=== PATIENT | female | born 1990 | race Caucasian/White ===

== ENCOUNTER 2020-12-24 20:49 | Emergency (ER) | payer MEDICAID, SELFPAY ==
[2020-12-24 20:49] VITALS: BP 133/76; PULSE 50; RESP 18; TEMP 36.2; O2SAT 98; BMI 24.2
--- NOTE | 2020-12-24 21:02 | CT_ITS ---
HISTORY: LEFT SIDED BACK PAIN WITH VOMITING X 1 DAY, HX KS IN PAST WITH ONE LITHOTRIPSY TECHNIQUE: Helically acquired images were obtained of the abdomen and pelvis without oral or IV contrast. A radiation dose optimization technique was used for this scan. COMPARISON: None FINDINGS: # of images incl. paperwork: 442 LUNG BASES: clear. CT abdomen: Bones are unremarkable. The gallbladder has been resected.. Liver, spleen, pancreas, and adrenal glands are normal. The kidneys are normal. The aorta is normal. There is no intra-or extrahepatic biliary ductal dilatation. CT pelvis: No ascites is noted. The ap pendix is normal. Series 2 Im 95 The uterus and ovaries are not pathologically enlarged . The bladder is decompressed Bowel gas pattern is normal. CT/Abdomen/Pelvis without Cont IMPRESSION: No acute intra-abdominal or pelvic disease. Individualized dose optimization techniques were used for this CT. at 2236 Reported and signed by: Tejas Archer MD Electronically Signed: Tejas Archer MD at 22:35 EST Tel , Service support ,
[2020-12-24] MEDS: Ketorolac 30 MG/ML Syringe IV (21:19)
[2020-12-24] MEDS: Ondansetron 4 MG/2 ML Vial IV (21:19)
[2020-12-24] MEDS: morphine 8 MG/ML Syringe IV (21:19)
[2020-12-24] MEDS: 0.9% Normal Saline 1,000 ML 250 ML IV (21:19)
[2020-12-24 21:22] LABS: Absolute Lymphocyte Count 1.25 X10^3/uL (0.83-4.51); Basophil# 0.03 X10^3/uL; Basophil% 0.4 % (0-1); Eosinophil# 0.01 X10^3/uL; Eosinophils% 0.1 % (0-5); Hematocrit 43.5 % (37-47); Hemoglobin 14.4 g/dL (12.0-15.0); Lymphocyte # 1.25 X10^3/ul (4.0); Lymphocyte % 14.8 % (19-41); Mean Corp Hgb Conc 33.1 g/dL (32-36); Mean Corpuscular Hgb 29.2 pg (27.0-32.0); Mean Corpuscular Volume 88.2 fL (81-99); Monocyte# 0.18 X10^3/uL; Monocyte% 2.1 % (0-10); NRBC Flagged by Analyzer 0 % (0-5); Neutrophil # 6.97 X10^3/uL (2.7-7.7); Neutrophil % 82.2 % (47-70); Platelet Count 340 K/mm3 (150-450); RBC Distribution Width CV 13.4 % (11.6-14.6); RBC Distribution Width SD 43.6 fl (35.1-43.9); Red Blood Count 4.93 M/mm3 (4.2-5.4); White Blood Count 8.5 K/mm3 (4.4-11.0)
[2020-12-24 21:26] VITALS: BP 124/82; PULSE 48; RESP 15; O2SAT 99
--- NOTE | 2020-12-24 21:32 | ED.VIS.GEN ---
History of Present Illness Chief Complaint: Nausea/Vomiting Informant: Patient Onset: Days Maximum Severity: Mild Narrative: Flank pain and nausea and vomiting for days, prior history of 5 years ago of a large kidney stone on the left nothing recent, no fever no cough normal bowel bladder habits, denies no dysuria coronavirus exposures Past Medical History - Allergies and Home Meds Allergies/Adverse Reactions: Allergies No Known Allergies Allergy (Verified 12/24/20 20:51) Primary Care Physician: NOT,DEFINED [NON-STAFF] - Past Medical History: - - Kidney stones Smoking Status: Current some day smoker Review of Systems General: Denies: Chills, Fever, Sweats Eyes: Denies: Visual changes - bilaterally, Diplopia ENT: Denies: Rhinorrhea, Sore throat Cardiovascular: Denies: Chest pain, Palpitations Respiratory: Denies: Dyspnea, Cough, Dyspnea on exertion Gastrointestinal: Reports: Vomiting. Denies: Abdominal pain, Nausea, Diarrhea, Melena, Hematochezia Genitourinary: Denies: Dysuria, Hematuria, Frequency Musculoskeletal: Reports: Back pain. Denies: Extremity Pain Skin: Denies: Rash, Wounds Neurological: Denies: Headache, Weakness, Numbness Physical Exam Vital Signs/Narrative: Vital Signs Temp Pulse Resp BP Pulse Ox 12/24/20 21:26 48 L 15 124/82 H 99 12/24/20 20:49 97.1 F L 50 L 18 133/76 H 98 General: Well nourished, Well developed, No Acute Distress Head: Normocephalic, Atraumatic Eyes: Perrl, EOMI ENT: Moist mucous membranes, No rhinorrhea Neck: Supple, Nontender Cardiovascular: Regular rate, Regular rhythm, No murmurs Respiratory: No distress, CTA bilaterally, Chest nontender Abdomen: Soft, Nontender, Nondistended, Normal bowel sounds Back: Normal Inspection, CVA tenderness Extremities: Nontender, No edema Skin: Normal color, No rash Neurological: Alert, Oriented x3, Cranial nerves II-XII grossly intact, Normal Strength, Normal Sensation Psychological: Normal affect, Normal Mood Diagnostic/Tx/Re-eval - Medical Decision Making Patient's vital signs are unremarkable she is a very mild pain to the left flank area, abdomen soft and nontender given all the above ED screening evaluation pain management CT ED screening evaluation labs are generally unremarkable see those reports her blood sugar is 132 she has no known history of diabetes prelim UA shows nothing acute if formal UA shows any signs of UTI she will be treated, she has no history of [place] no UTI symptoms, flank CT shows nothing acute appendix normal as are other intra-abdominal structures He received IV fluids I explained all the above to her she is comfortable with discharge home to follow with her outpatient providers she will be given Naprosyn and Zofran and will return for change in symptoms Home stable Final impression left flank pain with vomiting etiology unclear ED Disposition - Plan for ED Patient: Diagnosis: Flank pain Instructions: ED Flank Pain, Uncertain Cause Prescriptions: Naproxen [Naprosyn] 500 mg PO BID PRN #20 tab Prescription Printed Ondansetron [Zofran Odt] 4 mg PO Q8H PRN PRN #10 tab PRN Reason: Nausea Prescription Printed Referrals: NOT,DEFINED [NON-STAFF] -
[2020-12-24 21:36] LABS: Anion Gap 5 (5-15); BUN 18 mg/dL (7-18); BUN/Creat Ratio 21.4 RATIO (10-20); Calcium,Total 9.5 mg/dL (8.5-10.1); Chloride 104 mmol/L (98-107); Creatinine, Serum 0.84 mg/dL (0.55-1.02); EST Glomerular Filtration Rate 85 mL/min (>60); Est Glom Filt Rate - Afr Amer 103 mL/min (>60); Estimated Creatinine Clearance 92.51 ml/min; Glucose 132 mg/dL (74-106); Lipase 92 U/L (73-393); Potassium 3.6 mmol/L (3.5-5.1); Sodium Level 137 mmol/L (136-145)
[2020-12-24 21:50] LABS: AST(SGOT) 41 U/L (15-37); Alanine Aminotransfer ALT/SGPT 88 U/L (13-56); Albumin, Serum 4.2 g/dL (3.2-5.0); Alkaline Phosphatase 45 U/L (45-117); Bilirubin, Direct 0.12 mg/dL (0.00-0.30); Protein, Total 8.2 g/dL (6.4-8.2)
[2020-12-24 21:58] LABS: Internal QC Validated? YES +Cl - CLEAR BKGD; Pregnancy, Serum, hCG Quali. NEGATIVE Negative
[2020-12-24 22:43] LABS: Color, Urine Yellow (Yellow); Glucose, Dipstick Normal (Normal); Leukocyte Esterase-Dipstick 25 /ul (Negative); Nitrite-Dipstick Negative (Negative); Occult Blood-Urine Negative /ul (Negative); Protein-Dipstick 30 mg/dl (Negative); Urine Bilirubin Dipstick Negative (Negative); Urine Clarity Sl. Cloudy (Clear); Urine Urobilinogen Normal (Normal)
[2020-12-24 23:01] LABS: Ketone-Dipstick 150 mg/dl (Negative)
[2020-12-24 23:05] LABS: Bacteria RARE /hpf (None Seen); Mucous, Urine 2+ /hpf (<or=2+); Red Blood Cells-Urine 0-5 SEEN /hpf (0-5); Squamous Epithelial Cells - UA 5-10 SEEN /hpf (5-10); White Blood Cells 0-5 SEEN /hpf (0-5)
== END 2020-12-24 23:27 | disposition home or self-care (01) ==
LOC: ED 21:34
PROVIDERS: Emergency Provider Emergency Medicine
DX: R10.9 Unspecified abdominal pain (principal); R11.2 Nausea with vomiting, unspecified; Z87.442 Personal history of urinary calculi; F17.200 Nicotine dependence, unspecified, uncomplicated
CPT/HCPCS: 74176; 80048; 80076; 81001; 83690; 84703; 85025; 87086; 87088; 96361; 96374; 96375; 99282; J7030; A4216; J2405

== ENCOUNTER 2020-12-31 10:02 | Emergency (ER) | payer MEDICAID, SELFPAY ==
[2020-12-31 10:03] VITALS: BP 142/94; PULSE 64; RESP 20; TEMP 36.6; O2SAT 100; BMI 25.0
[2020-12-31 10:04] VITALS: BP 142/94; PULSE 64; RESP 20; TEMP 36.6; O2SAT 100
--- NOTE | 2020-12-31 10:14 | ED.DCSUM_ITS ---
History of Present Illness Chief Complaint: Flank Pain Informant: Patient - Abdominal Pain/Flank Pain Onset: Yesterday Context: Sudden Onset - while at rest Timing: Continuous, Waxes and wanes Quality: Aching Location: Left Flank Current Severity: Moderate Maximum Severity: Severe Worsened by: Nothing Relieved by: Nothing - Nausea/Vomiting/Emesis GI Symptom: Nausea, Vomiting Quality: Nonbilious. Negative for: Blood streaks Severity: Moderate - Diarrhea/Melena/Hematochezia GI Symptom: Negative for: Diarrhea, Melena, Hematochezia Associated Symptoms: Negative for: Dysuria, Frequency, Hematuria, Urgency Narrative: Patient with sudden onset severe left flank pain that started last night, no abdominal pain, although now she is having some soreness due to all of the vomiting, pain is mostly in her left low back. History of kidney stones including lithotripsy for a 10 mm stone remotely, she used to live in the [facility] area and does not remember the urologist that she had there but states she lives locally around here now does not yet have a local urologist. States that she was here for similar pain about a week ago and had a negative CT, the pain went away but now came back in a similar. She denies any urinary symptoms or other symptoms. Prior similar symptoms: Yes - With prior kidney stones - Past Medical History (1) Kidney stones Status: Chronic Past Medical History - Allergies and Home Meds Allergies/Adverse Reactions: Allergies No Known Allergies Allergy (Verified 12/31/20 10:04) Primary Care Physician: Care Physician,No Primary [Primary Care Provider] - Surgical History: cholecystectomy Smoking Status: Current some day smoker Review of Systems General: Denies: Chills, Fever, Sweats Eyes: Denies: Visual changes - bilaterally, Diplopia ENT: Denies: Rhinorrhea, Sore throat Cardiovascular: Denies: Chest pain, Palpitations Respiratory: Denies: Dyspnea, Cough, Dyspnea on exertion Gastrointestinal: Reports: Nausea, Vomiting. Denies: Abdominal pain, Diarrhea, Melena, Hematochezia Genitourinary: Denies: Dysuria, Hematuria, Frequency Musculoskeletal: Reports: Back pain. Denies: Swelling, Extremity Pain Skin: Denies: Rash, Wounds Neurological: Denies: Headache, Weakness, Numbness Physical Exam Vital Signs/Narrative: Vital Signs Temp Pulse Resp BP Pulse Ox 12/31/20 10:03 97.9 F 64 20 H 142/94 H 100 Inital Vital Signs reviewed: Yes General: Well nourished, Well developed, No Acute Distress Head: Normocephalic, Atraumatic Eyes: Perrl, EOMI ENT: Moist mucous membranes, No rhinorrhea Neck: Supple, Nontender Cardiovascular: Regular rate, Regular rhythm, No murmurs Respiratory: No distress, CTA bilaterally, Chest nontender Abdomen: Soft, Nondistended, Normal bowel sounds, Tender - Mild throughout left side. Negative for: Guarding, Rebound tenderness Back: Normal Inspection, CVA tenderness - Left only. No rash. Extremities: Nontender, No edema Skin: Normal color, No rash, No Trauma Neurological: Alert, Oriented x3, Cranial nerves II-XII grossly intact, Normal S trength, Normal Sensation, Normal Gait Psychological: Normal affect, Normal Mood Diagnostic/Tx/Re-eval Impressions Abdomen/Pelvis CT 12/31/20 10:18 IMPRESSION: 2.6 cm x 3.1 cm complex cyst in the right ovary. Status post cholecystectomy with mild intrahepatic biliary ductal dilatation. Electronically Signed: Blane Villanueva MD at 11:12 EST , Service support , 12/31/20 10:18 CT Abd [Abdomen/Pelvis W IV Cont ONLY] [CT] Stat Laboratory Results 12/31/20 12/31/20 12/31/20 10:20 10:20 12:10 WBC 8.9 RBC 4.74 Hgb 14.1 Hct 43.1 MCV 90.9 MCH 29.7 MCHC 32.7 RDW Std Deviation 45.3 H RDW Coeff of Gregoria 13.6 Plt Count 308 MPV 9.8 Immature Gran % (Auto) 0.500 Neut % (Auto) 80.0 H Lymph % (Auto) 14.9 L Schley % (Auto) 3.8 Eos % (Auto) 0.5 Baso % (Auto) 0.3 Absolute Neuts (auto) 7.1 Absolute Lymphs (auto) 1.32 Nucleated RBC % 0 Sodium 140 Potassium 3.7 Chloride 107 Carbon Dioxide 30.0 Anion Gap 3 L BUN 13 Creatinine 0.86 Estim Creat Clear Calc 86.85 Est GFR (MDRD) Af Amer 101 Est GFR (MDRD) Non-Af 83 BUN/Creatinine Ratio 15.2 Glucose 112 H Calcium 8.9 Urine Color Yellow Urine Clarity Sl. Cloudy Urine pH 8.0 Ur Specific Irving 1.010 Urine Protein 15 H Urine Glucose (UA) Normal Urine Ketones 15 H Urine Occult Blood Negative Urine Nitrite Negative Urine Bilirubin Negative Urine Urobilinogen Normal Ur Leukocyte Esterase Negative Urine RBC 0 SEEN Urine WBC 0 SEEN Ur Squamous Epith Cells 0-5 SEEN Urine Bacteria 0 SEEN Urine Mucus 0 SEEN - Medical Decision Making Patient recently had a negative noncontrasted CT for similar symptoms. I repeated her renal function which is normal, her blood counts are normal, and performed a repeat CT but with IV contrast to better evaluate for other pathology such as renal infarct, diverticulitis, etc. This also was negative for any acute pathology. Urine shows no infection. The CT did show a complex right ovarian cyst which I discussed with the patient but I do not think that is related to her pain and is an incidental finding. She is not really tender in her pelvis, and barely tender on the left side when she was in discomfort, so I do not think this is an ovarian process at all. As I discussed with her musculoskeletal and functional GI etiologies are in the differential even with normal CT and labs. She has not been constipated so it is not that. I advised close outpatient follow-up if she continues to have discomfort but I would recommend against narcotics at this time given the possibility of it constipating her and confusing the picture in this context. Patient has no PCP so she was referred to the next doctor on the unassigned list, Dr. Frias. Given prn prescriptions for dicyclomine and Zofran. ED Disposition - Plan for ED Patient: Disposition: Home or Assisted Living Diagnosis: Acute left flank pain Instructions: ED Flank Pain, Uncertain Cause Prescriptions: Dicyclomine HCl [Bentyl] 1 - 2 cap PO Q6H PRN #20 cap PRN Reason: pain Transmission Status: P[facility] to [id number] Ondansetron [Zofran Odt] 8 mg PO Q8H PRN PRN #20 tab PRN Reason: Nausea Transmission Status: [id number] Referrals: John Frias MD [NON-STAFF] - 3-5 Days if not improving
--- NOTE | 2020-12-31 10:18 | CT_ITS ---
STUDY: CT ABDOMEN AND PELVIS WITH CONTRAST REASON FOR EXAM: Female, 30 years old. LEFT FLANK/ PELVIS PAIN WITH HISTORY OF KS. RADIATION DOSAGE (If Supplied By Facility): CTDIvol = ( 14.16 ) mGy, DLP = ( 1334.69 ) mGycm TECHNIQUE: Transaxial images were obtained from the dome of the diaphragm to the symphysis pubis without oral contrast. IV 100mL [id number]-[id number] was administered. Sagittal and coronal images were reconstructed. Individualized dose optimization techniques were used for this CT. COMPARISON: Comparison is made with prior study dated 12/24/2020. FINDINGS: The visualized lung bases are unremarkable. The visualized portions of the heart are within normal limits. Minimal degree of the intrahepatic artery ductal dilatation. There are surgical clips in the gallbladder fossa consistent with a prior cholecystectomy. Normal spleen. Normal pancreas. Normal bilateral adrenal glands. Normal right kidney. Normal left kidney. Normal visualized stomach. Normal small intestine. Normal colon. The appendix is visualized and appears normal. Normal abdominal aorta. Normal inferior vena cava. Normal retroperitoneum. Normal urinary bladder. There now is evidence of a 2.6 cm x 3.1 cm complex cyst in the right ovary. Normal abdominal wall. Normal osseous structures. CT/Abdomen/Pelvis W IV Cont ONLY IMPRESSION: 2.6 cm x 3.1 cm complex cyst in the right ovary. Status post cholecystectomy with mild intrahepatic biliary ductal dilatation. Electronically Signed: Blane Villanueva MD at 11:12 EST , Service support ,
[2020-12-31] MEDS: Ondansetron 4 MG/2 ML Vial IV (10:26)
[2020-12-31] MEDS: Morphine 4 MG/ML Syringe IV (10:27)
[2020-12-31] MEDS: Ketorolac 30 MG/ML Syringe IV (10:28)
[2020-12-31] MEDS: 0.9% Normal Saline 1,000 ML 999 ML IV (10:28)
[2020-12-31 10:31] LABS: Absolute Lymphocyte Count 1.32 X10^3/uL (0.83-4.51); Absolute Neutrophil Count 7.1 X10^3/uL (2.0-7.7); Basophil# 0.03 X10^3/uL; Basophil% 0.3 % (0-1); Eosinophil# 0.04 X10^3/uL; Eosinophils% 0.5 % (0-5); Hematocrit 43.1 % (37-47); Hemoglobin 14.1 g/dL (12.0-15.0); Lymphocyte # 1.32 X10^3/ul (4.0); Lymphocyte % 14.9 % (19-41); Mean Corp Hgb Conc 32.7 g/dL (32-36); Mean Corpuscular Hgb 29.7 pg (27.0-32.0); Mean Corpuscular Volume 90.9 fL (81-99); Mean Platelet Vol. 9.8 fl (6.2-12.0); Monocyte# 0.34 X10^3/uL; Monocyte% 3.8 % (0-10); NRBC Flagged by Analyzer 0 % (0-5); Neutrophil # 7.09 X10^3/uL (2.7-7.7); Platelet Count 308 K/mm3 (150-450); RBC Distribution Width CV 13.6 % (11.6-14.6); RBC Distribution Width SD 45.3 fl (35.1-43.9); Red Blood Count 4.74 M/mm3 (4.2-5.4); White Blood Count 8.9 K/mm3 (4.4-11.0)
[2020-12-31 10:43] LABS: Anion Gap 3 (5-15); BUN 13 mg/dL (7-18); BUN/Creat Ratio 15.2 RATIO (10-20); Calcium,Total 8.9 mg/dL (8.5-10.1); Chloride 107 mmol/L (98-107); Creatinine, Serum 0.86 mg/dL (0.55-1.02); EST Glomerular Filtration Rate 83 mL/min (>60); Est Glom Filt Rate - Afr Amer 101 mL/min (>60); Estimated Creatinine Clearance 86.85 ml/min; Glucose 112 mg/dL (74-106); Potassium 3.7 mmol/L (3.5-5.1); Sodium Level 140 mmol/L (136-145)
[2020-12-31] MEDS: Metoclopramide 10 MG/2 ML Vial 5 MG IV (11:56)
[2020-12-31 12:22] LABS: Bacteria 0 SEEN /hpf (None Seen); Mucous, Urine 0 SEEN /hpf (<or=2+); Red Blood Cells-Urine 0 SEEN /hpf (0-5); White Blood Cells 0 SEEN /hpf (0-5)
[2020-12-31 12:29] LABS: Color, Urine Yellow (Yellow); Glucose, Dipstick Normal (Normal); Ketone-Dipstick 15 mg/dl (Negative); Leukocyte Esterase-Dipstick Negative /ul (Negative); Nitrite-Dipstick Negative (Negative); Occult Blood-Urine Negative /ul (Negative); Protein-Dipstick 15 mg/dl (Negative); Urine Bilirubin Dipstick Negative (Negative); Urine Clarity Sl. Cloudy (Clear); Urine Urobilinogen Normal (Normal)
[2020-12-31 12:40] LABS: Squamous Epithelial Cells - UA 0-5 SEEN /hpf (5-10)
[2020-12-31 12:54] VITALS: BP 130/84; PULSE 64; RESP 16; O2SAT 100
[2020-12-31 13:31] VITALS: BP 130/76; PULSE 65; RESP 16; O2SAT 99
== END 2020-12-31 13:40 | disposition home or self-care (01) ==
PROVIDERS: Emergency Provider Emergency Medicine
DX: R10.9 Unspecified abdominal pain (principal); R11.2 Nausea with vomiting, unspecified; N83.201 Unspecified ovarian cyst, right side; Z87.442 Personal history of urinary calculi; Z90.49 Acquired absence of other specified parts of digestive tract; F17.200 Nicotine dependence, unspecified, uncomplicated
CPT/HCPCS: 74177; 80048; 81001; 85025; 96361; 96374; 96375; 96376; 99283; Q9967; J2405

== ENCOUNTER 2022-12-21 12:54 | Emergency (ER) | payer MEDICAID, SELFPAY ==
[2022-12-21 12:55] VITALS: BP 123/93; PULSE 101; RESP 18; TEMP 35.8; O2SAT 99; BMI 27.3
== END 2022-12-21 13:09 | disposition home or self-care (01) ==
LOC: ED 13:08
DX: R10.9 Unspecified abdominal pain (principal)

== ENCOUNTER 2023-04-17 18:57 | Emergency (ER) | payer MEDICAID, SELFPAY ==
[2023-04-17 18:58] VITALS: BP 152/97; PULSE 57; RESP 18; TEMP 36.6; O2SAT 98; BMI 26.4
--- NOTE | 2023-04-17 19:11 | CT_ITS ---
STUDY: CT ABDOMEN AND PELVIS WITHOUT CONTRAST REASON FOR EXAM: Female, 32 years old. Nausea, vomiting, left flank pain RADIATION DOSAGE (If Supplied By Facility): CTDIvol = ( 7.39 ) mGy, DLP = ( 372.76 ) mGycm TECHNIQUE: Transaxial images were obtained from the dome of the diaphragm to the symphysis pubis without oral contrast, and without intravenous contrast. Sagittal and coronal images were reconstructed. Individualized dose optimization techniques were used for this CT. COMPARISON: None. FINDINGS: The visualized lung bases are unremarkable. The visualized portions of the heart are within normal limits. Normal liver. There are surgical clips in the gallbladder fossa consistent with a prior cholecystectomy. Normal spleen. Normal pancreas. Normal bilateral adrenal glands. No hydronephrosis. No ureter calculi. Normal visualized stomach. Normal small intestine. Normal colon. The appendix is visualized and appears normal. Normal abdominal aorta. 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 Normal retroperitoneum. Normal urinary bladder. Normal visualized uterus. Left ovarian follicle. Normal abdominal wall. Normal osseous structures. CT/Abdomen/Pelvis without Cont IMPRESSION: No hydronephrosis or urinary tract calcifications. Electronically Signed: Jero Henderson (Brooks), at 20:43 EDT Reading Location ID and State: [facility] / [place] , Service support ,
--- NOTE | 2023-04-17 19:13 | ED.VIS.GI ---
HPI HPI - GI History of Present Illness Chief Complaint: Nausea/Vomiting Detail of Chief Complaint: Left flank pain. Informant: patient Abdominal Pain/Flank Pain Onset: Today Context: Sudden Onset Timing: Intermittent Quality: Stabbing Location: Left Flank Current Severity: Mild Maximum Severity: Moderate Worsened by: Nothing Relieved by: Nothing Nausea/Vomiting/Emesis GI Symptom: Positive for Nausea and Vomiting Onset: Today Severity: Moderate Diarrhea/Melena/Hematochezia GI Symptom: Negative for Diarrhea, Melena or Hematochezia Associated Symptoms Associated Symptoms: Positive for Dysuria; Negative for Frequency, Hematuria or Urgency Narrative Narrative: 32-year-old female history of ovarian cyst prior kidney stones needed surgery for 10 mm kidney stone last year. Prior tubal ligation. Prior cholecystectomy. States she had left flank pain today thinking it may be a kidney stone or UTI and then start developing nausea and vomiting. No fever. Positive dysuria. No vaginal bleeding. Prior similar symptoms: Yes Recent Illness/Hospitalization: No PFSH PFSH Medical History no medical history Home Medications Medical Marijuana 12/24/20 [History Last Taken Unknown] naproxen 500 mg tablet 500 mg PO BID PRN #20 tabs 12/24/20 [Rx Last Taken Unknown] ondansetron 4 mg disintegrating tablet 4 mg PO Q8H PRN PRN Nausea #10 tabs 12/24/20 [Rx Last Taken Unknown] dicyclomine 10 mg capsule 1 - 2 cap PO Q6H PRN pain #20 caps 12/31/20 [Rx Last Taken Unknown] ondansetron 4 mg disintegrating tablet 8 mg PO Q8H PRN PRN Nausea #20 tabs 12/31/20 [Rx Last Taken Unknown] ondansetron 4 mg disintegrating tablet 4 mg PO Q6H PRN nausea and vomiting #10 tabs 04/17/23 [Rx Last Taken Unknown] Allergy/AdvReac Type Severity Reaction Status Date / Time No Known Allergies Allergy Verified 04/17/23 19:00 Social History Smoking Status: Never smoker ROS ROS ED ROS Narrative Left flank pain. Nausea vomiting. Review of Systems ROS Unobtainable: Denies due to encephalopathy Constitutional Constitutional ED: Denies chills or fever(s) ENT ENT ED: Denies ear pain Cardiovascular Cardiovascular: Denies chest pain Respiratory/Chest Respiratory/Chest: Denies cough or dyspnea Gastrointestinal Gastrointestinal: Reports abdominal pain, nausea and vomiting; Denies constipation, diarrhea or melena Genitourinary Genitourinary ED: Reports dysuria; Denies hematuria Musculoskeletal Musculoskeletal: Denies arthralgias or back pain Integumentary Denies abscess or Abrasions Neurologic Neurologic: Denies headache(s) Psychiatric Psychiatric: Denies anxiety Endocrine Endocrinology: Denies polydipsia Hematologic/Lymphatic Hematologic/Lymphatic: Denies easy bleeding Allergic/Immunologic Allergic/Immunologic ED: Denies mouth swelling or tongue swelling EXAM Physical Exam Narrative Exam Narrative: 32-year-old female on all fours on the bed vomiting into a bucket. No one else present in the room. H EENT exam unremarkable. Lungs clear. Heart regular rhythm rate about 60 no murmur. Abdomen soft, nondistended normal bowel sounds without peritoneal signs. Both right upper and lower quadrant unremarkable. No distention. Back nontender. Moving all 4 extremities. Nontender no edema. Neurologically she is awake and alert. Const Vital Signs: 04/17/23 18:58 Temperature 97.8 F Temperature Source Temporal Pulse Rate 57 L Respiratory Rate 18 Blood Pressure 152/97 H Blood Pressure Mean 115 Pulse Ox 98 Oxygen Delivery Method Room Air Positive well nourished and well developed; Negative for obese, cachectic, contractures or unkempt General Appearance ED: well developed and NAD; Negative for unkempt, cachectic, contractures or pallor Nutritional Appearance: Negative for cachectic or obese HEENT Reports moist mucous membranes; Denies dry mucous membranes normocephalic and atraumatic; Negative for trauma or tenderness Mouth ED: No dry mucous membranes Mouth: No dry mucous membranes Eyes PERRL and EOMs intact bilaterally General Eye ED: Negative for pale conjunctiva, scleral icterus or other Neck no lymphadenopathy, supple and no JVD General: Negative for tenderness Carotids: Negative for other Resp normal respiratory effort and clear to auscultation bilaterally Effort and Inspection: Negative for respiratory distress Auscultation: Negative for rales, rhonchi or wheezes Cardio regular rhythm, S1 normal heart sound, S2 normal heart sound and no murmurs Rate: Negative for bradycardia or tachycardic Rhythm: Negative for abnormal rhythm GI non-tender, non-distended and no masses Inspection: Negative for abdominal distention Auscultation: normoactive bowel sounds Palpation: soft; Negative for tender, guarding, rigid, hepatomegaly, splenomegaly, hernia, mass, pulsatile mass or rebound tenderness present Back/Spine no CVA tenderness Cervical Spine: Negative for cervical spine tenderness Thoracic Spine / Upper Back: Negative for thoracic spinal tenderness Lumbar Spine / Lower Back: Negative for lumbar spinal tenderness Coccyx: Negative for other Extremity full ROM General Extremety ED: Negative for edema or tenderness General Extremity: Negative for edema Neuro CN's II-XII intact bilaterally, moves all extremities and no sensory deficits noted Sensorium / Orientation: alert, oriented to person, oriented to place and oriented to time; Negative for orientation impaired, confused, lethargic or stuporous Motor Exam: strength 5/5 throughout Psych mental status grossly normal and thought process normal Appearance: Negative for unkempt Attitude: No agitated Mood & Affect: Negative for depressed, anxious or tearful Skin no wounds General Skin Exam: Negative for jaundice or pallor Lesions: no lesions Rashes: no rashes Trauma: Negative for abrasion Nails: Negative for discolored MDM MDM MDM Narrative Medical decision making narrative: 32-year-old with left flank pain nausea and vomiting. History of prior kidney stones. Differential would include kidney stone, musculoskeletal flank pain, UTI versus other etiologies. Her gallbladder has been removed. Unlikely she is with a prior tubal ligation. CAT scan labs are being obtained. She will be treated with IV fluids, Zofran for nausea morphine for pain. Repeat exam patient is doing well at 11:25 PM. Patient's IV blew. She had about 700 cc of the fluid. He is given a second dose of Zofran p.o. Repeat exam her abdomen is completely nontender. She is in no distress. Clinically looks better. We went over her test results. I do not have a specific cause of her flank pain. She will be discharged home with oral Zofran. Outpatient follow-up. Return if worse. History & Record Review Discussion w/independent historian: Patient Lab Data Attestation: I reviewed the patient's lab results. Lab results narrative: CBC shows a white count of 14.7. H&H 14.7 and 43. Electrolytes show a gap of 8 normal BUN and creatinine 11 and 0.8. Liver enzymes are unremarkable. Lipase is slightly elevated 94. Serum test negative. Urinalysis is negative. No white or red cells. No nitrates. No bacteria. CT flank study without contrast showed no acute abnormality. No reason for her pain. Labs: Laboratory Results - last 24 hr 04/17/23 04/17/23 04/17/23 19:30 19:30 19:30 WBC 14.7 H RBC 4.99 Hgb 14.7 Hct 43.6 MCV 87.4 MCH 29.5 MCHC 33.7 RDW Std Deviation 47.9 H RDW Coeff of Gregoria 14.8 H Plt Count 369 MPV 9.8 Immature Gran % (Auto) 0.300 Neut % (Auto) 76.2 H Lymph % (Auto) 17.0 L [place] % (Auto) 5.7 Eos % (Auto) 0.5 Baso % (Auto) 0.3 Absolute Neuts (auto) 11.2 H Absolute Lymphs (auto) 2.50 Nucleated RBC % 0 Sodium 140 Potassium 3.6 Chloride 106 Carbon Dioxide 26.0 Anion Gap 8 BUN 11 Creatinine 0.89 Estim Creat Clear Calc 85.74 Est GFR (MDRD) Af Amer 95 Est GFR (MDRD) Non-Af 79 BUN/Creatinine Ratio 12.4 Glucose 115 H Calcium 9.7 Total Bilirubin 0.50 AST 38 H ALT 54 Alkaline Phosphatase 43 L Total Protein 8.3 H Albumin 4.2 Globulin 4.1 Albumin/Globulin Ratio 1.0 Lipase 94 H Serum , Qual NEGATIVE Urine Color Urine Clarity Urine pH Ur Specific [place] Urine Protein Urine Glucose (UA) Urine Ketones Urine Occult Blood Urine Nitrite Urine Bilirubin Urine Urobilinogen Ur Leukocyte Esterase Urine RBC Urine WBC Ur Squamous Epith Cells Calcium Oxalate Crystal Urine Bacteria Urine Mucus 04/17/23 20:30 WBC RBC Hgb Hct MCV MCH MCHC RDW Std Deviation RDW Coeff of Gregoria Plt Count MPV Immature Gran % (Auto) Neut % (Auto) Lymph % (Auto) [place] % (Auto) Eos % (Auto) Baso % (Auto) Absolute Neuts (auto) Absolute Lymphs (auto) Nucleated RBC % Sodium Potassium Chloride Carbon Dioxide Anion Gap BUN Creatinine Estim Creat Clear Calc Est GFR (MDRD) Af Amer Est GFR (MDRD) Non-Af BUN/Creatinine Ratio Glucose Calcium Total Bilirubin AST ALT Alkaline Phosphatase Total Protein Albumin Globulin Albumin/Globulin Ratio Lipase Serum , Qual Urine Color Yellow Urine Clarity Clear Urine pH 6.0 Ur Specific [place] 1.030 Urine Protein 30 H Urine Glucose (UA) Normal Urine Ketones 150 A* Urine Occult Blood 25 H Urine Nitrite Negative Urine Bilirubin 1 H Urine Urobilinogen 1 H Ur Leukocyte Esterase 25 H Urine RBC 0 SEEN Urine WBC 0-5 SEEN Ur Squamous Epith Cells 0-5 SEEN Calcium Oxalate Crystal 1+ Urine Bacteria 0 SEEN Urine Mucus 1+ Radiography Diagnostic Testing: Clinical Impression(s) from Imaging Studies Abdomen/Pelvis CT 04/17/23 19:11 IMPRESSION: No hydronephrosis or urinary tract calcifications. Electronically Signed: Jero Henderson (Brooks), at 20:43 EDT Reading Location ID and State: [facility] / [place] , Service support , Discharge Plan Triage Chief Complaint: Nausea/Vomiting ED Provider: Tio Brock Dx/Rx/DC Orders Clinical Impression: Left flank pain, Vomiting, Hx of renal calculi Instructions: Abdominal Pain, ED Vomiting (Adult) Prescriptions: New ondansetron 4 mg tablet,disintegrating 4 mg PO Q6H PRN (Reason: nausea and vomiting) Qty: 10 0RF No Action Medical Marijuana naproxen 500 MG tablet 500 mg PO BID PRN Qty: 20 0RF ondansetron 4 MG tablet 4 mg PO Q8H PRN PRN (Reason: Nausea) Qty: 10 0RF dicyclomine 10 MG capsule 1 - 2 cap PO Q6H PRN (Reason: pain) Qty: 20 0RF ondansetron 4 MG tablet 8 mg PO Q8H PRN PRN (Reason: Nausea) Qty: 20 0RF Primary Care Provider: Care Physician,No Primary Referrals: Milton Hammond MD [Non-Staff] - 3-5 Days if not improving Care Physician,No Primary [Primary Care Provider] - Activity Restrictions/Additional Instructions: Plenty of fluids and rest. Slowly increase your diet as tolerated. Zofran as needed for nausea which you may swallow or let dissolve under your tongue. Follow-up with a local primary care physician if not improving or return if worse. Your labs and CAT scan tonight were basically unremarkable. Disposition Disposition: Home, Self Care
[2023-04-17] MEDS: 0.9% Normal Saline 1,000 ML 1000 ML IV (19:30)
[2023-04-17] MEDS: Ketorolac 30 MG/ML Syringe IV (19:31)
[2023-04-17] MEDS: Morphine 4 MG/ML Syringe IV (19:31)
[2023-04-17] MEDS: Ondansetron 4 MG/2 ML Vial IV ×2 (19:31→20:42)
[2023-04-17 19:50] LABS: Absolute Neutrophil Count 11.2 X10^3/uL (2.0-7.7); Basophil# 0.05 X10^3/uL; Basophil% 0.3 % (0-1); Eosinophil# 0.08 X10^3/uL; Eosinophils% 0.5 % (0-5); Hematocrit 43.6 % (37-47); Hemoglobin 14.7 g/dL (12.0-15.0); Mean Corp Hgb Conc 33.7 g/dL (32-36); Mean Corpuscular Hgb 29.5 pg (27.0-32.0); Mean Corpuscular Volume 87.4 fL (81-99); Mean Platelet Vol. 9.8 fl (6.2-12.0); Monocyte# 0.83 X10^3/uL; Monocyte% 5.7 % (0-10); NRBC Flagged by Analyzer 0 % (0-5); Neutrophil # 11.16 X10^3/uL (2.7-7.7); Neutrophil % 76.2 % (47-70); Platelet Count 369 K/mm3 (150-450); RBC Distribution Width CV 14.8 % (11.6-14.6); RBC Distribution Width SD 47.9 fl (35.1-43.9); Red Blood Count 4.99 M/mm3 (4.2-5.4); White Blood Count 14.7 K/mm3 (4.4-11.0)
[2023-04-17 20:03] LABS: Internal QC Validated? YES +Cl - CLEAR BKGD; Pregnancy, Serum, hCG Quali. NEGATIVE Negative
[2023-04-17 20:08] LABS: AST(SGOT) 38 U/L (15-37); Alanine Aminotransfer ALT/SGPT 54 U/L (13-56); Albumin, Serum 4.2 g/dL (3.2-5.0); Alkaline Phosphatase 43 U/L (45-117); Anion Gap 8 (5-15); BUN 11 mg/dL (7-18); BUN/Creat Ratio 12.4 RATIO (10-20); Calcium,Total 9.7 mg/dL (8.5-10.1); Chloride 106 mmol/L (98-107); Creatinine, Serum 0.89 mg/dL (0.55-1.02); EST Glomerular Filtration Rate 79 mL/min (>60); Est Glom Filt Rate - Afr Amer 95 mL/min (>60); Estimated Creatinine Clearance 85.74 ml/min; Globulin 4.1 g/dL (2.2-4.2); Glucose 115 mg/dL (74-106); Lipase 94 U/L (13-75); Potassium 3.6 mmol/L (3.5-5.1); Protein, Total 8.3 g/dL (6.4-8.2); Sodium Level 140 mmol/L (136-145)
[2023-04-17 20:44] LABS: Bacteria 0 SEEN /hpf (None Seen); Red Blood Cells-Urine 0 SEEN /hpf (0-5)
[2023-04-17 20:45] LABS: Color, Urine Yellow (Yellow); Glucose, Dipstick Normal (Normal); Leukocyte Esterase-Dipstick 25 /ul (Negative); Nitrite-Dipstick Negative (Negative); Occult Blood-Urine 25 /ul (Negative); Protein-Dipstick 30 mg/dl (Negative); Urine Clarity Clear (Clear); Urine Urobilinogen 1 mg/dl (Normal)
[2023-04-17 20:53] LABS: Urine Bilirubin Dipstick 1 mg/dL (Negative)
[2023-04-17 20:54] LABS: Ketone-Dipstick 150 mg/dl (Negative)
[2023-04-17 21:17] LABS: Squamous Epithelial Cells - UA 0-5 SEEN /hpf (5-10)
[2023-04-17 21:18] LABS: Calcium Oxalate Crystals Ur 1+ /hpf (<or=2+); Mucous, Urine 1+ /hpf (<or=2+); White Blood Cells 0-5 SEEN /hpf (0-5)
[2023-04-17 23:00] VITALS: BP 138/75; PULSE 80; RESP 18; O2SAT 98
[2023-04-17] MEDS: Ondansetron ODT 4 MG Tablet PO (23:35)
== END 2023-04-18 00:22 | disposition home or self-care (01) ==
PROVIDERS: Emergency Provider Emergency Medicine; Visit Provider Emergency Medicine
DX: R10.9 Unspecified abdominal pain (principal); R11.2 Nausea with vomiting, unspecified; Z87.442 Personal history of urinary calculi; Z90.49 Acquired absence of other specified parts of digestive tract
CPT/HCPCS: 74176; 80053; 81001; 83690; 84703; 85025; 96361; 96374; 96375; 99283; J7030; A4216; J2405

== ENCOUNTER 2023-04-19 12:44 | Emergency (ER) | payer MEDICAID, SELFPAY ==
[2023-04-19 12:45] VITALS: BP 124/86; PULSE 105; RESP 14; TEMP 36.6; O2SAT 99; BMI 25.9
--- NOTE | 2023-04-19 12:56 | EDS_ITS ---
HPI HPI - GI History of Present Illness Chief Complaint: Abd Pain Informant: patient Abdominal Pain/Flank Pain Onset: Days (3) Context: Sudden Onset Timing: Continuous Quality: Sharp Location: Diffuse Worsened by: Nothing Relieved by: Nothing Nausea/Vomiting/Emesis GI Symptom: Positive for Nausea and Vomiting Onset: Days (3) Quality: Positive for Coffee ground (Dark) Diarrhea/Melena/Hematochezia GI Symptom: Negative for Diarrhea, Melena or Hematochezia Associated Symptoms Associated Symptoms: Positive for Dysuria; Negative for Frequency or Hematuria LMP: Approximately 2 weeks ago Narrative Narrative: Patient presents with abdominal pain that has gotten worse over the last 3 days. Patient was seen here 2 days ago and had a CT scan done at that time which was negative. Patient had blood work done at that time which was unremarkable. Patient states her pain is gotten worse. Patient states it is constant and sharp. Patient states it is diffuse across her abdomen. Patient states nothing makes it better nothing makes it worse. Patient admits to some nausea and vomiting. Patient states she has had some dark emesis. Patient denies any diarrhea, melena, or hematochezia. Patient does admit to some dysuria but denies any frequency or hematuria. Patient states her last menstrual period was approximately 2 weeks ago. PFSH PFSH Medical History no medical history Home Medications Medical Marijuana 12/24/20 [History Last Taken Unknown] naproxen 500 mg tablet 500 mg PO BID PRN #20 tabs 12/24/20 [Rx Last Taken Unknown] ondansetron 4 mg disintegrating tablet 4 mg PO Q8H PRN PRN Nausea #10 tabs 12/24/20 [Rx Last Taken Unknown] dicyclomine 10 mg capsule 1 - 2 cap PO Q6H PRN pain #20 caps 12/31/20 [Rx Last Taken Unknown] ondansetron 4 mg disintegrating tablet 8 mg PO Q8H PRN PRN Nausea #20 tabs 12/31/20 [Rx Last Taken Unknown] ondansetron 4 mg disintegrating tablet 4 mg PO Q6H PRN nausea and vomiting #10 tabs 04/17/23 [Rx Last Taken Unknown] Allergy/AdvReac Type Severity Reaction Status Date / Time No Known Allergies Allergy Verified 04/19/23 12:45 Surgical History (Updated 04/19/23 @ 13:[address] Richard Palmer, DO) History of laparoscopic cholecystectomy History of ureter stent Hx of tubal ligation Surgical History no surgical history Social History Smoking Status: Never smoker ROS ROS ED Constitutional Constitutional ED: Reports chills and subjective; Denies fever(s) Eyes Eyes: Denies blurry vision or change in vision ENT ENT ED: Denies rhinorrhea or sore throat Cardiovascular Cardiovascular: Reports palpitations; Denies chest pain Respiratory/Chest Respiratory/Chest: Denies cough or dyspnea Gastrointestinal Gastrointestinal: Reports abdominal pain, nausea and vomiting Genitourinary Genitourinary ED: Reports dysuria; Denies hematuria Musculoskeletal Musculoskeletal: Reports back pain; Denies neck pain Integumentary Denies abscess or rash Neurologic Neurologic: Denies headache(s) or weakness Allergic/Immunologic Allergic/Immunologic ED: Denies mouth swelling or urticaria EXAM Physical Exam Const Vital Signs: 04/19/23 12:45 Temperature 97.9 F Temperature Source Temporal Pulse Rate 105 H Respiratory Rate 14 Blood Pressure 124/86 H Blood Pressure Mean 98 Pulse Ox 99 Oxygen Delivery Method Room Air Positive well nourished and well developed General Appearance ED: well developed and NAD HEENT Reports moist mucous membranes Neck supple and no JVD Resp normal respiratory effort and clear to auscultation bilaterally Cardio regular rate, regular rhythm and no murmurs GI normal to inspection, nondistended, normoactive bowel sounds Palpation: soft and tender epigastric, LLQ, RLQ, LUQ, RUQ, periumbilical and suprapubic; Negative for guarding or rebound tenderness present Extremity normal to inspection General Extremety ED: Negative for edema or tenderness General Extremity: Negative for edema Neuro oriented x3, CN's II-XII intact bilaterally and no sensory deficits noted Sensorium / Orientation: alert Motor Exam: strength 5/5 throughout Psych mental status grossly normal Skin no rashes or lesions noted MDM MDM MDM Narrative Medical decision making narrative: Differential diagnosis includes urinary tract infection, gastroenteritis, pyelonephritis, and pancreatitis. CBC will be obtained to assess for leukocytosis and anemia. Comprehensive metabolic profile will be obtained to assess for hepatic function, renal function, and electrolyte abnormality. Lipase will be obtained to assess for pancreatitis. Urinalysis will be obtained to assess for urinary tract infection and hematuria. Patient did have a CT scan 2 days ago which was negative. I do not think she needs a repeat CT scan today. Lab Data Attestation: I reviewed the patient's lab results. Lab results narrative: CBC was reviewed and was essentially within normal limits. Comprehensive metabolic profile was reviewed and was within normal limits. Lipase was reviewed and was normal at 28. Urinalysis was reviewed. There is no evidence of urinary tract infection or hematuria. Labs: Laboratory Results - last 24 hr 04/19/23 04/19/23 04/19/23 13:20 13:20 14:30 WBC 10.3 RBC 5.28 Hgb 15.3 H Hct 44.9 MCV 85.0 MCH 29.0 MCHC 34.1 RDW Std Deviation 44.3 H RDW Coeff of Gregoria 14.4 Plt Count 398 MPV 9.9 Immature Gran % (Auto) 0.200 Neut % (Auto) 61.7 Lymph % (Auto) 26.5 [place] % (Auto) 11.3 H Eos % (Auto) 0.1 Baso % (Auto) 0.2 Absolute Neuts (auto) 6.4 Absolute Lymphs (auto) 2.73 Nucleated RBC % 0 Sodium 134 L Potassium 3.3 L Chloride 95 L Carbon Dioxide 30.0 Anion Gap 9 BUN 21 H Creatinine 0.95 Estim Creat Clear Calc 80.32 Est GFR (MDRD) Af Amer 88 Est GFR (MDRD) Non-Af 73 BUN/Creatinine Ratio 22.1 H Glucose 97 Calcium 10.5 H Total Bilirubin 0.90 AST 34 ALT 50 Alkaline Phosphatase 42 L Total Protein 8.9 H Albumin 4.5 Globulin 4.4 H Albumin/Globulin Ratio 1.0 Lipase 28 Urine Color Yellow Urine Clarity Sl. Cloudy Urine pH 6.0 Ur Specific [place] 1.010 Urine Protein 15 H Urine Glucose (UA) Normal Urine Ketones 50 H Urine Occult Blood 10 H Urine Nitrite Negative Urine Bilirubin Negative Urine Urobilinogen Normal Ur Leukocyte Esterase Negative Urine RBC 0 SEEN Urine WBC 0-5 SEEN Ur Squamous Epith Cells 0-5 SEEN Urine Bacteria RARE Urine Mucus 0 SEEN Treatment and Re-Evaluation :: Patient was given IV fluids. Patient was given morphine and Zofran. Patient is feeling better on reevaluation. Patient was advised of her findings. Patient was instructed to start with small amounts of liquids more frequently. Patient was instructed to advance to a bland diet and then to a regular diet if she feels better. Patient was instructed to continue using the Zofran that was prescribed 2 days ago. Patient was instructed to follow-up with her primary care physician in 5 to 7 days. Patient was instructed return if worse in any way. Patient understood and was agreeable with the plan. All questions were answered. Discharge Plan Triage Chief Complaint: Abd Pain Other Complaint: Nausea/Vomiting ED Provider: Richard Palmer Dx/Rx/DC Orders Clinical Impression: Nausea and vomiting, Abdominal pain Instructions: ED Abdominal Pain Unkn Cause Fem, ED Vomiting (Adult) Prescriptions: No Action Medical Marijuana naproxen 500 MG tablet 500 mg PO BID PRN Qty: 20 0RF ondansetron 4 MG tablet 4 mg PO Q8H PRN PRN (Reason: Nausea) Qty: 10 0RF dicyclomine 10 MG capsule 1 - 2 cap PO Q6H PRN (Reason: pain) Qty: 20 0RF ondansetron 4 MG tablet 8 mg PO Q8H PRN PRN (Reason: Nausea) Qty: 20 0RF ondansetron 4 mg tablet,disintegrating 4 mg PO Q6H PRN (Reason: nausea and vomiting) Qty: 10 0RF Primary Care Provider: Care Physician,No Primary Referrals: Milton Hammond MD [Non-Staff] - 3-5 Days Care Physician,No Primary [Primary Care Provider] - Disposition Disposition: Home, Self Care
[2023-04-19] MEDS: Ondansetron 4 MG/2 ML Vial IV (13:26)
[2023-04-19] MEDS: 0.9% Normal Saline 1,000 ML 1000 ML IV ×2 (13:26→14:30)
[2023-04-19] MEDS: Morphine 4 MG/ML Syringe IV (13:26)
[2023-04-19 13:34] LABS: Absolute Lymphocyte Count 2.73 X10^3/uL (0.83-4.51); Absolute Neutrophil Count 6.4 X10^3/uL (2.0-7.7); Basophil# 0.02 X10^3/uL; Basophil% 0.2 % (0-1); Eosinophil# 0.01 X10^3/uL; Eosinophils% 0.1 % (0-5); Hematocrit 44.9 % (37-47); Hemoglobin 15.3 g/dL (12.0-15.0); Lymphocyte # 2.73 X10^3/ul (0.83-4.51); Lymphocyte % 26.5 % (19-41); Mean Corp Hgb Conc 34.1 g/dL (32-36); Mean Platelet Vol. 9.9 fl (6.2-12.0); Monocyte# 1.17 X10^3/uL; Monocyte% 11.3 % (0-10); NRBC Flagged by Analyzer 0 % (0-5); Neutrophil # 6.37 X10^3/uL (2.7-7.7); Neutrophil % 61.7 % (47-70); Platelet Count 398 K/mm3 (150-450); RBC Distribution Width CV 14.4 % (11.6-14.6); RBC Distribution Width SD 44.3 fl (35.1-43.9); Red Blood Count 5.28 M/mm3 (4.2-5.4); White Blood Count 10.3 K/mm3 (4.4-11.0)
[2023-04-19 13:51] LABS: AST(SGOT) 34 U/L (15-37); Alanine Aminotransfer ALT/SGPT 50 U/L (13-56); Albumin, Serum 4.5 g/dL (3.2-5.0); Alkaline Phosphatase 42 U/L (45-117); Anion Gap 9 (5-15); BUN 21 mg/dL (7-18); BUN/Creat Ratio 22.1 RATIO (10-20); Calcium,Total 10.5 mg/dL (8.5-10.1); Chloride 95 mmol/L (98-107); Creatinine, Serum 0.95 mg/dL (0.55-1.02); EST Glomerular Filtration Rate 73 mL/min (>60); Est Glom Filt Rate - Afr Amer 88 mL/min (>60); Estimated Creatinine Clearance 80.32 ml/min; Globulin 4.4 g/dL (2.2-4.2); Glucose 97 mg/dL (74-106); Lipase 28 U/L (13-75); Potassium 3.3 mmol/L (3.5-5.1); Protein, Total 8.9 g/dL (6.4-8.2); Sodium Level 134 mmol/L (136-145)
[2023-04-19 14:33] LABS: Mucous, Urine 0 SEEN /hpf (<or=2+); Red Blood Cells-Urine 0 SEEN /hpf (0-5)
[2023-04-19 14:35] LABS: Color, Urine Yellow (Yellow); Glucose, Dipstick Normal (Normal); Ketone-Dipstick 50 mg/dl (Negative); Leukocyte Esterase-Dipstick Negative /ul (Negative); Nitrite-Dipstick Negative (Negative); Occult Blood-Urine 10 /ul (Negative); Protein-Dipstick 15 mg/dl (Negative); Urine Bilirubin Dipstick Negative (Negative); Urine Clarity Sl. Cloudy (Clear); Urine Urobilinogen Normal (Normal)
[2023-04-19 14:46] LABS: Bacteria RARE /hpf (None Seen); Squamous Epithelial Cells - UA 0-5 SEEN /hpf (5-10); White Blood Cells 0-5 SEEN /hpf (0-5)
[2023-04-19 14:59] VITALS: BP 120/87; PULSE 74; RESP 16; O2SAT 99
== END 2023-04-19 15:04 | disposition home or self-care (01) ==
PROVIDERS: Emergency Provider Emergency Medicine; Visit Provider Emergency Medicine
DX: R10.9 Unspecified abdominal pain (principal); R11.2 Nausea with vomiting, unspecified
CPT/HCPCS: 80053; 81001; 83690; 85025; 96361; 96374; 96375; 99283; J7030; A4216; J2405

== ENCOUNTER 2023-07-07 07:54 | Emergency (ER) | payer MEDICAID, SELFPAY ==
[2023-07-07 07:55] VITALS: BP 135/104; PULSE 57; RESP 14; TEMP 36.1; O2SAT 100; BMI 24.2
--- NOTE | 2023-07-07 08:04 | EDS_ITS ---
HPI History of Present Illness Chief Complaint: Flank Pain Informant: patient Onset/Context/Timing Onset: Yesterday Context: Gradual Onset Timing: Continuous Quality: Sharp Location: Left flank and lower abdomen Worsened by: Nothing Relieved by: Nothing Narrative Narrative: Patient presents with left flank and back pain that began yesterday. Patient states that it came on gradually. Patient states it has been constant. Patient describes her pain as sharp. Patient states her pain is over the suprapubic area and radiates into her left flank. Patient states she has a history of kidney stones. Patient states nothing makes it worse and nothing makes it better. Patient admits to some subjective chills. Patient admits to some nausea and vomiting. Patient admits to some mild dysuria. PFSH PFS Medical History (Updated 07/07/23 @ 12:[address] Richard Palmer DO) Kidney stones Home Medications Medical Marijuana 12/24/20 [History Last Taken Unknown] naproxen 500 mg tablet 500 mg PO BID PRN #20 tabs 12/24/20 [Rx Last Taken Unknown] dicyclomine 10 mg capsule 1 - 2 cap PO Q6H PRN pain #20 caps 12/31/20 [Rx Last Taken Unknown] ondansetron 4 mg disintegrating tablet 8 mg (2 x 4 mg) PO Q8H PRN PRN Nausea #20 tabs 12/31/20 [Rx Last Taken Unknown] ondansetron 4 mg disintegrating tablet 4 mg PO Q6H PRN nausea and vomiting #10 tabs 04/17/23 [Rx Last Taken Unknown] hydrocodone-acetaminophen 5-325mg 5mg-325mg 1 tab PO Q6H PRN PRN Pain 3 days #10 TABLETS 07/07/23 [Rx Last Taken Unknown] ondansetron 4 mg disintegrating tablet 4 mg PO Q8H PRN PRN Nausea #10 tabs 07/07/23 [Rx Last Taken Unknown] Allergy/AdvReac Type Severity Reaction Status Date / Time No Known Allergies Allergy Verified 07/07/23 07:56 Surgical History (Updated 04/19/23 @ 13:[address] Richard Palmer DO) History of laparoscopic cholecystectomy History of ureter stent Hx of tubal ligation Social History Smoking Status: Never smoker ROS ROS ED Constitutional Constitutional ED: Reports chills and subjective; Denies fever(s) Eyes Eyes: Denies blurry vision or change in vision ENT ENT ED: Denies rhinorrhea or sore throat Cardiovascular Cardiovascular: Denies chest pain or palpitations Respiratory/Chest Respiratory/Chest: Denies cough or dyspnea Gastrointestinal Gastrointestinal: Reports nausea and vomiting Genitourinary Genitourinary ED: Reports dysuria; Denies hematuria Musculoskeletal Musculoskeletal: Reports back pain; Denies neck pain Integumentary Denies abscess or rash Neurologic Neurologic: Denies headache(s) or weakness Allergic/Immunologic Allergic/Immunologic ED: Denies mouth swelling or urticaria EXAM Physical Exam Const Vital Signs: 07/07/23 07:55 Temperature 97.0 F L Temperature Source Temporal Pulse Rate 57 L Respiratory Rate 14 Blood Pressure 135/104 H Blood Pressure Mean 114 Pulse Ox 100 Oxygen Delivery Method Room Air Positive well nourished and well developed General Appearance ED: well developed and NAD HEENT Reports moist mucous membranes Neck supple and no JVD Resp normal respiratory effort and clear to auscultation bilaterally Cardio regular rate, regular rhythm and no murmurs GI normal to inspection, nondistended, normoactive bowel sounds Palpation: soft and tender LLQ, RLQ and suprapubic Back/Spine General Back: CVA tenderness left Extremity normal to inspection General Extremety ED: Negative for edema or tenderness General Extremity: Negative for edema Neuro oriented x3, CN's II-XII intact bilaterally and no sensory deficits noted Sensorium / Orientation: alert Motor Exam: strength 5/5 throughout Psych mental status grossly normal Skin no rashes or lesions noted MDM MDM MDM Narrative Medical decision making narrative: Differential diagnosis includes ureteral calculus, pyelonephritis, gastroenteritis, and ectopic . CBC will be obtained to assess for leukocytosis and anemia. Basic metabolic profile will be obtained to assess for electrolyte abnormality and renal function. Urinalysis will be obtained to assess for urinary tract infection and hematuria. Serum hCG will be obtained to assess for . CT scan of the abdomen pelvis will be obtained to assess for ureteral calculus. Lab Data Attestation: I reviewed the patient's lab results. Lab results narrative: CBC was reviewed. There is a mild leukocytosis of 12.3. The remainder is within normal limits. Basic metabolic profile was reviewed. Glucose was slig htly elevated at 155. Anion gap was normal. Serum hCG was reviewed and was negative. Urinalysis was reviewed. Urine ketones were 150. There is no evidence of urinary tract infection or hematuria. Labs: Laboratory Results - last 24 hr 07/07/23 07/07/23 07/07/23 08:10 08:24 09:55 WBC 12.3 H RBC 4.86 Hgb 14.1 Hct 41.9 MCV 86.2 MCH 29.0 MCHC 33.7 RDW Std Deviation 44.6 H RDW Coeff of Gregoria 14.2 Plt Count 356 MPV 9.9 Immature Gran % (Auto) 0.300 Neut % (Auto) 85.8 H Lymph % (Auto) 10.6 L [place] % (Auto) 3.1 Eos % (Auto) 0.0 Baso % (Auto) 0.2 Absolute Neuts (auto) 10.6 H Absolute Lymphs (auto) 1.30 Nucleated RBC % 0 Sodium 133 L Potassium 3.9 Chloride 103 Carbon Dioxide 23.0 Anion Gap 7 BUN 20 H Creatinine 0.96 Estim Creat Clear Calc 79.49 Est GFR (MDRD) Af Amer 87 Est GFR (MDRD) Non-Af 72 BUN/Creatinine Ratio 20.9 H Glucose 155 H Calcium 9.5 Serum , Qual NEGATIVE Urine Color Yellow Urine Clarity Cloudy Urine pH 7.0 Ur Specific [place] 1.015 Urine Protein 30 H Urine Glucose (UA) Normal Urine Ketones 150 A* Urine Occult Blood 10 H Urine Nitrite Negative Urine Bilirubin Negative Urine Urobilinogen 1 H Ur Leukocyte Esterase 100 H Urine RBC 0 SEEN Urine WBC 0-5 SEEN Ur Squamous Epith Cells 10-25 SEEN Urine Bacteria 1+ Urine Mucus 2+ Radiography Diagnostic Testing: Clinical Impression(s) from Imaging Studies Abdomen/Pelvis CT 07/07/23 08:09 IMPRESSION: No acute intra-abdominal process. Electronically Signed: Shanika Patricia MD at 9:32 EDT , Transvaginal US 07/07/23 10:55 IMPRESSION: Within normal limits examination. Electronically Signed: Shanika Patricia MD at 12:13 EDT , CT scan of the abdomen pelvis was obtained. There is no acute process noted. There is no free air or free fluid. There is no evidence of bowel obstruction or perforation. There are no masses noted. This was interpreted by the radi ologist and was also independently reviewed by myself. Pelvic ultrasound was obtained. There there is no evidence of ovarian torsion. This was interpreted by the radiologist and was also independently reviewed by myself. Treatment and Re-Evaluation :: Patient was given morphine and Zofran initially. On reevaluation, patient still having pain. Because of this, pelvic ultrasound was ordered to rule out ovarian torsion. This was negative. Patient was given a repeat dose of morphine and Zofran. Patient is feeling better after this. Patient was advised of her findings. Patient was given prescriptions for short course of [place] and Zofran. Patient was instructed to follow-up with her primary care physician in 5 to 7 days. Patient is also given referral for gastroenterology. Patient was instructed return if worse in any way. Patient understood and was agreeable with the plan. All questions were answered. Discharge Plan Triage Chief Complaint: Flank Pain ED Provider: Richard Palmer Dx/Rx/DC Orders Clinical Impression: Nausea and vomiting, Abdominal pain Instructions: ED Abdominal Pain Unkn Cause Fem, ED Flank Pain, Uncertain Cause Prescriptions: New hydrocodone-acetaminophen [hydrocodone-acetaminophen] 5-325 mg tablet 1 tab PO Q6H PRN PRN (Reason: Pain) 3 Days Qty: 10 0RF Continued ondansetron 4 MG tablet 4 mg PO Q8H PRN PRN (Reason: Nausea) Qty: 10 0RF No Action Medical Marijuana naproxen 500 MG tablet 500 mg PO BID PRN Qty: 20 0RF dicyclomine 10 MG capsule 1 - 2 cap PO Q6H PRN (Reason: pain) Qty: 20 0RF ondansetron 4 MG tablet 8 mg PO Q8H PRN PRN (Reason: Nausea) Qty: 20 0RF ondansetron 4 mg tablet,disintegrating 4 mg PO Q6H PRN (Reason: nausea and vomiting) Qty: 10 0RF Primary Care Provider: Care Physician,No Primary Referrals: Rusty Guido MD [Med Staff - Active Staff] - 5-7 Days Gerry Ramos DO [Med Staff - Active Staff] - 5-7 Days Care Physician,No Primary [Primary Care Provider] - Disposition Disposition: Home, Self Care
--- NOTE | 2023-07-07 08:09 | CT_ITS ---
INDICATION: Flank pain EXAMINATION: CT ABDOMEN AND PELVIS WITHOUT CONTRAST - CT Abdomen And Pelvis W/O Contrast Injection TECHNIQUE: Helically acquired images were obtained of the abdomen and pelvis without oral or IV contrast. A radiation dose optimization technique was used for this scan. IV Contrast dosage and agent: None. Oral contrast: None. RADIATION DOSAGE (If Supplied By Facility): CTDIvol = ( 7.12 ) mGy, DLP = ( 353.80 ) mGycm COMPARISON: Prior studies dated: December 24 and exchange 2020 and April 17, 2023 FINDINGS: LOWER CHEST: Lung bases are clear. No cardiomegaly or pericardial effusion. 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 The lack of intravenous contrast limits evaluation of solid visceral organs. LIVER: Homogeneous. No focal mass. GALLBLADDER AND BILIARY TREE: There are surgical clips within the gallbladder fossa consistent with prior cholecystectomy. No intra- or extrahepatic biliary ductal dilation. PANCREAS: No focal cystic or solid mass. SPLEEN: Normal size without focal cystic or solid mass. ADRENAL GLANDS: No nodules. KIDNEYS AND URETERS: Normal renal size and position. No hydronephrosis. PERITONEUM: No ascites or free air. No other fluid collection. BOWEL: No evidence of acute appendicitis. No stomach or bowel distension. No focal inflammatory change. LYMPH NODES: No enlarged mesenteric or retroperitoneal lymph nodes. VESSELS: Aorta is non-dilated. URINARY BLADDER: Unremarkable. REPRODUCTIVE ORGANS: No pelvic masses. ABDOMINAL WALL: No discrete abdominal or pelvic wall hernia. BONES: No lytic or blastic abnormality. CT/Abdomen/Pelvis without Cont IMPRESSION: No acute intra-abdominal process. Electronically Signed: Shanika Patricia MD at 9:32 EDT ,
[2023-07-07 08:17] LABS: Absolute Neutrophil Count 10.6 X10^3/uL (2.0-7.7); Basophil# 0.02 X10^3/uL; Basophil% 0.2 % (0-1); Hematocrit 41.9 % (37-47); Hemoglobin 14.1 g/dL (12.0-15.0); Lymphocyte % 10.6 % (19-41); Mean Corp Hgb Conc 33.7 g/dL (32-36); Mean Corpuscular Volume 86.2 fL (81-99); Mean Platelet Vol. 9.9 fl (6.2-12.0); Monocyte# 0.38 X10^3/uL; Monocyte% 3.1 % (0-10); NRBC Flagged by Analyzer 0 % (0-5); Neutrophil # 10.56 X10^3/uL (2.7-7.7); Neutrophil % 85.8 % (47-70); Platelet Count 356 K/mm3 (150-450); RBC Distribution Width CV 14.2 % (11.6-14.6); RBC Distribution Width SD 44.6 fl (35.1-43.9); Red Blood Count 4.86 M/mm3 (4.2-5.4); White Blood Count 12.3 K/mm3 (4.4-11.0)
[2023-07-07] MEDS: 0.9% Normal Saline 1,000 ML 1000 ML IV (08:25)
[2023-07-07] MEDS: Ondansetron 4 MG/2 ML Vial IV ×2 (08:25→12:01)
[2023-07-07] MEDS: Morphine 4 MG/ML Syringe IV ×2 (08:26→11:55)
[2023-07-07 08:31] LABS: Anion Gap 7 (5-15); BUN 20 mg/dL (7-18); BUN/Creat Ratio 20.9 RATIO (10-20); Calcium,Total 9.5 mg/dL (8.5-10.1); Chloride 103 mmol/L (98-107); Creatinine, Serum 0.96 mg/dL (0.55-1.02); EST Glomerular Filtration Rate 72 mL/min (>60); Est Glom Filt Rate - Afr Amer 87 mL/min (>60); Estimated Creatinine Clearance 79.49 ml/min; Glucose 155 mg/dL (74-106); Potassium 3.9 mmol/L (3.5-5.1); Sodium Level 133 mmol/L (136-145)
[2023-07-07 08:42] LABS: Internal QC Validated? YES +Cl - CLEAR BKGD; Pregnancy, Serum, hCG Quali. NEGATIVE Negative
[2023-07-07 10:00] LABS: Red Blood Cells-Urine 0 SEEN /hpf (0-5)
[2023-07-07 10:30] LABS: Color, Urine Yellow (Yellow); Glucose, Dipstick Normal (Normal); Leukocyte Esterase-Dipstick 100 /ul (Negative); Nitrite-Dipstick Negative (Negative); Occult Blood-Urine 10 /ul (Negative); Protein-Dipstick 30 mg/dl (Negative); Specific Gravity, Urine 1.015 (1.002-1.030); Urine Bilirubin Dipstick Negative (Negative); Urine Clarity Cloudy (Clear); Urine Urobilinogen 1 mg/dl (Normal)
[2023-07-07 10:35] LABS: Ketone-Dipstick 150 mg/dl (Negative)
[2023-07-07 10:45] LABS: Bacteria 1+ /hpf (None Seen); Mucous, Urine 2+ /hpf (<or=2+); Squamous Epithelial Cells - UA 10-25 SEEN /hpf (5-10); White Blood Cells 0-5 SEEN /hpf (0-5)
--- NOTE | 2023-07-07 10:55 | US_ITS ---
INDICATION: Pelvic pain -- Possible ovarian torsion EXAMINATION: Ultrasound US Transvaginal Non-OB TECHNIQUE: Transvaginal (for optimal evaluation of the adnexa) pelvic ultrasound was performed. Grayscale, spectral waveform, and color flow Doppler evaluation of the adnexa. COMPARISON: Prior study dated: CT dated July 07, 2023 FINDINGS: UTERUS: The uterus measures 9.0 x 4.4 x 5.5 cm. There is no uterine mass. The endometrial stripe measures 7.7 mm in AP diameter which is within normal limits. RIGHT OVARY: 3.6 x 2.9 x 2.4 cm. Non-enlarged, normal echogenicity. There is normal arterial inflow and venous outflow present in the right ovary. LEFT OVARY: 2.8 x 1.9 x 2.0 cm. Non-enlarged, normal echogenicity. There is normal arterial inflow and venous outflow present in the left ovary. FREE FLUID: None. US/Transvaginal Non- IMPRESSION: Within normal limits examination. Electronically Signed: Shanika Patricia MD at 12:13 EDT ,
== END 2023-07-07 12:38 | disposition home or self-care (01) ==
PROVIDERS: Emergency Provider Emergency Medicine; Visit Provider Emergency Medicine
DX: R10.9 Unspecified abdominal pain (principal); R11.2 Nausea with vomiting, unspecified; Z90.49 Acquired absence of other specified parts of digestive tract
CPT/HCPCS: 74176; 76830; 80048; 81001; 84703; 85025; 93976; 96361; 96374; 96375; 96376; 99282; A4216; J2405

== ENCOUNTER 2024-02-08 10:02 | Emergency (ER) | payer MEDICAID, SELFPAY ==
[2024-02-08 10:03] VITALS: BP 163/107; PULSE 55; RESP 20; TEMP 35.5; O2SAT 100; BMI 26.9
--- NOTE | 2024-02-08 10:21 | EDS_ITS ---
HPI History of Present Illness Chief Complaint: Flank Pain Detail of Chief Complaint: Left flank pain Informant: patient Narrative Narrative: Patient presents with left flank pain that started yesterday around midnight. Complains of frequent vomiting. Rates her pain an 8 out of 10. She does have remote history of kidney stones. She does complain of some urinary frequency. Mild dysuria. Denies fevers. Denies hematuria. She does have history of ovarian cysts. Patient also has had a tubal. Patient has history of cholecystectomy. [facility] Medical History (Updated 02/08/24 @ 12:[address] Melvin Stinson, DO) Kidney stones Home Medications Medical Marijuana 12/24/20 [History Last Taken Unknown] naproxen 500 mg tablet 500 mg PO BID PRN #20 tabs 12/24/20 [Rx Last Taken Unknown] dicyclomine 10 mg capsule 1 - 2 cap PO Q6H PRN pain #20 caps 12/31/20 [Rx Last Taken Unknown] ondansetron 4 mg disintegrating tablet 8 mg (2 x 4 mg) PO Q8H PRN PRN Nausea #20 tabs 12/31/20 [Rx Last Taken Unknown] ondansetron 4 mg disintegrating tablet 4 mg PO Q6H PRN nausea and vomiting #10 tabs 04/17/23 [Rx Last Taken Unknown] hydrocodone-acetaminophen 5-325mg 5mg-325mg 1 tab PO Q6H PRN PRN Pain 3 days #10 TABLETS 07/07/23 [Rx Last Taken Unknown] ondansetron 4 mg disintegrating tablet 4 mg PO Q8H PRN PRN Nausea #10 tabs 07/07/23 [Rx Last Taken Unknown] ciprofloxacin HCl 500 mg tablet 500 mg PO BID #14 TABLETS 02/08/24 [Rx Last Taken Unknown] ondansetron 4 mg disintegrating tablet 4 mg PO Q8H PRN PRN Nausea #10 tabs 02/08/24 [Rx Last Taken Unknown] phenazopyridine 200 mg tablet (Pyridium) 200 mg PO BID PRN PRN Pain #10 tabs 02/08/24 [Rx Last Taken Unknown] Allergy/AdvReac Type Severity Reaction Status Date / Time No Known Allergies Allergy Verified 02/08/24 10:05 Surgical History History of laparoscopic cholecystectomy History of ureter stent Hx of tubal ligation Social History Smoking Status: Never smoker ROS ROS ED Review of Systems ROS Unobtainable: other Constitutional Constitutional ED: Reports lethargy; Denies chills, fever(s), sweats or weight loss Eyes Eyes: Denies blurry vision, change in vision or diplopia ENT ENT ED: Denies rhinorrhea or sore throat Cardiovascular Cardiovascular: Denies chest pain, orthopnea or racing heartbeat Respiratory/Chest Respiratory/Chest: Denies cough, dyspnea, dyspnea on exertion, orthopnea or sputum Gastrointestinal Gastrointestinal: Reports nausea and vomiting; Denies diarrhea Genitourinary Genitourinary ED: Denies dysuria, hematuria or urinary frequency Musculoskeletal Musculoskeletal: Reports back pain; Denies arthralgias, myalgias or neck pain Integumentary Denies abscess, Abrasions or rash Neurologic Neurologic: Denies headache(s) or weakness Psychiatric Psychiatric: Denies anxiety, depression or suicidal thoughts Endocrine Endocrinology: Denies polydipsia, polyphagia or polyuria Hematologic/Lymphatic Hematologic/Lymphatic: Denies easy bleeding, easy bruising or lymphadenopathy Allergic/Immunologic Allergic/Immunologic ED: Denies mouth swelling, tongue swelling or urticaria EXAM Physical Exam Const Vital Signs: 02/08/24 10:03 02/08/24 10:03 02/08/24 11:03 Temperature 95.9 F L 95.9 F L Temperature Source Temporal Temporal Pulse Rate 55 L 55 L 89 Respiratory Rate 20 H 20 H 14 Blood Pressure 163/107 H 163/107 H 124/76 H Blood Pressure Mean 125 125 92 Pulse Ox 100 100 99 Oxygen Delivery Method Room Air Room Air Room Air 02/08/24 12:00 Temperature Temperature Source Pulse Rate 64 Respiratory Rate 18 Blood Pressure 126/76 H Blood Pressure Mean 92 Pulse Ox 99 Oxygen Delivery Method Room Air Positive well nourished and well developed General Appearance ED: well developed and NAD HEENT Reports TM's clear and moist mucous membranes normocephalic and atraumatic; Negative for trauma or tenderness Tympanic Membrane ED: Yes TM's clear Eyes PERRL and EOMs intact bilaterally General Eye ED: Negative for pale conjunctiva or scleral icterus Neck no lymphadenopathy, supple and no JVD General: Negative for tenderness Chest Wall inspection of chest normal and palpation of chest normal Chest: Negative for tenderness Resp normal respiratory effort and clear to auscultation bilaterally Effort and Inspection: Negative for respiratory distress or pain with movement Auscultation: Negative for rhonchi, wheezes or diminished lung sounds Cardio regular rate, regular rhythm, S1 normal heart sound, S2 normal heart sound and no murmurs Peripheral Pulses: pulses 2+ throughout GI normal to inspection, nondistended, normoactive bowel sounds, soft to palpation, non-tender, non-distended and no masses Back/Spine no thoracic nor lumbar tenderness Back/Spine Narrative: CVA tenderness on the left Extremity normal to inspection General Extremety ED: Negative for edema General Extremity: Negative for edema Neuro oriented x3, CN's II-XII intact bilaterally, no sensory deficits noted and gait normal Sensorium / Orientation: awake, alert, oriented to person, oriented to place and oriented to time Motor Exam: strength 5/5 throughout and strength abnormal Psych mental status grossly normal Skin no rashes or lesions noted and no wounds MDM MDM MDM Narrative Medical decision making narrative: Patient presents with left flank pain and vomiting with history of kidney stones. IV line established. She was medicated with Dilaudid and Zofran and Toradol. She had good pain relief with that. She continued to complain of nausea and was given a second dose of Zofran 4 mg IV. CBC with differential obtained showed white count 7.2 with hemoglobin 14 and platelet count of 309. Chemistries unremarkable. Urinalysis positive for 500 excite esterase as well as 25-50 WBCs and +[address] flank obtained was negative for urolithiasis or any acute process. On repeat examination patient's had no further vomiting and she clinically looks well. I suspect symptoms related to UTI and possibly early pyelonephritis. She would like to try outpatient therapy. I think this is reasonable at this time. She is advised to return if persistent vomiting, dehydration or unable to tolerate her medications. Patient will be started on ciprofloxacin and Zofran. Patient will also be given Pyridium. Lab Data Attestation: I reviewed the patient's lab results. Labs: Laboratory Results - last 24 hr 02/08/24 02/08/24 10:30 11:10 WBC 7.2 RBC 4.99 Hgb 14.3 Hct 43.7 MCV 87.6 MCH 28.7 MCHC 32.7 RDW Std Deviation 46.2 H RDW Coeff of [place]oria 14.5 Plt Count 309 MPV 10.1 Immature Gran % (Auto) 0.300 Neut % (Auto) 59.4 Lymph % (Auto) 28.3 [place] % (Auto) 8.6 Eos % (Auto) 2.8 Baso % (Auto) 0.6 Absolute Neuts (auto) 4.3 Absolute Lymphs (auto) 2.04 Nucleated RBC % 0 Sodium 139 Potassium 4.0 Chloride 105 Carbon Dioxide 25.0 Anion Gap 9 BUN 19 H Creatinine 0.85 Estim Creat Clear Calc 98.87 Est GFR (MDRD) Af Amer 99 Est GFR (MDRD) Non-Af 82 BUN/Creatinine Ratio 22.2 H Glucose 108 H Calcium 9.3 Urine Color Yellow Urine Clarity Cloudy Urine pH 6.0 Ur Specific [place] 1.020 Urine Protein 30 H Urine Glucose (UA) Normal Urine Ketones 5 H Urine Occult Blood 10 H Urine Nitrite Negative Urine Bilirubin Negative Urine Urobilinogen 1 H Ur Leukocyte Esterase 500 H Urine RBC 0-5 SEEN Urine WBC 25-50 SEEN Ur Squamous Epith Cells 10-25 SEEN Urine Bacteria 2+ Urine Mucus 2+ Radiography Diagnostic Testing: Clinical Impression(s) from Imaging Studies Abdomen/Pelvis CT 02/08/24 10:21 IMPRESSION: Status post cholecystectomy. No obstructive uropathy is seen. Electronically Signed: Blane Villanueva MD at 12:05 EDT , Discharge Plan Triage Chief Complaint: Flank Pain ED Provider: Melvin Stinson Dx/Rx/DC Orders Clinical Impression: Pyelonephritis Instructions: ED Pyelonephritis, Female (Adult) Prescriptions: New phenazopyridine [Pyridium] 200 mg tablet 200 mg PO BID PRN PRN (Reason: Pain) Qty: 10 0RF ciprofloxacin HCl [ciprofloxacin HCl] 500 mg tablet 500 mg PO BID Qty: 14 0RF ondansetron [ondansetron] 4 mg tablet,disintegrating 4 mg PO Q8H PRN PRN (Reason: Nausea) Qty: 10 0RF No Action Medical Marijuana naproxen 500 MG tablet 500 mg PO BID PRN Qty: 20 0RF dicyclomine 10 MG capsule 1 - 2 cap PO Q6H PRN (Reason: pain) Qty: 20 0RF ondansetron 4 MG tablet 8 mg PO Q8H PRN PRN (Reason: Nausea) Qty: 20 0RF ondansetron 4 mg tablet,disintegrating 4 mg PO Q6H PRN (Reason: nausea and vomiting) Qty: 10 0RF hydrocodone-acetaminophen [hydrocodone-acetaminophen] 5-325 mg tablet 1 tab PO Q6H PRN PRN (Reason: Pain) 3 Days Qty: 10 0RF ondansetron 4 MG tablet 4 mg PO Q8H PRN PRN (Reason: Nausea) Qty: 10 0RF Primary Care Provider: [facility] Elin Nunn Referrals: [facility] Arline,Elin Hamilton [Primary Care Provider] - 3-5 Days Disposition Disposition: Home, Self Care
--- NOTE | 2024-02-08 10:21 | CT_ITS ---
STUDY: CT ABDOMEN AND PELVIS WITHOUT CONTRAST REASON FOR EXAM: Female, 33 years old. Left flank pain RADIATION DOSAGE (If Supplied By Facility): CTDIvol = ( 6.99 ) mGy, DLP = ( 359.82 ) mGycm TECHNIQUE: Transaxial images were obtained from the dome of the diaphragm to the symphysis pubis without oral contrast, and without intravenous contrast. Sagittal and coronal images were reconstructed. Individualized dose optimization techniques were used for this CT. COMPARISON: Comparison is made with prior study dated July 07, 2023. FINDINGS: The visualized lung bases are unremarkable. The visualized portions of the heart are within normal limits. Normal liver. There are surgical clips in the gallbladder fossa consistent with a prior cholecystectomy. Normal spleen. Normal pancreas. Normal bilateral adrenal glands. Normal right kidney. Normal left kidney. Normal visualized stomach. Normal small intestine. Normal colon. The appendix is visualized and appears normal. Normal abdominal aorta. 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 Normal retroperitoneum. Normal urinary bladder. Normal abdominal wall. Normal osseous structures. CT/Abdomen/Pelvis without Cont IMPRESSION: Status post cholecystectomy. No obstructive uropathy is seen. Electronically Signed: Blane Villanueva MD at 12:05 EDT ,
[2024-02-08] MEDS: 0.9% Normal Saline (1000mL) 1,000 ML 150 ML IV (10:34)
[2024-02-08] MEDS: Ondansetron 4 MG/2 ML Vial IV ×2 (10:34→11:10)
[2024-02-08] MEDS: Ketorolac 30 MG/ML Syringe IV (10:34)
[2024-02-08] MEDS: HYDROmorphone 1 MG/ML Syringe IV (10:34)
[2024-02-08 10:50] LABS: Anion Gap 9 (5-15); BUN 19 mg/dL (7-18); BUN/Creat Ratio 22.2 RATIO (10-20); Calcium,Total 9.3 mg/dL (8.5-10.1); Chloride 105 mmol/L (98-107); Creatinine, Serum 0.85 mg/dL (0.55-1.02); EST Glomerular Filtration Rate 82 mL/min (>60); Est Glom Filt Rate - Afr Amer 99 mL/min (>60); Estimated Creatinine Clearance 98.87 ml/min; Glucose 108 mg/dL (74-106); Sodium Level 139 mmol/L (136-145)
[2024-02-08 10:52] LABS: Absolute Lymphocyte Count 2.04 X10^3/uL (0.83-4.51); Absolute Neutrophil Count 4.3 X10^3/uL (2.0-7.7); Basophil# 0.04 X10^3/uL; Basophil% 0.6 % (0-1); Eosinophils% 2.8 % (0-5); Hematocrit 43.7 % (37-47); Hemoglobin 14.3 g/dL (12.0-15.0); Lymphocyte # 2.04 X10^3/ul (0.83-4.51); Lymphocyte % 28.3 % (19-41); Mean Corp Hgb Conc 32.7 g/dL (32-36); Mean Corpuscular Hgb 28.7 pg (27.0-32.0); Mean Corpuscular Volume 87.6 fL (81-99); Mean Platelet Vol. 10.1 fl (6.2-12.0); Monocyte# 0.62 X10^3/uL; Monocyte% 8.6 % (0-10); NRBC Flagged by Analyzer 0 % (0-5); Neutrophil # 4.28 X10^3/uL (2.7-7.7); Neutrophil % 59.4 % (47-70); Platelet Count 309 K/mm3 (150-450); RBC Distribution Width CV 14.5 % (11.6-14.6); RBC Distribution Width SD 46.2 fl (35.1-43.9); Red Blood Count 4.99 M/mm3 (4.2-5.4); White Blood Count 7.2 K/mm3 (4.4-11.0)
[2024-02-08 11:03] VITALS: BP 124/76; PULSE 89; RESP 14; O2SAT 99
[2024-02-08 11:22] LABS: Color, Urine Yellow (Yellow); Glucose, Dipstick Normal (Normal); Ketone-Dipstick 5 mg/dl (Negative); Leukocyte Esterase-Dipstick 500 /ul (Negative); Nitrite-Dipstick Negative (Negative); Occult Blood-Urine 10 /ul (Negative); Protein-Dipstick 30 mg/dl (Negative); Urine Bilirubin Dipstick Negative (Negative); Urine Clarity Cloudy (Clear); Urine Urobilinogen 1 mg/dl (Normal)
[2024-02-08 11:30] LABS: Mucous, Urine 2+ /hpf (<or=2+); Red Blood Cells-Urine 0-5 SEEN /hpf (0-5); Squamous Epithelial Cells - UA 10-25 SEEN /hpf (5-10); White Blood Cells 25-50 SEEN /hpf (0-5)
[2024-02-08 11:31] LABS: Bacteria 2+ /hpf (None Seen)
[2024-02-08] MEDS: Ceftriaxone 1 GM/50 ML BAG IV (11:47)
[2024-02-08 12:00] VITALS: BP 126/76; PULSE 64; RESP 18; O2SAT 99
[2024-02-08 12:41] VITALS: BP 126/78; PULSE 64; RESP 16; TEMP 36.4; O2SAT 99
== END 2024-02-08 12:45 | disposition home or self-care (01) ==
PROVIDERS: Emergency Provider Emergency Medicine; Visit Provider Emergency Medicine
DX: N12 Tubulo-interstitial nephritis, not specified as acute or chronic (principal); Z90.49 Acquired absence of other specified parts of digestive tract; Z98.51 Tubal ligation status
CPT/HCPCS: 74176; 80048; 81001; 85025; 87086; 96361; 96365; 96375; 96376; 99284; J7030; J2405

== ENCOUNTER 2024-02-16 16:20 | Emergency (ER) | payer MEDICAID, SELFPAY ==
[2024-02-16 16:22] VITALS: BP 153/86; PULSE 74; RESP 18; TEMP 35.6; O2SAT 98
--- NOTE | 2024-02-16 16:36 | ED.VIS.FEGU ---
HPI HPI - Female History of Present Illness Chief Complaint: Complaint Informant: patient Associated Symptoms Associated Symptoms: Positive for Dysuria and Urgency Narrative Narrative: 33-year-old female was seen on 326 diagnosed with a UTI and was started on Cipro. States has been taking the medication but now she is feeling worse. Has continued dysuria and frequency. Cloudy urine. Has had chills with nausea and vomiting the last 24 hours. No diarrhea. Lower back pain bilaterally. Prior similar symptoms: Yes Recent Illness/Hospitalization: No PFSH PFSH Medical History Kidney stones Home Medications Medical Marijuana 12/24/20 [History Last Taken Unknown] naproxen 500 mg tablet 500 mg PO BID PRN #20 tabs 12/24/20 [Rx Last Taken Unknown] dicyclomine 10 mg capsule 1 - 2 cap PO Q6H PRN pain #20 caps 12/31/20 [Rx Last Taken Unknown] ondansetron 4 mg disintegrating tablet 8 mg (2 x 4 mg) PO Q8H PRN PRN Nausea #20 tabs 12/31/20 [Rx Last Taken Unknown] ondansetron 4 mg disintegrating tablet 4 mg PO Q6H PRN nausea and vomiting #10 tabs 04/17/23 [Rx Last Taken Unknown] hydrocodone-acetaminophen 5-325mg 5mg-325mg 1 tab PO Q6H PRN PRN Pain 3 days #10 TABLETS 07/07/23 [Rx Last Taken Unknown] ondansetron 4 mg disintegrating tablet 4 mg PO Q8H PRN PRN Nausea #10 tabs 07/07/23 [Rx Last Taken Unknown] ciprofloxacin HCl 500 mg tablet 500 mg PO BID #14 TABLETS 02/08/24 [Rx Last Taken Unknown] ondansetron 4 mg disintegrating tablet 4 mg PO Q8H PRN PRN Nausea #10 tabs 02/08/24 [Rx Last Taken Unknown] phenazopyridine 200 mg tablet (Pyridium) 200 mg PO BID PRN PRN Pain #10 tabs 02/08/24 [Rx Last Taken Unknown] Allergy/AdvReac Type Severity Reaction Status Date / Time No Known Allergies Allergy Verified 02/16/24 16:21 Surgical History History of laparoscopic cholecystectomy History of ureter stent Hx of tubal ligation Social History Smoking Status: Never smoker ROS ROS ED ROS Narrative Low back pain. Nausea and vomiting. Chills. Dysuria. Review of Systems ROS Unobtainable: Denies due to encephalopathy Constitutional Constitutional ED: Reports chills; Denies fever(s) Eyes Eyes: Denies blurry vision ENT ENT ED: Denies ear pain Cardiovascular Cardiovascular: Denies chest pain Respiratory/Chest Respiratory/Chest: Denies cough or dyspnea Gastrointestinal Gastrointestinal: Reports nausea and vomiting; Denies diarrhea Genitourinary Genitourinary ED: Reports dysuria and urinary frequency; Denies hematuria Musculoskeletal Musculoskeletal: Denies arthralgias, myalgias or neck pain Integumentary Denies abscess Neurologic Neurologic: Denies headache(s) Psychiatric Psychiatric: Denies anxiety Endocrine Endocrinology: Denies heat intolerance Hematologic/Lymphatic Hematologic/Lymphatic: Denies easy bleeding, easy bruising or lymphadenopathy Allergic/Immunologic Allergic/Immunologic ED: Denies mouth swelling, tongue swelling or urticaria EXAM Physical Exam Narrative Exam Narrative: 33-year-old female vital signs stable afebrile. HEENT exam unremarkable. Mytrex membranes. Neck nontender no lymphadenopathy. Lungs clear to auscultation bilaterally. Heart regular rhythm rate about 75 no murmur. Chest wall and ribs nontender. Abdomen soft nontender. Normal bowel sounds no peritoneal signs. Moving all 4 extremities. Neurovascular intact. Nontender no edema. Back bilateral CVA tenderness. No ecchymosis or bruising. Neurologically she is awake alert with no focal motor deficits. Const Vital Signs: 02/16/24 16:22 Temperature 96.1 F L Temperature Source Temporal Pulse Rate 74 Respiratory Rate 18 Blood Pressure 153/86 H Blood Pressure Mean 108 Pulse Ox 98 Oxygen Delivery Method Room Air Positive well nourished and well developed; Negative for obese, cachectic, contractures or unkempt General Appearance ED: well developed and NAD; Negative for unkempt, cachectic, contractures or pallor Nutritional Appearance: Negative for cachectic or obese HEENT Reports moist mucous membranes; Denies dry mucous membranes Negative for trauma or tenderness Mouth ED: No dry mucous membranes Mouth: No dry mucous membranes Eyes EOMs intact bilaterally General Eye ED: Negative for pale conjunctiva or scleral icterus Neck no lymphadenopathy, supple and no JVD General: Negative for other Thyroid: Negative for tender Chest Wall inspection of chest normal and palpation of chest normal Chest: Negative for other Resp normal respiratory effort and clear to auscultation bilaterally Effort and Inspection: Negative for pain with movement Auscultation: Negative for rales, rhonchi, wheezes or diminished lung sounds Cardio regular rate, regular rhythm, S1 normal heart sound, no murmurs and no JVD Rate: Negative for bradycardia or tachycardic Rhythm: Negative for abnormal rhythm GI normal to inspection, nondistended, normoactive bowel sounds, soft to palpation, non-tender, non-distended and no masses Auscultation: normoactive bowel sounds Palpation: Negative for tender, guarding or mass Back/Spine Negative for no CVA tenderness General Back: CVA tenderness Cervical Spine: Negative for cervical spine tenderness Thoracic Spine / Upper Back: Negative for thoracic spinal tenderness Lumbar Spine / Lower Back: Negative for lumbar spinal tenderness Sacrum: Negative for other Extremity normal to inspection and full ROM General Extremety ED: Negative for edema or tenderness General Extremity: Negative for edema Neuro oriented x3, CN's II-XII intact bilaterally and no sensory deficits noted Sensorium / Orientation: alert, oriented to person, oriented to place and oriented to time; Negative for confused, lethargic, stuporous or other Motor Exam: strength 5/5 throughout Psych mental status grossly normal Appearance: Negative for unkempt Attitude: No agitated Speech: No other Mood & Affect: Negative for depressed, anxious or tearful Skin no rashes or lesions noted and no wounds General Skin Exam: Negative for jaundice or pallor Rashes: No rashes noted Trauma: Negative for other MDM MDM MDM Narrative Medical decision making narrative: 33-year-old diagnosed UTI on 02/07. Has been on Cipro since that time states she is getting worse. Now is having bilateral lower back pain with nausea and vomiting and chills. I reviewed her labs her urine definitely looked infected but her urine culture was negative. She will be started on IV fluids, Zofran for nausea morphine for pain. Labs are being obtained. She had a CAT scan on the last visit which showed no signs of stone or obstruction. Repeat exam patient is doing well at 5:50 PM. We went over her test results. Her labs actually look good white count is only 12. She has a very mild hypokalemia at 3.3. Urine is currently negative. The initial 1 may have been contaminated with epithelial cells and white cells. The culture was negative. I explained all that to the patient. She has Zofran at home. She will finish her current antibiotic and [facility] who she is seeing is her primary care provider. History & Record Review Discussion w/independent historian: Patient Additional record(s) reviewed:: Prior inpatient record, Prior outpatient record, Prior ED visit, Prior labs and No prior records Lab Data Attestation: I reviewed the patient's lab results. Lab results narrative: CBC shows white count 12. H&H 14.7 and 44. Platelets 344. Electrolytes show potassium 3.3. Gap 6. Normal BUN of 12 creatinine 0.9. Glucose 100. Urinalysis shows 0 red cells. 0-5 white cells. 10-25 epithelial cells. Rare bacteria. No nitrates. Much improved from the prior. Labs: Laboratory Results - last 24 hr 02/16/24 02/16/24 13:41 17:06 WBC 12.0 H RBC 5.21 Hgb 14.7 Hct 44.4 MCV 85.2 MCH 28.2 MCHC 33.1 RDW Std Deviation 43.2 RDW Coeff of Gregoria 14.0 Plt Count 344 MPV 9.7 Immature Gran % (Auto) 0.500 Neut % (Auto) 68.4 Lymph % (Auto) 23.7 [place] % (Auto) 6.0 Eos % (Auto) 0.7 Baso % (Auto) 0.7 Absolute Neuts (auto) 8.2 H Absolute Lymphs (auto) 2.83 Nucleated RBC % 0 Sodium 137 Potassium 3.3 L Chloride 103 Carbon Dioxide 28.0 Anion Gap 6 BUN 12 Creatinine 0.92 Est GFR (MDRD) Af Amer 91 Est GFR (MDRD) Non-Af 75 BUN/Creatinine Ratio 13.1 Glucose 100 Calcium 9.5 Urine Color Yellow Urine Clarity Cloudy Urine pH 7.0 Ur Specific [place] 1.010 Urine Protein 15 H Urine Glucose (UA) Normal Urine Ketones Negative Urine Occult Blood 10 H Urine Nitrite Negative Urine Bilirubin Negative Urine Urobilinogen Normal Ur Leukocyte Esterase Negative Urine RBC 0 SEEN Urine WBC 0-5 SEEN Ur Squamous Epith Cells 10-25 SEEN Urine Bacteria RARE Urine Mucus RARE Discharge Plan Triage Chief Complaint: Complaint ED Provider: i[facility] Dx/Rx/DC Orders Clinical Impression: History of UTI, Nausea & vomiting Instructions: ED Vomiting (Adult) Prescriptions: No Action Medical Marijuana naproxen 500 MG tablet 500 mg PO BID PRN Qty: 20 0RF dicyclomine 10 MG capsule 1 - 2 cap PO Q6H PRN (Reason: pain) Qty: 20 0RF ondansetron 4 MG tablet 8 mg PO Q8H PRN PRN (Reason: Nausea) Qty: 20 0RF ondansetron 4 mg tablet,disintegrating 4 mg PO Q6H PRN (Reason: nausea and vomiting) Qty: 10 0RF hydrocodone-acetaminophen [hydrocodone-acetaminophen] 5-325 mg tablet 1 tab PO Q6H PRN PRN (Reason: Pain) 3 Days Qty: 10 0RF ondansetron 4 MG tablet 4 mg PO Q8H PRN PRN (Reason: Nausea) Qty: 10 0RF phenazopyridine [Pyridium] 200 mg tablet 200 mg PO BID PRN PRN (Reason: Pain) Qty: 10 0RF ciprofloxacin HCl [ciprofloxacin HCl] 500 mg tablet 500 mg PO BID Qty: 14 0RF ondansetron [ondansetron] 4 mg tablet,disintegrating 4 mg PO Q8H PRN PRN (Reason: Nausea) Qty: 10 0RF Primary Care Provider: [facility] Elin Nunn Referrals: [facility] Elin Nunn [Primary Care Provider] - 3-5 Days if not improving Activity Restrictions/Additional Instructions: Plenty of fluids and rest. If you have intractable vomiting return. Zofran as needed for nausea. Motrin and Tylenol for pain. Your last urinalysis looked infected and may have been contaminated. The urine culture was negative and did not grow out any bacteria. Finish your current antibiotic. Follow-up if not improving or return to the ER if worse. Disposition Disposition: Home, Self Care
[2024-02-16] MEDS: Ondansetron 4 MG/2 ML Vial IV (16:38)
[2024-02-16] MEDS: 0.9% Normal Saline (1000mL) 1,000 ML 1000 ML IV (16:38)
[2024-02-16 16:48] LABS: Absolute Lymphocyte Count 2.83 X10^3/uL (0.83-4.51); Absolute Neutrophil Count 8.2 X10^3/uL (2.0-7.7); Basophil# 0.08 X10^3/uL; Basophil% 0.7 % (0-1); Eosinophil# 0.08 X10^3/uL; Eosinophils% 0.7 % (0-5); Hematocrit 44.4 % (37-47); Hemoglobin 14.7 g/dL (12.0-15.0); Lymphocyte # 2.83 X10^3/ul (0.83-4.51); Lymphocyte % 23.7 % (19-41); Mean Corp Hgb Conc 33.1 g/dL (32-36); Mean Corpuscular Hgb 28.2 pg (27.0-32.0); Mean Corpuscular Volume 85.2 fL (81-99); Mean Platelet Vol. 9.7 fl (6.2-12.0); Monocyte# 0.72 X10^3/uL; NRBC Flagged by Analyzer 0 % (0-5); Neutrophil # 8.19 X10^3/uL (2.7-7.7); Neutrophil % 68.4 % (47-70); Platelet Count 344 K/mm3 (150-450); RBC Distribution Width SD 43.2 fl (35.1-43.9); Red Blood Count 5.21 M/mm3 (4.2-5.4)
[2024-02-16] MEDS: Morphine 4 MG/ML Syringe 6 MG IV (17:02)
[2024-02-16 17:04] LABS: Anion Gap 6 (5-15); BUN 12 mg/dL (7-18); BUN/Creat Ratio 13.1 RATIO (10-20); Calcium,Total 9.5 mg/dL (8.5-10.1); Chloride 103 mmol/L (98-107); Creatinine, Serum 0.92 mg/dL (0.55-1.02); EST Glomerular Filtration Rate 75 mL/min (>60); Est Glom Filt Rate - Afr Amer 91 mL/min (>60); Glucose 100 mg/dL (74-106); Potassium 3.3 mmol/L (3.5-5.1); Sodium Level 137 mmol/L (136-145)
[2024-02-16 17:14] LABS: Red Blood Cells-Urine 0 SEEN /hpf (0-5)
[2024-02-16] MEDS: Metoclopramide 10 MG/2 ML Vial 5 MG IV (17:19)
[2024-02-16 17:21] LABS: Color, Urine Yellow (Yellow); Glucose, Dipstick Normal (Normal); Ketone-Dipstick Negative (Negative); Leukocyte Esterase-Dipstick Negative /ul (Negative); Nitrite-Dipstick Negative (Negative); Occult Blood-Urine 10 /ul (Negative); Protein-Dipstick 15 mg/dl (Negative); Urine Bilirubin Dipstick Negative (Negative); Urine Clarity Cloudy (Clear); Urine Urobilinogen Normal (Normal)
[2024-02-16 17:29] LABS: Bacteria RARE /hpf (None Seen); Mucous, Urine RARE /hpf (<or=2+); Squamous Epithelial Cells - UA 10-25 SEEN /hpf (5-10)
[2024-02-16 17:30] LABS: White Blood Cells 0-5 SEEN /hpf (0-5)
== END 2024-02-16 18:09 | disposition home or self-care (01) ==
PROVIDERS: Emergency Provider Emergency Medicine; Visit Provider Emergency Medicine
DX: R11.2 Nausea with vomiting, unspecified (principal); Z90.49 Acquired absence of other specified parts of digestive tract; Z98.51 Tubal ligation status; Z87.440 Personal history of urinary (tract) infections; M54.50 Low back pain, unspecified
CPT/HCPCS: 80048; 81001; 85025; 87086; 87088; 96361; 96374; 96375; 99283; J7030; A4216; J2405

== ENCOUNTER 2024-03-14 16:26 | Emergency (ER) | payer MEDICAID, SELFPAY ==
[2024-03-14 16:26] VITALS: BP 151/80; PULSE 60; RESP 18; TEMP 36.1; O2SAT 98; BMI 26.0
[2024-03-14 17:33] LABS: Red Blood Cells-Urine 0 SEEN /hpf (0-5); White Blood Cells 0 SEEN /hpf (0-5)
[2024-03-14 17:34] LABS: Bacteria 0 SEEN /hpf (None Seen); Color, Urine Yellow (Yellow); Glucose, Dipstick Normal (Normal); Leukocyte Esterase-Dipstick 25 /ul (Negative); Nitrite-Dipstick Negative (Negative); Occult Blood-Urine 10 /ul (Negative); Protein-Dipstick 100 mg/dl (Negative); Specific Gravity, Urine 1.015 (1.002-1.030); Urine Bilirubin Dipstick Negative (Negative); Urine Clarity Cloudy (Clear); Urine Urobilinogen Normal (Normal)
[2024-03-14 17:39] LABS: Internal QC Validated? YES +Cl - CLEAR BKGD; Pregnancy, Urine Negative Negative
--- NOTE | 2024-03-14 17:39 | CT_ITS ---
STUDY: CT ABDOMEN AND PELVIS WITHOUT CONTRAST REASON FOR EXAM: Female, 33 years old. Kidney Stone RADIATION DOSAGE (If Supplied By Facility): CTDIvol = ( 6.67 ) mGy, DLP = ( 361.57 ) mGycm TECHNIQUE: Transaxial images were obtained from the dome of the diaphragm to the symphysis pubis without oral contrast, and without intravenous contrast. Sagittal and coronal images were reconstructed. Individualized dose optimization techniques were used for this CT. COMPARISON: February 08, 2024 FINDINGS: The visualized lung bases are unremarkable. The visualized portions of the heart are within normal limits. Normal liver. Gallbladder not visualized status post cholecystectomy. Normal spleen. Normal pancreas. Normal bilateral adrenal glands. Normal right kidney. Normal left kidney. Normal visualized stomach. Mildly distended small bowel within the left upper abdomen which may be consistent with focal ileus due to nonspecific enteritis.. Normal colon. The appendix is visualized and appears normal. Normal abdominal aorta. Normal inferior vena cava. Normal retroperitoneum. Mildly prominent uterine fundus depressing the dome of the bladder which is incompletely distended. Small left ovarian cyst measuring approximately 2.1 x 2.15 cm Normal abdominal wall. Normal osseous structures. CT/Abdomen/Pelvis without Cont IMPRESSION: Findings which may be consistent with nonspecific enteritis. No evidence for small bowel obstruction Incidental finding of left ovarian cyst. No evidence for renal obstruction or ureteral calculus Electronically Signed: Cheo Grover MD at 18:29 EDT ,
[2024-03-14 17:52] LABS: Mucous, Urine 1+ /hpf (<or=2+); Squamous Epithelial Cells - UA 10-25 SEEN /hpf (5-10)
[2024-03-14] MEDS: Metoclopramide 10 MG/2 ML Vial IV (17:52)
[2024-03-14] MEDS: Ketorolac 15 MG/ML Vial IV (17:52)
[2024-03-14 17:53] LABS: Absolute Lymphocyte Count 1.05 X10^3/uL (0.83-4.51); Absolute Neutrophil Count 10.2 X10^3/uL (2.0-7.7); Basophil# 0.03 X10^3/uL; Basophil% 0.3 % (0-1); Hematocrit 41.1 % (37-47); Hemoglobin 13.3 g/dL (12.0-15.0); Ketone-Dipstick 150 mg/dl (Negative); Lymphocyte # 1.05 X10^3/ul (0.83-4.51); Mean Corp Hgb Conc 32.4 g/dL (32-36); Mean Corpuscular Hgb 28.1 pg (27.0-32.0); Mean Corpuscular Volume 86.9 fL (81-99); Monocyte# 0.33 X10^3/uL; Monocyte% 2.8 % (0-10); NRBC Flagged by Analyzer 0 % (0-5); Neutrophil # 10.17 X10^3/uL (2.7-7.7); Neutrophil % 87.4 % (47-70); Platelet Count 364 K/mm3 (150-450); RBC Distribution Width CV 15.1 % (11.6-14.6); RBC Distribution Width SD 48.2 fl (35.1-43.9); Red Blood Count 4.73 M/mm3 (4.2-5.4); White Blood Count 11.6 K/mm3 (4.4-11.0)
[2024-03-14 18:02] LABS: Anion Gap 6 (5-15); BUN 17 mg/dL (7-18); BUN/Creat Ratio 22.8 RATIO (10-20); Calcium,Total 9.4 mg/dL (8.5-10.1); Chloride 106 mmol/L (98-107); Creatinine, Serum 0.75 mg/dL (0.55-1.02); EST Glomerular Filtration Rate 95 mL/min (>60); Est Glom Filt Rate - Afr Amer 116 mL/min (>60); Estimated Creatinine Clearance 110.33 ml/min; Glucose 134 mg/dL (74-106); Potassium 4.1 mmol/L (3.5-5.1); Sodium Level 137 mmol/L (136-145)
[2024-03-14 18:26] VITALS: BP 140/74; PULSE 74; RESP 14; O2SAT 99
[2024-03-14 18:43] VITALS: BP 146/88; PULSE 80; RESP 16; O2SAT 100
[2024-03-14] MEDS: Morphine 4 MG/ML Syringe IV (18:44)
[2024-03-14 20:00] VITALS: BP 124/78; PULSE 65; RESP 12; TEMP 36.7; O2SAT 98
--- NOTE | 2024-03-14 20:55 | ED.VIS.GI ---
HPI HPI - GI History of Present Illness Chief Complaint: Nausea/Vomiting Narrative Narrative: 33-year-old female presenting with nausea, vomiting, abdominal pain and back pain. Patient states she has had this for most of the day. She has a history of kidney stones and pyelonephritis as well as UTIs. She states recently treated for such. She is never followed up with urology but does states she had a previous history of having lithotripsy. No diarrhea constipation. No urinary or vaginal complaints. PFSH PFSH Medical History Kidney stones Ovarian cyst Home Medications ondansetron 4 mg disintegrating tablet 8 mg (2 x 4 mg) PO Q8H PRN PRN Nausea #20 tabs 12/31/20 [Rx Last Taken Unknown] ondansetron 4 mg disintegrating tablet 4 mg PO Q8H PRN PRN Nausea #10 tabs 07/07/23 [Rx Last Taken Unknown] dicyclomine 20 mg tablet 20 mg PO BID #14 tabs 03/14/24 [Rx Last Taken Unknown] metoclopramide HCl 10 mg tablet (Reglan) 10 mg PO Q6H PRN nausea and vomiting #14 tabs 03/14/24 [Rx Last Taken Unknown] sertraline 50 mg tablet 50 mg PO DAILY 03/14/24 [History Last Taken Unknown] Allergy/AdvReac Type Severity Reaction Status Date / Time No Known Allergies Allergy Verified 03/14/24 16:27 Surgical History History of laparoscopic cholecystectomy History of ureter stent Hx of tubal ligation Social History Smoking Status: Never smoker ROS ROS ED Constitutional Constitutional ED: Denies chills, fever(s) or sweats Eyes Eyes: Denies blurry vision or change in vision ENT ENT ED: Denies ear pain or sore throat Cardiovascular Cardiovascular: Denies chest pain, palpitations or racing heartbeat Respiratory/Chest Respiratory/Chest: Denies cough, dyspnea or sputum Gastrointestinal Gastrointestinal: Reports abdominal pain, nausea and vomiting; Denies constipation or diarrhea Genitourinary Genitourinary ED: Denies dysuria, hematuria or urinary frequency Musculoskeletal Musculoskeletal: Reports back pain; Denies arthralgias, myalgias or neck pain Integumentary Denies abscess, Abrasions or rash Neurologic Neurologic: Denies headache(s), paresthesias or weakness Psychiatric Psychiatric: Denies anxiety, depression, suicidal ideation or suicidal thoughts Endocrine Endocrinology: Denies polydipsia or polyuria EXAM Physical Exam Const Vital Signs: 03/14/24 16:26 03/14/24 18:26 03/14/24 18:43 Temperature 96.9 F L Temperature Source Temporal Pulse Rate 60 74 80 Respiratory Rate 18 14 16 Blood Pressure 151/80 H 140/74 H 146/88 H Blood Pressure Mean 103 96 107 Pulse Ox 98 99 100 Oxygen Delivery Method Room Air Room Air Room Air 03/14/24 20:00 Temperature 98.0 F Temperature Source Pulse Rate 65 Respiratory Rate 12 Blood Pressure 124/78 H Blood Pressure Mean 93 Pulse Ox 98 Oxygen Delivery Method Positive well nourished HEENT Reports moist mucous membranes normocephalic and atraumatic Eyes PERRL Resp normal respiratory effort Cardio regular rate and regular rhythm GI non-tender, non-distended and no masses Back/Spine General Back: CVA tenderness bilateral Neuro CN's II-XII intact bilaterally Sensorium / Orientation: alert Skin no wounds MDM MDM MDM Narrative Medical decision making narrative: Patient presenting with nausea, vomiting, back pain. She is concerned she has a UTI or kidney infection versus a kidney stone. CBC was obtained to assess white blood cell count, hemoglobin, platelets. BMP to assess renal function electrolytes, glucose. Urinalysis to assess for UTI or occult blood. Patient medicated with Reglan because she states Zofran does not work. She was also given Toradol and morphine. CBC shows white blood cell count 11.6. Hemoglobin 13.3. Platelets are normal at 364. Renal function electrolytes within normal limits. Urinalysis negative for occult blood and infection but does show [address] of the abdomen pelvis without contrast obtained and consistent with an enteritis. She also has a left ovarian cyst but has no pain when palpating in the left pelvis. Reevaluation the patient is sleeping comfortably. I counseled her that her workup is normal. I will discharge her home with some Bentyl and Reglan. Impression: 1. Nausea/vomiting 2. Flank pain Lab Data Labs: Laboratory Results - last 24 hr 03/14/24 17:16 WBC 11.6 H RBC 4.73 Hgb 13.3 Hct 41.1 MCV 86.9 MCH 28.1 MCHC 32.4 RDW Std Deviation 48.2 H RDW Coeff of Gregoria 15.1 H Plt Count 364 MPV 10.0 Immature Gran % (Auto) 0.500 Neut % (Auto) 87.4 H Lymph % (Auto) 9.0 L [place] % (Auto) 2.8 Eos % (Auto) 0.0 Baso % (Auto) 0.3 Absolute Neuts (auto) 10.2 H Absolute Lymphs (auto) 1.05 Nucleated RBC % 0 Sodium 137 Potassium 4.1 Chloride 106 Carbon Dioxide 25.0 Anion Gap 6 BUN 17 Creatinine 0.75 Estim Creat Clear Calc 110.33 Est GFR (MDRD) Af Amer 116 Est GFR (MDRD) Non-Af 95 BUN/Creatinine Ratio 22.8 H Glucose 134 H Calcium 9.4 Urine Color Yellow Urine Clarity Cloudy Urine pH 8.0 Ur Specific [place] 1.015 Urine Protein 100 H Urine Glucose (UA) Normal Urine Ketones 150 A* Urine Occult Blood 10 H Urine Nitrite Negative Urine Bilirubin Negative Urine Urobilinogen Normal Ur Leukocyte Esterase 25 H Urine RBC 0 SEEN Urine WBC 0 SEEN Ur Squamous Epith Cells 10-25 SEEN Urine Bacteria 0 SEEN Urine Mucus 1+ Urine Test Negative Radiography Diagnostic Testing: Clinical Impression(s) from Imaging Studies Abdomen/Pelvis CT 03/14/24 17:39 IMPRESSION: Findings which may be consistent with nonspecific enteritis. No evidence for small bowel obstruction Incidental finding of left ovarian cyst. No evidence for renal obstruction or ureteral calculus Electronically Signed: Cheo Grover MD at 18:29 EDT , Discharge Plan Triage Chief Complaint: Nausea/Vomiting ED Provider: Haroldo Galarza Dx/Rx/DC Orders Instructions: ED Vomit Diarrhea [place] Adult Prescriptions: New metoclopramide HCl [Reglan] 10 mg tablet 10 mg PO Q6H PRN (Reason: nausea and vomiting) Qty: 14 0RF dicyclomine 20 mg tablet 20 mg PO BID Qty: 14 0RF No Action ondansetron 4 MG tablet 8 mg PO Q8H PRN PRN (Reason: Nausea) Qty: 20 0RF ondansetron 4 MG tablet 4 mg PO Q8H PRN PRN (Reason: Nausea) Qty: 10 0RF sertraline 50 mg tablet 50 mg PO DAILY [facility] [Primary Care Provider] - Disposition Disposition: Home, Self Care Discharge Date/Time: 03/14/24 20:48
== END 2024-03-14 20:48 | disposition home or self-care (01) ==
PROVIDERS: Emergency Provider Student in an Organized Health Care Education/Training Program; Visit Provider Student in an Organized Health Care Education/Training Program
DX: R10.9 Unspecified abdominal pain (principal); R11.2 Nausea with vomiting, unspecified; Z90.49 Acquired absence of other specified parts of digestive tract; Z98.51 Tubal ligation status
CPT/HCPCS: 74176; 80048; 81001; 81025; 85025; 96374; 96375; 99284; A4216

== ENCOUNTER 2024-06-02 13:09 | Emergency (ER) | payer MEDICAID, SELFPAY ==
[2024-06-02 13:10] VITALS: BP 150/91; PULSE 50; RESP 22; TEMP 36.1; O2SAT 99; BMI 24.3
[2024-06-02 13:56] LABS: Absolute Lymphocyte Count 1.85 X10^3/uL (0.83-4.51); Absolute Neutrophil Count 8.5 X10^3/uL (2.0-7.7); Basophil# 0.06 X10^3/uL; Basophil% 0.5 % (0-1); Eosinophils% 0.9 % (0-5); Hematocrit 45.1 % (37-47); Hemoglobin 14.5 g/dL (12.0-15.0); Lymphocyte # 1.85 X10^3/ul (0.83-4.51); Lymphocyte % 16.5 % (19-41); Mean Corp Hgb Conc 32.2 g/dL (32-36); Mean Corpuscular Hgb 28.2 pg (27.0-32.0); Mean Corpuscular Volume 87.6 fL (81-99); Mean Platelet Vol. 9.8 fl (6.2-12.0); Monocyte# 0.67 X10^3/uL; NRBC Flagged by Analyzer 0 % (0-5); Neutrophil # 8.47 X10^3/uL (2.7-7.7); Neutrophil % 75.7 % (47-70); Platelet Count 308 K/mm3 (150-450); RBC Distribution Width CV 13.2 % (11.6-14.6); RBC Distribution Width SD 42.3 fl (35.1-43.9); Red Blood Count 5.15 M/mm3 (4.2-5.4); White Blood Count 11.2 K/mm3 (4.4-11.0)
[2024-06-02] MEDS: 0.9% Normal Saline (1000mL) 1,000 ML 999 ML IV (13:56)
[2024-06-02] MEDS: Ketorolac 15 MG/ML Vial IV (13:57)
[2024-06-02] MEDS: Ondansetron 4 MG/2 ML Vial IV (13:57)
[2024-06-02] MEDS: Morphine 4 MG/ML Syringe IV (13:57)
[2024-06-02 14:06] LABS: Internal QC Validated? YES +Cl - CLEAR BKGD; Pregnancy, Serum, hCG Quali. NEGATIVE Negative
[2024-06-02 14:12] LABS: ALB/GLOB Ratio 1.1 RATIO (0.9-2.4); AST(SGOT) 86 U/L (15-37); Alanine Aminotransfer ALT/SGPT 106 U/L (13-56); Albumin, Serum 4.3 g/dL (3.2-5.0); Alkaline Phosphatase 47 U/L (45-117); Anion Gap 7 (5-15); BUN 12 mg/dL (7-18); BUN/Creat Ratio 16.6 RATIO (10-20); Calcium,Total 9.6 mg/dL (8.5-10.1); Chloride 103 mmol/L (98-107); Creatinine, Serum 0.72 mg/dL (0.55-1.02); EST Glomerular Filtration Rate 99 mL/min (>60); Est Glom Filt Rate - Afr Amer 119 mL/min (>60); Estimated Creatinine Clearance 105.01 ml/min; Glucose 122 mg/dL (74-106); Potassium 3.6 mmol/L (3.5-5.1); Protein, Total 8.3 g/dL (6.4-8.2); Sodium Level 138 mmol/L (136-145)
[2024-06-02 15:09] VITALS: PULSE 59; RESP 14; O2SAT 99
[2024-06-02 15:14] LABS: Red Blood Cells-Urine 0 SEEN /hpf (0-5)
[2024-06-02 15:30] LABS: Color, Urine Yellow (Yellow); Glucose, Dipstick Normal (Normal); Ketone-Dipstick 5 mg/dl (Negative); Leukocyte Esterase-Dipstick 25 /ul (Negative); Nitrite-Dipstick Negative (Negative); Occult Blood-Urine Negative /ul (Negative); Protein-Dipstick 15 mg/dl (Negative); Urine Bilirubin Dipstick Negative (Negative); Urine Clarity Sl. Cloudy (Clear); Urine Urobilinogen Normal (Normal)
--- NOTE | 2024-06-02 15:40 | CT_ITS ---
STUDY: CT ABDOMEN AND PELVIS WITH CONTRAST REASON FOR EXAM: Female, 33 years old. left flank pain, nausea, vomiting RADIATION DOSAGE (If Supplied By Facility): CTDIvol = ( 13.60 ) mGy, DLP = ( 558.63 ) mGycm TECHNIQUE: Transaxial images were obtained from the dome of the diaphragm to the symphysis pubis without oral contrast. IV 100mL [id number] was administered. Sagittal and coronal images were reconstructed. Individualized dose optimization techniques were used for this CT. COMPARISON: 03/14/2024 FINDINGS: The visualized lung bases are unremarkable. The visualized portions of the heart are within normal limits. Normal liver. There are surgical clips in the gallbladder fossa consistent with a prior cholecystectomy. Normal spleen. Normal pancreas. Normal bilateral adrenal glands. Normal right kidney. Normal left kidney. Normal visualized stomach. Normal small intestine. Normal colon. The appendix is visualized and appears normal. Normal abdominal aorta. Normal inferior vena cava. Normal retroperitoneum. Normal urinary bladder. Normal abdominal wall. Mild levoscoliosis lumbar spine. CT/Abdomen/Pelvis W IV Cont ONLY IMPRESSION: Normal enhanced CT of the abdomen and pelvis. Electronically Signed: Chilo Villa MD at 16:30 EDT ,
[2024-06-02 15:51] LABS: Bacteria 1+ /hpf (None Seen); Mucous, Urine 3+ /hpf (<or=2+); Squamous Epithelial Cells - UA 5-10 SEEN /hpf (5-10)
[2024-06-02 15:52] LABS: White Blood Cells 0-5 SEEN /hpf (0-5)
[2024-06-02 16:29] LABS: Lipase 19 U/L (13-75)
[2024-06-02 17:00] VITALS: BP 126/79; PULSE 61; RESP 14; O2SAT 98
--- NOTE | 2024-06-02 17:02 | EX.ED.DYSGE1 ---
HPI History of Present Illness Chief Complaint: Nausea/Vomiting Informant: patient Narrative Narrative: Patient is a 33-year-old female with history of kidney stones with pyelonephritis presenting with worsening left lower back pain that radiates around to her abdomen, nausea and vomiting. She states she feels that the nausea vomiting secondary to the pain. She tried taking Zofran, Tylenol ibuprofen at home with no relief of her symptoms. She denies associated fever. She has had multiple ER visits for similar symptoms in the past she states. She has a history of a medullary sponge kidney as well as cholecystectomy. Denies any tobacco, alcohol or THC use. Denies any change in her bowel movements. No other complaints or concerns reported at this time. Denies any blood in her vomit or her stool. Does report some mild dysuria but denies any hematuria or frequency. PFSH PFS Medical History Ovarian cyst Kidney stones Home Medications ?Medication ?Instructions ?Recorded ?Last Taken ?Type ondansetron 4 mg disintegrating 4 mg PO Q8H PRN PRN Nausea #10 tabs 07/07/23 Unknown Rx tablet sertraline 50 mg tablet 50 mg PO DAILY 03/14/24 Unknown History dextroamphetamine-amphetamine 20 0.5 tab PO BID 06/02/24 Unknown History mg tablet Allergy/AdvReac Type Severity Reaction Status Date / Time No Known Allergies Allergy Verified 06/02/24 13:10 Surgical History History of ureter stent Hx of tubal ligation History of laparoscopic cholecystectomy Social History household members: spouse, significant other and children housing: house Smoking Status: Never smoker ROS ROS ED Constitutional Constitutional ED: Denies chills or fever(s) Cardiovascular Cardiovascular: Denies chest pain Respiratory/Chest Respiratory/Chest: Denies cough Gastrointestinal Gastrointestinal: Reports abdominal pain, nausea and vomiting; Denies constipation, diarrhea or melena Genitourinary Genitourinary ED: Reports dysuria; Denies hematuria or urinary frequency Musculoskeletal Musculoskeletal: Reports back pain; Denies arthralgias or myalgias Integumentary Denies rash Neurologic Neurologic: Denies headache(s) EXAM Physical Exam Const Vital Signs: 06/02/24 13:10 06/02/24 15:09 06/02/24 17:00 Temperature 96.9 F L Temperature Source Temporal Pulse Rate 50 L 59 L 61 Respiratory Rate 22 H 14 14 Blood Pressure 150/91 H 126/79 H Blood Pressure Mean 110 94 Pulse Ox 99 99 98 Oxygen Delivery Method Room Air 06/02/24 19:49 Temperature 97.9 F Temperature Source Pulse Rate 60 Respiratory Rate 18 Blood Pressure 124/77 H Blood Pressure Mean 92 Pulse Ox 100 Oxygen Delivery Method Positive well nourished and well developed General Appearance ED: well developed and NAD HEENT Reports moist mucous membranes Eyes PERRL and EOMs intact bilaterally Chest Wall inspection of chest normal and palpation of chest normal Resp normal respiratory effort and clear to auscultation bilaterally Cardio regular rate, regular rhythm and no murmurs GI normal to inspection, nondistended, normoactive bowel sounds and non-tender GI Narrative: Intermittently retching Auscultation: normoactive bowel sounds Palpation: Negative for guarding Back/Spine Back/Spine Narrative: Left lumbar paraspinal tenderness palpation, diffuse General Back: CVA tenderness left Thoracic Spine / Upper Back: Negative for thoracic spinal tenderness or paraspinal muscle tenderness Lumbar Spine / Lower Back: Negative for lumbar spinal tenderness Extremity General Extremety ED: Negative for edema General Extremity: Negative for edema Neuro oriented x3 Sensorium / Orientation: alert Motor Exam: Negative for general weakness Psych mental status grossly normal Skin no rashes or lesions noted and no wounds MDM MDM MDM Narrative Medical decision making narrative: Patient is evaluated for pretty severe left flank and back pain. She is having pretty profuse nausea and vomiting. Initially denies any history of marijuana use. Does have a history of pyelonephritis and kidney stones. Workup including a CBC and CMP as well as urinalysis obtained. Her white blood cell count mildly elevated 11.2 but this appears to be her baseline. Could be reactive from her vomiting as well. CMP is normal. Serum is negative. Urinalysis is not consistent with infection. She initially was given morphine and Zofran for symptom control as well as IV fluids. Continues to have significant nausea, vomiting and pain so decision was made to be repeat a CT scan of her abdomen and pelvis. This is done with IV contrast. This does not show any acute process per radiology. I did add on a urine tox at this points and give the patient dose of Ativan and Haldol. Patient has significant improvement of her symptoms feeling much better. Urine tox is positive for opiates (this could be from the morphine she just received), amphetamine (is on ADHD medication) as well as cannabis. I question if she actually has cyclic vomiting syndrome or cannabis hyperemesis syndrome. Especially given the relief she felt with Ativan and Haldol. Patient initially denied any marijuana use but then admitted to using some type of CBD gummy. I counseled that any THC prior to including CBD can exacerbate certain types of abdominal conditions including cyclic vomiting syndrome/cannabis hyperemesis syndrome. Counseled her to abstain from any type of these products. Also discussed that if she does have an episode she can use topical capsaicin ointment around her bellybutton as she does state that hot showers help. Is given referral to GI. Patient discharged home in improved and stable condition. Given return precautions. History & Record Review Additional record(s) reviewed:: Prior ED visit (ER visit on 03/14/2024 for similar presentation. At that time had a negative workup with maybe some findings consistent with enteritis. Was given Toradol and morphine and discharged home.) Lab Data Attestation: I reviewed the patient's lab results. Labs: Laboratory Results - last 24 hr 06/02/24 06/02/24 06/02/24 13:45 15:08 17:13 WBC 11.2 H RBC 5.15 Hgb 14.5 Hct 45.1 MCV 87.6 MCH 28.2 MCHC 32.2 RDW Std Deviation 42.3 RDW Coeff of Gregoria 13.2 Plt Count 308 MPV 9.8 Immature Gran % (Auto) 0.400 Neut % (Auto) 75.7 H Lymph % (Auto) 16.5 L [place] % (Auto) 6.0 Eos % (Auto) 0.9 Baso % (Auto) 0.5 Absolute Neuts (auto) 8.5 H Absolute Lymphs (auto) 1.85 Nucleated RBC % 0 Sodium 138 Potassium 3.6 Chloride 103 Carbon Dioxide 28.0 Anion Gap 7 BUN 12 Creatinine 0.72 Estim Creat Clear Calc 105.01 Est GFR (MDRD) Af Amer 119 Est GFR (MDRD) Non-Af 99 BUN/Creatinine Ratio 16.6 Glucose 122 H Lactic Acid 1.0 Calcium 9.6 Total Bilirubin 0.30 AST 86 H ALT 106 H Alkaline Phosphatase 47 Total Protein 8.3 H Albumin 4.3 Globulin 4.0 Albumin/Globulin Ratio 1.1 Lipase 19 Serum , Qual NEGATIVE Urine Color Yellow Urine Clarity Sl. Cloudy Urine pH 7.0 Ur Specific [place] 1.010 Urine Protein 15 H Urine Glucose (UA) Normal Urine Ketones 5 H Urine Occult Blood Negative Urine Nitrite Negative Urine Bilirubin Negative Urine Urobilinogen Normal Ur Leukocyte Esterase 25 H Urine RBC 0 SEEN Urine WBC 0-5 SEEN Ur Squamous Epith Cells 5-10 SEEN Urine Bacteria 1+ Urine Mucus 3+ Urine Opiates Screen POSITIVE H Urine Methadone Screen NEGATIVE Ur Barbiturates Screen NEGATIVE Ur Phencyclidine Scrn NEGATIVE Ur Amphetamines Screen POSITIVE H MDMA (Ecstasy) Screen NEGATIVE U Benzodiazepines Scrn NEGATIVE Urine Cocaine Screen NEGATIVE U Cannabinoids Screen POSITIVE H Ur Drug Screen Comment Radiography Diagnostic Testing: Clinical Impression(s) from Imaging Studies Abdomen/Pelvis CT 06/02/24 15:40 IMPRESSION: Normal enhanced CT of the abdomen and pelvis. Electronically Signed: Chilo Villa MD at 16:30 EDT , Discharge Plan Triage Chief Complaint: Nausea/Vomiting ED Provider: Karissa Joaquin Dx/Rx/DC Orders Clinical Impression: Abdominal pain, Back pain, Nausea & vomiting Instructions: ED Cyclic Vomiting Syndrome Prescriptions: No Action ondansetron 4 MG tablet 4 mg PO Q8H PRN PRN (Reason: Nausea) Qty: 10 0RF sertraline 50 mg tablet 50 mg PO DAILY dextroamphetamine-amphetamine 20 mg tablet 0.5 tab PO BID Primary Care Provider: [facility] Elin Nunn Referrals: FriendGerry DO [Med Staff - Active Staff] - [facility] - Activity Restrictions/Additional Instructions: Please avoid any marijuana use including any CBD products. This could be worsening your symptoms. You may use [id number] topical capsaicin ointment. Apply it around your bellybutton for when you have symptoms. Make sure you are drinking plenty of fluids. You have been given referral for GI. Print Language: Hungarian Disposition Disposition: Home, Self Care Discharge Date/Time: 06/02/24 19:50
[2024-06-02] MEDS: LORazepam 2 MG/ML Syringe 0.5 MG IV (17:11)
[2024-06-02] MEDS: Haloperidol Lactate 5 MG/ML Vial 1 MG IV (17:17)
[2024-06-02 17:51] LABS: Amphetamine Urine VISTA POSITIVE (<1000 ng/mL); Barbiturate Urine VISTA NEGATIVE (< 200 ng/mL); Benzodiazepine Urine VISTA NEGATIVE (< 200 ng/mL); Cocaine Urine VISTA NEGATIVE (< 300 ng/mL); Ecstacy Urine VISTA NEGATIVE (< 500 ng/mL); Methadone Urine VISTA NEGATIVE (< 300 ng/mL); PCP Urine VISTA NEGATIVE (< 25 ng/mL); THC Urine VISTA POSITIVE (< 50 ng/mL); Vista UDS pH Range 6
[2024-06-02 19:49] VITALS: BP 124/77; PULSE 60; RESP 18; TEMP 36.6; O2SAT 100
== END 2024-06-02 19:50 | disposition home or self-care (01) ==
PROVIDERS: Emergency Provider Emergency Medicine; Visit Provider Emergency Medicine
DX: R11.2 Nausea with vomiting, unspecified (principal); F90.9 Attention-deficit hyperactivity disorder, unspecified type; R10.9 Unspecified abdominal pain; M54.9 Dorsalgia, unspecified; Z90.49 Acquired absence of other specified parts of digestive tract; Z98.51 Tubal ligation status; Z79.899 Other long term (current) drug therapy
CPT/HCPCS: 74177; 80053; 80307; 81001; 83605; 83690; 84703; 85025; 96361; 96374; 96375; 99282; J7030; Q9967; A4216; J2405

== ENCOUNTER 2024-06-30 13:24 | Emergency (ER) | payer MEDICAID, SELFPAY ==
[2024-06-30 13:27] VITALS: BP 158/87; PULSE 56; RESP 18; TEMP 35.6; O2SAT 100; BMI 24.0
[2024-06-30 14:00] LABS: Absolute Neutrophil Count 8.7 X10^3/uL (2.0-7.7); Basophil# 0.05 X10^3/uL; Basophil% 0.5 % (0-1); Hematocrit 43.6 % (37-47); Hemoglobin 13.7 g/dL (12.0-15.0); Lymphocyte % 14.2 % (19-41); Mean Corp Hgb Conc 31.4 g/dL (32-36); Mean Platelet Vol. 9.9 fl (6.2-12.0); Monocyte# 0.29 X10^3/uL; Monocyte% 2.8 % (0-10); NRBC Flagged by Analyzer 0 % (0-5); Neutrophil # 8.65 X10^3/uL (2.7-7.7); Neutrophil % 82.1 % (47-70); Platelet Count 347 K/mm3 (150-450); RBC Distribution Width CV 13.3 % (11.6-14.6); RBC Distribution Width SD 43.7 fl (35.1-43.9); White Blood Count 10.5 K/mm3 (4.4-11.0)
[2024-06-30 14:13] LABS: Internal QC Validated? YES +Cl - CLEAR BKGD; Pregnancy, Serum, hCG Quali. NEGATIVE Negative
[2024-06-30 14:15] VITALS: TEMP 36.7
[2024-06-30 14:21] LABS: ALB/GLOB Ratio 0.9 RATIO (0.9-2.4); AST(SGOT) 122 U/L (15-37); Alanine Aminotransfer ALT/SGPT 142 U/L (13-56); Albumin, Serum 4.1 g/dL (3.2-5.0); Alkaline Phosphatase 48 U/L (45-117); Anion Gap 5 (5-15); BUN 11 mg/dL (7-18); BUN/Creat Ratio 12.4 RATIO (10-20); Calcium,Total 9.8 mg/dL (8.5-10.1); Chloride 104 mmol/L (98-107); Creatinine, Serum 0.89 mg/dL (0.55-1.02); EST Glomerular Filtration Rate 78 mL/min (>60); Est Glom Filt Rate - Afr Amer 94 mL/min (>60); Estimated Creatinine Clearance 81.66 ml/min; Globulin 4.4 g/dL (2.2-4.2); Glucose 170 mg/dL (74-106); Potassium 4.1 mmol/L (3.5-5.1); Protein, Total 8.5 g/dL (6.4-8.2); Sodium Level 137 mmol/L (136-145)
--- NOTE | 2024-06-30 14:41 | CT_ITS ---
STUDY: CT ABDOMEN AND PELVIS WITHOUT CONTRAST REASON FOR EXAM: Female, 33 years old. Kidney Stone RADIATION DOSAGE (If Supplied By Facility): CTDIvol = ( 6.97 ) mGy, DLP = ( 356.84 ) mGycm TECHNIQUE: Transaxial images were obtained from the dome of the diaphragm to the symphysis pubis without oral contrast, and without intravenous contrast. Sagittal and coronal images were reconstructed. Individualized dose optimization techniques were used for this CT. COMPARISON: Comparison is made with prior study June 02, 2024. FINDINGS: The visualized lung bases are unremarkable. The visualized portions of the heart are within normal limits. Normal liver. There are surgical clips in the gallbladder fossa consistent with a prior cholecystectomy. Normal spleen. Normal pancreas. Normal bilateral adrenal glands. Normal right kidney. Normal left kidney. There is a small hiatal hernia. Normal small intestine. Normal colon. The appendix is visualized and appears normal. Normal abdominal aorta. Normal inferior vena cava. Normal retroperitoneum. Normal urinary bladder. A calcified phlebolith is seen in the right hemipelvis. Normal abdominal wall. Normal osseous structures. CT/Abdomen/Pelvis without Cont IMPRESSION: No obstructive uropathy is seen. Electronically Signed: Blane Villanueva MD at 15:46 EDT ,
--- NOTE | 2024-06-30 14:41 | EX.ED.DYSGE1 ---
HPI History of Present Illness Chief Complaint: Abd Pain Informant: patient Narrative Narrative: 33-year-old female presenting to the emergency room with a chief complaint of abdominal pain back pain vomiting. Patient states she went to bed feeling fine. She woke today she had pain on the right mid back. She notes pain in the lower abdomen and states that the pain is causing her to vomit. The patient does not offer it in her history of present illness but unable to get out that she has had prior kidney stones and this feels similar. No reported diarrhea. PFSH PFS Medical History Ovarian cyst Kidney stones Home Medications ?Medication ?Instructions ?Recorded ?Last Taken ?Type ondansetron 4 mg disintegrating 4 mg PO Q8H PRN PRN Nausea #10 tabs 07/07/23 Unknown Rx tablet sertraline 50 mg tablet 50 mg PO DAILY 03/14/24 Unknown History dextroamphetamine-amphetamine 20 0.5 tab PO BID 06/02/24 Unknown History mg tablet metoclopramide HCl 10 mg tablet 10 mg PO Q6H PRN nausea and 06/30/24 Unknown Rx (Reglan) vomiting #10 tabs Allergy/AdvReac Type Severity Reaction Status Date / Time No Known Allergies Allergy Verified 06/30/24 13:27 Surgical History History of ureter stent Hx of tubal ligation History of laparoscopic cholecystectomy Social History household members: spouse, significant other and children housing: house Smoking Status: Never smoker ROS ROS ED Constitutional Constitutional ED: Reports chills; Denies fever(s) or weight loss Eyes Eyes: Denies change in vision or diplopia ENT ENT ED: Denies ear pain, rhinorrhea or sore throat Cardiovascular Cardiovascular: Denies chest pain, orthopnea, palpitations or racing heartbeat Respiratory/Chest Respiratory/Chest: Denies cough, dyspnea or orthopnea Gastrointestinal Gastrointestinal: Reports abdominal pain, nausea and vomiting; Denies diarrhea Genitourinary Genitourinary ED: Denies dysuria, hematuria or urinary frequency Musculoskeletal Musculoskeletal: Reports back pain; Denies arthralgias or myalgias Integumentary Denies abscess or rash Neurologic Neurologic: Denies headache(s) or weakness Psychiatric Psychiatric: Denies anxiety, depression, suicidal ideation or suicidal thoughts Endocrine Endocrinology: Denies polydipsia, polyphagia or polyuria Allergic/Immunologic Allergic/Immunologic ED: Denies mouth swelling, tongue swelling or urticaria EXAM Physical Exam Const Vital Signs: 06/30/24 13:27 06/30/24 14:15 06/30/24 16:00 Temperature 96.1 F L 98.1 F Temperature Source Temporal Oral Pulse Rate 56 L 47 L Respiratory Rate 18 16 Blood Pressure 158/87 H 159/85 H Blood Pressure Mean 110 109 Pulse Ox 100 100 Oxygen Delivery Method Room Air 06/30/24 18:00 06/30/24 20:00 06/30/24 20:47 Temperature 96.2 F L Temperature Source Pulse Rate 50 L 70 59 L Respiratory Rate 16 18 16 Blood Pressure 134/67 H 108/65 96/53 L Blood Pressure Mean 89 79 67 Pulse Ox 100 99 96 Oxygen Delivery Method Room Air Room Air Positive well nourished and well developed General Appearance ED: well developed HEENT Reports normocephalic, head/scalp atraumatic and moist mucous membranes Eyes PERRL and EOMs intact bilaterally Neck no lymphadenopathy, supple and no JVD Resp normal respiratory effort and clear to auscultation bilaterally Cardio regular rate, regular rhythm and no murmurs GI Auscultation: normoactive bowel sounds Palpation: soft and tender LLQ, RLQ and suprapubic Back/Spine normal ROM General Back: CVA tenderness left Extremity normal to inspection General Extremety ED: Negative for edema General Extremity: Negative for edema Neuro oriented x3 and CN's II-XII intact bilaterally Sensorium / Orientation: alert Motor Exam: strength 5/5 throughout Psych mental status grossly normal Mood & Affect: Negative for depressed or tearful Skin no rashes or lesions noted and no wounds MDM MDM MDM Narrative Medical decision making narrative: Differential diagnosis includes dehydration electrolyte abnormalities UTI pyelonephritis kidney stone diverticulitis. After the workup was started the patient told nursing that she has a history of cyclic vomiting syndrome. She states she was given this diagnosis recently through the emergency department is yet been able to find anybody that can confirm her diagnosis or work with her on it. She states that she is part of numerous cyclic vomiting support groups through social media. White count 10.5 hemoglobin 13.7 platelet count of 347. Glucose 170 AST 122 ALT is 142 test is negative urinalysis 10-25 white cells and 1+ bacteria but 25-50 squamous cells so I think is most likely contamination. CT of the ab pelvis does not demonstrate any acute findings. Patient initially treated with IV fluids Zofran morphine and Toradol. Patient received IM Phenergan. She has had no improvement. She received Thorazine and Benadryl and reports improvement. At this point I think the patient can be discharged home. She is asked for a as needed medicine that she had received in the past. She has Zofran at home but does not believe it to be effective. I see that she was once prescribed Reglan and I can provide that for her. I would recommend that she continue to work towards a GI evaluation History & Record Review Discussion w/independent historian: Patient Additional record(s) reviewed:: Prior ED visit and Prior labs Lab Data Attestation: I reviewed the patient's lab results. Labs: Laboratory Results - last 24 hr 06/30/24 06/30/24 13:50 15:41 WBC 10.5 RBC 4.90 Hgb 13.7 Hct 43.6 MCV 89.0 MCH 28.0 MCHC 31.4 L RDW Std Deviation 43.7 RDW Coeff of Gregoria 13.3 Plt Count 347 MPV 9.9 Immature Gran % (Auto) 0.400 Neut % (Auto) 82.1 H Lymph % (Auto) 14.2 L [place] % (Auto) 2.8 Eos % (Auto) 0.0 Baso % (Auto) 0.5 Absolute Neuts (auto) 8.7 H Absolute Lymphs (auto) 1.50 Nucleated RBC % 0 Sodium 137 Potassium 4.1 Chloride 104 Carbon Dioxide 28.0 Anion Gap 5 BUN 11 Creatinine 0.89 Estim Creat Clear Calc 81.66 Est GFR (MDRD) Af Amer 94 Est GFR (MDRD) Non-Af 78 BUN/Creatinine Ratio 12.4 Glucose 170 H Calcium 9.8 Total Bilirubin 0.30 AST 122 H ALT 142 H Alkaline Phosphatase 48 Total Protein 8.5 H Albumin 4.1 Globulin 4.4 H Albumin/Globulin Ratio 0.9 Serum , Qual NEGATIVE Urine Color Yellow Urine Clarity Clear Urine pH 8.0 Ur Specific [place] 1.010 Urine Protein 100 H Urine Glucose (UA) Normal Urine Ketones Negative Urine Occult Blood Negative Urine Nitrite Negative Urine Bilirubin Negative Urine Urobilinogen Normal Ur Leukocyte Esterase 25 H Urine RBC 0-5 SEEN Urine WBC 10-25 SEEN Ur Squamous Epith Cells 25-50 SEEN Urine Bacteria 1+ Urine Mucus 3+ Radiography Diagnostic Testing: Clinical Impression(s) from Imaging Studies Abdomen/Pelvis CT 06/30/24 14:41 IMPRESSION: No obstructive uropathy is seen. Electronically Signed: Blane Villanueva MD at 15:46 EDT , Discharge Plan Triage Chief Complaint: Abd Pain Other Complaint: Nausea/Vomiting ED Provider: Quinn Dalal Dx/Rx/DC Orders Clinical Impression: Cyclical vomiting, Abdominal pain Instructions: ED Cyclic Vomiting Syndrome Prescriptions: New metoclopramide HCl [Reglan] 10 mg tablet 10 mg PO Q6H PRN (Reason: nausea and vomiting) Qty: 10 0RF No Action ondansetron 4 MG tablet 4 mg PO Q8H PRN PRN (Reason: Nausea) Qty: 10 0RF sertraline 50 mg tablet 50 mg PO DAILY dextroamphetamine-amphetamine 20 mg tablet 0.5 tab PO BID Primary Care Provider: Elin Aldridge Referrals: [facility] Elin Nunn [Primary Care Provider] - As Needed Print Language: Filipino Disposition Disposition: Home, Self Care Discharge Date/Time: 06/30/24 20:47
[2024-06-30 15:54] LABS: Color, Urine Yellow (Yellow); Glucose, Dipstick Normal (Normal); Ketone-Dipstick Negative (Negative); Leukocyte Esterase-Dipstick 25 /ul (Negative); Nitrite-Dipstick Negative (Negative); Occult Blood-Urine Negative /ul (Negative); Protein-Dipstick 100 mg/dl (Negative); Urine Bilirubin Dipstick Negative (Negative); Urine Clarity Clear (Clear); Urine Urobilinogen Normal (Normal)
[2024-06-30 16:00] VITALS: BP 159/85; PULSE 47; RESP 16; O2SAT 100
[2024-06-30 16:34] LABS: Bacteria 1+ /hpf (None Seen); Mucous, Urine 3+ /hpf (<or=2+); Red Blood Cells-Urine 0-5 SEEN /hpf (0-5); Squamous Epithelial Cells - UA 25-50 SEEN /hpf (5-10); White Blood Cells 10-25 SEEN /hpf (0-5)
[2024-06-30 18:00] VITALS: BP 134/67; PULSE 50; RESP 16; O2SAT 100
[2024-06-30 20:00] VITALS: BP 108/65; PULSE 70; RESP 18; O2SAT 99
[2024-06-30 20:47] VITALS: BP 96/53; PULSE 59; RESP 16; TEMP 35.7; O2SAT 96
== END 2024-06-30 20:47 | disposition home or self-care (01) ==
PROVIDERS: Emergency Provider Emergency Medicine; Visit Provider Emergency Medicine
DX: R10.30 Lower abdominal pain, unspecified (principal); R11.15 Cyclical vomiting syndrome unrelated to migraine; Z98.51 Tubal ligation status; Z90.49 Acquired absence of other specified parts of digestive tract
CPT/HCPCS: 74176; 80053; 81001; 84703; 85025; 96361; 96365; 96372; 96375; 96376; 99284; J7030; A4216; J2405

== ENCOUNTER 2024-12-04 16:53 | Emergency (ER) | payer MEDICAID, SELFPAY ==
[2024-12-04 16:53] VITALS: BP 152/95; PULSE 105; RESP 16; TEMP 35.5; O2SAT 100; BMI 24.1
[2024-12-04] MEDS: Ketorolac 30 MG/ML Syringe IV (17:42)
--- NOTE | 2024-12-04 17:43 | EDS_ITS ---
HPI HPI - Female History of Present Illness Chief Complaint: Vag Bleeding Informant: patient Narrative Narrative: 34-year-old female comes in with a heavy painful menstruation. Patient states that this morning she began her normal menstrual cycle. She notes that the cramps were intense and as the day went on she noticed very heavy bleeding with large clots. She states that this has not really happened to her before. She denies any significant gynecologic health issues such as recurrent ovarian cyst. She has had tubal ligation. She has delivered 3 children. She does not currently see a local digital solutions architect. She is not taking any control or hormonal medications. She has not noticed any abnormal bleeding anywhere else on her skin or gums etc. [facility] Medical History Ovarian cyst Kidney stones Home Medications ?Medication ?Instructions ?Recorded ?Last Taken ?Type ondansetron 4 mg disintegrating 4 mg PO Q8H PRN PRN Nausea #10 tabs 07/07/23 Unknown Rx tablet sertraline 50 mg tablet 50 mg PO DAILY 03/14/24 Unknown History dextroamphetamine-amphetamine 20 0.5 tab PO BID 06/02/24 Unknown History mg tablet metoclopramide HCl 10 mg tablet 10 mg PO Q6H PRN nausea and 06/30/24 Unknown Rx (Reglan) vomiting #10 tabs Allergy/AdvReac Type Severity Reaction Status Date / Time No Known Allergies Allergy Verified 12/04/24 16:55 Surgical History History of ureter stent Hx of tubal ligation History of laparoscopic cholecystectomy Social History household members: spouse, significant other and children housing: house Smoking Status: Never smoker ROS ROS ED Constitutional Constitutional ED: Denies chills or weight loss Eyes Eyes: Denies change in vision or diplopia ENT ENT ED: Denies ear pain, rhinorrhea or sore throat Cardiovascular Cardiovascular: Denies chest pain, orthopnea, palpitations or racing heartbeat Respiratory/Chest Respiratory/Chest: Denies cough, dyspnea or orthopnea Gastrointestinal Gastrointestinal: Denies abdominal pain, diarrhea, nausea or vomiting Genitourinary Genitourinary ED: Reports other Details: Heavy vaginal bleeding menstrual cramps ; Denies dysuria, hematuria or urinary frequency Musculoskeletal Musculoskeletal: Denies arthralgias or myalgias Integumentary Denies abscess or rash Neurologic Neurologic: Denies headache(s) or weakness Psychiatric Psychiatric: Denies anxiety, depression, suicidal ideation or suicidal thoughts Endocrine Endocrinology: Denies polydipsia, polyphagia or polyuria Allergic/Immunologic Allergic/Immunologic ED: Denies mouth swelling, tongue swelling or urticaria EXAM Physical Exam Const Vital Signs: 12/04/24 16:53 Temperature 95.9 F L Temperature Source Temporal Pulse Rate 105 H Respiratory Rate 16 Blood Pressure 152/95 H Blood Pressure Mean 114 Pulse Ox 100 Oxygen Delivery Method Room Air Positive well nourished and well developed General Appearance ED: well developed and NAD HEENT Reports normocephalic, head/scalp atraumatic and moist mucous membranes Eyes PERRL and EOMs intact bilaterally Neck no lymphadenopathy, supple and no JVD Resp normal respiratory effort and clear to auscultation bilaterally Cardio regular rate, regular rhythm and no murmurs GI normal to inspection, nondistended, normoactive bowel sounds and non-tender Palpation: soft Back/Spine no CVA tenderness and normal ROM Extremity normal to inspection General Extremety ED: Negative for edema General Extremity: Negative for edema Neuro oriented x3 and CN's II-XII intact bilaterally Sensorium / Orientation: alert Motor Exam: strength 5/5 throughout Psych mental status grossly normal Mood & Affect: Negative for depressed or tearful Skin no rashes or lesions noted and no wounds MDM MDM MDM Narrative Medical decision making narrative: Differential diagnosis includes but not limited to anemia thrombocytopenia no metrorrhagia miscarriage Patient received a dose of Toradol for pain. Hemoglobin returns at 10.5 with a platelet count of 378. White count of 8.8. test is negative. Patient received a dose of Toradol. At this point this is day one of her menstrual cycle. Would recommend monitoring her symptoms. If they are persisting or worsening she should have her hemoglobin level rechecked. I would recommend following up with gynecology. Dr. Hurtado is on-call for no doctor gynecology tonight. History & Record Review Discussion w/independent historian: Patient Lab Data Attestation: I reviewed the patient's lab results. Labs: Laboratory Results - last 24 hr 12/04/24 17:43 WBC 8.8 RBC 4.21 Hgb 10.5 L Hct 33.2 L MCV 78.9 L MCH 24.9 L MCHC 31.6 L RDW Std Deviation 46.1 H RDW Coeff of Gregoria 16.1 H Plt Count 378 MPV 8.9 Immature Gran % (Auto) 0.200 Neut % (Auto) 52.1 Lymph % (Auto) 35.3 [place] % (Auto) 9.0 Eos % (Auto) 2.7 Baso % (Auto) 0.7 Absolute Neuts (auto) 4.6 Absolute Lymphs (auto) 3.11 Nucleated RBC % 0 Serum , Qual NEGATIVE Discharge Plan Triage Chief Complaint: Vag Bleeding ED Provider: Quinn Dalal Dx/Rx/DC Orders Clinical Impression: Menometrorrhagia Prescriptions: No Action ondansetron 4 MG tablet 4 mg PO Q8H PRN PRN (Reason: Nausea) Qty: 10 0RF sertraline 50 mg tablet 50 mg PO DAILY dextroamphetamine-amphetamine 20 mg tablet 0.5 tab PO BID metoclopramide HCl [Reglan] 10 mg tablet 10 mg PO Q6H PRN (Reason: nausea and vomiting) Qty: 10 0RF Primary Care Provider: [facility] Elin Nunn Referrals: Kira Castillo DO [Med Staff - Active Staff] - (for local gynecology if continued or recurrent symptoms) [facility] - Print Language: Spanish Disposition Disposition: Home, Self Care
[2024-12-04 17:58] LABS: Absolute Lymphocyte Count 3.11 X10^3/uL (0.83-4.51); Absolute Neutrophil Count 4.6 X10^3/uL (2.0-7.7); Basophil# 0.06 X10^3/uL; Basophil% 0.7 % (0-1); Eosinophil# 0.24 X10^3/uL; Eosinophils% 2.7 % (0-5); Hematocrit 33.2 % (37-47); Hemoglobin 10.5 g/dL (12.0-15.0); Internal QC Validated? YES +Cl - CLEAR BKGD; Lymphocyte # 3.11 X10^3/ul (0.83-4.51); Lymphocyte % 35.3 % (19-41); Mean Corp Hgb Conc 31.6 g/dL (32-36); Mean Corpuscular Hgb 24.9 pg (27.0-32.0); Mean Corpuscular Volume 78.9 fL (81-99); Mean Platelet Vol. 8.9 fl (6.2-12.0); Monocyte# 0.79 X10^3/uL; NRBC Flagged by Analyzer 0 % (0-5); Neutrophil # 4.59 X10^3/uL (2.7-7.7); Neutrophil % 52.1 % (47-70); Platelet Count 378 K/mm3 (150-450); Pregnancy, Serum, hCG Quali. NEGATIVE Negative; RBC Distribution Width CV 16.1 % (11.6-14.6); RBC Distribution Width SD 46.1 fl (35.1-43.9); Red Blood Count 4.21 M/mm3 (4.2-5.4); White Blood Count 8.8 K/mm3 (4.4-11.0)
[2024-12-04 18:24] VITALS: BP 112/78; PULSE 64; RESP 16; TEMP 37.1; O2SAT 99
== END 2024-12-04 18:33 | disposition home or self-care (01) ==
PROVIDERS: Emergency Provider Emergency Medicine; Visit Provider Emergency Medicine
DX: N93.9 Abnormal uterine and vaginal bleeding, unspecified (principal); N92.1 Excessive and frequent menstruation with irregular cycle; Z79.3 Long term (current) use of hormonal contraceptives; Z90.49 Acquired absence of other specified parts of digestive tract
CPT/HCPCS: 84703; 85025; 96374; 99283; A4216

== ENCOUNTER 2025-07-24 11:58 | Inpatient (IN) | payer MEDICAID, SELFPAY ==
[2025-07-24] VITALS (10 sets, daily range): BP systolic 105–142; BP diastolic 64–80; PULSE 70–108; RESP 16–20; TEMP 36.7–39.2; O2SAT 98–100; BMI 21.2; BMI 24.5
[2025-07-24 12:42] LABS: Hematocrit 24.6 % (37-47); Hemoglobin 6.8 g/dL (12.0-15.0); Immature Granulocytes Count 0.020 X10^3/uL (0.0-0.0); Mean Corp Hgb Conc 27.6 g/dL (32-36); Mean Corpuscular Volume 63.9 fL (81-99); Mean Platelet Vol. 8.4 fl (6.2-12.0); NRBC Flagged by Analyzer 0 % (0-5); POSITIVE DIFFERENTIAL YES; Platelet Count 484 K/mm3 (150-450); RBC Distribution Width CV 17.4 % (11.6-14.6); RBC Distribution Width SD 39.2 fl (35.1-43.9); Red Blood Count 3.85 M/mm3 (4.2-5.4); White Blood Count 7.9 K/mm3 (4.4-11.0)
[2025-07-24 13:19] LABS: Internal QC Validated? YES +Cl - CLEAR BKGD; Pregnancy, Serum, hCG Quali. NEGATIVE Negative; Record Kit Lot#, Serum Preg. 0000964736
[2025-07-24 13:58] LABS: AST(SGOT) 64 U/L (<=31); Alanine Aminotransfer ALT/SGPT 61 U/L (<=34); Albumin, Serum 4.4 g/dL (3.5-5.0); Alkaline Phosphatase 39 U/L (35-104); Anion Gap 10 (5-15); BUN 15 mg/dL (4-19); BUN/Creat Ratio 22.6 RATIO (10-20); Calcium,Total 9.3 mg/dL (7.6-11.0); Carbon Dioxide 24.5 mmol/L (21.0-32.0); Chloride 100 mmol/L (98-108); Estimated Creatinine Clearance 110.77 ml/min (50-250); Globulin 3.1 g/dL (2.2-4.2); Glucose 91 mg/dL (70-99); Potassium 4.7 mmol/L (3.3-5.1)
--- NOTE | 2025-07-24 14:20 | CT_ITS ---
PROCEDURE: ABDOMEN/PELVIS W IV CONT ONLY 07/24/2025 REASON FOR EXAM: RIGHT FLANK PAIN, ANEMIA Kidney stones. TECHNIQUE: Procedure Code: [id number] Modality: CT Procedure: ABDOMEN/PELVIS W IV CONT ONLY Coronal and Sagittal reconstruction series were provided. CONTRAST: Isovue-300 VOLUME: 100 mL One or more dose reduction techniques were used (e.g., Automated exposure control, adjustment of the mA and/or kV according to patient size, use of iterative reconstruction technique. RADIATION DOSE SUMMARY: CTDlvol: 6.9 mGy DLP: 369.63 mGycm COMPARISON: Prior study dated June 30, 2024. FINDINGS: Lung bases: The lung bases are clear. Liver: Normal size. No mass. Gallbladder: Surgically absent. Spleen: Normal size. Pancreas: Normal size without evidence of mass surrounding inflammation or ductal dilation. Adrenals: Unremarkable Kidneys: Unremarkable Bladder: The urinary bladder is distended. Reproductive Organs: There is a 2.9 cm 2.7 cm complex cyst in the right ovary. Bowel: Unremarkable Appendix: Unremarkable Lymph nodes: Unremarkable Vasculature: The abdominal aorta and IVC are normal. Peritoneum / Retroperitoneum: Unremarkable Bones: Degenerative changes of the spine. CT/Abdomen/Pelvis W IV Cont ONLY IMPRESSION: Distended urinary bladder. 2.9 cm 2.7 cm complex cyst in the right ovary. Reading Location: [id number]
--- NOTE | 2025-07-24 14:29 | EDS_ITS ---
HPI History of Present Illness Chief Complaint: Flank Pain Informant: patient Narrative Narrative: Patient is a 34-year-old female presenting with right-sided back pain rating to her buttocks and abdomen that started this morning. She states for started around 7 AM and she still went to work. She then had to leave work secondary to nausea and pain. She tried ibuprofen and Tylenol with no relief. She notes he does have some associated straining with urination and some mild discomfort associated with this but attributes more to her back pain. States she had normal bowel movement yesterday. States she feels lightheaded today. She has a very mild pain in her right lower abdomen yesterday but thought maybe she was ovulating or just having a slight cramp and did not think much of it. Today she has had some chills and feels hot. Is not aware of having a fever. The history of a tubal ligation is not concern for . Has had a prior cholecystectomy. States she still has her appendix. Notes that she has had a kidney stone in the past and this feels similar. No other complaints or concerns reported at this time [facility] Medical History Ovarian cyst Kidney stones Home Medications ?Medication ?Instructions ?Recorded ?Last Taken ?Type ondansetron 4 mg disintegrating 4 mg PO Q8H PRN PRN Na usea #10 tabs 07/07/23 Unknown Rx tablet sertraline 50 mg tablet 50 mg PO DAILY depression Unknown History Held on 07/24/25. Instructions: MD Ordered dextroamphetamine-amphetamine 20 0.5 tab PO BID add Unknown History mg tablet metoclopramide HCl 10 mg tablet 10 mg PO Q6H PRN nause a and 06/30/24 Unknown Rx (Reglan) vomiting #10 tabs Allergy/AdvReac Type Severity Reaction Status Date / Time No Known Allergies Allergy Verified 07/24/25 12:01 Surgical History History of ureter stent Hx of tubal ligation History of laparoscopic cholecystectomy Social History household members: spouse, significant other and children housing: house Smoking Status: Never smoker ROS ROS ED Constitutional Constitutional ED: Reports chills; Denies fever(s) Cardiovascular Cardiovascular: Denies chest pain Respiratory/Chest Respiratory/Chest: Denies cough or dyspnea Gastrointestinal Gastrointestinal: Reports abdominal pain and nausea; Denies diarrhea or melena Genitourinary Genitourinary ED: Reports other Details: Feels that she has to strain to urinate ; Denies dysuria or hematuria Musculoskeletal Musculoskeletal: Reports back pain Integumentary Denies rash Neurologic Neurologic: Denies paresthesias or weakness Hematologic/Lymphatic Hematologic/Lymphatic: Denies easy bleeding or easy bruising EXAM Physical Exam Const Vital Signs: 07/24/25 11:58 07/24/25 14:16 07/24/25 16:00 Temperature 98.1 F Temperature Source Oral Pulse Rate 108 H 89 70 Respiratory Rate 20 H 18 18 Blood Pressure 142/78 H 117/68 120/80 Blood Pressure Mean 99 84 93 Pulse Ox 98 100 98 Oxygen Delivery Method Room Air Room Air 07/24/25 18:00 Temperature Temperature Source Pulse Rate 70 Respiratory Rate 16 Blood Pressure 110/64 Blood Pressure Mean 79 Pulse Ox 99 Oxygen Delivery Method Positive well nourished and well developed General Appearance ED: well developed and NAD; Negative for pallor HEENT Reports moist mucous membranes Neck supple Chest Wall inspection of chest normal and palpation of chest normal Resp normal respiratory effort and clear to auscultation bilaterally Cardio regular rhythm and no murmurs Rate: tachycardic GI normal to inspection, nondistended, normoactive bowel sounds, non-tender and non-distended Inspection: Negative for abdominal distention Auscultation: normoactive bowel sounds Palpation: Negative for tender or guarding Back/Spine no CVA tenderness Thoracic Spine / Upper Back: Negative for thoracic spinal tenderness Lumbar Spine / Lower Back: Negative for lumbar spinal tenderness Extremity normal to inspection Neuro oriented x3 Sensorium / Orientation: alert Motor Exam: Negative for general weakness Psych mental status grossly normal Skin no rashes or lesions noted and no wounds General Skin Exam: Negative for pallor MDM MDM MDM Narrative Medical decision making narrative: Patient is evaluated for sudden onset of right flank pain that started this morning. Does have a history of kidney stones. Differential includes was not limited to renal colic, pyelonephritis, ruptured ovarian cyst, ovarian torsion, appendicitis. Patient given IV fluids and fentanyl for pain control. Was given Zofran. CBC shows anemia with a hemoglobin of 6.8 which is microcytic. Chart review shows that patient's most recent hemoglobin was 10.5 and microcytic at that time. Lactate added on which is normal at 1.5. She has a very mild transaminitis of 64 and 61 respectively. I did add on iron studies including iron level TIBC and iron saturation. These are consistent with significant iron deficiency. Urinalysis shows no bacteria and is not consistent with UTI. CT of the abdomen and pelvis shows a distended urinary bladder as well as a complex cyst of the right ovary. As her pain is in the right side we will obtain a pelvic ultrasound. In addition bladder scan obtained to ensure the patient is able to void and does not have any acute urinary retention. Patient was able to empty her bladder fully. Ultrasound shows a small 2.4 cm probable hemorrhagic right ovarian cyst. On repeat evaluation patient is having increased pain after her ultrasound. She is not peritoneal. Is given additional dose of fentanyl and H&H is rechecked to ensure that she does not have signs of acute blood loss. Her hemoglobin is now 5.5. Patient is ordered type and screen. Case discussed with gynecology on-call, Dr. Sims. She is agreeable with giving the patient 2 dose of blood and will admit to her service for monitoring of hemoglobin and possible acute anemia associated with a ruptured hemorrhagic cyst. She is a lower suspicion given that there was not much free fluid in her abdomen but patient will continue be monitored. Patient is agreeable with this plan of care. Patient remains hemodynamically stable in the emergency room. Initially with her anemia case was discussed with PCP through [facility]. Patient was scheduled for outpatient follow-up appointments and given this information. Appointment is on July 27 at 1:30 PM Lab Data Attestation: I reviewed the patient's lab results. Labs: Laboratory Results - last 24 hr 07/24/25 07/24/25 07/24/25 12:36 14:39 15:20 WBC 7.9 RBC 3.85 L Hgb 6.8 L Hct 24.6 L MCV 63.9 L MCH 17.7 L MCHC 27.6 L RDW Std Deviation 39.2 RDW Coeff of Gregoria 17.4 H Plt Count 484 H MPV 8.4 Immature Gran % (Auto) 0.300 Neut % (Auto) 83.9 H Lymph % (Auto) 3.4 L [place] % (Auto) 10.2 H Eos % (Auto) 1.4 Baso % (Auto) 0.8 Absolute Neuts (auto) 6.6 Absolute Lymphs (auto) 0.27 L Nucleated RBC % 0 Sodium 135 Potassium 4.7 Chloride 100 Carbon Dioxide 24.5 Anion Gap 10 BUN 15 Creatinine 0.65 L Estim Creat Clear Calc 110.77 Est GFR (MDRD) Non-Af 119 BUN/Creatinine Ratio 22.6 H Glucose 91 Lactic Acid 1.5 Calcium 9.3 Iron 18 L TIBC 637 H Iron Saturation 2.8 L Unsaturated IBC 619 H Ferritin 5 L Total Bilirubin 0.19 AST 64 H ALT 61 H Alkaline Phosphatase 39 Total Protein 7.5 Albumin 4.4 Globulin 3.1 Albumin/Globulin Ratio 1.4 Serum , Qual NEGATIVE Urine Color Straw Urine Clarity Sl. Cloudy Urine pH 7.0 Ur Specific [place] 1.010 Urine Protein 15 H Urine Glucose (UA) Normal Urine Ketones Negative Urine Occult Blood Negative Urine Nitrite Negative Urine Bilirubin Negative Urine Urobilinogen Normal Ur Leukocyte Esterase Negative Urine RBC 0 SEEN Urine WBC 0-5 SEEN Ur Squamous Epith Cells 0-5 SEEN Calcium Oxalate Crystal 1+ Urine Bacteria 0 SEEN Urine Mucus 0 SEEN Blood Type Antibody Screen Crossmatch 07/24/25 07/24/25 17:06 18:16 WBC RBC Hgb 5.5 L* Hct 19.6 L MCV MCH MCHC RDW Std Deviation RDW Coeff of Gregoria Plt Count MPV Immature Gran % (Auto) Neut % (Auto) Lymph % (Auto) [place] % (Auto) Eos % (Auto) Baso % (Auto) Absolute Neuts (auto) Absolute Lymphs (auto) Nucleated RBC % Sodium Potassium Chloride Carbon Dioxide Anion Gap BUN Creatinine Estim Creat Clear Calc Est GFR (MDRD) Non-Af BUN/Creatinine Ratio Glucose Lactic Acid Calcium Iron TIBC Iron Saturation Unsaturated IBC Ferritin Total Bilirubin AST ALT Alkaline Phosphatase Total Protein Albumin Globulin Albumin/Globulin Ratio Serum , Qual Urine Color Urine Clarity Urine pH Ur Specific [place] Urine Protein Urine Glucose (UA) Urine Ketones Urine Occult Blood Urine Nitrite Urine Bilirubin Urine Urobilinogen Ur Leukocyte Esterase Urine RBC Urine WBC Ur Squamous Epith Cells Calcium Oxalate Crystal Urine Bacteria Urine Mucus Blood Type A POSITIVE Antibody Screen NEGATIVE Crossmatch See Detail Radiography Diagnostic Testing: Clinical Impression(s) from Imaging Studies Abdomen/Pelvis CT 07/24/25 14:20 IMPRESSION: Distended urinary bladder. 2.9 cm 2.7 cm complex cyst in the right ovary. Reading Location: [id number] Transvaginal US 07/24/25 15:23 IMPRESSION: Small 2.4 cm probable hemorrhagic right ovarian cyst; no follow-up indicated. Reading Location: [id number] Management Discussion w/another healthcare provider: [employer] ([employer]) and PCP Discharge Plan Dx/Rx/DC Orders Clinical Impression: RLQ abdominal pain, Anemia, Iron deficiency anemia, Hemorrhagic cyst of right ovary Disposition Disposition: Acute Care Hospital [facility] Discharge Date/Time: 07/24/25 18:24
[2025-07-24] MEDS: fentaNYL 100 MCG/2 ML Ampul 50 MCG IV ×2 (14:41→16:52)
[2025-07-24] MEDS: 0.9% Normal Saline (1000mL) 1,000 ML 999 ML IV (14:41)
--- NOTE | 2025-07-24 15:23 | US_ITS ---
PROCEDURE: US TRANSVAGINAL NON- 07/24/2025 REASON FOR EXAM: RLQ PAIN, ABNORMAL CYST ON CT TECHNIQUE: Procedure Code: USTVAG Modality: US Procedure: TRANSVAGINAL NON- COMPARISON: Abdominal CT same day 07/24/2025. FINDINGS: Anteverted uterus appears normal in size and smooth in contour, measuring 9.5 x 5.6 x 4.3 cm. No discrete uterine myoma. No abnormal collection within the uterine cavity. Endometrial stripe complex is within normal limits measuring up to 0.6 cm in thickness. Bilateral ovaries are within normal limits. Right ovary measures 4.6 x 3.2 x 2.3 cm. Left ovary measures 2.5 x 1.9 x 1.4 cm. Blood flow is demonstrated bilaterally on color Doppler. The right ovary contains a small minimally complex probable hemorrhagic cyst measuring 2.4 x 2.2 x 1.9 cm. No adnexal mass or significant free pelvic fluid is seen. US/Transvaginal Non- IMPRESSION: Small 2.4 cm probable hemorrhagic right ovarian cyst; no follow-up indicated. Reading Location: [facility]
[2025-07-24 15:26] LABS: Mucous, Urine 0 SEEN /hpf (<or=2+); Red Blood Cells-Urine 0 SEEN /hpf (0-5)
[2025-07-24 16:31] LABS: Color, Urine Straw (Yellow); Glucose, Dipstick Normal (Normal); Ketone-Dipstick Negative (Negative); Leukocyte Esterase-Dipstick Negative /ul (Negative); Nitrite-Dipstick Negative (Negative); Occult Blood-Urine Negative /ul (Negative); Protein-Dipstick 15 mg/dl (Negative); Specific Gravity, Urine 1.010 (1.002-1.030); Urine Bilirubin Dipstick Negative (Negative)
[2025-07-24 16:49] LABS: Ferritin 5 ng/mL (22-378); Iron 18 ug/dL (50-170); Iron Binding Capacity,Unsat 619 ug/dL (228-428)
[2025-07-24 17:06] LABS: Iron Binding Capacity,Total 637 ug/dL (250-450)
[2025-07-24 17:34] LABS: Hematocrit 19.6 % (37-47); POSITIVE COUNT YES
[2025-07-24 17:42] LABS: Calcium Oxalate Crystals Ur 1+ /hpf (<or=2+); Squamous Epithelial Cells - UA 0-5 SEEN /hpf (5-10)
[2025-07-24 17:44] LABS: Hemoglobin 5.5 g/dL (12.0-15.0)
[2025-07-24] MEDS: Ketorolac 30 MG/ML Syringe IV (19:25)
[2025-07-24] MEDS: 0.9% Normal Saline (500mL Bag) 500 ML 15 ML IV (19:30)
[2025-07-24] MEDS: 0.9% Saline Lock 10 ML Syringe IV ×2 (19:30→22:11)
--- NOTE | 2025-07-24 21:00 | PCM.HP.BLA ---
History and Physical Assessment & Plan Assessment/Plan (1) Fever: QUALIFIERS: Fever type: unspecified Qualified Code(s): R50.9 - Fever, unspecified (2) RLQ abdominal pain: (3) Anemia: QUALIFIERS: Anemia type: iron deficiency Iron deficiency anemia type: unspecified iron deficiency Qualified Code(s): D50.9 - Iron deficiency anemia, unspecified
--- NOTE | 2025-07-24 21:07 | PCM.HP.OB ---
HPI - General General Date of Admission: 07/24/25 Date of Service: 07/24/25 HPI Narrative DEVONTE DOSHI, is a 34 F Admitted through ED with RLQ and Hgb <6. No active bleeding. Last period end of June. Does have regular periods. Hemorrhagic cyst on US but no blood in the pelvis. Admitted for blood transfusion. Before transfusion was started patient have a fever times 2 with chills. Her pain remains unchanged in the RLQ and pubic area. Does wrap around her back. Hx of kidney stones. CT did not show any stones, hydronephrosis or abnormality with appendix. Nausea with pain and shaking chills. Does state she has pain with voiding that started before the RLQ pain. PFSH PFSH Medical History Ovarian cyst Kidney stones Home Medications ?Medication ?Instructions ?Recorded ?Last Taken ?Type ondansetron 4 mg disintegrating 4 mg PO Q8H PRN PRN Nausea #10 tabs 07/07/23 Unknown Rx tablet sertraline 50 mg tablet 50 mg PO DAILY depression 03/14/24 Unknown History Held on 07/24/25. Instructions: MD Ordered dextroamphetamine-amphetamine 20 0.5 tab PO BID add 06/02/24 Unknown History mg tablet metoclopramide HCl 10 mg tablet 10 mg PO Q6H PRN nausea and 06/30/24 Unknown Rx (Reglan) vomiting #10 tabs Allergy/AdvReac Type Severity Reaction Status Date / Time No Known Allergies Allergy Verified 07/24/25 12:01 Surgical History History of ureter stent Hx of tubal ligation History of laparoscopic cholecystectomy Social History household members: spouse, significant other and children housing: house Smoking Status: Never smoker ROS Constitutional Constitutional: Reports fever(s) Cardiovascular Cardiovascular: Denies chest pain or dyspnea Respiratory/Chest Respiratory/Chest: Denies cough Gastrointestinal Gastrointestinal: Reports abdominal pain and nausea; Denies constipation, diarrhea or vomiting Genitourinary Genitourinary: Reports dysuria and flank pain Musculoskeletal Musculoskeletal: Reports back pain Neurologic Neurologic: Denies headache(s) Psychiatric Psychiatric: Denies anxiety Vital Signs Vital Signs Vital Signs: 07/24/25 11:58 07/24/25 14:16 07/24/25 16:00 Temperature 98.1 F Temperature Source Oral Pulse Rate 108 H 89 70 Respiratory Rate 20 H 18 18 Blood Pressure 142/78 H 117/68 120/80 Blood Pressure Mean 99 84 93 Blood Pressure Source Blood Pressure Position Blood Pressure Location Pulse Ox 98 100 98 Oxygen Delivery Method Room Air Room Air 07/24/25 18:00 07/24/25 18:24 07/24/25 18:43 Temperature 98.6 F 100.5 F H Temperature Source Oral Pulse Rate 70 70 98 Respiratory Rate 16 16 16 Blood Pressure 110/64 110/64 116/68 Blood Pressure Mean 79 79 84 Blood Pressure Source Monitor Blood Pressure Position Semi-Fowlers Blood Pressure Location Left Arm Pulse Ox 99 99 100 Oxygen Delivery Method Room Air 07/24/25 19:32 07/24/25 19:55 07/24/25 21:00 Temperature 102.6 F H 101 F H 98.9 F Temperature Source Oral Oral Oral Pulse Rate 98 89 Respiratory Rate 18 18 Blood Pressure 105/64 112/65 Blood Pressure Mean 77 80 Blood Pressure Source Monitor Monitor Blood Pressure Position Semi-Fowlers Semi-Fowlers Blood Pressure Location Left Arm Left Arm Pulse Ox 100 100 Oxygen Delivery Method Room Air Room Air Weight Weight: 64.728 kg Body Mass Index (BMI) 24.5 Physical Exam Const alert and oriented x3 General Appearance: ill appearing HEENT normocephalic Eyes PERRL and EOMs intact bilaterally Resp normal respiratory effort, no retractions and clear to auscultation bilaterally Cardio regular rate and regular rhythm GI non-tender Palpation: tender RLQ and suprapubic Extremity full ROM Skin no rashes or lesions noted Neuro moves all extremities Labs Labs Labs: Blood Type A POSITIVE Antibody Screen NEGATIVE Hct 19.6 % (37-47) L Hgb 5.5 g/dL (12.0-15.0) L* Assessment & Plan (1) Anemia: QUALIFIERS: Anemia type: iron deficiency Iron deficiency anemia type: unspecified iron deficiency Qualified Code(s): D50.9 - Iron deficiency anemia, unspecified PLAN: 2 units PRBCs Held until fever resolves (2) RLQ abdominal pain: (3) Fever: QUALIFIERS: Fever type: unspecified Qualified Code(s): R50.9 - Fever, unspecified PLAN: Plan Suspect complicated UTI or pyelonephritis. Obtaining blood cultures. Repeat labs and starting antibiotics Hold blood products for now. Until fever resolves Pain management
[2025-07-24] MEDS: 0.9% Normal Saline (250mL Bag) 250 ML 15 ML IV (22:11)
[2025-07-24 22:19] LABS: Hematocrit 22.6 % (37-47); Hemoglobin 6.3 g/dL (12.0-15.0); Immature Granulocytes Count 0.030 X10^3/uL (0.0-0.0); Mean Corp Hgb Conc 27.9 g/dL (32-36); Mean Corpuscular Volume 63.8 fL (81-99); Mean Platelet Vol. 8.7 fl (6.2-12.0); NRBC Flagged by Analyzer 0 % (0-5); Platelet Count 428 K/mm3 (150-450); RBC Distribution Width CV 17.5 % (11.6-14.6); RBC Distribution Width SD 39.8 fl (35.1-43.9); Red Blood Count 3.54 M/mm3 (4.2-5.4); White Blood Count 7.4 K/mm3 (4.4-11.0)
[2025-07-24 22:41] LABS: AST(SGOT) 62 U/L (<=31); Alanine Aminotransfer ALT/SGPT 57 U/L (<=34); Albumin, Serum 3.9 g/dL (3.5-5.0); Alkaline Phosphatase 38 U/L (35-104); Anion Gap 12 (5-15); BUN 11 mg/dL (4-19); BUN/Creat Ratio 13.6 RATIO (10-20); Calcium,Total 8.9 mg/dL (7.6-11.0); Carbon Dioxide 23.5 mmol/L (21.0-32.0); Chloride 101 mmol/L (98-108); Estimated Creatinine Clearance 84.26 ml/min (50-250); Globulin 2.8 g/dL (2.2-4.2); Glucose 128 mg/dL (70-99); Potassium 3.6 mmol/L (3.3-5.1)
[2025-07-25] VITALS (9 sets, daily range): BP systolic 112–136; BP diastolic 62–96; PULSE 70–92; RESP 16–18; TEMP 36.6–37.2; O2SAT 97–100
[2025-07-25] MEDS: Ketorolac 30 MG/ML Syringe IV (02:33)
[2025-07-25] MEDS: 0.9% Saline Lock 10 ML Syringe IV ×3 (02:36→20:05)
[2025-07-25 03:00] LABS: Mucous, Urine 0 SEEN /hpf (<or=2+); Red Blood Cells-Urine 0 SEEN /hpf (0-5)
[2025-07-25 03:07] LABS: Color, Urine Yellow (Yellow); Glucose, Dipstick Normal (Normal); Ketone-Dipstick Negative (Negative); Leukocyte Esterase-Dipstick Negative /ul (Negative); Nitrite-Dipstick Negative (Negative); Occult Blood-Urine Negative /ul (Negative); Protein-Dipstick 15 mg/dl (Negative); Specific Gravity, Urine 1.020 (1.002-1.030); Urine Bilirubin Dipstick Negative (Negative)
[2025-07-25 03:19] LABS: Squamous Epithelial Cells - UA 10-25 SEEN /hpf (5-10)
--- NOTE | 2025-07-25 07:34 | PCM.PN.OB ---
Subjective Subjective Feeling better today. Pain better controlled. Still has pain with voiding. S/p 2 units PRBCs. H/H at 0915. Last fever 1999 last night. Antibiotics q 12. Objective Data Objective Data Vital Signs: Vital Signs Temp Pulse Resp BP Pulse Ox O2 Del Method 98.2 F 81 17 127/78 H 97 Room Air 07/25/25 05:12 07/25/25 05:12 07/25/25 05:12 07/25/25 05:12 07/25/25 05:12 07/25/25 05:12 Oxygen Delivery Method Room Air Weight: 64.728 kg Body Mass Index (BMI) 24.5 Intake & Output: Intake and Output for Last 24 Hours 07/23/25 07/24/25 07/25/25 23:59 23:59 23:59 Intake Total 1065.25 / 1440.25 1375 / 1375 Output Total 100 / 100 Balance 965.25 / 1340.25 1375 / 1375 Lab / Micro Data 07/24/25 21:59 07/24/25 21:59 Labs: Laboratory Results - last 24 hr 07/24/25 12:36: WBC 7.9, RBC 3.85 L, Hgb 6.8 L, Hct 24.6 L, MCV 63.9 L, MCH 17.7 L, MCHC 27.6 L, RDW Std Deviation 39.2, RDW Coeff of Gregoria 17.4 H, Plt Count 484 H, MPV 8.4, Immature Gran % (Auto) 0.300, Neut % (Auto) 83.9 H, Lymph % (Auto) 3.4 L, [place] % (Auto) 10.2 H, Eos % (Auto) 1.4, Baso % (Auto) 0.8, Absolute Neuts (auto) 6.6, Absolute Lymphs (auto) 0.27 L, Nucleated RBC % 0, Sodium 135, Potassium 4.7, Chloride 100, Carbon Dioxide 24.5, Anion Gap 10, BUN 15, Creatinine 0.65 L, Estim Creat Clear Calc 110.77, Est GFR (MDRD) Non-Af 119, BUN/Creatinine Ratio 22.6 H, Glucose 91, Calcium 9.3, Iron 18 L, TIBC 637 H, Iron Saturation 2.8 L, Unsaturated IBC 619 H, Ferritin 5 L, Total Bilirubin 0.19, AST 64 H, ALT 61 H, Alkaline Phosphatase 39, Total Protein 7.5, Albumin 4.4, Globulin 3.1, Albumin/Globulin Ratio 1.4, Serum , Qual NEGATIVE 07/24/25 14:39: Lactic Acid 1.5 07/24/25 15:20: Urine Color Straw, Urine Clarity Sl. Cloudy, Urine pH 7.0, Ur Specific [place] 1.010, Urine Protein 15 H, Urine Glucose (UA) Normal, Urine Ketones Negative, Urine Occult Blood Negative, Urine Nitrite Negative, Urine Bilirubin Negative, Urine Urobilinogen Normal, Ur Leukocyte Esterase Negative, Urine RBC 0 SEEN, Urine WBC 0-5 SEEN, Ur Squamous Epith Cells 0-5 SEEN, Calcium Oxalate Crystal 1+, Urine Bacteria 0 SEEN, Urine Mucus 0 SEEN 07/24/25 17:06: Hgb 5.5 L*, Hct 19.6 L 07/24/25 18:16: Blood Type A POSITIVE, Antibody Screen NEGATIVE, Crossmatch See Detail 07/24/25 21:59: WBC 7.4, RBC 3.54 L, Hgb 6.3 L, Hct 22.6 L, MCV 63.8 L, MCH 17.8 L, MCHC 27.9 L, RDW Std Deviation 39.8, RDW Coeff of Gregoria 17.5 H, Plt Count 428, MPV 8.7, Immature Gran % (Auto) 0.400, Neut % (Auto) 66.7, Lymph % (Auto) 15.0 L, [place] % (Auto) 15.5 H, Eos % (Auto) 2.0, Baso % (Auto) 0.4, Absolute Neuts (auto) 5.0, Absolute Lymphs (auto) 1.11, Nucleated RBC % 0, Sodium 136, Potassium 3.6, Chloride 101, Carbon Dioxide 23.5, Anion Gap 12, BUN 11, Creatinine 0.82, Estim Creat Clear Calc 84.26, Est GFR (MDRD) Non-Af 97, BUN/Creatinine Ratio 13.6, Glucose 128 H, Calcium 8.9, Total Bilirubin < 0.15, AST 62 H, ALT 57 H, Alkaline Phosphatase 38, Total Protein 6.7, Albumin 3.9, Globulin 2.8, Albumin/Globulin Ratio 1.4 07/25/25 02:40: Urine Color Yellow, Urine Clarity Sl. Cloudy, Urine pH 6.0, Ur Specific [place] 1.020, Urine Protein 15 H, Urine Glucose (UA) Normal, Urine Ketones Negative, Urine Occult Blood Negative, Urine Nitrite Negative, Urine Bilirubin Negative, Urine Urobilinogen Normal, Ur Leukocyte Esterase Negative, Urine RBC 0 SEEN, Urine WBC 0-5 SEEN, Ur Squamous Epith Cells 10-25 SEEN, Urine Bacteria 3+, Urine Mucus 0 SEEN Radiography Diagnostic Testing: Radiology Impression Abdomen/Pelvis CT 07/24/25 14:20 IMPRESSION: Distended urinary bladder. 2.9 cm 2.7 cm complex cyst in the right ovary. Reading Location: [id number] Transvaginal US 07/24/25 15:23 IMPRESSION: Small 2.4 cm probable hemorrhagic right ovarian cyst; no follow-up indicated. Reading Location: [facility] Constitutional Constitutional: Denies headache(s) Cardiovascular Cardiovascular: Denies chest pain or dyspnea Gastrointestinal Gastrointestinal: Denies nausea or vomiting Physical Exam Const alert, oriented x3 and no apparent distress General Appearance: cooperative and comfortable Resp normal respiratory effort GI Palpation: tender suprapubic Skin no rashes or lesions noted Neuro oriented x3 and CN's II-XII intact bilaterally Psych mental status grossly normal Assessment & Plan (1) Hemorrhagic cyst of right ovary: (2) Iron deficiency anemia: QUALIFIERS: Iron deficiency anemia type: unspecified iron deficiency Qualified Code(s): D50.9 - Iron deficiency anemia, unspecified (3) RLQ abdominal pain: (4) Fever: QUALIFIERS: Fever type: unspecified Qualified Code(s): R50.9 - Fever, unspecified PLAN: Plan Plan to continue antibiotics. Afebrile 24 hours before discharge H/H at 0915 Pain management
[2025-07-25 09:41] LABS: Hematocrit 29.2 % (37-47); Hemoglobin 9.2 g/dL (12.0-15.0)
--- NOTE | 2025-07-25 12:15 | NURSING ---
received return call from Dr. Garcia, confirmed admit order should be inpatient. David RN Utilization Review updated.
--- NOTE | 2025-07-25 12:28 | CASEMGMT ---
Dx:anemia, hemorrhagic cysts LACE:1 6-Clicks:24 Medical record reviewed and patient evaluated for identification of discharge planning needs. Based on this review, at this time criteria are not present to indicate a need for discharge planning. Will remain available to assist with discharge planning needs as identified or requested.
[2025-07-26] MEDS: 0.9% Saline Lock 10 ML Syringe IV (01:13)
[2025-07-26 01:57] VITALS: BP 132/85; PULSE 88; RESP 16; TEMP 36.4; O2SAT 99
[2025-07-26 08:11] VITALS: BP 112/79; PULSE 74; RESP 18; TEMP 36.7; O2SAT 100
--- NOTE | 2025-07-26 09:00 | PCM.PN.OB ---
Subjective Subjective Patient is feeling improved this morning. She denies fevers or chills. She has been eating well. She denies any nausea or vomiting. She still has right flank and right back pain, but the pain has improved. She has no vaginal bleeding. She reports regular menstrual cycles with menorrhagia. She is currently sexually active. Has a tubal ligation for prevention. She is not currently on any hormonal contraception for period control. She states she has had pyelonephritis before in the past and was seeing urologist, however it has been many years since she seen the urologist. Objective Data Objective Data Vital Signs: Vital Signs Temp Pulse Resp BP Pulse Ox O2 Del Method 98.1 F 74 18 112/79 100 Room Air 07/26/25 08:11 07/26/25 08:11 07/26/25 08:11 07/26/25 08:11 07/26/25 08:11 07/26/25 08:11 Oxygen Delivery Method Room Air Weight: 142 lb 11.2 oz Body Mass Index (BMI) 24.5 Intake & Output: Intake and Output for Last 24 Hours 07/24/25 07/25/25 07/26/25 23:59 23:59 23:59 Intake Total 1065.25 / 1440.25 1706.75 / 1706.75 Output Total 100 / 100 Balance 965.25 / 1340.25 1706.75 / 1706.75 Lab / Micro Data 07/25/25 09:20 07/24/25 21:59 Labs: Laboratory Results - last 24 hr 07/25/25 09:20: Hgb 9.2 L, Hct 29.2 L Physical Exam Const alert and no apparent distress General Appearance: comfortable Resp normal respiratory effort GI soft to palpation and non-distended GI Narrative: +Minimal tenderness in RLQ. No rebounding, guarding or rigidity Back/Spine General Back: CVA tenderness right Assessment & Plan (1) Hemorrhagic cyst of right ovary: PLAN: Small and no follow up indicated at this time (2) Iron deficiency anemia: QUALIFIERS: Iron deficiency anemia type: unspecified iron deficiency Qualified Code(s): D50.9 - Iron deficiency anemia, unspecified PLAN: S/p 2 units PRBC's. PO iron (3) Anemia: QUALIFIERS: Anemia type: iron deficiency Iron deficiency anemia type: unspecified iron deficiency Qualified Code(s): D50.9 - Iron deficiency anemia, unspecified (4) Fever: QUALIFIERS: Fever type: unspecified Qualified Code(s): R50.9 - Fever, unspecified PLAN: Afebrile with last fever 07/24 at 1900 Flank pain improving S/p Gurwinder Marvin as outpatient and follow up with urology (5) Kidney stones: (6) Menorrhagia: PLAN: Likely the cause of chronic anemia. Discussed Aygestin and Mirena IUD insertion in the office
--- NOTE | 2025-07-26 09:10 | PCM.DC ---
Discharge Instructions DC O2, CPAP, BIPAP needs Home O2 Discharge instructions: No Dressing / Incision Discharge Activity: May Drive and May Shower Weight Bearing Status: Weight bearing as tolerated Lifting Restrictions: none Dressing / Incision Call your doctor if you observe: Fever of 101 or Higher, Using more than 1 pad per hour, Shortness of breath, Dizziness, Chest pain and Uncontrolled pain Follow Up Care Please Follow Up With: Barbara Sims MD When: 1 week Test Results: Test results from this visit will be discussed in further detail at your follow-up appointment, if applicable. Discharge Plan Admission Admit Date/Time: 07/25/25 11:42 Attending Provider: Barbara Sims [facility] Orders/Prescriptions Prescriptions: New ferrous sulfate 325 mg (65 mg iron) tablet 325 mg PO QODAY Qty: 90 0RF ibuprofen 600 mg tablet 600 mg PO Q6H PRN (Reason: pain) Qty: 20 0RF acetaminophen [Pain Relief (acetaminophen)] 325 mg tablet 650 mg PO Q6H PRN (Reason: pain) Qty: 20 0RF ciprofloxacin HCl [Cipro] 500 mg tablet 500 mg PO BID 7 Days Qty: 14 0RF medroxyprogesterone [Provera] 10 mg tablet 20 mg PO DAILY Qty: 60 0RF Rx Instructions: Take 20 mg PO TID until bleeding slows down. Then take 10 mg PO once daily until follow up in the office Continued ondansetron 4 MG tablet 4 mg PO Q8H PRN PRN (Reason: Nausea) Qty: 10 0RF sertraline 50 mg tablet 50 mg PO DAILY dextroamphetamine-amphetamine 20 mg tablet 0.5 tab PO BID metoclopramide HCl [Reglan] 10 mg tablet 10 mg PO Q6H PRN (Reason: nausea and vomiting) Qty: 10 0RF [facility] - Disposition Disposition (needs filled in before D/C Order can be placed): Home, Self Care
--- NOTE | 2025-07-26 11:08 | PHA.DC_ITS ---
Pharmacy [facility] has performed discharge medication counseling for this patient. The patient was counseled on the following discharge medications and changes in medications for homegoing review. - Acetaminophen, ibuprophen, medroxyprogesterone, ciprofloxacin, and ferrous sulfate The Reason for Use, instructions for use, and potential side effects were reviewed for all new medications. The patient's questions regarding all of their medications were answered. The patient was able to verbally demonstrate an understanding of their discharge medications. Medications at Discharge Home Medications ondansetron 4 mg disintegrating tablet 4 mg PO Q8H PRN PRN Nausea #10 tabs 07/07/23 sertraline 50 mg tablet 50 mg PO DAILY depression 03/14/24 dextroamphetamine-amphetamine 20 mg tablet 0.5 tab PO BID add 06/02/24 metoclopramide HCl 10 mg tablet (Reglan) 10 mg PO Q6H PRN nausea and vomiting #10 tabs 06/30/24 acetaminophen 325 mg tablet (Pain Relief (acetaminophen)) 650 mg (2 x 325 mg) PO Q6H PRN pain #20 tabs 07/26/25 ciprofloxacin HCl 500 mg tablet (Cipro) 500 mg PO BID 7 days #14 tabs 07/26/25 ferrous sulfate 325 mg (65 mg iron) tablet 325 mg PO QODAY #90 tabs 07/26/25 ibuprofen 600 mg tablet 600 mg PO Q6H PRN pain #20 tabs 07/26/25 medroxyprogesterone 10 mg tablet (Provera) 20 mg (2 x 10 mg) PO DAILY #60 tabs 07/26/25
== END 2025-07-26 11:22 | disposition home or self-care (01) | DRG 532 ==
LOC: ED 14:31 → MS3 07-25 09:06 → ED 07-25 10:44 → MS3 07-25 11:50
PROVIDERS: Admitting Provider Obstetrics & Gynecology; Emergency Provider Emergency Medicine; Visit Provider Obstetrics & Gynecology
DX: N83.201 Unspecified ovarian cyst, right side (principal); D50.9 Iron deficiency anemia, unspecified; R50.9 Fever, unspecified; N92.0 Excessive and frequent menstruation with regular cycle; N20.0 Calculus of kidney; Z90.49 Acquired absence of other specified parts of digestive tract; Z98.51 Tubal ligation status
CPT/HCPCS: 36415; 74177; 76830; 80053; 81001; 82728; 83540; 83550; 83605; 84703; 85014; 85018; 85025; 86850; 86900; 86901; 87040; 87086; 87088; 99284; 99406; P9016; Q9967; A4216; J2405

== ENCOUNTER 2025-07-27 14:51 | Emergency (ER) | payer MEDICAID, SELFPAY ==
[2025-07-27 14:55] VITALS: BP 117/78; PULSE 88; RESP 18; TEMP 36.9; O2SAT 100
--- NOTE | 2025-07-27 15:50 | EX.ED.DYSGE1 ---
HPI History of Present Illness Chief Complaint: General Illness Informant: patient Onset/Context/Timing Onset: Yesterday Context: Gradual Onset Timing: Continuous Quality: Cramping Location: Stomach Worsened by: Nothing Relieved by: Nothing Narrative Narrative: Patient presents with headache, abdominal pain, and fatigue that has been getting worse since yesterday. Patient was recently admitted for blood transfusion due to anemia. Patient states they were unable to determine the source of the anemia. Patient states she has been having some sharp pain in her head and cramping in her abdomen. Patient states nothing makes it better nothing makes it worse. Patient underwent CT scan and pelvic ultrasound which did not show any source of bleeding. Patient states she has not had a bowel movement that she does not know if there is any blood or black tarry stools. Patient denies any fevers or chills. Patient admits to some blurred vision. Patient admits to some shortness of breath. Patient admits to some nausea but denies any vomiting. [facility] Medical History Ovarian cyst Kidney stones Home Medications ?Medication ?Instructions ?Recorded ?Last Taken ?Type ondansetron 4 mg disintegrating 4 mg PO Q8H PRN PRN Nausea #10 tabs 07/07/23 Unknown Rx tablet sertraline 50 mg tablet 50 mg PO DAILY depression 03/14/24 Unknown History metoclopramide HCl 10 mg tablet 10 mg PO Q6H PRN nausea and 06/30/24 Unknown Rx (Reglan) vomiting #10 tabs acetaminophen 325 mg tablet (Pain 650 mg (2 x 325 mg) PO Q6H PRN 07/26/25 Unknown Rx Relief (acetaminophen)) pain #20 tabs ciprofloxacin HCl 500 mg tablet 500 mg PO BID 7 days #14 tabs 07/26/25 Unknown Rx (Cipro) ferrous sulfate 325 mg (65 mg 325 mg PO QODAY #90 tabs 07/26/25 Unknown Rx iron) tablet ibuprofen 600 mg tablet 600 mg PO Q6H PRN pain #20 tabs 07/26/25 Unknown Rx medroxyprogesterone 10 mg tablet 20 mg (2 x 10 mg) PO DAILY #60 tabs 07/26/25 Unknown Rx (Provera) Allergy/AdvReac Type Severity Reaction Status Date / Time No Known Allergies Allergy Verified 07/27/25 14:55 Surgical History History of ureter stent Hx of tubal ligation History of laparoscopic cholecystectomy Social History household members: spouse, significant other and children housing: house Smoking Status: Never smoker ROS ROS ED Constitutional Constitutional ED: Denies chills or fever(s) Eyes Eyes: Reports blurry vision; Denies diplopia ENT ENT ED: Denies rhinorrhea or sore throat Cardiovascular Cardiovascular: Denies chest pain or palpitations Respiratory/Chest Respiratory/Chest: Reports dyspnea; Denies cough Gastrointestinal Gastrointestinal: Reports nausea; Denies vomiting Genitourinary Genitourinary ED: Denies dysuria or hematuria Musculoskeletal Musculoskeletal: Reports back pain; Denies neck pain Integumentary Denies abscess or rash Neurologic Neurologic: Reports headache(s); Denies weakness Allergic/Immunologic Allergic/Immunologic ED: Denies mouth swelling or urticaria EXAM Physical Exam Const Vital Signs: 07/27/25 14:55 07/27/25 16:23 07/27/25 16:35 Temperature 98.5 F Temperature Source Oral Pulse Rate 88 Pulse Rate [Lying] 80 Pulse Rate [Sitting (for 1 minute prior to obtaining)] 82 Pulse Rate [Standing (for 1 minute prior to obtaining)] 95 Respiratory Rate 18 Respiratory Effort Normal Non-Labored Respiratory Pattern Normal Blood Pressure 117/78 Blood Pressure [Lying] 126/73 H Blood Pressure [Sitting (for 1 minute prior to obtaining)] 118/84 H Blood Pressure [Standing (for 1 minute prior to obtaining)] 127/84 H Blood Pressure Mean 91 Blood Pressure Mean [Lying] 90 Blood Pressure Mean [Sitting (for 1 minute prior to obtaining)] 95 Blood Pressure Mean [Standing (for 1 minute prior to obtaining)] 98 Pulse Ox 100 Oxygen Delivery Method Room Air 07/27/25 17:00 07/27/25 19:00 Temperature Temperature Source Pulse Rate 88 64 Pulse Rate [Lying] Pulse Rate [Sitting (for 1 minute prior to obtaining)] Pulse Rate [Standing (for 1 minute prior to obtaining)] Respiratory Rate 14 16 Respiratory Effort Respiratory Pattern Blood Pressure 108/74 111/63 Blood Pressure [Lying] Blood Pressure [Sitting (for 1 minute prior to obtaining)] Blood Pressure [Standing (for 1 minute prior to obtaining)] Blood Pressure Mean 85 79 Blood Pressure Mean [Lying] Blood Pressure Mean [Sitting (for 1 minute prior to obtaining)] Blood Pressure Mean [Standing (for 1 minute prior to obtaining)] Pulse Ox 100 100 Oxygen Delivery Method Room Air Positive well nourished and well developed General Appearance ED: well developed and NAD HEENT Reports moist mucous membranes Neck supple and no JVD Resp normal respiratory effort and clear to auscultation bilaterally Cardio regular rate and regular rhythm GI non-distended Palpation: soft and tender epigastric, LUQ and RUQ; Negative for guarding or rebound tenderness present Neuro oriented x3, CN's II-XII intact bilaterally and no sensory deficits noted Sensorium / Orientation: alert Motor Exam: strength 5/5 throughout Psych mental status grossly normal MDM MDM MDM Narrative Medical decision making narrative: Differential diagnose includes anemia, gastrointestinal bleeding, electrolyte abnormality, dehydration, migraine headache, transfusion reaction, and anxiety. CBC will be obtained to assess for leukocytosis and anemia. Comprehensive metabolic profile will be obtained to assess for electrolyte abnormality, hepatic function, and renal function. Lipase will be obtained to assess for pancreatitis. PT with INR and PTT will be obtained to assess for coagulopathy. Urinalysis will be obtained to assess for urinary tract infection and hematuria. CT scan of the brain will be obtained to assess for intracranial bleeding. History & Record Review Additional record(s) reviewed:: Prior inpatient record, Prior outpatient record and Prior labs Lab Data Attestation: I reviewed the patient's lab results. Lab results narrative: CBC was reviewed. Hemoglobin was stable at 9.6 and hematocrit was 32.6. (Hemoglobin was 9.2 and hematocrit was 29.2 on 07/25/2025). Platelets were normal. Comprehensive metabolic profile was reviewed. AST was slightly elevated at 90 and ALT was slightly elevated at 92. The remainder is within normal limits. Serum hCG was reviewed and was negative. Urinalysis was reviewed. There are 10-25 epithelial cells but there is no evidence of urinary tract infection or hematuria. Labs: Laboratory Results - last 24 hr 07/27/25 07/27/25 16:13 17:41 WBC 7.4 RBC 4.73 Hgb 9.6 L Hct 32.6 L MCV 68.9 L D MCH 20.3 L MCHC 29.4 L D RDW Std Deviation 53.1 H RDW Coeff of Gregoria 22.4 H Plt Count 383 MPV 8.8 Immature Gran % (Auto) 0.300 Neut % (Auto) 49.5 Lymph % (Auto) 34.6 Hidalgo % (Auto) 11.0 H Eos % (Auto) 3.9 Baso % (Auto) 0.7 Absolute Neuts (auto) 3.6 Absolute Lymphs (auto) 2.55 Nucleated RBC % 0 Differential Comment SCANNED Platelet Estimate ADEQUATE Polychromasia 1+ Anisocytosis 2+ PT 12.5 INR 0.9 APTT 25.1 Sodium 138 Potassium 3.8 Chloride 103 Carbon Dioxide 25.1 Anion Gap 10 BUN 13 Creatinine 0.57 L Estim Creat Clear Calc 121.22 Est GFR (MDRD) Non-Af 123 BUN/Creatinine Ratio 23.4 H Glucose 119 H Calcium 9.1 Total Bilirubin 0.38 AST 90 H ALT 92 H Alkaline Phosphatase 60 Total Protein 6.7 Albumin 3.7 Globulin 3.0 Albumin/Globulin Ratio 1.3 Serum , Qual NEGATIVE Urine Color Yellow Urine Clarity Cloudy Urine pH 6.5 Ur Specific Bono 1.015 Urine Protein 15 H Urine Glucose (UA) Normal Urine Ketones Negative Urine Occult Blood Negative Urine Nitrite Negative Urine Bilirubin Negative Urine Urobilinogen 1 H Ur Leukocyte Esterase Negative Urine RBC 0-5 SEEN Urine WBC 0-5 SEEN Ur Squamous Epith Cells 10-25 SEEN Ur Transition Epith Cell 0-5 SEEN Calcium Oxalate Crystal 1+ Amorphous Sediment 2+ Urine Bacteria 0 SEEN Urine Mucus 1+ Radiography Diagnostic Testing: Clinical Impression(s) from Imaging Studies Brain CT 07/27/25 16:30 IMPRESSION: No acute intracranial abnormality. Reading Location: [facility] CT scan of the brain was obtained. There is no acute intracranial abnormality noted. This was interpreted by the radiologist and was also independently reviewed by myself. Treatment and Re-Evaluation :: Patient was given IV fluids, Reglan, and Benadryl. Patient was given injection of morphine for her abdominal pain. Patient was feeling somewhat better on reevaluation. Patient was advised of her findings. Patient was advised to follow-up with her primary care physician in 3 to 5 days. Patient was instructed to return if worse in any way. Patient understood and was agreeable with the plan. All questions were answered. Discharge Plan Triage Chief Complaint: General Illness ED Provider: Richard Palmer Dx/Rx/DC Orders Clinical Impression: Abdominal pain, Anemia, Headache Instructions: ED Abdominal Pain Unkn Cause Fem, ED Anemia, Type Not Specified (Adult) Prescriptions: No Action ondansetron 4 MG tablet 4 mg PO Q8H PRN PRN (Reason: Nausea) Qty: 10 0RF sertraline 50 mg tablet 50 mg PO DAILY metoclopramide HCl [Reglan] 10 mg tablet 10 mg PO Q6H PRN (Reason: nausea and vomiting) Qty: 10 0RF ferrous sulfate 325 mg (65 mg iron) tablet 325 mg PO QODAY Qty: 90 0RF ibuprofen 600 mg tablet 600 mg PO Q6H PRN (Reason: pain) Qty: 20 0RF acetaminophen [Pain Relief (acetaminophen)] 325 mg tablet 650 mg PO Q6H PRN (Reason: pain) Qty: 20 0RF ciprofloxacin HCl [Cipro] 500 mg tablet 500 mg PO BID 7 Days Qty: 14 0RF medroxyprogesterone [Provera] 10 mg tablet 20 mg PO DAILY Qty: 60 0RF Rx Instructions: Take 20 mg PO TID until bleeding slows down. Then take 10 mg PO once daily until follow up in the office Primary Care Provider: Beth Echavarria Referrals: Beth Echavarria, [employer] [Primary Care Provider] - 3-5 Days Print Language: Ivorian Disposition Disposition: Home, Self Care
[2025-07-27] MEDS: 0.9% Normal Saline (1000mL) 1,000 ML 1000 ML IV (16:22)
[2025-07-27] MEDS: DiphenhydrAMINE 50 MG/ML Syringe 25 MG IV (16:22)
--- NOTE | 2025-07-27 16:30 | CT_ITS ---
PROCEDURE: BRAIN/HEAD WITHOUT CONTRAST N/A REASON FOR EXAM: HEADACHE. Lightheaded. Recent blood loss. Abdominal pain. TECHNIQUE: Procedure Code: CTBR Modality: CT Procedure: BRAIN/HEAD WITHOUT CONTRAST Coronal and Sagittal reconstruction series were provided. One or more dose reduction techniques were used (e.g., Automated exposure control, adjustment of the mA and/or kV according to patient size, use of iterative reconstruction technique. RADIATION DOSE SUMMARY: CTDlvol: 44.99 mGy DLP: 745.5 mGycm COMPARISON: None. FINDINGS: BRAIN: No acute intraparenchymal hemorrhage. No mass lesion. No CT evidence for acute territorial infarct. No midline shift or extra-axial collection. VENTRICLES: No hydrocephalus. ORBITS: The orbits are unremarkable. SINUSES AND MASTOIDS: Moderate right and mild left ethmoid sinus mucosal thickening. The mastoid air cells are clear. SOFT TISSUES: No acute abnormality seen. BONES: No acute osseous abnormality seen. CT/Brain/Head without Contrast IMPRESSION: No acute intracranial abnormality. Reading Location: [id number]
[2025-07-27 16:31] LABS: Hematocrit 32.6 % (37-47); Hemoglobin 9.6 g/dL (12.0-15.0); Immature Granulocytes Count 0.020 X10^3/uL (0.0-0.0); Mean Corp Hgb Conc 29.4 g/dL (32-36); Mean Corpuscular Volume 68.9 fL (81-99); Mean Platelet Vol. 8.8 fl (6.2-12.0); NRBC Flagged by Analyzer 0 % (0-5); POSITIVE MORPHOLOGY YES; Platelet Count 383 K/mm3 (150-450); RBC Distribution Width CV 22.4 % (11.6-14.6); RBC Distribution Width SD 53.1 fl (35.1-43.9); Red Blood Count 4.73 M/mm3 (4.2-5.4); White Blood Count 7.4 K/mm3 (4.4-11.0)
[2025-07-27 16:35] VITALS: BP 118/84; BP 126/73; BP 127/84; PULSE 80; PULSE 82; PULSE 95; BMI 25.0
[2025-07-27 16:35] LABS: Internal QC Validated? YES +Cl - CLEAR BKGD; Pregnancy, Serum, hCG Quali. NEGATIVE Negative; Record Kit Lot#, Serum Preg. 964736
[2025-07-27 16:37] LABS: Differential Indicated SCAN CRITERIA MET
[2025-07-27 16:39] VITALS: BMI 24.3
[2025-07-27 17:00] VITALS: BP 108/74; PULSE 88; RESP 14; O2SAT 100
[2025-07-27 17:10] LABS: Prothrombin Time (Protime)PT. 12.5 SECONDS (11.7-14.9)
[2025-07-27 17:11] LABS: AST(SGOT) 90 U/L (<=31); Alanine Aminotransfer ALT/SGPT 92 U/L (<=34); Albumin, Serum 3.7 g/dL (3.5-5.0); Alkaline Phosphatase 60 U/L (35-104); Anion Gap 10 (5-15); BUN 13 mg/dL (4-19); BUN/Creat Ratio 23.4 RATIO (10-20); Calcium,Total 9.1 mg/dL (7.6-11.0); Carbon Dioxide 25.1 mmol/L (21.0-32.0); Chloride 103 mmol/L (98-108); Estimated Creatinine Clearance 121.22 ml/min (50-250); Globulin 3.0 g/dL (2.2-4.2); Glucose 119 mg/dL (70-99); Partial Thromboplast Time 25.1 Seconds (24.1-36.2); Potassium 3.8 mmol/L (3.3-5.1)
[2025-07-27 18:10] LABS: Color, Urine Yellow (Yellow); Glucose, Dipstick Normal (Normal); Ketone-Dipstick Negative (Negative); Leukocyte Esterase-Dipstick Negative /ul (Negative); Nitrite-Dipstick Negative (Negative); Occult Blood-Urine Negative /ul (Negative); Protein-Dipstick 15 mg/dl (Negative); Specific Gravity, Urine 1.015 (1.002-1.030); Urine Bilirubin Dipstick Negative (Negative)
[2025-07-27 18:47] LABS: Differential Comment SCANNED
[2025-07-27 18:48] LABS: Anisocytosis 2+
[2025-07-27 18:49] LABS: Polychromasia 1+
[2025-07-27 19:00] VITALS: BP 111/63; PULSE 64; RESP 16; O2SAT 100
[2025-07-27 19:27] LABS: Squamous Epithelial Cells - UA 10-25 SEEN /hpf (5-10)
[2025-07-27 19:29] LABS: Calcium Oxalate Crystals Ur 1+ /hpf (<or=2+)
[2025-07-27 19:30] LABS: Mucous, Urine 1+ /hpf (<or=2+); Red Blood Cells-Urine 0-5 SEEN /hpf (0-5)
[2025-07-27 19:31] LABS: Transitional Epithelial - Ur 0-5 SEEN /hpf (0-5)
[2025-07-27 20:25] VITALS: BP 103/57; PULSE 74; RESP 18; TEMP 36.6; O2SAT 99
== END 2025-07-27 20:29 | disposition home or self-care (01) ==
PROVIDERS: Emergency Provider Emergency Medicine; PCP Nurse Practitioner Family; Visit Provider Emergency Medicine
DX: R10.9 Unspecified abdominal pain (principal); D64.9 Anemia, unspecified; R51.9 Headache, unspecified; Z98.51 Tubal ligation status; Z90.49 Acquired absence of other specified parts of digestive tract
CPT/HCPCS: 70450; 80053; 81001; 84703; 85025; 85610; 85730; 96361; 96374; 96375; 99284

== ENCOUNTER 2025-08-29 21:54 | Emergency (ER) | payer MEDICAID, SELFPAY ==
[2025-08-29 21:55] VITALS: PULSE 102; RESP 18; TEMP 36.2; O2SAT 100; BMI 22.6
--- NOTE | 2025-08-29 22:04 | EDS_ITS ---
HPI <Dr. Richard Palmer DO - Last Filed: 08/30/25 00:13> HPI - GI History of Present Illness Chief Complaint: Abd Pain Informant: patient Abdominal Pain/Flank Pain Onset: Days (2) Context: Gradual Onset Timing: Continuous Quality: Cramping and Sharp Location: RUQ, RLQ and Right Flank Worsened by: Nothing Relieved by: Nothing Nausea/Vomiting/Emesis GI Symptom: Positive for Nausea and Vomiting Diarrhea/Melena/Hematochezia GI Symptom: Positive for Diarrhea; Negative for Melena or Hematochezia Associated Symptoms Associated Symptoms: Positive for Frequency; Negative for Dysuria, Hematuria or Urgency LMP: Approximately 2 weeks ago Narrative Narrative: Presents with right-sided abdominal pain that has been getting worse over the past 2 days. Patient describes it as sharp and cramping. Patient states it kind of waxes and wanes. Patient states it is constant however. Patient states nothing makes it better and nothing makes it worse. Patient admits to some nausea and vomiting. Patient denies any hematemesis or coffee-ground emesis. Patient admits to some diarrhea but denies any melena or hematochezia. Patient admits to some urinary frequency but denies any dysuria or hematuria. Patient states her last menstrual period was approximately 2 weeks ago. Patient states she does get lightheaded and dizzy at times with this. [facility] <Dr. Richard Palmer, DO - Last Filed: 08/30/25 00:13> [facility] Medical History (Updated 08/30/25 @ 04:[address] Gregorio Rome, ) Iron deficiency anemia Ovarian cyst Kidney stones Home Medications ?Medication ?Instructions ?Recorded ?Last Taken ?Type ondansetron 4 mg disintegrating 4 mg PO Q8H PRN PRN Na usea #10 tabs 07/07/23 Unknown Rx tablet sertraline 50 mg tablet 50 mg PO DAILY depression Unknown History metoclopramide HCl 10 mg tablet 10 mg PO Q6H PRN nause a and 06/30/24 Unknown Rx (Reglan) vomiting #10 tabs acetaminophen 325 mg tablet (Pain 650 mg (2 x 325 mg) PO Q6H PRN 07/26/25 Unknown Rx Relief (acetaminophen)) pain #20 tabs ciprofloxacin HCl 500 mg tablet 500 mg PO BID 7 days # 14 tabs 07/26/25 Unknown Rx (Cipro) ferrous sulfate 325 mg (65 mg 325 mg PO QODAY #90 tabs 07/26/25 Unknown Rx iron) tablet ibuprofen 600 mg tablet 600 mg PO Q6H PRN pain #20 t abs 07/26/25 Unknown Rx medroxyprogesterone 10 mg tablet 20 mg (2 x 10 mg) PO DAILY #60 tabs 07/26/25 Unknown Rx (Provera) dicyclomine 20 mg tablet 20 mg PO TID PRN abdominal p ain 08/30/25 Unknown Rx #20 tabs ondansetron 4 mg disintegrating 4 mg PO Q6H PRN nausea and 08/30/25 Unknown Rx tablet vomiting #20 tabs tramadol 50 mg tablet 50 mg PO Q6H PRN PRN Pain 3 days 08/30/25 Unknown Rx #12 tabs Allergy/AdvReac Type Severity Reaction Status Date / Time No Known Allergies Allergy Verified 08/29/25 21:55 Surgical History History of ureter stent Hx of tubal ligation History of laparoscopic cholecystectomy Social History (Updated 08/29/25 @ 23:[address] Richard Palmer DO) household members: spouse, significant other and children housing: house Smoking Status: Never smoker substance use type: former substance user ROS <Dr. Richard Palmer, - Last Filed: 08/30/25 00:13> ROS ED Constitutional Constitutional ED: Reports chills and subjective; Denies fever(s) Eyes Eyes: Denies blurry vision or change in vision ENT ENT ED: Denies rhinorrhea or sore throat Cardiovascular Cardiovascular: Denies chest pain or palpitations Respiratory/Chest Respiratory/Chest: Reports dyspnea; Denies cough Gastrointestinal Gastrointestinal: Reports abdominal pain, diarrhea, nausea and vomiting Genitourinary Genitourinary ED: Denies dysuria or hematuria Musculoskeletal Musculoskeletal: Reports back pain; Denies neck pain Integumentary Denies abscess or rash Neurologic Neurologic: Denies headache(s) or weakness Allergic/Immunologic Allergic/Immunologic ED: Denies mouth swelling or urticaria EXAM <Dr. Richard Palmer DO - Last Filed: 08/30/25 00:13> Physical Exam Const Vital Signs: 08/29/25 21:55 08/29/25 23:54 08/30/25 01:00 Temperature 97.1 F L Temperature Source Temporal Pulse Rate 102 H 91 70 Respiratory Rate 18 16 16 Blood Pressure 118/74 114/78 Blood Pressure Mean 88 90 Pulse Ox 100 99 Oxygen Delivery Method Room Air Room Air 08/30/25 02:51 08/30/25 04:00 Temperature Temperature Source Pulse Rate 87 Respiratory Rate 18 16 Blood Pressure 112/74 Blood Pressure Mean 86 Pulse Ox 100 Oxygen Delivery Method Room Air Positive well nourished and well developed General Appearance ED: well developed and NAD HEENT Reports moist mucous membranes Neck supple and no JVD Resp normal respiratory effort and clear to auscultation bilaterally Cardio regular rate and regular rhythm GI non-distended Palpation: soft and tender RLQ and RUQ Back/Spine General Back: CVA tenderness Extremity full ROM General Extremety ED: Negative for edema or tenderness General Extremity: Negative for edema Neuro CN's II-XII intact bilaterally, moves all extremities and no sensory deficits noted Sensorium / Orientation: alert Motor Exam: strength 5/5 throughout Psych mental status grossly normal and thought process normal <Dr. Gregorio Rome, DO - Last Filed: 08/30/25 04:26> Physical Exam Const Vital Signs: 08/29/25 21:55 08/29/25 23:54 08/30/25 01:00 Temperature 97.1 F L Temperature Source Temporal Pulse Rate 102 H 91 70 Respiratory Rate 18 16 16 Blood Pressure 118/74 114/78 Blood Pressure Mean 88 90 Pulse Ox 100 99 Oxygen Delivery Method Room Air Room Air 08/30/25 02:51 08/30/25 04:00 Temperature Temperature Source Pulse Rate 87 Respiratory Rate 18 16 Blood Pressure 112/74 Blood Pressure Mean 86 Pulse Ox 100 Oxygen Delivery Method Room Air MDM <Dr. Richard Palmer, DO - Last Filed: 08/30/25 00:13> [facility] Narrative Medical decision making narrative: Differential diagnosis includes ureteral calculus, pyelonephritis, electrolyte abnormality, dehydration, appendicitis, ovarian cyst, cholecystitis, cholelithiasis, ectopic , and anxiety. CBC will be obtained to assess for leukocytosis and anemia. Basic metabolic profile will be obtained to assess for electrolyte abnormality and renal function. Urinalysis will be obtained to assess for urinary tract infection and hematuria. Serum hCG will be obtained to assess for . CT scan of the abdomen and pelvis will be obtained to assess for ureteral calculus, pyelonephritis, appendicitis, and ovarian cyst. History & Record Review Additional record(s) reviewed:: Prior ED visit and Prior labs Lab Data Attestation: I reviewed the patient's lab results. Lab results narrative: CBC was reviewed. Hemoglobin was slightly low at 9.8. This is consistent with previous result. Basic metabolic profile was reviewed and was within normal limits. Serum hCG was reviewed and was negative. Urinalysis was reviewed. Leukocyte esterase was 500. There are 5-10 white blood cells but 10-25 epithelial cells. This is likely a contaminated specimen. Labs: Laboratory Results - last 24 hr 08/29/25 08/29/25 22:28 22:40 WBC 9.4 RBC 4.64 Hgb 9.8 L Hct 32.6 L MCV 70.3 L MCH 21.1 L MCHC 30.1 L RDW Std Deviation 61.3 H RDW Coeff of Gregoria 25.2 H Plt Count 295 MPV 9.0 Immature Gran % (Auto) 0.200 Neut % (Auto) 71.8 H Lymph % (Auto) 18.4 L [place] % (Auto) 8.9 Eos % (Auto) 0.5 Baso % (Auto) 0.2 Absolute Neuts (auto) 6.8 Absolute Lymphs (auto) 1.74 Nucleated RBC % 0 Differential Comment SCANNED Platelet Estimate ADEQUATE Anisocytosis 2+ Microcytosis 2+ Target Cells 1+ Tear Drop Cells RARE Ovalocytes 1+ Acanthocytes (Spur) RARE Schistocytes RARE Sodium 133 Potassium 3.5 Chloride 100 Carbon Dioxide 22.0 Anion Gap 11 BUN 16 Creatinine 0.77 Estim Creat Clear Calc 89.74 Est GFR (MDRD) Non-Af 105 BUN/Creatinine Ratio 20.9 H Glucose 100 H Calcium 9.3 Serum , Qual NEGATIVE Urine Color Yellow Urine Clarity Turbid Urine pH 5.0 Ur Specific [place] 1.025 Urine Protein 100 H Urine Glucose (UA) Normal Urine Ketones 50 H Urine Occult Blood 10 H Urine Nitrite Negative Urine Bilirubin 1 H Urine Urobilinogen 1 H Ur Leukocyte Esterase 500 H Urine RBC 0 SEEN Urine WBC 5-10 SEEN Ur Squamous Epith Cells 10-25 SEEN Calcium Oxalate Crystal 3+ Urine Bacteria 2+ Urine Mucus 0 SEEN Radiography Diagnostic Testing: Clinical Impression(s) from Imaging Studies Abdomen/Pelvis CT 08/29/25 22:15 IMPRESSION: Increase in the size of the right ovarian complex cyst measuring 4.6 cm on the current exam. Diffuse thickening of the stomach suggestive of gastritis. Fluid-filled small and large bowels, possibly enteritis. Prior cholecystectomy. Diffuse thickening of the bladder suggestive of cystitis. [facility] Trans[facility]ag[facility] 08/30/25 01:20 IMPRESSION: Right ovarian complex cyst measuring 3.8 cm, probably hemorrhagic cyst versus endometrioma. Mild amount of free fluid in the pelvic cul-de-sac. Normal bilateral ovarian flow without evidence of ovarian torsion. [facility] Treatment and Re-Evaluation :: Patient was given IV fluids, Toradol, and Zofran. Patient is feeling better but her pain is starting to return. Patient was given injection of morphine. Patient was advised of her findings. Patient was given a prescription for tramadol. Patient was instructed to drink plenty of fluids. Patient was instructed to follow-up with her primary care physician in 5 to 7 days. Patient was also given a referral for urology. Patient understood and was agreeable with the plan. All questions were answered. <Dr. Gregorio Rome DO - Last Filed: 08/30/25 04:26> [facility] Narrative Medical decision making narrative: Differential diagnosis includes ureteral calculus, pyelonephritis, electrolyte abnormality, dehydration, appendicitis, ovarian cyst, cholecystitis, cholelithiasis, ectopic , and anxiety. CBC will be obtained to assess for leukocytosis and anemia. Basic metabolic profile will be obtained to assess for electrolyte abnormality and renal function. Urinalysis will be obtained to assess for urinary tract infection and hematuria. Serum hCG will be obtained to assess for . CT scan of the abdomen and pelvis will be obtained to assess for ureteral calculus, pyelonephritis, appendicitis, and ovarian cyst. Addendum Gregorio Rome DO 4:22 AM Patient's case was signed out to me by provider to follow-up on the CT abdomen pelvis. Patient CT abdomen pelvis IV contrast reviewed showed increase in size of the right ovarian complex cyst measuring 4.6 m. Diffuse thickening of the stomach suggestive of gastritis. Fluid-filled small and large bowels possibly enteritis. Prior cholecystectomy. Diffuse thickening of the bladder suggestive of cystitis. I went and reevaluated the patient and she was still having significant right lower quadrant tenderness and given the increase in size of the ovarian cyst I added on a repeat transvaginal ultrasound to ensure that she does not have an evidence of ovarian torsion. Patient's ultrasound showed right ovarian complex cyst measuring 3.8 cm probably hemorrhagic cyst versus endometrioma. Mild amount of free fluid in the pelvic cul-de-sac. Normal bilateral ovarian flow without evidence of ovarian torsion. Discussed the results with the patient and she would like to go home at this point time. Patient will be given prescriptions for Zofran and dicyclomine. She is advised to follow-up with her doctor outpatient and return for worsening symptoms or any other concerns. She is agreeable this plan all question concerns answered. Lab Data Labs: Laboratory Results - last 24 hr 08/29/25 08/29/25 22:28 22:40 WBC 9.4 RBC 4.64 Hgb 9.8 L Hct 32.6 L MCV 70.3 L MCH 21.1 L MCHC 30.1 L RDW Std Deviation 61.3 H RDW Coeff of Gregoria 25.2 H Plt Count 295 MPV 9.0 Immature Gran % (Auto) 0.200 Neut % (Auto) 71.8 H Lymph % (Auto) 18.4 L [place] % (Auto) 8.9 Eos % (Auto) 0.5 Baso % (Auto) 0.2 Absolute Neuts (auto) 6.8 Absolute Lymphs (auto) 1.74 Nucleated RBC % 0 Differential Comment SCANNED Platelet Estimate ADEQUATE Anisocytosis 2+ Microcytosis 2+ Target Cells 1+ Tear Drop Cells RARE Ovalocytes 1+ Acanthocytes (Spur) RARE Schistocytes RARE Sodium 133 Potassium 3.5 Chloride 100 Carbon Dioxide 22.0 Anion Gap 11 BUN 16 Creatinine 0.77 Estim Creat Clear Calc 89.74 Est GFR (MDRD) Non-Af 105 BUN/Creatinine Ratio 20.9 H Glucose 100 H Calcium 9.3 Serum , Qual NEGATIVE Urine Color Yellow Urine Clarity Turbid Urine pH 5.0 Ur Specific [place] 1.025 Urine Protein 100 H Urine Glucose (UA) Normal Urine Ketones 50 H Urine Occult Blood 10 H Urine Nitrite Negative Urine Bilirubin 1 H Urine Urobilinogen 1 H Ur Leukocyte Esterase 500 H Urine RBC 0 SEEN Urine WBC 5-10 SEEN Ur Squamous Epith Cells 10-25 SEEN Calcium Oxalate Crystal 3+ Urine Bacteria 2+ Urine Mucus 0 SEEN Radiography Diagnostic Testing: Clinical Impression(s) from Imaging Studies Abdomen/Pelvis CT 08/29/25 22:15 IMPRESSION: Increase in the size of the right ovarian complex cyst measuring 4.6 cm on the current exam. Diffuse thickening of the stomach suggestive of gastritis. Fluid-filled small and large bowels, possibly enteritis. Prior cholecystectomy. Diffuse thickening of the bladder suggestive of cystitis. Reading Location: [place] [address] Transvaginal US 08/30/25 01:20 IMPRESSION: Right ovarian complex cyst measuring 3.8 cm, probably hemorrhagic cyst versus endometrioma. Mild amount of free fluid in the pelvic cul-de-sac. Normal bilateral ovarian flow without evidence of ovarian torsion. Reading Location: [place] [address] Discharge Plan Triage Chief Complaint: Abd Pain Other Complaint: Flank Pain ED Provider: Ricahrd Palmer Dx/Rx/DC Orders Clinical Impression: RLQ abdominal pain, Haemorrhagic cyst, Viral gastroenteritis Instructions: ED Kidney Stone with Pain Prescriptions: New tramadol 50 mg tablet 50 mg PO Q6H PRN PRN (Reason: Pain) 3 Days Qty: 12 0RF ondansetron 4 mg tablet,disintegrating 4 mg PO Q6H PRN (Reason: nausea and vomiting) Qty: 20 0RF dicyclomine 20 mg tablet 20 mg PO TID PRN (Reason: abdominal pain) Qty: 20 0RF No Action ondansetron 4 MG tablet 4 mg PO Q8H PRN PRN (Reason: Nausea) Qty: 10 0RF sertraline 50 mg tablet 50 mg PO DAILY metoclopramide HCl [Reglan] 10 mg tablet 10 mg PO Q6H PRN (Reason: nausea and vomiting) Qty: 10 0RF ferrous sulfate 325 mg (65 mg iron) tablet 325 mg PO QODAY Qty: 90 0RF ibuprofen 600 mg tablet 600 mg PO Q6H PRN (Reason: pain) Qty: 20 0RF acetaminophen [Pain Relief (acetaminophen)] 325 mg tablet 650 mg PO Q6H PRN (Reason: pain) Qty: 20 0RF ciprofloxacin HCl [Cipro] 500 mg tablet 500 mg PO BID 7 Days Qty: 14 0RF medroxyprogesterone [Provera] 10 mg tablet 20 mg PO DAILY Qty: 60 0RF Rx Instructions: Take 20 mg PO TID until bleeding slows down. Then take 10 mg PO once daily until follow up in the office Primary Care Provider: Beth Echavarria Referrals: Beth Echavarria, [facility] [Primary Care Provider, Family Practice] Activity Restrictions/Additional Instructions: Your ultrasound showed evidence of a hemorrhagic cyst this is likely causing your pain. Use prescriptions that were sent to your pharmacy as prescribed. Return for worsening symptoms or other concerns Print Language: Ch[place] Disposition Disposition: Home, Self Care
--- NOTE | 2025-08-29 22:15 | CT_ITS ---
PROCEDURE: ABDOMEN/PELVIS WITHOUT CONT 08/29/2025 REASON FOR EXAM: RIGHT FLANK PAIN TECHNIQUE: Procedure Code: CTABDPEL Modality: CT Procedure: ABDOMEN/PELVIS WITHOUT CONT Noncontrast technique limits evaluation of the abdominal and pelvic viscera. Coronal and Sagittal reconstruction series were provided. One or more dose reduction techniques were used (e.g., Automated exposure control, adjustment of the mA and/or kV according to patient size, use of iterative reconstruction technique). RADIATION DOSE SUMMARY: CTDlvol: 6.06 mGy DLP: 301 mGycm COMPARISON: CT scan on 07/24/2025. FINDINGS: Increase in the size of the right ovarian complex cyst measuring 4.6 cm on the current exam. Diffuse thickening of the stomach suggestive of gastritis. Fluid-filled small and large bowels, possibly enteritis. Prior cholecystectomy. Diffuse thickening of the bladder suggestive of cystitis. The visualized lung bases are unremarkable. Normal unenhanced liver. Normal extrahepatic biliary system. Normal unenhanced spleen. Normal pancreas. Normal bilateral adrenal glands. Normal size of the right kidney. There is no right renal mass. There are no right renal calculi. There is no right hydronephrosis. Normal visualized right ureter. Normal size of the left kidney. There is no left renal mass. There are no left renal calculi. There is no left hydronephrosis. Normal visualized left ureter. The appendix is visualized and appears normal. There is no demonstrated peritoneal fluid. Normal abdominal aorta. Normal inferior vena cava. Normal retroperitoneum. There is no pelvic mass lesion or lymphadenopathy. There is no pelvic fluid. Normal abdominal wall. Normal osseous structures. CT/Abdomen/Pelvis without Cont IMPRESSION: Increase in the size of the right ovarian complex cyst measuring 4.6 cm on the current exam. Diffuse thickening of the stomach suggestive of gastritis. Fluid-filled small and large bowels, possibly enteritis. Prior cholecystectomy. Diffuse thickening of the bladder suggestive of cystitis. Reading Location: [place] [address]
--- OUTSIDE RECORDS SUMMARY | 2025-08-29 22:30 | XMS RPT_ITS | CCD ---
Author Organization [facility] Care Team Providers Care Rn Dialysis Name Role Phone JOSÉ, SILVIA Unavailable Unavailable NO FAMILY PHYSICIAN, 837 Unavailable Unavail able JOSÉ, SILVIA Unavailable Unavailable NO FAMILY PHYSICIAN, 837 Unavailable Unavail able JOSÉ, SILVIA Unavailable Unavailable NO FAMILY PHYSICIAN, 837 Unavailable Unavail able NO FAMILY PHYSICIAN, 837 Unavailable Unavail able JOSÉ, SILVIA Unavailable Unavailable NO FAMILY PHYSICIAN, 837 Unavailable Unavail able JOSÉ, SILVIA Unavailable Unavailable NO FAMILY PHYSICIAN, 837 Unavailable Unavail able NO FAMILY PHYSICIAN, 837 Unavailable Unavail able ARVIN, MAZEN Unavailable Unavailable NO FAMILY PHYSICIAN, 837 Unavailable Unavail able ARVIN, MAZEN Unavailable Unavailable NO FAMILY PHYSICIAN, 837 Unavailable Unavail able JOSÉ, SILVIA Unavailable Unavailable NO FAMILY PHYSICIAN, 837 Unavailable Unavail able JOSÉ, SILVIA Unavailable Unavailable NO FAMILY PHYSICIAN, 837 Unavailable Unavail able JOSÉ, SILVIA Unavailable Unavailable NO FAMILY PHYSICIAN, 837 Unavailable Unavail able JOSÉ, TAN Unavailable Unavailable NO FAMILY PHYSICIAN, 837 Unavailable Unavail able NO FAMILY PHYSICIAN, 837 Unavailable Unavail able JOSÉ, SILVIA Unavailable Unavailable NO FAMILY PHYSICIAN, 837 Unavailable Unavail able JOSÉ, SILVIA Unavailable Unavailable JOSÉ, SILVIA Unavailable Unavailable NO FAMILY PHYSICIAN, 837 Unavailable Unavail able JOSÉ, SILVIA Unavailable Unavailable NO FAMILY PHYSICIAN, 837 Unavailable Unavail able JOSÉ, SILVIA Unavailable Unavailable NO FAMILY PHYSICIAN, 837 Unavailable Unavail able OJSÉ, SILVIA Unavailable Unavailable NO FAMILY PHYSICIAN, 837 Unavailable Unavail able JOSÉ, SILVIA Unavailable Unavailable NO FAMILY PHYSICIAN, 837 Unavailable Unavail able JOSÉ, SILVIA Unavailable Unavailable NO FAMILY PHYSICIAN, 837 Unavailable Unavail able JOSÉ, SILVIA Unavailable Unavailable NO FAMILY PHYSICIAN, 837 Unavailable Unavail able JOSÉ, SILVIA Unavailable Unavailable NO FAMILY PHYSICIAN, 837 Unavailable Unavail able JOSÉ, SILVIA Unavailable Unavailable NO FAMILY PHYSICIAN, 837 Unavailable Unavail able JOSÉ, SILVIA Unavailable Unavailable NO FAMILY PHYSICIAN, 837 Unavailable Unavail able JOSÉ, SILVIA Unavailable Unavailable NO FAMILY PHYSICIAN, 837 Unavailable Unavail able JOSÉ, SILVIA Unavailable Unavailable JOSÉ, SILVIA Unavailable Unavailable NO FAMILY PHYSICIAN, 837 Unavailable Unavail able JOSÉ, SILVIA Unavailable Unavailable JOSÉ, SILVIA Unavailable Unavailable NO FAMILY PHYSICIAN, 837 Unavailable Unavail able January, Unavailable Unavailable Unknown, Referring Provider Unavailable Unav ailable José, Silvia L Unavailable Unavailable [facility], [facility] Primary Care Pro vider Dr. Karissa Joaquin DO Emergency Provider Levi ZAVALA, Dr. Jimenez Admit Provider Dr. Barbara Sims MD Attending Provider [facility], [facility] Pro vider Dr. Karissa Joaquin DO Emergency Provider [facility], [facility] Pro vider Dr. Karissa Joaquin DO Emergency Provider Levi ZAVALA, Dr. Jimenez Admit Provider Dr. Barbara Sims MD Attending Provider Dr. Richard Palmer DO Emergency Provider Jericho SMT OPERATOR-C, [facility] Primary Care Provider Jericho [facility], [facility] Primary Care Unavailabl e Richard Palmer Attending Unavailable [facility], [facility] Unavailable Quinn Dalal Attending Unavailable Barbara Sims Admitting Unavailable [facility], [facility] Unavailable Barbara Sims Attending Unavailable Allergies Allergy Classification Reported Allergen(s) Allergy Type Date of Onset Reaction(s) Facility (1 source) Ketorolac Drug Allergy [id number] Work Phone: (1 source) SUMAtriptan Drug Allergy [id number] Work Phone: Medications Current Medications Medication Drug Class(es) Dates Sig (Normalized) Sig (Original) acetaminophen 325 mg oral tablet (2 sources) Start: 07-26-2025 Acetaminophen (Pain Relief (Acetaminophen)) 325 mg tablet Active 650 mg PO EVERY 6 HOURS as needed for pain 20 July 26, 2025 12:00am ciprofloxacin 500 mg oral tablet (10 sources) Quinolone Antimicrobial Start: 07-26-2025 take 1 tablet by mouth twice daily Ciprofloxacin Hcl (Cipro) 500 mg tablet Active 500 mg PO TWICE A DAY 14 7 July 26, 2025 12:00am Start: 02-08-2024 End: 03-14-2024 take 1 tablet by mouth twice daily Ciprofloxacin Hcl 500 mg tablet Discontinued 500 mg PO TWICE A DAY 14 February 08, 2024 12:00am March 14, 2024 8:25pm ferrous sulfate 325 mg oral tablet (2 sources) Start: 07-26-2025 take 1 tablet by mouth every other day Ferrous Sulfate 325 mg (65 mg iron) tablet Active 325 mg PO EVERY OTHER DAY 90 July 26, 2025 12:00am ibuprofen 600 mg oral tablet (2 sources) Nonsteroidal Anti-inflammator y Drug Start: 07-26-2025 take 1 tablet by mouth every six hours as needed for pain Ibuprofen 600 mg tablet Active 600 mg PO EVERY 6 HOURS as needed for pain 20 July 26, 2025 12:00am medroxyPROGESTERone acetate 10 mg oral tablet (2 sources) Progestin Start: 07-26-2025 take 2 tablets by mouth three times daily, then take 1 tablet by mouth once daily Medroxyprogesterone (Provera) 10 mg tablet Active 20 mg PO DAILY 60 July 26, 2025 12:00am Take 20 mg PO TID until bleeding slows down. Then take 10 mg PO once daily until follow up in the office metoclopramide 10 mg oral tablet (11 sources) Dopamine-2 Receptor Antagonist Start: 06-30-2024 take 1 tablet by mouth every six hours as needed for nausea and vomiting Metoclopramide Hcl (Reglan) 10 mg tablet Active 10 mg PO EVERY 6 HOURS as needed for nausea and vomiting 10 June 30, 2024 12:00am Start: 03-14-2024 End: 06-02-2024 take 1 tablet by mouth every six hours as needed for nausea and vomiting Metoclopramide Hcl (Reglan) 10 mg tablet Discontinued 10 mg PO EVERY 6 HOURS as needed for nausea and vomiting 14 0 March 14, 2024 12:00am June 02, 2024 1:16pm sertraline 50 mg oral tablet (6 sources) Serotonin Reuptake Inhibitor Start: 03-14-2024 take 1 tablet by mouth once daily Sertraline 50 mg tablet Active 50 mg PO DAILY March 14, 2024 12:00am depression Completed/Discontinued Medications Medication Drug Class(es) Dates Sig (Normalized) Sig (Original) acetaminophen 325 mg / HYDROcodone bitartrate 5 mg oral tablet (9 sources) Opioid Agonist Start: 07-07-2023 End: 03-14-2024 Hydrocodone-Acetami nophen 5-325 mg tablet Discontinued 1 {tbl} PO EVERY 6 HOURS NEEDED as needed for Pain 10 3 0 July 07, 2023 March 14, 2024 8:25pm Abdominal pain Unspecified abdominal pain Start: 07-07-2023 End: 03-14-2024 take 1 tablet by mouth every six hours as needed Hydrocodone-Acetaminophen Discontinued 1 TABLET PO EVERY 6 HOURS NEEDED 10 3 July 07, 2023 March 14, 2024 8:25pm alpha-tocopherol acetate 30 unt / ascorbic acid 100 mg / beta carotene 1000 unt / calcium carbonate 200 mg / calcium pantothenate 7 mg / cholecalciferol 400 unt / docusate sodium 25 mg / ferrous fumarate 29 mg / folic acid 1 mg / niacinamide 15 mg / pyridoxine hydrochloride 20 mg / riboflavin 3 mg / thiamine 3 mg / vitamin b 12 0.012 mg / zinc oxide 20 mg oral tablet (1 source) Vitamin B12, Vitamin D, Vitamin C Start: 04-27-2018 19 Oral Tablet Refills: 0 Start : 27-Apr-2018 Active amphetamine aspartate 5 mg / amphetamine sulfate 5 mg / dextroamphetamine saccharate 5 mg / dextroamphetamine sulfate 5 mg oral tablet (5 sources) Central Nervous System Stimulant Start: 06-02-2024 End: 07-27-2025 Dextroamphetamine -Amphetamine 20 mg tablet Discontinued 0.5 {tbl} PO TWICE A DAY June 02, 2024 12:00am July 27, 2025 3:49pm add dicyclomine hydrochloride 20 mg oral tablet (18 sources) Anticholinergic Start: 03-14-2024 End: 06-02-2024 take 1 tablet by mouth twice daily Dicyclomine 20 mg tablet Discontinued 20 mg PO TWICE A DAY 14 0 March 14, 2024 12:00am June 02, 2024 1:16pm Start: 12-31-2020 End: 03-14-2024 Dicyclomine 10 MG capsule Di scontinued 1 - 2 NMA PO EVERY 6 HOURS as needed for pain 20 December 31, 2020 2:14pm March 14, 2024 8:25pm Medical Marijuana (12 sources) Start: 12-24-2020 End: 03-14-2024 Medical Marijuana Discontinu ed December 24, 2020 1:00am March 14, 2024 8:25pm Start: 12-24-2020 Medical Nkechiju harmeet Active December 24, 2020 1:00am Start: 12-24-2020 Medical Clement harmeet Active December 24, 2020 12:00am naproxen 500 mg oral tablet (12 sources) Nonsteroidal Anti-inflammatory Drug Start: 12-24-2020 End: 03-14-2024 take 1 tablet by mouth twice daily as needed Naproxen 500 MG tablet Discontinued 500 mg PO TWICE DAILY NEEDED December 24, 2020 1:00am March 14, 2024 8:25pm omeprazole 20 mg delayed release oral tablet (1 source) Proton Pump Inhibitor PriLOSEC O TC 20 MG Oral Tablet Delayed Release Refills: 0 Active ondansetron 4 mg disintegrating oral tablet (20 sources) Serotonin-3 Receptor Antagonist Start: 04-17-2023 End: 03-14-2024 take 1 tablet by mouth every six hours as needed for nausea and vomiting Ondansetron 4 mg tablet,disintegr ating Discontinued 4 mg PO EVERY 6 HOURS as needed for nausea and vomiting 10 April 17, 2023 12:00am March 14, 2024 8:25pm Start: 12-31-2020 End: 06-02-2024 take 2 tablets by mouth every eight hours as needed for nausea Ondansetron 4 MG tablet Discontinued 8 mg PO EVERY 8 HOURS NEEDED as needed for Nausea December 31, 2020 1:00am June 02, 2024 1:16pm Start: 12-31-2020 take 8 mg by mouth e very eight hours as needed Ondansetron Active 8 MG PO EVERY 8 HOURS NEEDED December 31, 2020 1:00am Start: 12-24-2020 End: 03-14-2024 take 1 tablet by mouth every eight hours as needed for nausea Ondansetron 4 mg tablet,disintegrating Discontinued 4 mg PO EVERY 8 HOURS NEEDED as needed for Nausea 10 February 08, 2024 12:00am March 14, 2024 8:25pm phenazopyridine hydrochloride 200 mg oral tablet (8 sources) Start: 02-08-2024 End: 03-14-2024 take 1 tablet by mouth twice daily as needed for pain Phenazopyridine (Pyridium) 200 mg tablet Discontinued 200 mg PO TWICE DAILY NEEDED as needed for Pain 10 February 08, 2024 12:00am March 14, 2024 8:25pm Problems Active Problems Problem Classification Problem Date Documented Date Episodic/Chronic Abdominal pain (20 sources) Left flank pain; Translations: [Unspecified abdominal pain] Onset: 07-30-2025 01-01-2021 Episodic Anxiety disorders (1 source) Mixed anxiety and depressive disorder; Translations: [Anxiety and depression] Chronic Bacterial infection; unspecified site (1 source) Chlamydial infection; Translations: [History of Chlamydia] Episodic Calculus of urinary tract (20 sources) Kidney stone; Translations: [Calculus of kidney] 12-31-2020 Episodic Deficiency and other anemia (6 sources) Anemia; Translations: [Anemia, unspecified] 07-24-2025 Episodic Deficiency and other anemia (6 sources) Iron deficiency anemia; Translations: [Iron deficiency anemia, unspecified] 07-25-2025 Episodic Esophageal disorders (1 source) Gastroesophageal reflux disease; Translations: [GERD (gastroesophageal reflux disease)] Chronic Fever of unknown origin (6 sources) Fever; Translations: [Fever, unspecified] 07-24-2025 Episodic Genitourinary congenital anomalies (1 source) Medullary sponge kidney; Translations: [Medullary sponge kidney] Chronic Genitourinary symptoms and ill-defined conditions (7 sources) History of urinary tract infection; Translations: [Personal history of urinary (tract) infections] 02-16-2024 Episodic Headache; including migraine (1 source) Headache; Translations: [Headache] 07-27-2025 Episodic Hepatitis (1 source) Viral hepatitis C; Translations: [Hepatitis-C] Episodic Menstrual disorders (10 sources) Menometrorrhagia; Translations: [Excessive and frequent menstruation with irregular cycle] Onset: 12-27-2024 12-12-2024 Chronic Nausea and vomiting (20 sources) Vomiting; Translations: [Vomiting, unspecified] 04-17-2023 Episodic Other complications of (1 source) Viral hepatitis complicating , childbirth and the puerperium; Translations: [Chronic hepatitis C complicating , antepartum] Episodic Other complications of (1 source) Maternal tobacco use; Translations: [Tobacco use disorder affecting , antepartum] Episodic Other disorders of stomach and duodenum (5 sources) Cyclical vomiting syndrome; Translations: [Cyclical vomiting syndrome unrelated to migraine] 07-08-2024 Episodic Other infections; including parasitic (1 source) H/O: chickenpox; Translations: [History of varicella] Episodic Other nervous system disorders (1 source) H/O: migraine; Translations: [History of migraine] Episodic Ovarian cyst (7 sources) Hemorrhagic cyst of ovary; Translations: [Unspecified ovarian cyst, right side] Onset: 07-31-2025 07-25-2025 Episodic Residual codes; unclassified (1 source) Gestation period, 20 weeks; Translations: [20 weeks gestation of ] Episodic Screening and history of mental health and substance abuse codes (2 sources) H/O: depression; Translations: [H/O: anxiety state] Episodic Spondylosis; intervertebral disc disorders; other back problems (5 sources) Backache; Translations: [Dorsalgia, unspecified] 06-10-2024 Episodic Urinary tract infections (8 sources) Pyelonephritis; Translations: [Tubulo-interstitial nephritis, not specified as acute or chronic] 02-08-2024 Episodic Past or Other Problems Problem Classification Problem Date Documented Da te Episodic/Chronic Substance-related disorders (1 source) Marijuana user; Translations: [Marijuana use] NEGATED: Highlighted row has not occurred!Residual codes; unclassified (3 sources) Disease Episodic Results Test Name Value Interpretation Reference Range Facility Culture, Blood (WB)on 2024 CUB No growth in 5 days. Normal [facility] Comment on above: Performed By: #### L 700.6800, L100.0100, L500.4050, L300.3900, L300.4310 #### [facility] [address] [place], [place], [address] CUB No growth in 5 days. Normal [facility] Comment on above: Performed By: #### L 700.6800, L100.0100, L500.4050, L300.3900, L300.4310 #### [facility] [address] [place], [place], [address] Absolute lymphocyte countOrd ered By: Richard Palmer on 07-27-2025 Lymphocytes Auto (Unsp spec) [#/Vol] 2.55 10*3/uL 0.83-4.51 [facility] Absolute neutrophil countOrd ered By: Richard Palmer on 07-27-2025 Neutrophils (Bld) [#/Vol] 3.6 10*3/uL 2.0-7.7 [facility] Activated partial thrombopla stin time (aPTT) in platelet poor plasma by coagulation aOrdered By: Richard Palmer on 07-27-2025 aPTT Coag (PPP) [Time] 25.1 s 24.1-36.2 [facility] Amorphous sediment detection in urine sediment by light microscopyOrdered By: Richard Palmer on 07-27-2025 Amorphous sediment LM Ql (Urine sed) 2+ [facility] Anion gap in Serum or Plasma Ordered By: Richard Palmer on 07-27-2025 Anion gap [Moles/Vol] 10 mmol/L 5-15 [facility] Automated lymphocyte count a s percentage of total leukocytesOrdered By: Richard Palmer on 07-27-2025 Lymphocytes/100 WBC Auto (Unsp spec) 34.6 % 19-41 [facility] BUN/creatinine ratioOrdered By: Richard Palmer on 07-27-2025 Urea nitrogen/Creatinine [Mass ratio] 23.4 mg/mg High 10-20 [facility] Basophil percentageOrdered B y: Richard Palmer on 07-27-2025 Basophils/100 WBC (Bld) 0.7 % 0-1 [facility] Bilirubin Test strip Ql (U)O rdered By: Richard Palmer on 07-27-2025 Bilirubin Ql (U) Negative Negative [facility] Bilirubin, totalOrdered By: Richard Palmer on 07-27-2025 Bilirubin [Mass/Vol] 0.38 mg/dL 0.00-1.30 [facility] Blood manual differential co mment interpretation (narrative result)Ordered By: Richard Palmer on 07-27-2025 Manual differential comment Turner (Bld) [Interp] SCANNED [facility] Blood polychromasia detectio n by light microscopyOrdered By: Richard Palmer on 07-27-2025 Polychromasia LM Ql (Bld) 1+ [facility] Brain/Head without Contrasto n 07-27-2025 Brain/Head without Contrast [facility] [address] [place] [address] Brain/Head without Contrast MR#: [id number] Acct: [id number] Name: MICHELLE DOSHI Rep #: [id number] : 1990 F 34 From: Roxann Gracia MD PCP: Beth Echavarria [facility], SMT OPERATOR-C Status: REG ER Study: Brain/Head without Contrast Date of Exam: 07/16 01/09 Exam# [id number] Ordering Dr: Richard Palmer DO PROCEDURE: BRAIN/HEAD WITHOUT CONTRAST N/A REASON FOR EXAM: HEADACHE. Lightheaded. Recent blood loss. Abdominal pain. TECHNIQUE: Procedure Code: CTBR Modality: CT Procedure: BRAIN/HEAD WITHOUT CONTRAST Coronal and Sagittal reconstruction series were provided. One or more dose reduction techniques were used (e.g., Automated exposure control, adjustment of the mA and/or kV according to patient size, use of iterative reconstruction technique. RADIATION DOSE SUMMARY: CTDlvol: 44.99 mGy DLP: 745.5 mGycm COMPARISON: None. FINDINGS: BRAIN: No acute intraparenchymal hemorrhage. No mass lesion. No CT evidence for acute territorial infarct. No midline shift or extra-axial collection. VENTRICLES: No hydrocephalus. ORBITS: The orbits are unremarkable. SINUSES AND MASTOIDS: Moderate right and mild left ethmoid sinus mucosal thickening. The mastoid air cells are clear. SOFT TISSUES: No acute abnormality seen. BONES: No acute osseous abnormality seen. CT/Brain/Head without Contrast IMPRESSION: No acute intracranial abnormality. Reading Location: [id number] CC: [facility] SMT OPERATORBlayne Echavarria; Dr. Richard Palmer, Market Research Coordinator: Signed Normal [facility] CBC W/Diff, Automatedon 07-16 POLYCHROMASIA 1+ Normal [facility] Comment on above: Performed By: #### L 700.6800, L100.0100, L500.4050, L300.3900, L300.4310 #### [facility] [address] [place], [address] Anisocytosis Ql (Bld) 2+ Normal [facility] Comment on above: Performed By: #### L 700.6800, L100.0100, L500.4050, L300.3900, L300.4310 #### [facility] [address] [place], [address] PLT EST ADEQUATE Normal ADEQ [facility] Comment on above: Performed By: #### L 700.6800, L100.0100, L500.4050, L300.3900, L300.4310 #### [facility] [address] [place], [address] SMEAR COMMENT SCANNED Normal [facility] Comment on above: Performed By: #### L 700.6800, L100.0100, L500.4050, L300.3900, L300.4310 #### [facility] [address] [place], [address] Calcium oxalate crystals det ection in urine sediment by light microscopyOrdered By: Richard Palmer on 07-27-2025 Calcium oxalate crystals LM Ql (Urine sed) 1+ /hpf [facility] Carbon dioxide, total [Moles /volume] in Central venous bloodOrdered By: Richard Palmer on 07-27-2025 CO2 [Moles/Vol] 25.1 mmol/L 21.0-32.0 [facility] Chloride assayOrdered By: Xu Palmer on 07-27-2025 Chloride [Moles/Vol] 103 mmol/L 98-108 [facility] Comprehensive Metabolic Prof ilon 07-27-2025 Albumin [Mass/Vol] 3.7 g/dL Normal 3.5-5.0 [facility] Comment on above: Performed By: #### L 700.6800, L100.0100, L500.4050, L300.3900, L300.4310 #### [facility] [address] [place], [address] Albumin/Globulin [Mass ratio] 1.3 {ratio} Normal 0.9-2.4 [facility] Comment on above: Performed By: #### L 700.6800, L100.0100, L500.4050, L300.3900, L300.4310 #### [facility] [address] [place], [address] ALK PHOS 60 U/L Normal 35-104 [facility] Comment on above: Performed By: #### L 700.6800, L100.0100, L500.4050, L300.3900, L300.4310 #### [facility] [address] [place], [address] ALT [Catalytic activity/Vol] 92 U/L High <=34 [facility] Comment on above: Performed By: #### L 700.6800, L100.0100, L500.4050, L300.3900, L300.4310 #### [facility] [address] [place], [address] AST [Catalytic activity/Vol] 90 U/L High <=31 [facility] Comment on above: Performed By: #### L 700.6800, L100.0100, L500.4050, L300.3900, L300.4310 #### [facility] [address] [place], [address] Bilirubin [Mass/Vol] 0.38 mg/dL Normal 0.00-1.30 [facility] Comment on above: Performed By: #### L 700.6800, L100.0100, L500.4050, L300.3900, L300.4310 #### [facility] [address] [place], [address] BUN/CRE 23.4 RATIO High 10-20 [facility] Comment on above: Performed By: #### L 700.6800, L100.0100, L500.4050, L300.3900, L300.4310 #### [facility] [address] [place], [address] Calcium [Mass/Vol] 9.1 mg/dL Normal 7.6-11.0 [facility] Comment on above: Performed By: #### L 700.6800, L100.0100, L500.4050, L300.3900, L300.4310 #### [facility] [address] [place], [address] Chloride [Moles/Vol] 103 mmol/L Normal 98-108 [facility] Comment on above: Performed By: #### L 700.6800, L100.0100, L500.4050, L300.3900, L300.4310 #### [facility] [address] [place], [address] CO2 [Moles/Vol] 25.1 mmol/L Normal 21.0-32.0 [facility] Comment on above: Performed By: #### L 700.6800, L100.0100, L500.4050, L300.3900, L300.4310 #### [facility] [address] [place], [address] Creatinine [Mass/Vol] 0.57 mg/dL Low 0.70-1.20 [facility] Comment on above: Performed By: #### L 700.6800, L100.0100, L500.4050, L300.3900, L300.4310 #### [facility] [address] [place], [address] ECRCL 121.22 ml/min Normal 50-250 [facility] Comment on above: Performed By: #### L 700.6800, L100.0100, L500.4050, L300.3900, L300.4310 #### [facility] [address] [place], [address] GAP 10 Normal 5-15 [facility] Comment on above: Performed By: #### L 700.6800, L100.0100, L500.4050, L300.3900, L300.4310 #### [facility] [address] [place], [address] GFR/1.73 sq M.predicted among non-blacks MDRD (S/P/Bld) [Vol rate/Area] 123 mL/min/{1.73_m2} Normal >60 [facility] Comment on above: Result Comment: mL/m in/1.73m2 CKD-EPI Creatinine Equation (2020) Performed By: #### L 700.6800, L100.0100, L500.4050, L300.3900, L300.4310 #### [facility] [address] [place], [address] Globulin (S) [Mass/Vol] 3.0 g/dL Normal 2.2-4.2 [facility] Comment on above: Performed By: #### L 700.6800, L100.0100, L500.4050, L300.3900, L300.4310 #### [facility] [address] [place], [address] Glucose [Mass/Vol] 119 mg/dL High 70-99 [facility] Comment on above: Performed By: #### L 700.6800, L100.0100, L500.4050, L300.3900, L300.4310 #### [facility] [address] [place], [address] Potassium [Moles/Vol] 3.8 mmol/L Normal 3.3-5.1 [facility] Comment on above: Performed By: #### L 700.6800, L100.0100, L500.4050, L300.3900, L300.4310 #### [facility] [address] [place], [address] Sodium [Moles/Vol] 138 mmol/L Normal 133-145 [facility] Comment on above: Performed By: #### L 700.6800, L100.0100, L500.4050, L300.3900, L300.4310 #### [facility] [address] [place], [address] T PROT 6.7 g/dL Normal 5.9-8.4 [facility] Comment on above: Performed By: #### L 700.6800, L100.0100, L500.4050, L300.3900, L300.4310 #### [facility] [address] [place], [address] Urea nitrogen [Mass/Vol] 13 mg/dL Normal 4-19 [facility] Comment on above: Performed By: #### L 700.6800, L100.0100, L500.4050, L300.3900, L300.4310 #### [facility] [address] [place], [address] Emergency Department Summary on 07-27-2025 Emergency Department Summary [facility] Medical Records Department [address] [place] [address] Emergency Department Summary 07/27/25 MR#: [id number] Acct: [id number] Name: MICHELLE DOSHI Rep #: [id number] : 1990 34 From: Richard Palmer DO PCP: RUBEN Joyce, SMT OPERATOR-C Status:DEP ER Location: ED HPI History of Present Illness Chief Complaint: General Illness Informant: patient Onset/Context/Timing Onset: Yesterday Context: Gradual Onset Timing: Continuous Quality: Cramping Location: Stomach Worsened by: Nothing Relieved by: Nothing Narrative Narrative: Patient presents with headache, abdominal pain, and fatigue that has been getting worse since yesterday. Patient was recently admitted for blood transfusion due to anemia. Patient states they were unable to determine the source of the anemia. Patient states she has been having some sharp pain in her head and cramping in her abdomen. Patient states nothing makes it better nothing makes it worse. Patient underwent CT scan and pelvic ultrasound which did not show any source of bleeding. Patient states she has not had a bowel movement that she does not know if there is any blood or black tarry stools. Patient denies any fevers or chills. Patient admits to some blurred vision. Patient admits to some shortness of breath. Patient admits to some nausea but denies any vomiting. [facility] Medical History Ovarian cyst Kidney stones Home Medications ???Medication ???Instructions ???Recorded ???Last Taken ???Type ondansetron 4 mg disintegrating 4 mg PO Q8H PRN PRN Nausea #10 tab s 07/07/23 Unknown Rx tablet sertraline 50 mg tablet 50 mg PO DAILY depression 03/14/24 Unknown History metoclopramide HCl 10 mg tablet 10 mg PO Q6H PRN nausea and Unknown Rx (Reglan) vomiting #10 tabs acetaminophen 325 mg tablet (Pain 650 mg (2 x 325 mg) PO Q6H PRN Unknown Rx Relief (acetaminophen)) pain #20 tabs ciprofloxacin HCl 500 mg tablet 500 mg PO BID 7 days #14 tabs 07/16 12/09 Unknown Rx (Cipro) ferrous sulfate 325 mg (65 mg 325 mg PO QODAY #90 tabs 07/26/25 Unknown Rx iron) tablet ibuprofen 600 mg tablet 600 mg PO Q6H PRN pain #20 tabs Unknown Rx medroxyprogesterone 10 mg tablet 20 mg (2 x 10 mg) PO DAILY #60 tab s 07/26/25 Unknown Rx (Provera) Allergy/AdvReac Type Severity Reaction Status Date / Time No Known Allergies Allergy Verified 07/27/25 14:55 Surgical History History of ureter stent Hx of tubal ligation History of laparoscopic cholecystectomy Social History household members: spouse, significant other and children housing: house Smoking Status: Never smoker ROS ROS ED Constitutional Constitutional ED: Denies chills or fever(s) Eyes Eyes: Reports blurry vision; Denies diplopia ENT ENT ED: Denies rhinorrhea or sore throat Cardiovascular Cardiovascular: Denies chest pain or palpitations Respiratory/Chest Respiratory/Chest: Reports dyspnea; Denies cough Gastrointestinal Gastrointestinal: Reports nausea; Denies vomiting Genitourinary Genitourinary ED: Denies dysuria or hematuria Musculoskeletal Musculoskeletal: Reports back pain; Denies neck pain Integumentary Denies abscess or rash Neurologic Neurologic: Reports headache(s); Denies weakness Allergic/Immunologic Allergic/Immunologic ED: Denies mouth swelling or urticaria EXAM Physical Exam Const Vital Signs: 07/27/25 14:55 07/27/25 16:23 07/27/25 16:35 Temperature 98.5 F Temperature Source Oral Pulse Rate 88 Pulse Rate [Lying] 80 Pulse Rate [Sitting (for 1 minute prior to obtaining)] 82 Pulse Rate [Standing (for 1 minute prior to obtaining)] 95 Respiratory Rate 18 Respiratory Effort Normal Non-Labored Respiratory Pattern Normal Blood Pressure 117/78 Blood Pressure [Lying] 126/73 H Blood Pressure [Sitting (for 1 minute prior to obtaining)] 118/84 H Blood Pressure [Standing (for 1 minute prior to obtaining)] 127/84 H Blood Pressure Mean 91 Blood Pressure Mean [Lying] 90 Blood Pressure Mean [Sitting (for 1 minute prior to obtaining)] 95 Blood Pressure Mean [Standing (for 1 minute prior to obtaining)] 98 Pulse Ox 100 Oxygen Delivery Method Room Air 07/27/25 17:00 07/27/25 19:00 Temperature Temperature Source Pulse Rate 88 64 Pulse Rate [Lying] Pulse Rate [Sitting (for 1 minute prior to obtaining)] Pulse Rate [Standing (for 1 minute prior to obtaining)] Respiratory Rate 14 16 Respiratory Effort Respiratory Pattern Blood Pressure 108/74 111/63 Blood Pressure [Lying] Blood Pressure (more content not included)... Normal [facility] Eosinophil percentageOrdered By: Richard Palmer on 07-27-2025 Eosinophils/100 WBC (Bld) 3.9 % 0-5 [facility] Erythrocyte distribution wid th ratioOrdered By: Richardjody Palmer on 07-27-2025 Erythrocyte distribution width (RBC) [Ratio] 22.4 % High 11.6-14.6 [facility] Erythrocyte distribution wid th standard deviationOrdered By: Richard Palmer on 07-27-2025 Erythrocyte distribution width (RBC) [Ratio] 53.1 fl High 35.1-43.9 [facility] Glomerular filtration rate ( GFR) estimation/1.73 sq m using serum, plasma, or whole bOrdered By: Richard Palmer on 07-27-2025 GFR/1.73 sq M.predicted among non-blacks MDRD (S/P/Bld) [Vol rate/Area] 123 mL/min/{1.73_m2} >60 [facility] Comment on above: mL/min/1.73m2 CKD-EP I Creatinine Equation (2020) Hematocrit Auto (Bld) [Volum e fraction]Ordered By: Richard Palmer on 07-27-2025 Hematocrit (Bld) [Volume fraction] 32.6 % Low 37-47 [facility] Hemoglobin measurementOrdere d By: Richard Palmer on 07-27-2025 Hemoglobin (Bld) [Mass/Vol] 9.6 g/dL Low 12.0-15.0 [facility] Immature granulocytes/100 WB C Auto (Bld)Ordered By: Richard Palmer on 07-27-2025 Immature granulocytes/100 WBC (Bld) 0.300 % 0.0-0.9 [facility] Comment on above: IG% - Immature Granu locytes (promyelocytes, myelocytes and metamyelocytes) > 1% indicates that a LEFT SHIFT is Present. International normalized rat io (INR) calculationOrdered By: Richard Palmer on 07-27-2025 INR Coag (Bld) [Relative time] 0.9 {INR} [facility] Ketones Test strip Ql (U)Ord ered By: Richard Palmer on 07-27-2025 Ketones Ql (U) Negative Negative [facility] - Chemistry and C hemistry - challengeOrdered By: Richard Palmer on 07-27-2025 AST [Catalytic activity/Vol] 90 U/L High <32 [facility] - Hematology and Cell countsOrdered By: Richard Palmer on 07-27-2025 Anisocytosis Ql (Bld) 2+ [facility] MCV (mean corpuscular volume ) determinationOrdered By: Richard Palmer on 07-27-2025 MCV (RBC) [Entitic vol] 68.9 fL Low 81-99 [facility] Comment on above: Delta: 63.8 on 07/24 Mean corpuscular hemoglobin (MCH) determinationOrdered By: Richard Palmer on 07-27-2025 MCH (RBC) [Entitic mass] 20.3 pg Low 27.0-32.0 [facility] Mean corpuscular hemoglobin concentration (MCHC) determinationOrdered By: Richard Palmer on 07-27-2025 MCHC (RBC) [Mass/Vol] 29.4 g/dL Low 32-36 [facility] Comment on above: Delta: 27.9 on 07/24 Mean platelet volume determi nationOrdered By: Richard Palmer on 07-27-2025 Platelet mean volume (Bld) [Entitic vol] 8.8 fL 6.2-12.0 [facility] Microscopic analysis of urin e for red blood cells (RBC)Ordered By: Richard Palmer on 07-27-2025 Microscopic analysis of urine for red blood cells (RBC) 0-5 SEEN /hpf 0-5 [facility] Monocyte percentageOrdered B y: Richard Palmer on 07-27-2025 Monocytes/100 WBC (Bld) 11.0 % High 0-10 [facility] Mucus LM Ql (Urine sed)Order ed By: Richard Palmer on 07-27-2025 Mucus Ql (Urine sed) 1+ /hpf [facility] Neutrophil percentageOrdered By: Richard Palmer on 07-27-2025 Neutrophils/100 WBC (Bld) 49.5 % 47-70 [facility] Nitrite Test strip Ql (U)Ord ered By: Richard Palmer on 07-27-2025 Nitrite Ql (U) Negative Negative [facility] Nucleated red blood cell per centageOrdered By: Richard Palmer on 07-27-2025 Nucleated RBC/100 WBC (Bld) [Ratio] 0 % 0-5 [facility] Partial Thromboplast Timeon 07-27-2025 aPTT Coag (Bld) [Time] 25.1 s Normal 24.1-36.2 [facility] Comment on above: Performed By: #### L 700.6800, L100.0100, L500.4050, L300.3900, L300.4310 #### [facility] [address] [place], [address] Platelet countOrdered By: Xu Palmer on 07-27-2025 Platelets (Bld) [#/Vol] 383 10*3/uL 150-450 [facility] Platelet estimateOrdered By: Richard Palmer on 07-27-2025 Platelets LM Ql (Bld) ADEQUATE ADEQ [facility] Potassium measurement (mass/ volume)Ordered By: Richard Palmer on 07-27-2025 Potassium (Unsp spec) [Mass/Vol] 3.8 mmol/L 3.3-5.1 [facility] ,Serum,hCG Quali.on 07-27-2025 HCG, SERUM QUAL Negative Normal [facility] Comment on above: Performed By: #### L 700.6800, L100.0100, L500.4050, L300.3900, L300.4310 #### [facility] [address] [place], [address] Protein Test strip Ql (U)Ord ered By: Richard Palmer on 07-27-2025 Protein Ql (U) 15 mg/dl High Negative [facility] Prothrombin Time w/INRon INR Coag (PPP) [Relative time] 0.9 {INR} Normal [facility] Comment on above: Performed By: #### L 700.6800, L100.0100, L500.4050, L300.3900, L300.4310 #### [facility] [address] [place], [place], [id number] [phone] PT Coag (PPP) [Time] 12.5 s Normal 11.7-14.9 [facility] Comment on above: Performed By: #### L 700.6800, L100.0100, L500.4050, L300.3900, L300.4310 #### [facility] [address] [place], [place], [id number] Prothrombin timeOrdered By: Richard Palmer on 07-27-2025 PT Coag (PPP) [Time] 12.5 s 11.7-14.9 [facility] RBC Auto (Bld) [#/Vol]Ordere d By: Richard Palmer on 07-27-2025 RBC (Bld) [#/Vol] 4.73 10*6/uL 4.2-5.4 [facility] Serum beta-hCG test, qualita tiveOrdered By: Richard Palmer on 07-27-2025 Beta HCG ( test) Ql Negative [facility] Serum creatinine measurement (mass/volume)Ordered By: Richard Palmer on 07-27-2025 Creatinine [Mass/Vol] 0.57 mg/dL Low 0.70-1.20 [facility] Serum globulin measurementOr dered By: Richard Palmer on 07-27-2025 Globulin (S) [Mass/Vol] 3.0 g/dL 2.2-4.2 [facility] Serum glucose measurement (m ass/volume)Ordered By: Richard Palmer on 07-27-2025 Glucose [Mass/Vol] 119 mg/dL High 70-99 [facility] Serum or plasma alanine figueroa otransferase (ALT) measurementOrdered By: Richard Palmer on 07-27-2025 ALT [Catalytic activity/Vol] 92 U/L High <35 [facility] Serum or plasma albumin nicole urement (mass/volume)Ordered By: Richard Palmer on 07-27-2025 Albumin [Mass/Vol] 3.7 g/dL 3.5-5.0 [facility] Serum or plasma albumin/glob ulin mass ratioOrdered By: Richard Palmer on 07-27-2025 Albumin/Globulin [Mass ratio] 1.3 {ratio} 0.9-2.4 [facility] Serum or plasma alkaline belkis sphatase measurementOrdered By: Richard Palmer on 07-27-2025 ALP [Catalytic activity/Vol] 60 U/L 35-104 [facility] Serum or plasma calcium nicole urement (mass/volume)Ordered By: Richard Palmer on 07-27-2025 Calcium [Mass/Vol] 9.1 mg/dL 7.6-11.0 [facility] Serum or plasma urea nitroge n measurement (mass/volume)Ordered By: Richard Palmer on 07-27-2025 Urea nitrogen [Mass/Vol] 13 mg/dL 4-19 [facility] Sodium levelOrdered By: Richard Palmer on 07-27-2025 Sodium [Moles/Vol] 138 mmol/L 133-145 [facility] Squamous epithelial cells de tection in urine sediment by light microscopyOrdered By: Richard Palmer on 07-27-2025 Epithelial cells.squamous LM Ql (Urine sed) 10-25 SEEN /hpf 5-10 [facility] Total proteinOrdered By: Kierra Palmer on 07-27-2025 Protein [Mass/Vol] 6.7 g/dL 5.9-8.4 [facility] Transitional cells detection in urine sediment by light microscopyOrdered By: Richard Palmer on 07-27-2025 Transitional cells LM Ql (Urine sed) 0-5 SEEN /hpf 0-5 [facility] Urinalysis, Completeon 07-27 AMORPHOUS 2+ Normal [facility] Comment on above: Order Comment: CLEAN CATCH Performed By: #### L 400.0001 #### [facility] [address] [place], [address] EPI,TRANSITION 0-5 SEEN Normal 0-5 [facility] Comment on above: Order Comment: CLEAN CATCH Performed By: #### L 400.0001 #### [facility] [address] [place], [address] Mucus Ql (Urine sed) 1+ /hpf Normal [facility] Comment on above: Order Comment: CLEAN CATCH Performed By: #### L [id number] #### [facility] [address] [place], [address] RBC 0-5 SEEN Normal 0-5 [facility] Comment on above: Order Comment: CLEAN CATCH Performed By: #### L 400.0001 #### [facility] [address] [place], [address] WBC 0-5 SEEN Normal 0-5 [facility] Comment on above: Order Comment: CLEAN CATCH Performed By: #### L [id number] #### [facility] [address] [place], [address] CA OX CRYSTAL 1+ /hpf Normal [facility] Comment on above: Order Comment: CLEAN CATCH Performed By: #### L [id number] #### [facility] [address] [place], [address] EPI,SQUAMOUS 10-25 SEEN Normal 5-10 [facility] Comment on above: Order Comment: CLEAN CATCH Performed By: #### L [id number] #### [facility] [address] [place], [address] BACTERIA 0 SEEN Normal None Seen [facility] Comment on above: Order Comment: CLEAN CATCH Performed By: #### L [id number] #### [facility] [address] [place], [address] Urine Cultureon 07-27-2025 URC Mixed Gram Positive Organisms [place] Count 50,000-80,000 [facility] Mixed contaminants. Submit a new specimen if indicated. Normal [facility] Comment on above: Performed By: #### L 700.6800, L100.0100, L500.4050, L300.3900, L300.4310 #### [facility] [address] [place], [address] Urine clarityOrdered By: Kierra Palmer on 07-27-2025 Clarity (U) Cloudy Clear [facility] Urine color determinationOrd ered By: Richard Palmer on 07-27-2025 Color (U) Yellow Yellow [facility] Urine glucose detectionOrder ed By: Richard Palmer on 07-27-2025 Glucose Ql (U) Normal mg/dl Normal [facility] Urine leukocyte esterase det ection by dipstickOrdered By: Richard Palmer on 07-27-2025 Leukocyte esterase Test strip Ql (U) Negative Negative [facility] Urine pHOrdered By: Richard lynne on 07-27-2025 pH (U) 6.5 [pH] 5.0 - 8.0 [facility] Urine sediment bacteria coun t by microscopy (number/high power field)Ordered By: Richard Palmer on 07-27-2025 Bacteria LM.HPF (Urine sed) [#/Area] 0 /[HPF] None Seen [facility] Urine specific gravity measu rementOrdered By: Richard Palmer on 07-27-2025 Specific gravity (U) [Rel density] 1.015 1.002-1.030 [facility] Urine urobilinogen measureme ntOrdered By: Richard Palmer on 07-27-2025 Urobilinogen Ql (U) 1 mg/dl High Normal [facility] White blood cell (WBC) count Ordered By: Richard Palmer on 07-27-2025 WBC (Bld) [#/Vol] 7.4 10*3/uL 4.4-11.0 [facility] White blood cell countOrdere d By: Richard Palmer on 07-27-2025 White blood cell count 0-5 SEEN /hpf 0-5 [facility] Discharge Instructionon 07-16 Discharge Instruction [facility] Medical Records Department [address] [place] [address] Instructions for Home/Discharge Instructions 07/26/25 09 MR#: [id number] Acct: [id number] Name: MICHELLE DOSHI Rep #: [id number] : 1990 34 From: Kira Castillo DO PCP: [facility] Status:ADM IN Discharge Instructions DC O2, CPAP, BIPAP needs Home O2 Discharge instructions: No Dressing / Incision Discharge Activity: May Drive and May Shower Weight Bearing Status: Weight bearing as tolerated Lifting Restrictions: none Dressing / Incision Call your doctor if you observe: Fever of 101 or Higher, Using more than 1 pad per hour, Shortness of breath, Dizziness, Chest pain and Uncontrolled pain Follow Up Care Please Follow Up With: Barbara Sims MD When: 1 week Test Results: Test results from this visit will be discussed in further detail at your follow-up appointment, if applicable. Discharge Plan Admission Admit Date/Time: 07/25/25 11:42 Attending Provider: Barbara Sims [facility] Orders/Prescriptions Prescriptions: New ferrous sulfate 325 mg (65 mg iron) tablet 325 mg PO QODAY Qty: 90 0RF ibuprofen 600 mg tablet 600 mg PO Q6H PRN (Reason: pain) Qty: 20 0RF acetaminophen [Pain Relief (acetaminophen)] 325 mg tablet 650 mg PO Q6H PRN (Reason: pain) Qty: 20 0RF ciprofloxacin HCl [Cipro] 500 mg tablet 500 mg PO BID 7 Days Qty: 14 0RF medroxyprogesterone [Provera] 10 mg tablet 20 mg PO DAILY Qty: 60 0RF Rx Instructions: Take 20 mg PO TID until bleeding slows down. Then take 10 mg PO once daily until follow up in the office Continued ondansetron 4 MG tablet 4 mg PO Q8H PRN PRN (Reason: Nausea) Qty: 10 0RF sertraline 50 mg tablet 50 mg PO DAILY dextroamphetamine-amphet amine 20 mg tablet 0.5 tab PO BID metoclopramide HCl [Reglan] 10 mg tablet 10 mg PO Q6H PRN (Reason: nausea and vomiting) Qty: 10 0RF [facility] - Disposition Disposition (needs filled in before D/C Order can be placed): Home, Self Care 07/26/25 0911 Kira Castillo DO CC: [facility] Signed Normal [facility] Bilirubin Test strip Ql (U)O rdered By: Barbara Sims on 07-25-2025 Bilirubin Ql (U) Negative Negative [facility] HH, Hemoglobin AND Hematocri ton 07-25-2025 Hematocrit (Bld) [Volume fraction] 29.2 % Low 37-47 [facility] Comment on above: Performed By: #### L 100.0600 #### [facility] [address] [place], [address] Hemoglobin (Bld) [Mass/Vol] 9.2 g/dL Low 12.0-15.0 [facility] Comment on above: Performed By: #### L 100.0600 #### [facility] [address] [place], [address] Hematocrit Auto (Bld) [Volum e fraction]Ordered By: Barbara Sims on 07-25-2025 Hematocrit (Bld) [Volume fraction] 29.2 % Low 37-47 [facility] Hemoglobin measurementOrdere d By: Barbara Sims on 07-25-2025 Hemoglobin (Bld) [Mass/Vol] 9.2 g/dL Low 12.0-15.0 [facility] Ketones Test strip Ql (U)Ord ered By: Barbara Sims on 07-25-2025 Ketones Ql (U) Negative Negative [facility] Microscopic analysis of urin e for red blood cells (RBC)Ordered By: Barbara Sims on 07-25-2025 Microscopic analysis of urine for red blood cells (RBC) 0 SEEN /hpf 0-5 [facility] Mucus LM Ql (Urine sed)Order ed By: Barbara Sims on 07-25-2025 Mucus Ql (Urine sed) 0 SEEN /hpf [facility] Nitrite Test strip Ql (U)Ord ered By: Barbara Sims on 07-25-2025 Nitrite Ql (U) Negative Negative [facility] Protein Test strip Ql (U)Ord ered By: Barbara Sims on 07-25-2025 Protein Ql (U) 15 mg/dl High Negative [facility] Squamous epithelial cells de tection in urine sediment by light microscopyOrdered By: Barbara Sims on 07-25-2025 Epithelial cells.squamous LM Ql (Urine sed) 10-25 SEEN /hpf - [facility] Urinalysis, Completeon 07-25 BACTERIA 3+ /hpf Normal None Seen [facility] Comment on above: Order Comment: CLEAN CATCH Performed By: #### L [id number] #### [facility] [address] [place], [address] EPI,SQUAMOUS 10-25 SEEN Normal - [facility] Comment on above: Order Comment: CLEAN CATCH Performed By: #### L [id number] #### [facility] [address] [place], [address] WBC 0-5 SEEN Normal 0-5 [facility] Comment on above: Order Comment: CLEAN CATCH Performed By: #### L [id number] #### [facility] [address] [place], [address] Mucus Ql (Urine sed) 0 SEEN Normal [facility] Comment on above: Order Comment: CLEAN CATCH Performed By: #### L [id number] #### [facility] [address] [place], [address] RBC 0 SEEN Normal 0-5 [facility] Comment on above: Order Comment: CLEAN CATCH Performed By: #### L [id number] #### [facility] [address] [place], [address] Urine clarityOrdered By: Brianna Sims on 07-25-2025 Clarity (U) Sl. Cloudy Clear [facility] Urine color determinationOrd ered By: Barbara Sims on 07-25-2025 Color (U) Yellow Yellow [facility] Urine cultureOrdered By: Brianna Sims on 07-25-2025 Bacteria identified Cx Nom (U) Positive Abnormal [facility] Urine glucose detectionOrder ed By: Barbara Sims on 07-25-2025 Glucose Ql (U) Normal mg/dl Normal [facility] Urine leukocyte esterase det ection by dipstickOrdered By: Barbara Sims on 07-25-2025 Leukocyte esterase Test strip Ql (U) Negative Negative [facility] Urine pHOrdered By: Barbara Sims on 07-25-2025 pH (U) 6.0 [pH] 5.0 - 8.0 [facility] Urine sediment bacteria coun t by microscopy (number/high power field)Ordered By: Barbara Sims on 07-25-2025 Bacteria LM.HPF (Urine sed) [#/Area] 3 /[HPF] None Seen [facility] Urine specific gravity measu rementOrdered By: Barbara Sims on 07-25-2025 Specific gravity (U) [Rel density] 1.020 1.002-1.030 [facility] Urine urobilinogen measureme ntOrdered By: Barbara Sims on 07-25-2025 Urobilinogen Ql (U) Normal mg/dl Normal [facility] White blood cell countOrdere d By: Barbara Sims on 07-25-2025 White blood cell count 0-5 SEEN /hpf 0-5 [facility] Abdomen/Pelvis W IV Cont ONL Yon 07-24-2025 Abdomen/Pelvis W IV Cont ONLY [facility] Imaging Services [address] [place] [address] Abdomen/Pelvis W IV Cont ONLY MR#: [id number] Acct: [id number] Name: MICHELLE DOSHI Rep #: [id number] : 1990 F 34 From: Blane jeffrey MD PCP: [facility] Status: REG ER Study: Abdomen/Pelvis W IV Cont ONLY Date of Exam: Exam# [id number] Ordering Dr: Karissa Joaquin DO PROCEDURE: ABDOMEN/PELVIS W IV CONT ONLY 07/24/2025 REASON FOR EXAM: RIGHT FLANK PAIN, ANEMIA Kidney stones. TECHNIQUE: Procedure Code: [id number] Modality: CT Procedure: ABDOMEN/PELVIS W IV CONT ONLY Coronal and Sagittal reconstruction series were provided. CONTRAST: Isovue-300 VOLUME: 100 mL One or more dose reduction techniques were used (e.g., Automated exposure control, adjustment of the mA and/or kV according to patient size, use of iterative reconstruction technique. RADIATION DOSE SUMMARY: CTDlvol: 6.9 mGy DLP: 369.63 mGycm COMPARISON: Prior study dated June 30, 2024. FINDINGS: Lung bases: The lung bases are clear. Liver: Normal size. No mass. Gallbladder: Surgically absent. Spleen: Normal size. Pancreas: Normal size without evidence of mass surrounding inflammation or ductal dilation. Adrenals: Unremarkable Kidneys: Unremarkable Bladder: The urinary bladder is distended. Reproductive Organs: There is a 2.9 cm 2.7 cm complex cyst in the right ovary. Bowel: Unremarkable Appendix: Unremarkable Lymph nodes: Unremarkable Vasculature: The abdominal aorta and IVC are normal. Peritoneum / Retroperitoneum: Unremarkable Bones: Degenerative changes of the spine. CT/Abdomen/Pelvis W IV Cont ONLY IMPRESSION: Distended urinary bladder. 2.9 cm 2.7 cm complex cyst in the right ovary. Reading Location: [id number] CC: Dr. Karissa Joaquin, DO; [facility] Market Research Coordinator: Signed Normal [facility] Absolute lymphocyte countOrd ered By: Barbara Sims on 07-24-2025 Lymphocytes Auto (Unsp spec) [#/Vol] 1.11 10*3/uL 0.83-4.51 [facility] Absolute lymphocyte countOrd ered By: ED PROVIDER on 07-24-2025 Lymphocytes Auto (Unsp spec) [#/Vol] 0.27 10*3/uL Low 0.83-4.51 [facility] Absolute neutrophil countOrd ered By: Barbara Sims on 07-24-2025 Neutrophils (Bld) [#/Vol] 5.0 10*3/uL 2.0-7.7 [facility] Absolute neutrophil countOrd ered By: ED PROVIDER on 07-24-2025 Neutrophils (Bld) [#/Vol] 6.6 10*3/uL 2.0-7.7 [facility] Anion gap in Serum or Plasma Ordered By: Barbara Sims on 07-24-2025 Anion gap [Moles/Vol] 12 mmol/L 03-29 [facility] Anion gap in Serum or Plasma Ordered By: Karissa Joaquin on 07-24-2025 Anion gap [Moles/Vol] 10 mmol/L 03-29 [facility] Automated lymphocyte count a s percentage of total leukocytesOrdered By: Barbara Sims on 07-24-2025 Lymphocytes/100 WBC Auto (Unsp spec) 15.0 % Low - [facility] Automated lymphocyte count a s percentage of total leukocytesOrdered By: ED PROVIDER on 07-24-2025 Lymphocytes/100 WBC Auto (Unsp spec) 3.4 % Low - [facility] BRCon 07-24-2025 RC Normal [facility] Comment on above: Result Comment: [id number] AP RC TRANSFUSED 07/25/25 0226 [id number] AP RC TRANSFUSED 07/24/25 2327 Performed By: #### L 700.6800, L100.0100, L500.4050, L300.3900, L300.4310 #### [facility] [address] [place] [address], [address] BUN/creatinine ratioOrdered By: Barbara Sims on 07-24-2025 Urea nitrogen/Creatinine [Mass ratio] 13.6 mg/mg 09-03 [facility] BUN/creatinine ratioOrdered By: Karissa Joaquin on 07-24-2025 Urea nitrogen/Creatinine [Mass ratio] 22.6 mg/mg High 09-03 [facility] Basophil percentageOrdered B y: Barbara Sims on 07-24-2025 Basophils/100 WBC (Bld) 0.4 % 0-1 [facility] Basophil percentageOrdered B y: ED PROVIDER on 07-24-2025 Basophils/100 WBC (Bld) 0.8 % 0-1 [facility] Bilirubin Test strip Ql (U)O rdered By: Karissa Joaquin on 07-24-2025 Bilirubin Ql (U) Negative Negative [facility] Bilirubin, totalOrdered By: Barbara Sims on 07-24-2025 Bilirubin [Mass/Vol] mg/dL 0.00-1.30 [facility] Bilirubin, totalOrdered By: Karissa Joaquin on 07-24-2025 Bilirubin [Mass/Vol] 0.19 mg/dL 0.00-1.30 [facility] CBC W/Diff, Automatedon Absolute Lymph 1.11 X10 3/uL Normal 0.83-4.51 [facility] Comment on above: Performed By: #### L 700.6800, L100.0100, L500.4050, L300.3900, L300.4310 #### [facility] [address] [place], [address] Absolute Neut 5.0 X10 3/uL Normal 2.0-7.7 [facility] Comment on above: Performed By: #### L 700.6800, L100.0100, L500.4050, L300.3900, L300.4310 #### [facility] [address] [place], [address] Basophils/100 WBC (Bld) 0.4 % Normal 0-1 [facility] Comment on above: Performed By: #### L 700.6800, L100.0100, L500.4050, L300.3900, L300.4310 #### [facility] [address] [place], [address] Eosinophils/100 WBC (Bld) 2.0 % Normal 0-5 [facility] Comment on above: Performed By: #### L 700.6800, L100.0100, L500.4050, L300.3900, L300.4310 #### [facility] [address] [place], [address] Erythrocyte distribution width (RBC) [Ratio] 17.5 % High 11.6-14.6 [facility] Comment on above: Performed By: #### L 700.6800, L100.0100, L500.4050, L300.3900, L300.4310 #### [facility] [address] [place], [address] Hematocrit (Bld) [Volume fraction] 22.6 % Low 37-47 [facility] Comment on above: Performed By: #### L 700.6800, L100.0100, L500.4050, L300.3900, L300.4310 #### [facility] [address] [place], [address] Hemoglobin (Bld) [Mass/Vol] 6.3 g/dL Low 12.0-15.0 [facility] Comment on above: Performed By: #### L 700.6800, L100.0100, L500.4050, L300.3900, L300.4310 #### [facility] [address] [place], [address] IG% 0.400 Normal 0.0-0.9 [facility] Comment on above: Result Comment: IG% - Immature Granulocytes (promyelocytes, myelocytes and metamyelocytes) > 1% indicates that a LEFT SHIFT is Present. Performed By: #### L 700.6800, L100.0100, L500.4050, L300.3900, L300.4310 #### [facility] [address] [place], [address] Lymphocytes/100 WBC (Bld) 15.0 % Low 19-41 [facility] Comment on above: Performed By: #### L 700.6800, L100.0100, L500.4050, L300.3900, L300.4310 #### [facility] [address] [place], [address] MCH (RBC) [Entitic mass] 17.8 pg Low 27.0-32.0 [facility] Comment on above: Performed By: #### L 700.6800, L100.0100, L500.4050, L300.3900, L300.4310 #### [facility] [address] [place], [address] MCHC (RBC) [Mass/Vol] 27.9 g/dL Low 32-36 [facility] Comment on above: Performed By: #### L 700.6800, L100.0100, L500.4050, L300.3900, L300.4310 #### [facility] [address] [place], [address] MCV (RBC) [Entitic vol] 63.8 fL Low 81-99 [facility] Comment on above: Performed By: #### L 700.6800, L100.0100, L500.4050, L300.3900, L300.4310 #### [facility] [address] [place], [address] Monocytes/100 WBC (Bld) 15.5 % High 0-10 [facility] Comment on above: Performed By: #### L 700.6800, L100.0100, L500.4050, L300.3900, L300.4310 #### [facility] [address] [place], [address] Neutrophils/100 WBC (Bld) 66.7 % Normal 47-70 [facility] Comment on above: Performed By: #### L 700.6800, L100.0100, L500.4050, L300.3900, L300.4310 #### [facility] [address] [place], [address] Nucleated RBC (Bld) [#/Vol] 0 10*3/uL Normal 0-5 [facility] Comment on above: Performed By: #### L 700.6800, L100.0100, L500.4050, L300.3900, L300.4310 #### [facility] [address] [place], [address] Platelet mean volume (Bld) [Entitic vol] 8.7 fL Normal 6.2-12.0 [facility] Comment on above: Performed By: #### L 700.6800, L100.0100, L500.4050, L300.3900, L300.4310 #### [facility] [address] [place], [address] Platelets (Bld) [#/Vol] 428 10*3/uL Normal 150-450 [facility] Comment on above: Performed By: #### L 700.6800, L100.0100, L500.4050, L300.3900, L300.4310 #### [facility] [address] [place], [address] RBC (Bld) [#/Vol] 3.54 10*6/uL Low 4.2-5.4 [facility] Comment on above: Performed By: #### L 700.6800, L100.0100, L500.4050, L300.3900, L300.4310 #### [facility] [address] [place], [address] RDW SD 39.8 fl Normal 35.1-43.9 [facility] Comment on above: Performed By: #### L 700.6800, L100.0100, L500.4050, L300.3900, L300.4310 #### [facility] [address] [place], [address] WBC (Bld) [#/Vol] 7.4 10*3/uL Normal 4.4-11.0 [facility] Comment on above: Performed By: #### L 700.6800, L100.0100, L500.4050, L300.3900, L300.4310 #### [facility] [address] [place], [address] Absolute Lymph 0.27 X10 3/uL Low 0.83-4.51 [facility] Comment on above: Performed By: #### L 100.0600 #### [facility] [address] [place], [address] Absolute Neut 6.6 X10 3/uL Normal 2.0-7.7 [facility] Comment on above: Performed By: #### L 100.0600 #### [facility] [address] [place], [address] Basophils/100 WBC (Bld) 0.8 % Normal 0-1 [facility] Comment on above: Performed By: #### L 100.0600 #### [facility] [address] [place], [address] Eosinophils/100 WBC (Bld) 1.4 % Normal 0-5 [facility] Comment on above: Performed By: #### L 100.0600 #### [facility] [address] [place], [address] Erythrocyte distribution width (RBC) [Ratio] 17.4 % High 11.6-14.6 [facility] Comment on above: Performed By: #### L 100.0600 #### [facility] [address] [place], [address] Hematocrit (Bld) [Volume fraction] 24.6 % Low 37-47 [facility] Comment on above: Performed By: #### L 100.0600 #### [facility] [address] [place], [address] Hemoglobin (Bld) [Mass/Vol] 6.8 g/dL Low 12.0-15.0 [facility] Comment on above: Performed By: #### L 100.0600 #### [facility] [address] [place], [address] IG% 0.300 Normal 0.0-0.9 [facility] Comment on above: Result Comment: IG% - Immature Granulocytes (promyelocytes, myelocytes and metamyelocytes) > 1% indicates that a LEFT SHIFT is Present. Performed By: #### L 100.0600 #### [facility] [address] [place], [address] Lymphocytes/100 WBC (Bld) 3.4 % Low 19-41 [facility] Comment on above: Performed By: #### L 100.0600 #### [facility] [address] [place], [address] MCH (RBC) [Entitic mass] 17.7 pg Low 27.0-32.0 [facility] Comment on above: Performed By: #### L 100.0600 #### [facility] [address] [place], [address] MCHC (RBC) [Mass/Vol] 27.6 g/dL Low 32-36 [facility] Comment on above: Performed By: #### L 100.0600 #### [facility] [address] [place], [address] MCV (RBC) [Entitic vol] 63.9 fL Low 81-99 [facility] Comment on above: Performed By: #### L 100.0600 #### [facility] [address] [place], [address] Monocytes/100 WBC (Bld) 10.2 % High 0-10 [facility] Comment on above: Performed By: #### L 100.0600 #### [facility] [address] [place], [address] Neutrophils/100 WBC (Bld) 83.9 % High 47-70 [facility] Comment on above: Performed By: #### L 100.0600 #### [facility] [address] [place], [address] Nucleated RBC (Bld) [#/Vol] 0 10*3/uL Normal 0-5 [facility] Comment on above: Performed By: #### L 100.0600 #### [facility] [address] [place], [address] Platelet mean volume (Bld) [Entitic vol] 8.4 fL Normal 6.2-12.0 [facility] Comment on above: Performed By: #### L 100.0600 #### [facility] [address] [place], [address] Platelets (Bld) [#/Vol] 484 10*3/uL High 150-450 [facility] Comment on above: Performed By: #### L 100.0600 #### [facility] [address] [place], [address] RBC (Bld) [#/Vol] 3.85 10*6/uL Low 4.2-5.4 [facility] Comment on above: Performed By: #### L 100.0600 #### [facility] [address] [place], [address] RDW SD 39.2 fl Normal 35.1-43.9 [facility] Comment on above: Performed By: #### L 100.0600 #### [facility] [address] [place], [address] WBC (Bld) [#/Vol] 7.9 10*3/uL Normal 4.4-11.0 [facility] Comment on above: Performed By: #### L 100.0600 #### [facility] [address] [place], [address] Calcium oxalate crystals det ection in urine sediment by light microscopyOrdered By: Karissa Joaquin on 07-24-2025 Calcium oxalate crystals LM Ql (Urine sed) 1+ /hpf [facility] Carbon dioxide, total [Moles /volume] in Central venous bloodOrdered By: Barbara Sims on 07-24-2025 CO2 [Moles/Vol] 23.5 mmol/L 21.0-32.0 [facility] Carbon dioxide, total [Moles /volume] in Central venous bloodOrdered By: Karissa Joqauin on 07-24-2025 CO2 [Moles/Vol] 24.5 mmol/L 21.0-32.0 [facility] Chloride assayOrdered By: Zeeshan Sims on 07-24-2025 Chloride [Moles/Vol] 101 mmol/L 98-108 [facility] Chloride assayOrdered By: Felice Joaquin on 07-24-2025 Chloride [Moles/Vol] 100 mmol/L 98-108 [facility] Comprehensive Metabolic Prof ilon 07-24-2025 Albumin [Mass/Vol] 3.9 g/dL Normal 3.5-5.0 [facility] Comment on above: Performed By: #### L 700.6800, L100.0100, L500.4050, L300.3900, L300.4310 #### [facility] [address] [place], [address] Albumin/Globulin [Mass ratio] 1.4 {ratio} Normal 0.9-2.4 [facility] Comment on above: Performed By: #### L 700.6800, L100.0100, L500.4050, L300.3900, L300.4310 #### [facility] [address] [place], [address] ALK PHOS 38 U/L Normal 35-104 [facility] Comment on above: Performed By: #### L 700.6800, L100.0100, L500.4050, L300.3900, L300.4310 #### [facility] [address] [place], [address] ALT [Catalytic activity/Vol] 57 U/L High <=34 [facility] Comment on above: Performed By: #### L 700.6800, L100.0100, L500.4050, L300.3900, L300.4310 #### [facility] [address] [place], [address] AST [Catalytic activity/Vol] 62 U/L High <=31 [facility] Comment on above: Performed By: #### L 700.6800, L100.0100, L500.4050, L300.3900, L300.4310 #### [facility] [address] [place], [address] BUN/CRE 13.6 RATIO Normal 10-20 [facility] Comment on above: Performed By: #### L 700.6800, L100.0100, L500.4050, L300.3900, L300.4310 #### [facility] [address] [place], [address] Calcium [Mass/Vol] 8.9 mg/dL Normal 7.6-11.0 [facility] Comment on above: Performed By: #### L 700.6800, L100.0100, L500.4050, L300.3900, L300.4310 #### [facility] [address] [place], [address] Chloride [Moles/Vol] 101 mmol/L Normal 98-108 [facility] Comment on above: Performed By: #### L 700.6800, L100.0100, L500.4050, L300.3900, L300.4310 #### [facility] [address] [place], [address] CO2 [Moles/Vol] 23.5 mmol/L Normal 21.0-32.0 [facility] Comment on above: Performed By: #### L 700.6800, L100.0100, L500.4050, L300.3900, L300.4310 #### [facility] [address] [place], [address] Creatinine [Mass/Vol] 0.82 mg/dL Normal 0.70-1.20 [facility] Comment on above: Performed By: #### L 700.6800, L100.0100, L500.4050, L300.3900, L300.4310 #### [facility] [address] [place], [address] ECRCL 84.26 ml/min Normal 50-250 [facility] Comment on above: Performed By: #### L 700.6800, L100.0100, L500.4050, L300.3900, L300.4310 #### [facility] [address] [place], [address] GAP 12 Normal 5-15 [facility] Comment on above: Performed By: #### L 700.6800, L100.0100, L500.4050, L300.3900, L300.4310 #### [facility] [address] [place], [address] GFR/1.73 sq M.predicted among non-blacks MDRD (S/P/Bld) [Vol rate/Area] 97 mL/min/{1.73_m2} Normal >60 [facility] Comment on above: Result Comment: mL/m in/1.73m2 CKD-EPI Creatinine Equation (2020) Performed By: #### L 700.6800, L100.0100, L500.4050, L300.3900, L300.4310 #### [facility] [address] [place], [address] Globulin (S) [Mass/Vol] 2.8 g/dL Normal 2.2-4.2 [facility] Comment on above: Performed By: #### L 700.6800, L100.0100, L500.4050, L300.3900, L300.4310 #### [facility] [address] [place], [address] Glucose [Mass/Vol] 128 mg/dL High 70-99 [facility] Comment on above: Performed By: #### L 700.6800, L100.0100, L500.4050, L300.3900, L300.4310 #### [facility] [address] [place], [address] Potassium [Moles/Vol] 3.6 mmol/L Normal 3.3-5.1 [facility] Comment on above: Performed By: #### L 700.6800, L100.0100, L500.4050, L300.3900, L300.4310 #### [facility] [address] [place], [address] Sodium [Moles/Vol] 136 mmol/L Normal 133-145 [facility] Comment on above: Performed By: #### L 700.6800, L100.0100, L500.4050, L300.3900, L300.4310 #### [facility] [address] [place], [address] T BILI < 0.15 Normal 0.00-1.30 [facility] Comment on above: Performed By: #### L 700.6800, L100.0100, L500.4050, L300.3900, L300.4310 #### [facility] [address] [place], [address] T PROT 6.7 g/dL Normal 5.9-8.4 [facility] Comment on above: Performed By: #### L 700.6800, L100.0100, L500.4050, L300.3900, L300.4310 #### [facility] [address] [place], [address] Urea nitrogen [Mass/Vol] 11 mg/dL Normal 4-19 [facility] Comment on above: Performed By: #### L 700.6800, L100.0100, L500.4050, L300.3900, L300.4310 #### [facility] [address] [place], [address] Albumin [Mass/Vol] 4.4 g/dL Normal 3.5-5.0 [facility] Comment on above: Performed By: #### L 100.0600 #### [facility] [address] [place], [address] Albumin/Globulin [Mass ratio] 1.4 {ratio} Normal 0.9-2.4 [facility] Comment on above: Performed By: #### L 100.0600 #### [facility] [address] [place], [address] ALK PHOS 39 U/L Normal 35-104 [facility] Comment on above: Performed By: #### L 100.0600 #### [facility] [address] [place], [address] ALT [Catalytic activity/Vol] 61 U/L High <=34 [facility] Comment on above: Performed By: #### L 100.0600 #### [facility] [address] [place], [address] AST [Catalytic activity/Vol] 64 U/L High <=31 [facility] Comment on above: Performed By: #### L 100.0600 #### [facility] [address] [place], [address] Bilirubin [Mass/Vol] 0.19 mg/dL Normal 0.00-1.30 [facility] Comment on above: Performed By: #### L 100.0600 #### [facility] [address] [place], [address] BUN/CRE 22.6 RATIO High 10-20 [facility] Comment on above: Performed By: #### L 100.0600 #### [facility] [address] [place], [address] Calcium [Mass/Vol] 9.3 mg/dL Normal 7.6-11.0 [facility] Comment on above: Performed By: #### L 100.0600 #### [facility] [address] [place], [address] Chloride [Moles/Vol] 100 mmol/L Normal 98-108 [facility] Comment on above: Performed By: #### L 100.0600 #### [facility] [address] [place], [address] CO2 [Moles/Vol] 24.5 mmol/L Normal 21.0-32.0 [facility] Comment on above: Performed By: #### L 100.0600 #### [facility] [address] [place], [address] Creatinine [Mass/Vol] 0.65 mg/dL Low 0.70-1.20 [facility] Comment on above: Performed By: #### L 100.0600 #### [facility] [address] [place], [address] ECRCL 110.77 ml/min Normal 50-250 [facility] Comment on above: Performed By: #### L 100.0600 #### [facility] [address] [place], [address] GAP 10 Normal 5-15 [facility] Comment on above: Performed By: #### L 100.0600 #### [facility] [address] [place], [address] GFR/1.73 sq M.predicted among non-blacks MDRD (S/P/Bld) [Vol rate/Area] 119 mL/min/{1.73_m2} Normal >60 [facility] Comment on above: Result Comment: mL/m in/1.73m2 CKD-EPI Creatinine Equation (2020) Performed By: #### L 100.0600 #### [facility] [address] [place], [address] Globulin (S) [Mass/Vol] 3.1 g/dL Normal 2.2-4.2 [facility] Comment on above: Performed By: #### L 100.0600 #### [facility] [address] [place], [address] Glucose [Mass/Vol] 91 mg/dL Normal 70-99 [facility] Comment on above: Performed By: #### L 100.0600 #### [facility] [address] [place], [address] Potassium [Moles/Vol] 4.7 mmol/L Normal 3.3-5.1 [facility] Comment on above: Performed By: #### L 100.0600 #### [facility] [address] [place], [address] Sodium [Moles/Vol] 135 mmol/L Normal 133-145 [facility] Comment on above: Performed By: #### L 100.0600 #### [facility] [address] [place], [address] T PROT 7.5 g/dL Normal 5.9-8.4 [facility] Comment on above: Performed By: #### L 100.0600 #### [facility] [address] [place], [address] Urea nitrogen [Mass/Vol] 15 mg/dL Normal 4-19 [facility] Comment on above: Performed By: #### L 100.0600 #### [facility] [address] [place], [address] Emergency Department Summary on 07-24-2025 Emergency Department Summary [facility] Medical Records Department [address] [address] Emergency Department Summary 07/24/25 MR#: [id number] Acct: [id number] Name: MICHELLE DOSHI Rep #: [id number] : 1990 34 From: Karissa Joaquin DO PCP: [facility] Status:ADM IN Location: MS3 [id number] HPI History of Present Illness Chief Complaint: Flank Pain Informant: patient Narrative Narrative: Patient is a 34-year-old female presenting with right-sided back pain rating to her buttocks and abdomen that started this morning. She states for started around 7 AM and she still went to work. She then had to leave work secondary to nausea and pain. She tried ibuprofen and Tylenol with no relief. She notes he does have some associated straining with urination and some mild discomfort associated with this but attributes more to her back pain. States she had normal bowel movement yesterday. States she feels lightheaded today. She has a very mild pain in her right lower abdomen yesterday but thought maybe she was ovulating or just having a slight cramp and did not think much of it. Today she has had some chills and feels hot. Is not aware of having a fever. The history of a tubal ligation is not concern for . Has had a prior cholecystectomy. States she still has her appendix. Notes that she has had a kidney stone in the past and this feels similar. No other complaints or concerns reported at this time [facility] Medical History Ovarian cyst Kidney stones Home Medications ???Medication ???Instructions ???Recorded ???Last Taken ???Type ondansetron 4 mg disintegrating 4 mg PO Q8H PRN PRN Nausea #10 tab s 07/07/23 Unknown Rx tablet sertraline 50 mg tablet 50 mg PO DAILY depression 03/14/24 Unknown History Held on 07/24/25. Instructions: Ordered dextroamphetamine-amphet amine 20 0.5 tab PO BID add 06/02/24 Unknow n History mg tablet metoclopramide HCl 10 mg tablet 10 mg PO Q6H PRN nausea and Unknown Rx (Reglan) vomiting #10 tabs Allergy/AdvReac Type Severity Reaction Status Date / Time No Known Allergies Allergy Verified 07/24/25 12:01 Surgical History History of ureter stent Hx of tubal ligation History of laparoscopic cholecystectomy Social History household members: spouse, significant other and children housing: house Smoking Status: Never smoker ROS ROS ED Constitutional Constitutional ED: Reports chills; Denies fever(s) Cardiovascular Cardiovascular: Denies chest pain Respiratory/Chest Respiratory/Chest: Denies cough or dyspnea Gastrointestinal Gastrointestinal: Reports abdominal pain and nausea; Denies diarrhea or melena Genitourinary Genitourinary ED: Reports other Details: Feels that she has to strain to urinate ; Denies dysuria or hematuria Musculoskeletal Musculoskeletal: Reports back pain Integumentary Denies rash Neurologic Neurologic: Denies paresthesias or weakness Hematologic/Lymphatic Hematologic/Lymphatic: Denies easy bleeding or easy bruising EXAM Physical Exam Const Vital Signs: 07/24/25 11:58 07/24/25 14:16 07/24/25 16:00 Temperature 98.1 F Temperature Source Oral Pulse Rate 108 H 89 70 Respiratory Rate 20 H 18 18 Blood Pressure 142/78 H 117/68 120/80 Blood Pressure Mean 99 84 93 Pulse Ox 98 100 98 Oxygen Delivery Method Room Air Room Air 07/24/25 18:00 Temperature Temperature Source Pulse Rate 70 Respiratory Rate 16 Blood Pressure 110/64 Blood Pressure Mean 79 Pulse Ox 99 Oxygen Delivery Method Positive well nourished and well developed General Appearance ED: well developed and NAD; Negative for pallor HEENT Reports moist mucous membranes Neck supple Chest Wall inspection of chest normal and palpation of chest normal Resp normal respiratory effort and clear to auscultation bilaterally Cardio regular rhythm and no murmurs Rate: tachycardic GI normal to inspection, nondistended, normoactive bowel sounds, non-tender and non-distended Inspection: Negative for abdominal distention Auscultation: normoactive bowel sounds Palpation: Negative for tender or guarding Back/Spine no CVA tenderness Thoracic Spine / Upper Back: Negative for thoracic spinal tenderness Lumbar Spine / Lower Back: Negative for lumbar spinal tenderness Extremity normal to inspection Neuro oriented x3 Sensorium / Orientation: alert Motor Exam: Negative for general weakness Psych mental status grossly normal Skin no rashes or lesions noted and no wounds General Skin Exam: Negative for pallor MDM MDM MDM Turner (more content not included)... Normal [facility] Eosinophil percentageOrdered By: Barbara Sims on 07-24-2025 Eosinophils/100 WBC (Bld) 2.0 % 0-5 [facility] Eosinophil percentageOrdered By: ED PROVIDER on 07-24-2025 Eosinophils/100 WBC (Bld) 1.4 % 0-5 [facility] Erythrocyte distribution wid th ratioOrdered By: Barbara Sims on 07-24-2025 Erythrocyte distribution width (RBC) [Ratio] 17.5 % High 11.6-14.6 [facility] Erythrocyte distribution wid th ratioOrdered By: ED PROVIDER on 07-24-2025 Erythrocyte distribution width (RBC) [Ratio] 17.4 % High 11.6-14.6 [facility] Erythrocyte distribution wid th standard deviationOrdered By: Barbara Sims on 07-24-2025 Erythrocyte distribution width (RBC) [Ratio] 39.8 fl 35.1-43.9 [facility] Erythrocyte distribution wid th standard deviationOrdered By: ED PROVIDER on 07-24-2025 Erythrocyte distribution width (RBC) [Ratio] 39.2 fl 35.1-43.9 [facility] Ferritinon 07-24-2025 Ferritin [Mass/Vol] 5 ng/mL Low 22-378 [facility] Comment on above: Performed By: #### L 100.0600 #### [facility] [address] [place], [address] Glomerular filtration rate ( GFR) estimation/1.73 sq m using serum, plasma, or whole bOrdered By: Barbara Sims on 07-24-2025 GFR/1.73 sq M.predicted among non-blacks MDRD (S/P/Bld) [Vol rate/Area] 97 mL/min/{1.73_m2} >60 [facility] Comment on above: mL/min/1.73m2 CKD-EP I Creatinine Equation (2020) Glomerular filtration rate ( GFR) estimation/1.73 sq m using serum, plasma, or whole bOrdered By: Karissa Joaquin on 07-24-2025 GFR/1.73 sq M.predicted among non-blacks MDRD (S/P/Bld) [Vol rate/Area] 119 mL/min/{1.73_m2} >60 [facility] Comment on above: mL/min/1.73m2 CKD-EP I Creatinine Equation (2020) H AND P Exam - OB/GYNon 09 H&P Exam - EMPLOYEE COMMUNICATIONS COORDINATOR [facility] Medical Records Department [address] [place] [address] H P Exam - EMPLOYEE COMMUNICATIONS COORDINATOR 07/24/252106 MR#: [id number] Acct: [id number] Name: MICHELLE DOSHI Rep #: [id number] : 1990 34 From: Barbara Sims MD PCP: [facility] Status:ADM IN Location: NM3 [id number] HPI - General General Date of Admission: 07/24/25 Date of Service: 07/24/25 HPI Narrative MICHELLE DOSHI, is a 34 F Admitted through ED with RLQ and Hgb <6. No active bleeding. Last period end of June. Does have regular periods. Hemorrhagic cyst on US but no blood in the pelvis. Admitted for blood transfusion. Before transfusion was started patient have a fever times 2 with chills. Her pain remains unchanged in the RLQ and pubic area. Does wrap around her back. Hx of kidney stones. CT did not show any stones, hydronephrosis or abnormality with appendix. Nausea with pain and shaking chills. Does state she has pain with voiding that started before the RLQ pain. [facility] Medical History Ovarian cyst Kidney stones Home Medications ???Medication ???Instructions ???Recorded ???Last Taken ???Type ondansetron 4 mg disintegrating 4 mg PO Q8H PRN PRN Nausea #10 tab s 07/07/23 Unknown Rx tablet sertraline 50 mg tablet 50 mg PO DAILY depression 03/14/24 Unknown History Held on 07/24/25. Instructions: Ordered dextroamphetamine-amphet amine 20 0.5 tab PO BID add 06/02/24 Unknow n History mg tablet metoclopramide HCl 10 mg tablet 10 mg PO Q6H PRN nausea and Unknown Rx (Reglan) vomiting #10 tabs Allergy/AdvReac Type Severity Reaction Status Date / Time No Known Allergies Allergy Verified 07/24/25 12:01 Surgical History History of ureter stent Hx of tubal ligation History of laparoscopic cholecystectomy Social History household members: spouse, significant other and children housing: house Smoking Status: Never smoker ROS Constitutional Constitutional: Reports fever(s) Cardiovascular Cardiovascular: Denies chest pain or dyspnea Respiratory/Chest Respiratory/Chest: Denies cough Gastrointestinal Gastrointestinal: Reports abdominal pain and nausea; Denies constipation, diarrhea or vomiting Genitourinary Genitourinary: Reports dysuria and flank pain Musculoskeletal Musculoskeletal: Reports back pain Neurologic Neurologic: Denies headache(s) Psychiatric Psychiatric: Denies anxiety Vital Signs Vital Signs Vital Signs: 07/24/25 11:58 07/24/25 14:16 07/24/25 16:00 Temperature 98.1 F Temperature Source Oral Pulse Rate 108 H 89 70 Respiratory Rate 20 H 18 18 Blood Pressure 142/78 H 117/68 120/80 Blood Pressure Mean 99 84 93 Blood Pressure Source Blood Pressure Position Blood Pressure Location Pulse Ox 98 100 98 Oxygen Delivery Method Room Air Room Air 07/24/25 18:00 07/24/25 18:24 07/24/25 18:43 Temperature 98.6 F 100.5 F H Temperature Source Oral Pulse Rate 70 70 98 Respiratory Rate 16 16 16 Blood Pressure 110/64 110/64 116/68 Blood Pressure Mean 79 79 84 Blood Pressure Source Monitor Blood Pressure Position Semi-Fowlers Blood Pressure Location Left Arm Pulse Ox 99 99 100 Oxygen Delivery Method Room Air 07/24/25 19:32 07/24/25 19:55 07/24/25 21:00 Temperature 102.6 F H 101 F H 98.9 F Temperature Source Oral Oral Oral Pulse Rate 98 89 Respiratory Rate 18 18 Blood Pressure 105/64 112/65 Blood Pressure Mean 77 80 Blood Pressure Source Monitor Monitor Blood Pressure Position Semi-Fowlers Semi-Fowlers Blood Pressure Location Left Arm Left Arm Pulse Ox 100 100 Oxygen Delivery Method Room Air Room Air Weight Weight: 64.728 kg Body Mass Index (BMI) 24.5 Physical Exam Const alert and oriented x3 General Appearance: ill appearing HEENT normocephalic Eyes PERRL and EOMs intact bilaterally Resp normal respiratory effort, no retractions and clear to auscultation bilaterally Cardio regular rate and regular rhythm GI non-tender Palpation: tender RLQ and suprapubic Extremity full ROM Skin no rashes or lesions noted Neuro moves all extremities Labs Labs Labs: Blood Type A POSITIVE Antibody Screen NEGATIVE Hct 19.6 % (37-47) L Hgb 5.5 g/dL (12.0-15.0) L* Assessment Plan (1) Anemia: QUALIFIERS: Anemia type: iron deficiency Iron deficiency anemia type: unspecified iron deficiency Qualified Code(s): D50.9 - Iron deficiency anemia, unspecified PLAN: 2 units PRBCs Held until fever resolves (2) RLQ abdominal p (more content not included)... Normal [facility] HH, Hemoglobin AND Hematocri ton 07-24-2025 Hemoglobin (Bld) [Mass/Vol] 5.5 g/dL Invalid Interpretation Code 12.0-15.0 [facility] Comment on above: Result Comment: CRIT ICAL VALUE CALLED TO TODD JOHNSON 07/24/25 1741 Zofia Arreola. RESULTS READ BACK BY SAME. AMENDED REPORT 07/24/25 174 HGB previously reported as: 5.5 *L g/dL Performed By: #### L 700.6800, L100.0100, L500.4050, L300.3900, L300.4310 #### [facility] [address] [place], [place], [id number] Hematocrit Auto (Bld) [Volum e fraction]Ordered By: Barbara Sims on 07-24-2025 Hematocrit (Bld) [Volume fraction] 22.6 % Low 37-47 [facility] Hematocrit Auto (Bld) [Volum e fraction]Ordered By: Karissa Joaquin on 07-24-2025 Hematocrit (Bld) [Volume fraction] 19.6 % Low 37-47 [facility] Hemoglobin measurementOrdere d By: Barbara Sims on 07-24-2025 Hemoglobin (Bld) [Mass/Vol] 6.3 g/dL Low 12.0-15.0 [facility] Hemoglobin measurementOrdere d By: Karissa Joaquin on 07-24-2025 Hemoglobin (Bld) [Mass/Vol] 5.5 g/dL Low 12.0-15.0 [facility] Comment on above: CRITICAL VALUE BUSH D TO TODD [id number]/09/25 1741 Zofia Arreola.RESULTS READ BACK BY SAME. Previous reported result: 5.5 g/dLEdited by: SANTIAGO on 07/24/25:1743 AMENDED REPORT 07/24/25 1743 HGB previously reported as: 5.5 *L g/dL Immature granulocytes/100 WB C Auto (Bld)Ordered By: Barbara Sims on 07-24-2025 Immature granulocytes/100 WBC (Bld) 0.400 % 0.0-0.9 [facility] Comment on above: IG% - Immature Granu locytes (promyelocytes, myelocytes and metamyelocytes) > 1% indicates that a LEFT SHIFT is Present. Immature granulocytes/100 WB C Auto (Bld)Ordered By: ED PROVIDER on 07-24-2025 Immature granulocytes/100 WBC (Bld) 0.300 % 0.0-0.9 [facility] Comment on above: IG% - Immature Granu locytes (promyelocytes, myelocytes and metamyelocytes) > 1% indicates that a LEFT SHIFT is Present. Iron measurement (mass/mass) Ordered By: Karissa Joaquin on 07-24-2025 Iron (Unsp spec) [Mass/Mass] 18 ug/dL Low 50-170 [facility] Iron+Iron Binding Capacityon 07-24-2025 TIBC 637 ug/dL High 250-450 [facility] Comment on above: Performed By: #### L 100.0600 #### [facility] [address], [address] Ketones Test strip Ql (U)Ord ered By: Karissa Joaquin on 07-24-2025 Ketones Ql (U) Negative Negative [facility] - Chemistry and C hemistry - challengeOrdered By: Barbara Sims on 07-24-2025 AST [Catalytic activity/Vol] 62 U/L High <32 [facility] - Chemistry and C hemistry - challengeOrdered By: Karissa Joaquin on 07-24-2025 AST [Catalytic activity/Vol] 64 U/L High <32 [facility] Lactic Acidon 07-24-2025 Lactate [Moles/Vol] 1.5 mmol/L Normal 0.0-2.0 [facility] Comment on above: Order Comment: Y Performed By: #### L 503.6005 #### [facility] [address] [place], [address] Lactic acid measurementOrder ed By: Karissa Joaquin on 07-24-2025 Lactate [Moles/Vol] 1.5 mmol/L 0.0-2.0 [facility] MCV (mean corpuscular volume ) determinationOrdered By: Barbara Sims on 07-24-2025 MCV (RBC) [Entitic vol] 63.8 fL Low 81-99 [facility] MCV (mean corpuscular volume ) determinationOrdered By: ED PROVIDER on 07-24-2025 MCV (RBC) [Entitic vol] 63.9 fL Low 81-99 [facility] Mean corpuscular hemoglobin (MCH) determinationOrdered By: Barbara Sims on 07-24-2025 MCH (RBC) [Entitic mass] 17.8 pg Low 27.0-32.0 [facility] Mean corpuscular hemoglobin (MCH) determinationOrdered By: ED PROVIDER on 07-24-2025 MCH (RBC) [Entitic mass] 17.7 pg Low 27.0-32.0 [facility] Mean corpuscular hemoglobin concentration (MCHC) determinationOrdered By: Barbara Sims on 07-24-2025 MCHC (RBC) [Mass/Vol] 27.9 g/dL Low 32-36 [facility] Mean corpuscular hemoglobin concentration (MCHC) determinationOrdered By: ED PROVIDER on 07-24-2025 MCHC (RBC) [Mass/Vol] 27.6 g/dL Low 32-36 [facility] Mean platelet volume determi nationOrdered By: Barbara Sims on 07-24-2025 Platelet mean volume (Bld) [Entitic vol] 8.7 fL 6.2-12.0 [facility] Mean platelet volume determi nationOrdered By: ED PROVIDER on 07-24-2025 Platelet mean volume (Bld) [Entitic vol] 8.4 fL 6.2-12.0 [facility] Microscopic analysis of urin e for red blood cells (RBC)Ordered By: Karissa Joaquin on 07-24-2025 Microscopic analysis of urine for red blood cells (RBC) 0 SEEN /hpf 0-5 [facility] Monocyte percentageOrdered B y: Barbara Sims on 07-24-2025 Monocytes/100 WBC (Bld) 15.5 % High 0-10 [facility] Monocyte percentageOrdered B y: ED PROVIDER on 07-24-2025 Monocytes/100 WBC (Bld) 10.2 % High 0-10 [facility] Mucus LM Ql (Urine sed)Order ed By: Karissa Joaquin on 07-24-2025 Mucus Ql (Urine sed) 0 SEEN /hpf [facility] Neutrophil percentageOrdered By: Barbara Sims on 07-24-2025 Neutrophils/100 WBC (Bld) 66.7 % 47-70 [facility] Neutrophil percentageOrdered By: ED PROVIDER on 07-24-2025 Neutrophils/100 WBC (Bld) 83.9 % High 47-70 [facility] Nitrite Test strip Ql (U)Ord ered By: Karissa Joaquin on 07-24-2025 Nitrite Ql (U) Negative Negative [facility] No Panel InformationOrdered By: Karissa Joaquin on 07-24-2025 Unsaturated Iron Binding Capacity 619 ug/dL High 228-428 [facility] Nucleated red blood cell per centageOrdered By: Barbara Sims on 07-24-2025 Nucleated RBC/100 WBC (Bld) [Ratio] 0 % 0-5 [facility] Nucleated red blood cell per centageOrdered By: ED PROVIDER on 07-24-2025 Nucleated RBC/100 WBC (Bld) [Ratio] 0 % 0-5 [facility] Platelet countOrdered By: Zeeshan Sims on 07-24-2025 Platelets (Bld) [#/Vol] 428 10*3/uL 150-450 [facility] Platelet countOrdered By: ED PROVIDER on 07-24-2025 Platelets (Bld) [#/Vol] 484 10*3/uL High 150-450 [facility] Potassium measurement (mass/ volume)Ordered By: Barbara Sims on 07-24-2025 Potassium (Unsp spec) [Mass/Vol] 3.6 mmol/L 3.3-5.1 [facility] Potassium measurement (mass/ volume)Ordered By: Karissa Joaquin on 07-24-2025 Potassium (Unsp spec) [Mass/Vol] 4.7 mmol/L 3.3-5.1 [facility] ,Serum,hCG Quali.on 07-24-2025 HCG, SERUM QUAL Negative Normal [facility] Comment on above: Performed By: #### L 100.0600 #### [facility] [address] [place] [address], [id number] Protein Test strip Ql (U)Ord ered By: Karissa Joaquin on 07-24-2025 Protein Ql (U) 15 mg/dl High Negative [facility] RBC Auto (Bld) [#/Vol]Ordere d By: Barbara Sims on 07-24-2025 RBC (Bld) [#/Vol] 3.54 10*6/uL Low 4.2-5.4 [facility] RBC Auto (Bld) [#/Vol]Ordere d By: ED PROVIDER on 07-24-2025 RBC (Bld) [#/Vol] 3.85 10*6/uL Low 4.2-5.4 [facility] Serum beta-hCG test, qualita tiveOrdered By: ED PROVIDER on 07-24-2025 Beta HCG ( test) Ql Negative [facility] Serum creatinine measurement (mass/volume)Ordered By: Barbara Sims on 07-24-2025 Creatinine [Mass/Vol] 0.82 mg/dL 0.70-1.20 [facility] Serum creatinine measurement (mass/volume)Ordered By: Karissa Joaquin on 07-24-2025 Creatinine [Mass/Vol] 0.65 mg/dL Low 0.70-1.20 [facility] Serum globulin measurementOr dered By: Barbara Sims on 07-24-2025 Globulin (S) [Mass/Vol] 2.8 g/dL 2.2-4.2 [facility] Serum globulin measurementOr dered By: Karissa Joaquin on 07-24-2025 Globulin (S) [Mass/Vol] 3.1 g/dL 2.2-4.2 [facility] Serum glucose measurement (m ass/volume)Ordered By: Barbara Sims on 07-24-2025 Glucose [Mass/Vol] 128 mg/dL High 70-99 [facility] Serum glucose measurement (m ass/volume)Ordered By: Karissa Joaquin on 07-24-2025 Glucose [Mass/Vol] 91 mg/dL 70- [facility] Serum or plasma alanine figueroa otransferase (ALT) measurementOrdered By: Barbara Sims on 07-24-2025 ALT [Catalytic activity/Vol] 57 U/L High <35 [facility] Serum or plasma alanine figueroa otransferase (ALT) measurementOrdered By: Karissa Joaquin on 07-24-2025 ALT [Catalytic activity/Vol] 61 U/L High <35 [facility] Serum or plasma albumin nicole urement (mass/volume)Ordered By: Barbara Sims on 07-24-2025 Albumin [Mass/Vol] 3.9 g/dL 3.5-5.0 [facility] Serum or plasma albumin nicole urement (mass/volume)Ordered By: Karissa Joaquin on 07-24-2025 Albumin [Mass/Vol] 4.4 g/dL 3.5-5.0 [facility] Serum or plasma albumin/glob ulin mass ratioOrdered By: Barbara Sims on 07-24-2025 Albumin/Globulin [Mass ratio] 1.4 {ratio} 0.9-2.4 [facility] Serum or plasma albumin/glob ulin mass ratioOrdered By: Karissa Joaquin on 07-24-2025 Albumin/Globulin [Mass ratio] 1.4 {ratio} 0.9-2.4 [facility] Serum or plasma alkaline belkis sphatase measurementOrdered By: Barbara Sims on 07-24-2025 ALP [Catalytic activity/Vol] 38 U/L 35-104 [facility] Serum or plasma alkaline belkis sphatase measurementOrdered By: Karissa Joaquin on 07-24-2025 ALP [Catalytic activity/Vol] 39 U/L 35-104 [facility] Serum or plasma calcium nicole urement (mass/volume)Ordered By: Barbara Sims on 07-24-2025 Calcium [Mass/Vol] 8.9 mg/dL 7.6-11.0 [facility] Serum or plasma calcium nicole urement (mass/volume)Ordered By: Karissa Joaquin on 07-24-2025 Calcium [Mass/Vol] 9.3 mg/dL 7.6-11.0 [facility] Serum or plasma ferritin janina surement (mass/volume)Ordered By: Karissa Joaquin on 07-24-2025 Ferritin [Mass/Vol] 5 ng/mL Low 22-378 [facility] Serum or plasma iron saturat ion measurement (mass fraction)Ordered By: Karissa Joaquin on 07-24-2025 Iron saturation [Mass fraction] 2.8 % Low 13-59 [facility] Comment on above: Previous reported re sult: 3.0 %Edited by: DARY on 07/24/25:1706 AMENDED REPORT 07/24/25 1706 IRON SATURATION previously reported as: 3.0 L % Serum or plasma urea nitroge n measurement (mass/volume)Ordered By: Barbara Sims on 07-24-2025 Urea nitrogen [Mass/Vol] 11 mg/dL - [facility] Serum or plasma urea nitroge n measurement (mass/volume)Ordered By: Karissa Joaquin on 07-24-2025 Urea nitrogen [Mass/Vol] 15 mg/dL - [facility] Sodium levelOrdered By: Missy Sims on 07-24-2025 Sodium [Moles/Vol] 136 mmol/L 133-145 [facility] Sodium levelOrdered By: Piper Joaquin on 07-24-2025 Sodium [Moles/Vol] 135 mmol/L 133-145 [facility] Squamous epithelial cells de tection in urine sediment by light microscopyOrdered By: Karissa Joaquin on 07-24-2025 Epithelial cells.squamous LM Ql (Urine sed) 0-5 SEEN /hpf 5-10 [facility] Total proteinOrdered By: Brianna susanxu Bowdenwin on 07-24-2025 Protein [Mass/Vol] 6.7 g/dL 5.9-8.4 [facility] Total proteinOrdered By: Saritha greg Emani on 07-24-2025 Protein [Mass/Vol] 7.5 g/dL 5.9-8.4 [facility] Transvaginal Non-on 07-24-2025 Transvaginal Non- [facility] [address] [place] [place], [place] [id number] Transvaginal Non- MR#: [id number] Acct: [id number] Name: MICHELLE DOSHI Rep #: [id number] : 1990 F 34 From: Michael Christopher MD PCP: [facility] Status: REG ER Study: Transvaginal Non- Date of Exam: Exam# [id number] Ordering Dr: Karissa Joaquin DO PROCEDURE: US TRANSVAGINAL NON- 07/24/2025 REASON FOR EXAM: RLQ PAIN, ABNORMAL CYST ON CT TECHNIQUE: Procedure Code: USTVAG Modality: US Procedure: TRANSVAGINAL NON- COMPARISON: Abdominal CT same day 07/24/2025. FINDINGS: Anteverted uterus appears normal in size and smooth in contour, measuring 9.5 x 5.6 x 4.3 cm. No discrete uterine myoma. No abnormal collection within the uterine cavity. Endometrial stripe complex is within normal limits measuring up to 0.6 cm in thickness. Bilateral ovaries are within normal limits. Right ovary measures 4.6 x 3.2 x 2.3 cm. Left ovary measures 2.5 x 1.9 x 1.4 cm. Blood flow is demonstrated bilaterally on color Doppler. The right ovary contains a small minimally complex probable hemorrhagic cyst measuring 2.4 x 2.2 x 1.9 cm. No adnexal mass or significant free pelvic fluid is seen. US/Transvaginal Non- IMPRESSION: Small 2.4 cm probable hemorrhagic right ovarian cyst; no follow-up indicated. Reading Location: [facility] CC: Dr. Karissa Joaquin, DO; [facility] Market Research Coordinator: Signed Normal [facility] Type AND Screenon 07-24-2025 ABO and Rh group Nom (Bld) Blood group A Rh(D) positive Normal [facility] Comment on above: Order Comment: CMV N EG? NNumber of units to transfuse: 2Is this product for anemia associated withhemoglobinopathy? NIs pt's Hgb is 10mmHg)? NIs this for PREOP anemia correction prior to anesthesia? NReason for Ordering Blood: ChronicIs there symptomatic anemia? NAre the blood/blood products to be transfused? YIs the patient having/had surgery? NNWhen ReadyNYA Performed By: #### L 700.6800, L100.0100, L500.4050, L300.3900, L300.4310 #### [facility] [address] [place], [address] Urinalysis, Completeon 07-24 CA OX CRYSTAL 1+ /hpf Normal [facility] Comment on above: Order Comment: CLEAN CATCH Performed By: #### L 100.0600 #### [facility] [address] [place], [address] EPI,SQUAMOUS 0-5 SEEN Normal 5-10 [facility] Comment on above: Order Comment: CLEAN CATCH Performed By: #### L 100.0600 #### [facility] [address] [place], [address] WBC 0-5 SEEN Normal 0-5 [facility] Comment on above: Order Comment: CLEAN CATCH Performed By: #### L 100.0600 #### [facility] [address] [place], [address] BACTERIA 0 SEEN Normal None Seen [facility] Comment on above: Order Comment: CLEAN CATCH Performed By: #### L 100.0600 #### [facility] [address] [place], [address] Mucus Ql (Urine sed) 0 SEEN Normal [facility] Comment on above: Order Comment: CLEAN CATCH Performed By: #### L 100.0600 #### [facility] [address] [place], [address] RBC 0 SEEN Normal 0-5 [facility] Comment on above: Order Comment: CLEAN CATCH Performed By: #### L 100.0600 #### [facility] [address] [place], [address] Urine clarityOrdered By: Saritha Joaquin on 07-24-2025 Clarity (U) Sl. Cloudy Clear [facility] Urine color determinationOrd ered By: Karissa Joaquin on 07-24-2025 Color (U) Straw Yellow [facility] Urine glucose detectionOrder ed By: Karissa Joaquin on 07-24-2025 Glucose Ql (U) Normal mg/dl Normal [facility] Urine leukocyte esterase det ection by dipstickOrdered By: Karissa Joaquin on 07-24-2025 Leukocyte esterase Test strip Ql (U) Negative Negative [facility] Urine pHOrdered By: Karissa membreno on 07-24-2025 pH (U) 7.0 [pH] 5.0 - 8.0 [facility] Urine sediment bacteria coun t by microscopy (number/high power field)Ordered By: Karissa Joaquin on 07-24-2025 Bacteria LM.HPF (Urine sed) [#/Area] 0 /[HPF] None Seen [facility] Urine specific gravity measu rementOrdered By: Karissa Joaquin on 07-24-2025 Specific gravity (U) [Rel density] 1.010 1.002-1.030 [facility] Urine urobilinogen measureme ntOrdered By: Karissa Joaquin on 07-24-2025 Urobilinogen Ql (U) Normal mg/dl Normal [facility] White blood cell (WBC) count Ordered By: Barbara Sims on 07-24-2025 WBC (Bld) [#/Vol] 7.4 10*3/uL 4.4-11.0 [facility] White blood cell (WBC) count Ordered By: ED PROVIDER on 07-24-2025 WBC (Bld) [#/Vol] 7.9 10*3/uL 4.4-11.0 [facility] White blood cell countOrdere d By: Karissa Joaquin on 07-24-2025 White blood cell count 0-5 SEEN /hpf 0-5 [facility] CBC W/Diff, Automatedon 01-2 Absolute Lymph 3.11 X10 3/uL Normal 0.83-4.51 [facility] Comment on above: Performed By: #### L 100.0600 #### [facility] [address] [place], [address] Absolute Neut 4.6 X10 3/uL Normal 2.0-7.7 [facility] Comment on above: Performed By: #### L 100.0600 #### [facility] [address] [place], [address] Basophils/100 WBC (Bld) 0.7 % Normal 0-1 [facility] Comment on above: Performed By: #### L 100.0600 #### [facility] [address] [place], [address] Eosinophils/100 WBC (Bld) 2.7 % Normal 0-5 [facility] Comment on above: Performed By: #### L 100.0600 #### [facility] [address] [place], [address] Erythrocyte distribution width (RBC) [Ratio] 16.1 % High 11.6-14.6 [facility] Comment on above: Performed By: #### L 100.0600 #### [facility] [address] [place], [address] Hematocrit (Bld) [Volume fraction] 33.2 % Low 37-47 [facility] Comment on above: Performed By: #### L 100.0600 #### [facility] [address] [place], [address] Hemoglobin (Bld) [Mass/Vol] 10.5 g/dL Low 12.0-15.0 [facility] Comment on above: Performed By: #### L 100.0600 #### [facility] [address] [place], [address] IG% 0.200 Normal 0.0-0.9 [facility] Comment on above: Result Comment: IG% - Immature Granulocytes (promyelocytes, myelocytes and metamyelocytes) > 1% indicates that a LEFT SHIFT is Present. Performed By: #### L 100.0600 #### [facility] [address] [place], [address] Lymphocytes/100 WBC (Bld) 35.3 % Normal 19-41 [facility] Comment on above: Performed By: #### L 100.0600 #### [facility] [address] [place], [address] MCH (RBC) [Entitic mass] 24.9 pg Low 27.0-32.0 [facility] Comment on above: Performed By: #### L 100.0600 #### [facility] [address] [place], [address] MCHC (RBC) [Mass/Vol] 31.6 g/dL Low 32-36 [facility] Comment on above: Performed By: #### L 100.0600 #### [facility] [address] [place], [address] MCV (RBC) [Entitic vol] 78.9 fL Low 81-99 [facility] Comment on above: Performed By: #### L 100.0600 #### [facility] [address] [place], [address] Monocytes/100 WBC (Bld) 9.0 % Normal 0-10 [facility] Comment on above: Performed By: #### L 100.0600 #### [facility] [address] [place], [address] Neutrophils/100 WBC (Bld) 52.1 % Normal 47-70 [facility] Comment on above: Performed By: #### L 100.0600 #### [facility] [address] [place], [address] Nucleated RBC (Bld) [#/Vol] 0 10*3/uL Normal 0-5 [facility] Comment on above: Performed By: #### L 100.0600 #### [facility] [address] [place], [address] Platelet mean volume (Bld) [Entitic vol] 8.9 fL Normal 6.2-12.0 [facility] Comment on above: Performed By: #### L 100.0600 #### [facility] [address] [place], [address] Platelets (Bld) [#/Vol] 378 10*3/uL Normal 150-450 [facility] Comment on above: Performed By: #### L 100.0600 #### [facility] [address] [place], [address] RBC (Bld) [#/Vol] 4.21 10*6/uL Normal 4.2-5.4 [facility] Comment on above: Performed By: #### L 100.0600 #### [facility] [address] [place], [address] RDW SD 46.1 fl High 35.1-43.9 [facility] Comment on above: Performed By: #### L 100.0600 #### [facility] [address] [place], [address] WBC (Bld) [#/Vol] 8.8 10*3/uL Normal 4.4-11.0 [facility] Comment on above: Performed By: #### L 100.0600 #### [facility] [address] [place], [address] Emergency Department Summary on 12-04-2024 Emergency Department Summary [facility] Medical Records Department [address] [place] [address] Emergency Department Summary 12/04/24 MR#: [id number] Acct: [id number] Name: MICHELLE DOSHI Rep #: [id number] : 1990 34 From: Quinn Dalal DO PCP: [facility] Status:DEP ER Location: ED HPI HPI - Female History of Present Illness Chief Complaint: Vag Bleeding Informant: patient Narrative Narrative: 34-year-old female comes in with a heavy painful menstruation. Patient states that this morning she began her normal menstrual cycle. She notes that the cramps were intense and as the day went on she noticed very heavy bleeding with large clots. She states that this has not really happened to her before. She denies any significant gynecologic health issues such as recurrent ovarian cyst. She has had tubal ligation. She has delivered 3 children. She does not currently see a local machine grainer. She is not taking any control or hormonal medications. She has not noticed any abnormal bleeding anywhere else on her skin or gums etc. [facility] Medical History Ovarian cyst Kidney stones Home Medications ???Medication ???Instructions ???Recorded ???Last Taken ???Type ondansetron 4 mg disintegrating 4 mg PO Q8H PRN PRN Nausea #10 tabs 07/07/23 Unknown Rx tablet sertraline 50 mg tablet 50 mg PO DAILY 03/14/24 Unknown History dextroamphetamine-amphet amine 20 0.5 tab PO BID 06/02/24 Unknown History mg tablet metoclopramide HCl 10 mg tablet 10 mg PO Q6H PRN nausea and 06/30/24 Unknown Rx (Reglan) vomiting #10 tabs Allergy/AdvReac Type Severity Reaction Status Date / Time No Known Allergies Allergy Verified 12/04/24 16:55 Surgical History History of ureter stent Hx of tubal ligation History of laparoscopic cholecystectomy Social History household members: spouse, significant other and children housing: house Smoking Status: Never smoker ROS ROS ED Constitutional Constitutional ED: Denies chills or weight loss Eyes Eyes: Denies change in vision or diplopia ENT ENT ED: Denies ear pain, rhinorrhea or sore throat Cardiovascular Cardiovascular: Denies chest pain, orthopnea, palpitations or racing heartbeat Respiratory/Chest Respiratory/Chest: Denies cough, dyspnea or orthopnea Gastrointestinal Gastrointestinal: Denies abdominal pain, diarrhea, nausea or vomiting Genitourinary Genitourinary ED: Reports other Details: Heavy vaginal bleeding menstrual cramps ; Denies dysuria, hematuria or urinary frequency Musculoskeletal Musculoskeletal: Denies arthralgias or myalgias Integumentary Denies abscess or rash Neurologic Neurologic: Denies headache(s) or weakness Psychiatric Psychiatric: Denies anxiety, depression, suicidal ideation or suicidal thoughts Endocrine Endocrinology: Denies polydipsia, polyphagia or polyuria Allergic/Immunologic Allergic/Immunologic ED: Denies mouth swelling, tongue swelling or urticaria EXAM Physical Exam Const Vital Signs: 12/04/24 16:53 Temperature 95.9 F L Temperature Source Temporal Pulse Rate 105 H Respiratory Rate 16 Blood Pressure 152/95 H Blood Pressure Mean 114 Pulse Ox 100 Oxygen Delivery Method Room Air Positive well nourished and well developed General Appearance ED: well developed and NAD HEENT Reports normocephalic, head/scalp atraumatic and moist mucous membranes Eyes PERRL and EOMs intact bilaterally Neck no lymphadenopathy, supple and no JVD Resp normal respiratory effort and clear to auscultation bilaterally Cardio regular rate, regular rhythm and no murmurs GI normal to inspection, nondistended, normoactive bowel sounds and non-tender Palpation: soft Back/Spine no CVA tenderness and normal ROM Extremity normal to inspection General Extremety ED: Negative for edema General Extremity: Negative for edema Neuro oriented x3 and CN's II-XII intact bilaterally Sensorium / Orientation: alert Motor Exam: strength 5/5 throughout Psych mental status grossly normal Mood Affect: Negative for depressed or tearful Skin no rashes or lesions noted and no wounds MDM MDM MDM Narrative Medical decision making narrative: Differential diagnosis includes but not limited to anemia thrombocytopenia no metrorrhagia miscarriage Patient received a dose of Toradol for pain. Hemoglobin returns at 10.5 with a platelet count of 378. White count of 8.8. test is negative. Patient received a dose of Toradol. At this point this is day one of her menstrual cycle. Would recommend monitoring her symptoms. If they are persisting or worsening s (more content not included)... Normal [facility] ,Serum,hCG Quali.on 12-04-2024 HCG, SERUM QUAL Negative Normal [facility] Comment on above: Performed By: #### L 700.6800, L100.0100 #### [facility] [address] [place], [address] Absolute lymphocyte countOrd ered By: Haroldo Galarza on 03-14-2024 Lymphocytes Auto (Unsp spec) [#/Vol] 1.05 10*3/uL 0.83-4.51 [facility] Automated lymphocyte count a s percentage of total leukocytesOrdered By: Haroldo Galarza on 03-14-2024 Lymphocytes/100 WBC Auto (Unsp spec) 9.0 % 19-41 [facility] Basophil percentageOrdered B y: Haroldo Galarza on 03-14-2024 Basophil percentage 0 SEEN /hpf 0-5 [facility] Basophils/100 WBC (Bld) 0.3 % 0-1 [facility] Chloride [Moles/Vol] 106 mmol/L 98-107 [facility] Eosinophils/100 WBC (Bld) 0.0 % 0-5 [facility] Glucose [Mass/Vol] 134 mg/dL 74-106 [facility] Comment on above: Fasting Glucose resu lt greater than or equal to 126 mg/dL suggests DIABETES MELLITUS per A.D.A. criteria. Hemoglobin (Bld) [Mass/Vol] 13.3 g/dL 12.0-15.0 [facility] Monocytes/100 WBC (Bld) 2.8 % 0-10 [facility] Neutrophils (Bld) [#/Vol] 10.2 10*3/uL 2.0-7.7 [facility] Neutrophils/100 WBC (Bld) 87.4 % 47-70 [facility] Potassium [Moles/Vol] 4.1 mmol/L 3.5-5.1 [facility] Sodium [Moles/Vol] 137 mmol/L 136-145 [facility] WBC (Bld) [#/Vol] 11.6 10*3/uL 4.4-11.0 [facility] Bilirubin Test strip Ql (U)O rdered By: Haroldo Galarza on 03-14-2024 Bilirubin Ql (U) Negative Negative [facility] Determination of erythrocyte mean corpuscular volume (MCV)Ordered By: Haroldo Galarza on 03-14-2024 MCV (RBC) [Entitic vol] 86.9 fL 81-99 [facility] Erythrocyte distribution wid th ratioOrdered By: Haroldo Galarza on 03-14-2024 Erythrocyte distribution width (RBC) [Ratio] 15.1 % 11.6-14.6 [facility] Erythrocyte distribution wid th standard deviationOrdered By: Haroldo Galarza on 03-14-2024 Erythrocyte distribution width (RBC) [Entitic vol] 48.2 fL 35.1-43.9 [facility] Hematocrit Auto (Bld) [Volum e fraction]Ordered By: Haroldo Galarza on 03-14-2024 Hematocrit (Bld) [Volume fraction] 41.1 % 37-47 [facility] Immature granulocytes/100 WB C Auto (Bld)Ordered By: Haroldo Galarza on 03-14-2024 Immature granulocytes/100 WBC (Bld) 0.500 % 0.0-0.9 [facility] Comment on above: IG% - Immature Granu locytes (promyelocytes, myelocytes and metamyelocytes) > 1% indicates that a LEFT SHIFT is Present. Ketones Test strip Ql (U)Ord ered By: Haroldo Galarza on 03-14-2024 Ketones Ql (U) 150 mg/dl Negative [facility] Comment on above: CRITICAL VALUE *HCRI TICAL VALUE VERIFIED. CALLED TO [id number]/24 [id number] Corry Knowles.RESULTS READ BACK BY SAME . Laboratory - Chemistry and C hemistry - challengeOrdered By: Haroldo Galarza on 03-14-2024 CO2 [Moles/Vol] 25.0 mmol/L 21.0-32.0 [facility] HCG ( test) Ql (U) Negative [facility] Comment on above: Very dilute urine sp ecimens, as indicated by a low specificgravity, may not contain apprenticeship representative levels of hCG. If is still suspected, a first morning urinespecimen should be collected 48 hours later and tested. Urea nitrogen/Creatinine [Mass ratio] 22.8 mg/mg 10-20 [facility] - Hematology and Cell countsOrdered By: Haroldo Galarza on 03-14-2024 MCH (RBC) [Entitic mass] 28.1 pg 27.0-32.0 [facility] MCHC (RBC) [Mass/Vol] 32.4 g/dL 32-36 [facility] Nucleated RBC/100 WBC (Bld) [Ratio] 0 % 0-5 [facility] Platelet mean volume (Bld) [Entitic vol] 10.0 fL 6.2-12.0 [facility] Platelets (Bld) [#/Vol] 364 10*3/uL 150-450 [facility] Mucus LM Ql (Urine sed)Order ed By: Haroldo Galarza on 03-14-2024 Mucus Ql (Urine sed) 1+ /hpf [facility] Nitrite Test strip Ql (U)Ord ered By: Haroldo Galarza on 03-14-2024 Nitrite Ql (U) Negative Negative [facility] No Panel InformationOrdered By: Haroldo Galarza on 03-14-2024 Estimated Creatinine Clearance Calc 110.33 ml/min [facility] Estimated GFR (MDRD) Amer 116 mL/min >60 [facility] Comment on above: GFR Calc Estimated GFR (MDRD) Non-Af Amer 95 mL/min >60 [facility] Comment on above: Non- GFR Calc Urine RBC 0 SEEN /hpf 0-5 [facility] Protein Test strip Ql (U)Ord ered By: Haroldo Galarza on 03-14-2024 Protein Ql (U) 100 mg/dl Negative [facility] RBC Auto (Bld) [#/Vol]Ordere d By: Haroldo Galarza on 03-14-2024 RBC (Bld) [#/Vol] 4.73 10*6/uL 4.2-5.4 [facility] Serum or plasma calcium nicole urement (mass/volume)Ordered By: Haroldo Galarza on 03-14-2024 Calcium [Mass/Vol] 9.4 mg/dL 8.5-10.1 [facility] Serum or plasma creatinine m easurement (mass/volume)Ordered By: Haroldo Galarza on 03-14-2024 Creatinine [Mass/Vol] 0.75 mg/dL 0.55-1.02 [facility] Comment on above: The validity of the calculated GFR & GFRAA in patients over 70 years has not been determined. Clinical correlation is essential. Serum or plasma urea nitroge n measurement (mass/volume)Ordered By: Haroldo Galarza on 03-14-2024 Urea nitrogen [Mass/Vol] 17 mg/dL 7-18 [facility] Squamous epithelial cells de tection in urine sediment by light microscopyOrdered By: Haroldo Galarza on 03-14-2024 Epithelial cells.squamous LM Ql (Urine sed) 10-25 SEEN /hpf 5-10 [facility] Thin prep Papanicolaou smear with manual screeningOrdered By: Haroldo Galarza on 03-14-2024 Thin prep Papanicolaou smear with manual screening 6 5-15 [facility] Urine blood detectionOrdered By: Haroldo Galarza on 03-14-2024 RBC Ql (U) 10 /ul Negative [facility] Urine clarityOrdered By: Sunil Galarza on 03-14-2024 Clarity (U) Cloudy Clear [facility] Urine color determinationOrd ered By: Haroldo Galarza on 03-14-2024 Color (U) Yellow Yellow [facility] Urine glucose detectionOrder ed By: Haroldo Galarza on 03-14-2024 Glucose Ql (U) Normal mg/dl Normal [facility] Urine leukocyte esterase det ection by dipstickOrdered By: Haroldo Galarza on 03-14-2024 Leukocyte esterase Test strip Ql (U) 25 /ul Negative [facility] Urine pHOrdered By: Haroldo buchanan on 03-14-2024 pH (U) 8.0 [pH] 5.0 - 8.0 [facility] Urine sediment bacteria coun t by microscopy (number/high power field)Ordered By: Haroldo Galarza on 03-14-2024 Bacteria LM.HPF (Urine sed) [#/Area] 0 /[HPF] None Seen [facility] Urine specific gravity measu rementOrdered By: Haroldo Galarza on 03-14-2024 Specific gravity (U) [Rel density] 1.015 1.002-1.030 [facility] Urine urobilinogen measureme ntOrdered By: Haroldo Galarza on 03-14-2024 Urobilinogen Ql (U) Normal mg/dl Normal [facility] Absolute lymphocyte countOrd ered By: Tio Brock on 02-16-2024 Lymphocytes Auto (Unsp spec) [#/Vol] 2.83 10*3/uL 0.83-4.51 [facility] Automated lymphocyte count a s percentage of total leukocytesOrdered By: Tio Brock on 02-16-2024 Lymphocytes/100 WBC Auto (Unsp spec) 23.7 % 19-41 [facility] Basophil percentageOrdered B y: Tio Brock on 02-16-2024 Basophil percentage 0-5 SEEN /hpf 0-5 [facility] Basophils/100 WBC (Bld) 0.7 % 0-1 [facility] Chloride [Moles/Vol] 103 mmol/L 98-107 [facility] Eosinophils/100 WBC (Bld) 0.7 % 0-5 [facility] Glucose [Mass/Vol] 100 mg/dL 74-106 [facility] Comment on above: Fasting Glucose resu lt from 100 to 125 mg/dL suggests IMPAIRED HOMEOSTASIS per A.D.A. criteria. Hemoglobin (Bld) [Mass/Vol] 14.7 g/dL 12.0-15.0 [facility] Monocytes/100 WBC (Bld) 6.0 % 0-10 [facility] Neutrophils (Bld) [#/Vol] 8.2 10*3/uL 2.0-7.7 [facility] Neutrophils/100 WBC (Bld) 68.4 % 47-70 [facility] Potassium [Moles/Vol] 3.3 mmol/L 3.5-5.1 [facility] Sodium [Moles/Vol] 137 mmol/L 136-145 [facility] WBC (Bld) [#/Vol] 12.0 10*3/uL 4.4-11.0 [facility] Bilirubin Test strip Ql (U)O rdered By: Tio Brock on 02-16-2024 Bilirubin Ql (U) Negative Negative [facility] Culture, urineOrdered By: Zeeshan Brock on 02-16-2024 Bacteria identified Cx Nom (U) Positive [facility] Determination of erythrocyte mean corpuscular volume (MCV)Ordered By: Tio Brock on 02-16-2024 MCV (RBC) [Entitic vol] 85.2 fL 81-99 [facility] Erythrocyte distribution wid th ratioOrdered By: Tio Brock on 02-16-2024 Erythrocyte distribution width (RBC) [Ratio] 14.0 % 11.6-14.6 [facility] Erythrocyte distribution wid th standard deviationOrdered By: Tio Brock on 02-16-2024 Erythrocyte distribution width (RBC) [Entitic vol] 43.2 fL 35.1-43.9 [facility] Hematocrit Auto (Bld) [Volum e fraction]Ordered By: Tio Brock on 02-16-2024 Hematocrit (Bld) [Volume fraction] 44.4 % 37-47 [facility] Immature granulocytes/100 WB C Auto (Bld)Ordered By: Tio Brock on 02-16-2024 Immature granulocytes/100 WBC (Bld) 0.500 % 0.0-0.9 [facility] Comment on above: IG% - Immature Granu locytes (promyelocytes, myelocytes and metamyelocytes) > 1% indicates that a LEFT SHIFT is Present. Ketones Test strip Ql (U)Ord ered By: Tio Brock on 02-16-2024 Ketones Ql (U) Negative Negative [facility] Laboratory - Chemistry and C hemistry - challengeOrdered By: Tio Brock on 02-16-2024 CO2 [Moles/Vol] 28.0 mmol/L 21.0-32.0 [facility] Urea nitrogen/Creatinine [Mass ratio] 13.1 mg/mg 10-20 [facility] Laboratory - Hematology and Cell countsOrdered By: Tio Brock on 02-16-2024 MCH (RBC) [Entitic mass] 28.2 pg 27.0-32.0 [facility] MCHC (RBC) [Mass/Vol] 33.1 g/dL 32-36 [facility] Nucleated RBC/100 WBC (Bld) [Ratio] 0 % 0-5 [facility] Platelet mean volume (Bld) [Entitic vol] 9.7 fL 6.2-12.0 [facility] Platelets (Bld) [#/Vol] 344 10*3/uL 150-450 [facility] Mucus LM Ql (Urine sed)Order ed By: Tio Brock on 02-16-2024 Mucus Ql (Urine sed) RARE /hpf [facility] Nitrite Test strip Ql (U)Ord ered By: Tio Brock on 02-16-2024 Nitrite Ql (U) Negative Negative [facility] No Panel InformationOrdered By: Tio Brock on 02-16-2024 Urine RBC 0 SEEN /hpf 0-5 [facility] Estimated GFR (MDRD) Amer 91 mL/min >60 [facility] Comment on above: GFR Calc Estimated GFR (MDRD) Non-Af Amer 75 mL/min >60 [facility] Comment on above: Non- GFR Calc Protein Test strip Ql (U)Ord ered By: Tio Brock on 02-16-2024 Protein Ql (U) 15 mg/dl Negative [facility] RBC Auto (Bld) [#/Vol]Ordere d By: Tio Brock on 02-16-2024 RBC (Bld) [#/Vol] 5.21 10*6/uL 4.2-5.4 [facility] Serum or plasma calcium nicole urement (mass/volume)Ordered By: Tio Brock on 02-16-2024 Calcium [Mass/Vol] 9.5 mg/dL 8.5-10.1 [facility] Serum or plasma creatinine m easurement (mass/volume)Ordered By: Tio Brock on 02-16-2024 Creatinine [Mass/Vol] 0.92 mg/dL 0.55-1.02 [facility] Comment on above: The validity of the calculated GFR & GFRAA in patients over 70 years has not been determined. Clinical correlation is essential. Serum or plasma urea nitroge n measurement (mass/volume)Ordered By: Tio Brock on 02-16-2024 Urea nitrogen [Mass/Vol] 12 mg/dL 7-18 [facility] Squamous epithelial cells de tection in urine sediment by light microscopyOrdered By: Tio Brock on 02-16-2024 Epithelial cells.squamous LM Ql (Urine sed) 10-25 SEEN /hpf 5-10 [facility] Thin prep Papanicolaou smear with manual screeningOrdered By: Tio Brock on 02-16-2024 Thin prep Papanicolaou smear with manual screening 6 5-15 [facility] Urine blood detectionOrdered By: Tio Brock on 02-16-2024 RBC Ql (U) 10 /ul Negative [facility] Urine clarityOrdered By: Samuel Brock on 02-16-2024 Clarity (U) Cloudy Clear [facility] Urine color determinationOrd ered By: Tio Brock on 02-16-2024 Color (U) Yellow Yellow [facility] Urine glucose detectionOrder ed By: Tio Brock on 02-16-2024 Glucose Ql (U) Normal mg/dl Normal [facility] Urine leukocyte esterase det ection by dipstickOrdered By: Tio Brock on 02-16-2024 Leukocyte esterase Test strip Ql (U) Negative Negative [facility] Urine pHOrdered By: Tio Limon ghjames on 02-16-2024 pH (U) 7.0 [pH] 5.0 - 8.0 [facility] Urine sediment bacteria coun t by microscopy (number/high power field)Ordered By: Tio Brock on 02-16-2024 Bacteria LM.HPF (Urine sed) [#/Area] RARE /hpf None Seen [facility] Urine specific gravity measu rementOrdered By: Tio Brock on 02-16-2024 Specific gravity (U) [Rel density] 1.010 1.002-1.030 [facility] Urine urobilinogen measureme ntOrdered By: Tio Brock on 02-16-2024 Urobilinogen Ql (U) Normal mg/dl Normal [facility] Absolute lymphocyte countOrd ered By: Melvin Stinson on 02-08-2024 Lymphocytes Auto (Unsp spec) [#/Vol] 2.04 10*3/uL 0.83-4.51 [facility] Automated lymphocyte count a s percentage of total leukocytesOrdered By: Melvin Stinson on 02-08-2024 Lymphocytes/100 WBC Auto (Unsp spec) 28.3 % 19-41 [facility] Basophil percentageOrdered B y: Citlalyus Milad on 02-08-2024 Basophil percentage 25-50 SEEN /hpf 0-5 [facility] Basophils/100 WBC (Bld) 0.6 % 0-1 [facility] Chloride [Moles/Vol] 105 mmol/L 98-107 [facility] Eosinophils/100 WBC (Bld) 2.8 % 0-5 [facility] Glucose [Mass/Vol] 108 mg/dL 74-106 [facility] Comment on above: Fasting Glucose resu lt from 100 to 125 mg/dL suggests IMPAIRED HOMEOSTASIS per A.D.A. criteria. Hemoglobin (Bld) [Mass/Vol] 14.3 g/dL 12.0-15.0 [facility] Monocytes/100 WBC (Bld) 8.6 % 0-10 [facility] Neutrophils (Bld) [#/Vol] 4.3 10*3/uL 2.0-7.7 [facility] Neutrophils/100 WBC (Bld) 59.4 % 47-70 [facility] Potassium [Moles/Vol] 4.0 mmol/L 3.5-5.1 [facility] Sodium [Moles/Vol] 139 mmol/L 136-145 [facility] WBC (Bld) [#/Vol] 7.2 10*3/uL 4.4-11.0 [facility] Bilirubin Test strip Ql (U)O rdered By: Melvin Stinson on 02-08-2024 Bilirubin Ql (U) Negative Negative [facility] Culture, urineOrdered By: Marilyn Stinson on 02-08-2024 Bacteria identified Cx Nom (U) Culture exhibits no growth. [facility] Determination of erythrocyte mean corpuscular volume (MCV)Ordered By: Melvin Stinson on 02-08-2024 MCV (RBC) [Entitic vol] 87.6 fL 81-99 [facility] Erythrocyte distribution wid th ratioOrdered By: Melvin Stinson on 02-08-2024 Erythrocyte distribution width (RBC) [Ratio] 14.5 % 11.6-14.6 [facility] Erythrocyte distribution wid th standard deviationOrdered By: Melvin Stinson on 02-08-2024 Erythrocyte distribution width (RBC) [Entitic vol] 46.2 fL 35.1-43.9 [facility] Hematocrit Auto (Bld) [Volum e fraction]Ordered By: Melvin Stinson on 02-08-2024 Hematocrit (Bld) [Volume fraction] 43.7 % 37-47 [facility] Immature granulocytes/100 WB C Auto (Bld)Ordered By: Melvin Stinson on 02-08-2024 Immature granulocytes/100 WBC (Bld) 0.300 % 0.0-0.9 [facility] Comment on above: IG% - Immature Granu locytes (promyelocytes, myelocytes and metamyelocytes) > 1% indicates that a LEFT SHIFT is Present. Ketones Test strip Ql (U)Ord ered By: Melvin Stinson on 02-08-2024 Ketones Ql (U) 5 mg/dl Negative [facility] Laboratory - Chemistry and C hemistry - challengeOrdered By: Melvin Stinson on 02-08-2024 CO2 [Moles/Vol] 25.0 mmol/L 21.0-32.0 [facility] Urea nitrogen/Creatinine [Mass ratio] 22.2 mg/mg 10-20 [facility] Laboratory - Hematology and Cell countsOrdered By: Melvin Stinson on 02-08-2024 MCH (RBC) [Entitic mass] 28.7 pg 27.0-32.0 [facility] MCHC (RBC) [Mass/Vol] 32.7 g/dL 32-36 [facility] Nucleated RBC/100 WBC (Bld) [Ratio] 0 % 0-5 [facility] Platelet mean volume (Bld) [Entitic vol] 10.1 fL 6.2-12.0 [facility] Platelets (Bld) [#/Vol] 309 10*3/uL 150-450 [facility] Mucus LM Ql (Urine sed)Order ed By: Melvin Stinson on 02-08-2024 Mucus Ql (Urine sed) 2+ /hpf [facility] Nitrite Test strip Ql (U)Ord ered By: Mevlin Stinson on 02-08-2024 Nitrite Ql (U) Negative Negative [facility] No Panel InformationOrdered By: Melvin Stinson on 02-08-2024 Urine RBC 0-5 SEEN /hpf 0-5 [facility] Estimated Creatinine Clearance Calc 98.87 ml/min [facility] Estimated GFR (MDRD) Amer 99 mL/min >60 [facility] Comment on above: GFR Calc Estimated GFR (MDRD) Non-Af Amer 82 mL/min >60 [facility] Comment on above: Non- GFR Calc Protein Test strip Ql (U)Ord ered By: Melvin Stinson on 02-08-2024 Protein Ql (U) 30 mg/dl Negative [facility] RBC Auto (Bld) [#/Vol]Ordere d By: Melvin Stinson on 02-08-2024 RBC (Bld) [#/Vol] 4.99 10*6/uL 4.2-5.4 [facility] Serum or plasma calcium nicole urement (mass/volume)Ordered By: Melvin Stinson on 02-08-2024 Calcium [Mass/Vol] 9.3 mg/dL 8.5-10.1 [facility] Serum or plasma creatinine m easurement (mass/volume)Ordered By: Melvin Stinson on 02-08-2024 Creatinine [Mass/Vol] 0.85 mg/dL 0.55-1.02 [facility] Comment on above: The validity of the calculated GFR & GFRAA in patients over 70 years has not been determined. Clinical correlation is essential. Serum or plasma urea nitroge n measurement (mass/volume)Ordered By: Melvin Stinson on 02-08-2024 Urea nitrogen [Mass/Vol] 19 mg/dL 7-18 [facility] Squamous epithelial cells de tection in urine sediment by light microscopyOrdered By: Melvin Stinson on 02-08-2024 Epithelial cells.squamous LM Ql (Urine sed) 10-25 SEEN /hpf 5-10 [facility] Thin prep Papanicolaou smear with manual screeningOrdered By: Melvin Stinson on 02-08-2024 Thin prep Papanicolaou smear with manual screening 9 5-15 [facility] Urine blood detectionOrdered By: Melvin Stinson on 02-08-2024 RBC Ql (U) 10 /ul Negative [facility] Urine clarityOrdered By: Citlaly Stinson on 02-08-2024 Clarity (U) Cloudy Clear [facility] Urine color determinationOrd ered By: Melvin Stinson on 02-08-2024 Color (U) Yellow Yellow [facility] Urine glucose detectionOrder ed By: Melvin Stinson on 02-08-2024 Glucose Ql (U) Normal mg/dl Normal [facility] Urine leukocyte esterase det ection by dipstickOrdered By: Melvin Stinson on 02-08-2024 Leukocyte esterase Test strip Ql (U) 500 /ul Negative [facility] Urine pHOrdered By: Melvin Masters gur on 02-08-2024 pH (U) 6.0 [pH] 5.0 - 8.0 [facility] Urine sediment bacteria coun t by microscopy (number/high power field)Ordered By: Melvin Stinson on 02-08-2024 Bacteria LM.HPF (Urine sed) [#/Area] 2 /[HPF] None Seen [facility] Urine specific gravity measu rementOrdered By: Melvin Stinson on 02-08-2024 Specific gravity (U) [Rel density] 1.020 1.002-1.030 [facility] Urine urobilinogen measureme ntOrdered By: Melvin Stinson on 02-08-2024 Urobilinogen Ql (U) 1 mg/dl Normal [facility] Absolute lymphocyte countOrd ered By: Richard Palmer on 07-07-2023 Lymphocytes Auto (Unsp spec) [#/Vol] 1.30 10*3/uL 0.83-4.51 [facility] Basophil percentageOrdered B y: Richard Palmer on 07-07-2023 Basophil percentage 0-5 SEEN /hpf 0-5 [facility] Basophils/100 WBC (Bld) 0.2 % 0-1 [facility] Chloride [Moles/Vol] 103 mmol/L 98-107 [facility] Eosinophils/100 WBC (Bld) 0.0 % 0-5 [facility] Glucose [Mass/Vol] 155 mg/dL 74-106 [facility] Comment on above: Fasting Glucose resu lt greater than or equal to 126 mg/dL suggests DIABETES MELLITUS per A.D.A. criteria. Neutrophils (Bld) [#/Vol] 10.6 10*3/uL 2.0-7.7 [facility] Neutrophils/100 WBC (Bld) 85.8 % 47-70 [facility] Potassium [Moles/Vol] 3.9 mmol/L 3.5-5.1 [facility] Sodium [Moles/Vol] 133 mmol/L 136-145 [facility] WBC (Bld) [#/Vol] 12.3 10*3/uL 4.4-11.0 [facility] Beta hCG serum qualOrdered B y: Richard Palmer on 07-07-2023 Beta HCG ( test) Ql Negative [facility] Bilirubin Test strip Ql (U)O rdered By: Richard Palmer on 07-07-2023 Bilirubin Ql (U) Negative Negative [facility] Blood erythrocytes count (nu mber/volume)Ordered By: Richard Palmer on 07-07-2023 RBC (Bld) [#/Vol] 4.86 10*6/uL 4.2-5.4 [facility] Blood hemoglobin measurement (mass/volume)Ordered By: Richard Palmer on 07-07-2023 Hemoglobin (Bld) [Mass/Vol] 14.1 g/dL 12.0-15.0 [facility] Blood lymphocytes/100 leukoc ytesOrdered By: Richard Palmer on 07-07-2023 Lymphocytes/100 WBC (Bld) 10.6 % 19-41 [facility] Blood monocytes/100 leukocyt esOrdered By: Richard Palmer on 07-07-2023 Monocytes/100 WBC (Bld) 3.1 % 0-10 [facility] Blood platelet mean volumeOr dered By: Richard Palmer on 07-07-2023 Platelet mean volume (Bld) [Entitic vol] 9.9 fL 6.2-12.0 [facility] Determination of erythrocyte mean corpuscular volume (MCV)Ordered By: Richard Palmer on 07-07-2023 MCV (RBC) [Entitic vol] 86.2 fL 81-99 [facility] Hematocrit Auto (Bld) [Volum e fraction]Ordered By: Richard Palmer on 07-07-2023 Hematocrit (Bld) [Volume fraction] 41.9 % 37-47 [facility] Ketones Test strip Ql (U)Ord ered By: Richard Palmer on 07-07-2023 Ketones Ql (U) 150 mg/dl Negative [facility] Comment on above: CRITICAL VALUE *HCRI TICAL VALUE VERIFIED. [facility]07[facility]07[facility]23 Mike Stein.RESULTS READ BACK BY SAME . Laboratory - Chemistry and C hemistry - challengeOrdered By: Richard Palmer on 07-07-2023 CO2 [Moles/Vol] 23.0 mmol/L 21.0-32.0 [facility] Urea nitrogen/Creatinine [Mass ratio] 20.9 mg/mg 10-20 [facility] Laboratory - Hematology and Cell countsOrdered By: Richard Palmer on 07-07-2023 Erythrocyte distribution width (RBC) [Entitic vol] 44.6 fL 35.1-43.9 [facility] Erythrocyte distribution width (RBC) [Ratio] 14.2 % 11.6-14.6 [facility] Immature granulocytes/100 WBC (Bld) 0.300 % 0.0-0.9 [facility] Comment on above: IG% - Immature Granu locytes (promyelocytes, myelocytes and metamyelocytes) > 1% indicates that a LEFT SHIFT is Present. MCH (RBC) [Entitic mass] 29.0 pg 27.0-32.0 [facility] Nucleated RBC/100 WBC (Bld) [Ratio] 0 % 0-5 [facility] MCHC Auto (RBC) [Mass/Vol]Or dered By: Richard Palmer on 07-07-2023 MCHC (RBC) [Mass/Vol] 33.7 g/dL 32-36 [facility] Mucus LM Ql (Urine sed)Order ed By: Richard Palmer on 07-07-2023 Mucus Ql (Urine sed) 2+ /hpf [facility] Nitrite Test strip Ql (U)Ord ered By: Richard Palmer on 07-07-2023 Nitrite Ql (U) Negative Negative [facility] No Panel InformationOrdered By: Richard Palmer on 07-07-2023 Estimated Creatinine Clearance Calc 79.49 ml/min [facility] Estimated GFR (MDRD) Amer 87 mL/min >60 [facility] Comment on above: GFR Calc Estimated GFR (MDRD) Non-Af Amer 72 mL/min >60 [facility] Comment on above: Non- GFR Calc Platelets bldOrdered By: Kierra Palmer on 07-07-2023 Platelets (Bld) [#/Vol] 356 10*3/uL 150-450 [facility] Protein Test strip Ql (U)Ord ered By: Richard Palmer on 07-07-2023 Protein Ql (U) 30 mg/dl Negative [facility] Serum or plasma calcium nicole urement (mass/volume)Ordered By: Richard Palmer on 07-07-2023 Calcium [Mass/Vol] 9.5 mg/dL 8.5-10.1 [facility] Serum or plasma creatinine m easurement (mass/volume)Ordered By: Richard Palmer on 07-07-2023 Creatinine [Mass/Vol] 0.96 mg/dL 0.55-1.02 [facility] Comment on above: The validity of the calculated GFR & GFRAA in patients over 70 years has not been determined. Clinical correlation is essential. Serum or plasma urea nitroge n measurement (mass/volume)Ordered By: Richard Palmer on 07-07-2023 Urea nitrogen [Mass/Vol] 20 mg/dL 7-18 [facility] Squamous epithelial cells de tection in urine sediment by light microscopyOrdered By: Richard Palmer on 07-07-2023 Epithelial cells.squamous LM Ql (Urine sed) 10-25 SEEN /hpf 5-10 [facility] Thin prep Papanicolaou smear with manual screeningOrdered By: Richard Palmer on 07-07-2023 Thin prep Papanicolaou smear with manual screening 7 5-15 [facility] Urine blood detectionOrdered By: Richard Palmer on 07-07-2023 RBC Ql (U) 10 /ul Negative [facility] RBC Ql (U) 0 SEEN /hpf 0-5 [facility] Urine clarityOrdered By: Kierra Palmer on 07-07-2023 Clarity (U) Cloudy Clear [facility] Urine color determinationOrd ered By: Richard Palmer on 07-07-2023 Color (U) Yellow Yellow [facility] Urine glucose detectionOrder ed By: Richard Palmer on 07-07-2023 Glucose Ql (U) Normal mg/dl Normal [facility] Urine leukocyte esterase det ection by dipstickOrdered By: Richard Palmer on 07-07-2023 Leukocyte esterase Test strip Ql (U) 100 /ul Negative [facility] Urine pHOrdered By: Richard lynne on 07-07-2023 pH (U) 7.0 [pH] 5.0 - 8.0 [facility] Urine sediment bacteria coun t by microscopy (number/high power field)Ordered By: Richard Palmer on 07-07-2023 Bacteria LM.HPF (Urine sed) [#/Area] 1 /[HPF] None Seen [facility] Urine specific gravity measu rementOrdered By: Richard Palmer on 07-07-2023 Specific gravity (U) [Rel density] 1.015 1.002-1.030 [facility] Urobilinogen Auto test strip Ql (U)Ordered By: Richard Palmer on 07-07-2023 Urobilinogen Ql (U) 1 mg/dl Normal [facility] Absolute lymphocyte countOrd ered By: Dr. Palmer on 04-19-2023 Lymphocytes Auto (Unsp spec) [#/Vol] 2.73 10*3/uL 0.83-4.51 [facility] Basophil percentageOrdered B y: Dr. Palmer on 04-19-2023 Basophil percentage 0-5 SEEN /hpf 0-5 [facility] Basophils/100 WBC (Bld) 0.2 % 0-1 [facility] Bilirubin [Mass/Vol] 0.90 mg/dL 0.20-1.00 [facility] Comment on above: For patients on eltr ombopag therapy, use of [employer] [place] TBIL is not recommended. Chloride [Moles/Vol] 95 mmol/L 98-107 [facility] Eosinophils/100 WBC (Bld) 0.1 % 0-5 [facility] Glucose [Mass/Vol] 97 mg/dL 74-106 [facility] Neutrophils (Bld) [#/Vol] 6.4 10*3/uL 2.0-7.7 [facility] Neutrophils/100 WBC (Bld) 61.7 % 47-70 [facility] Potassium [Moles/Vol] 3.3 mmol/L 3.5-5.1 [facility] Protein [Mass/Vol] 8.9 g/dL 6.4-8.2 [facility] Sodium [Moles/Vol] 134 mmol/L 136-145 [facility] WBC (Bld) [#/Vol] 10.3 10*3/uL 4.4-11.0 [facility] Bilirubin Test strip Ql (U)O rdered By: Dr. Palmer on 04-19-2023 Bilirubin Ql (U) Negative Negative [facility] Blood erythrocytes count (nu mber/volume)Ordered By: Dr. Palmer on 04-19-2023 RBC (Bld) [#/Vol] 5.28 10*6/uL 4.2-5.4 [facility] Blood hemoglobin measurement (mass/volume)Ordered By: Dr. Palmer on 04-19-2023 Hemoglobin (Bld) [Mass/Vol] 15.3 g/dL 12.0-15.0 [facility] Blood lymphocytes/100 leukoc ytesOrdered By: Dr. Palmer on 04-19-2023 Lymphocytes/100 WBC (Bld) 26.5 % 19-41 [facility] Blood monocytes/100 leukocyt esOrdered By: Dr. Palmer on 04-19-2023 Monocytes/100 WBC (Bld) 11.3 % 0-10 [facility] Blood platelet mean volumeOr dered By: Dr. Palmer on 04-19-2023 Platelet mean volume (Bld) [Entitic vol] 9.9 fL 6.2-12.0 [facility] Determination of erythrocyte mean corpuscular volume (MCV)Ordered By: Dr. Palmer on 04-19-2023 MCV (RBC) [Entitic vol] 85.0 fL 81-99 [facility] Hematocrit Auto (Bld) [Volum e fraction]Ordered By: Dr. Palmer on 04-19-2023 Hematocrit (Bld) [Volume fraction] 44.9 % 37-47 [facility] Ketones Test strip Ql (U)Ord ered By: Dr. Palmer on 04-19-2023 Ketones Ql (U) 50 mg/dl Negative [facility] Laboratory - Chemistry and C hemistry - challengeOrdered By: Dr. Palmer on 04-19-2023 ALP [Catalytic activity/Vol] 42 U/L 45-117 [facility] ALT [Catalytic activity/Vol] 50 U/L 13-56 [facility] CO2 [Moles/Vol] 30.0 mmol/L 21.0-32.0 [facility] Globulin (S) [Mass/Vol] 4.4 g/dL 2.2-4.2 [facility] Lipase [Catalytic activity/Vol] 28 U/L 13-75 [facility] Comment on above: Please note:LIPASE r evised reference range effective 23. New Lipase methodology. Expected to produce lower values than the previous assay method. NEW Reference Range: 13 - 75 U/L Urea nitrogen/Creatinine [Mass ratio] 22.1 mg/mg 10-20 [facility] Laboratory - Hematology and Cell countsOrdered By: Dr. Palmer on 04-19-2023 Erythrocyte distribution width (RBC) [Entitic vol] 44.3 fL 35.1-43.9 [facility] Erythrocyte distribution width (RBC) [Ratio] 14.4 % 11.6-14.6 [facility] Immature granulocytes/100 WBC (Bld) 0.200 % 0.0-0.9 [facility] Comment on above: IG% - Immature Granu locytes (promyelocytes, myelocytes and metamyelocytes) > 1% indicates that a LEFT SHIFT is Present. MCH (RBC) [Entitic mass] 29.0 pg 27.0-32.0 [facility] Nucleated RBC/100 WBC (Bld) [Ratio] 0 % 0-5 [facility] MCHC Auto (RBC) [Mass/Vol]Or dered By: Dr. Palmer on 04-19-2023 MCHC (RBC) [Mass/Vol] 34.1 g/dL 32-36 [facility] Mucus LM Ql (Urine sed)Order ed By: Dr. Palmer on 04-19-2023 Mucus Ql (Urine sed) 0 SEEN /hpf [facility] Nitrite Test strip Ql (U)Ord ered By: Dr. Palmer on 04-19-2023 Nitrite Ql (U) Negative Negative [facility] No Panel InformationOrdered By: Dr. Palmer on 04-19-2023 Estimated Creatinine Clearance Calc 80.32 ml/min [facility] Estimated GFR (MDRD) Amer 88 mL/min >60 [facility] Comment on above: GFR Calc Estimated GFR (MDRD) Non-Af Amer 73 mL/min >60 [facility] Comment on above: Non- GFR Calc Platelets bldOrdered By: Dr. Palmer on 04-19-2023 Platelets (Bld) [#/Vol] 398 10*3/uL 150-450 [facility] Protein Test strip Ql (U)Ord ered By: Dr. Palmer on 04-19-2023 Protein Ql (U) 15 mg/dl Negative [facility] Serum or plasma albumin nicole urement (mass/volume)Ordered By: Dr. Palmer on 04-19-2023 Albumin [Mass/Vol] 4.5 g/dL 3.2-5.0 [facility] Serum or plasma albumin/glob ulin mass ratioOrdered By: Dr. Palmer on 04-19-2023 Albumin/Globulin [Mass ratio] 1.0 {ratio} 0.9-2.4 [facility] Serum or plasma calcium nicole urement (mass/volume)Ordered By: Dr. Palmer on 04-19-2023 Calcium [Mass/Vol] 10.5 mg/dL 8.5-10.1 [facility] Serum or plasma creatinine m easurement (mass/volume)Ordered By: Dr. Palmer on 04-19-2023 Creatinine [Mass/Vol] 0.95 mg/dL 0.55-1.02 [facility] Comment on above: The validity of the calculated GFR & GFRAA in patients over 70 years has not been determined. Clinical correlation is essential. Serum or plasma urea nitroge n measurement (mass/volume)Ordered By: Dr. Palmer on 04-19-2023 Urea nitrogen [Mass/Vol] 21 mg/dL 7-18 [facility] Squamous epithelial cells de tection in urine sediment by light microscopyOrdered By: Dr. Palmer on 04-19-2023 Epithelial cells.squamous LM Ql (Urine sed) 0-5 SEEN /hpf 5-10 [facility] Thin prep Papanicolaou smear with manual screeningOrdered By: Dr. Palmer on 04-19-2023 Thin prep Papanicolaou smear with manual screening 34 U/L 15-37 [facility] Thin prep Papanicolaou smear with manual screening 9 5-15 [facility] Urine blood detectionOrdered By: Dr. Palmer on 04-19-2023 RBC Ql (U) 10 /ul Negative [facility] RBC Ql (U) 0 SEEN /hpf 0-5 [facility] Urine clarityOrdered By: Dr. Palmer on 04-19-2023 Clarity (U) Sl. Cloudy Clear [facility] Urine color determinationOrd ered By: Dr. Palmer on 04-19-2023 Color (U) Yellow Yellow [facility] Urine glucose detectionOrder ed By: Dr. Palmer on 04-19-2023 Glucose Ql (U) Normal mg/dl Normal [facility] Urine leukocyte esterase det ection by dipstickOrdered By: Dr. Palmer on 04-19-2023 Leukocyte esterase Test strip Ql (U) Negative Negative [facility] Urine pHOrdered By: Dr. Sean cruz on 04-19-2023 pH (U) 6.0 [pH] 5.0 - 8.0 [facility] Urine sediment bacteria coun t by microscopy (number/high power field)Ordered By: Dr. Palmer on 04-19-2023 Bacteria LM.HPF (Urine sed) [#/Area] RARE /hpf None Seen [facility] Urine specific gravity measu rementOrdered By: Dr. Palmer on 04-19-2023 Specific gravity (U) [Rel density] 1.010 1.002-1.030 [facility] Urobilinogen Auto test strip Ql (U)Ordered By: Dr. Palmer on 04-19-2023 Urobilinogen Ql (U) Normal mg/dl Normal [facility] Absolute lymphocyte countOrd ered By: Dr. Brock on 04-17-2023 Lymphocytes Auto (Unsp spec) [#/Vol] 2.50 10*3/uL 0.83-4.51 [facility] Basophil percentageOrdered B y: Dr. Brock on 04-17-2023 Basophil percentage 0-5 SEEN /hpf 0-5 [facility] Basophils/100 WBC (Bld) 0.3 % 0-1 [facility] Bilirubin [Mass/Vol] 0.50 mg/dL 0.20-1.00 [facility] Comment on above: For patients on eltr ombopag therapy, use of Dimension [place] TBIL is not recommended. Chloride [Moles/Vol] 106 mmol/L 98-107 [facility] Eosinophils/100 WBC (Bld) 0.5 % 0-5 [facility] Glucose [Mass/Vol] 115 mg/dL 74-106 [facility] Comment on above: Fasting Glucose resu lt from 100 to 125 mg/dL suggests IMPAIRED HOMEOSTASIS per A.D.A. criteria. Neutrophils (Bld) [#/Vol] 11.2 10*3/uL 2.0-7.7 [facility] Neutrophils/100 WBC (Bld) 76.2 % 47-70 [facility] Potassium [Moles/Vol] 3.6 mmol/L 3.5-5.1 [facility] Protein [Mass/Vol] 8.3 g/dL 6.4-8.2 [facility] Sodium [Moles/Vol] 140 mmol/L 136-145 [facility] WBC (Bld) [#/Vol] 14.7 10*3/uL 4.4-11.0 [facility] Beta hCG serum qualOrdered B y: Dr. Brock on 04-17-2023 Beta HCG ( test) Ql Negative [facility] Bilirubin Test strip Ql (U)O rdered By: Dr. Brock on 04-17-2023 Bilirubin Ql (U) 1 mg/dL Negative [facility] Comment on above: COLOR OF URINE MAY A FFECT DIPSTICK RESULTS. Blood erythrocytes count (nu mber/volume)Ordered By: Dr. Brock on 04-17-2023 RBC (Bld) [#/Vol] 4.99 10*6/uL 4.2-5.4 [facility] Blood hemoglobin measurement (mass/volume)Ordered By: Dr. Brock on 04-17-2023 Hemoglobin (Bld) [Mass/Vol] 14.7 g/dL 12.0-15.0 [facility] Blood lymphocytes/100 leukoc ytesOrdered By: Dr. Brock on 04-17-2023 Lymphocytes/100 WBC (Bld) 17.0 % 19-41 [facility] Blood monocytes/100 leukocyt esOrdered By: Dr. Brock on 04-17-2023 Monocytes/100 WBC (Bld) 5.7 % 0-10 [facility] Blood platelet mean volumeOr dered By: Dr. Brock on 04-17-2023 Platelet mean volume (Bld) [Entitic vol] 9.8 fL 6.2-12.0 [facility] Calcium oxalate crystals det ection in urine sediment by light microscopyOrdered By: Dr. Brock on 04-17-2023 Calcium oxalate crystals LM Ql (Urine sed) 1+ /hpf [facility] Determination of erythrocyte mean corpuscular volume (MCV)Ordered By: Dr. Brock on 04-17-2023 MCV (RBC) [Entitic vol] 87.4 fL 81-99 [facility] Hematocrit Auto (Bld) [Volum e fraction]Ordered By: Dr. Brock on 04-17-2023 Hematocrit (Bld) [Volume fraction] 43.6 % 37-47 [facility] Ketones Test strip Ql (U)Ord ered By: Dr. Brock on 04-17-2023 Ketones Ql (U) 150 mg/dl Negative [facility] Comment on above: CRITICAL VALUE *HCRI TICAL VALUE VERIFIED. CALLED TO [id number] Corry Knowles.RESULTS READ BACK BY SAME . Laboratory - Chemistry and C hemistry - challengeOrdered By: Dr. Brock on 04-17-2023 ALP [Catalytic activity/Vol] 43 U/L 45-117 [facility] ALT [Catalytic activity/Vol] 54 U/L 13-56 [facility] CO2 [Moles/Vol] 26.0 mmol/L 21.0-32.0 [facility] Globulin (S) [Mass/Vol] 4.1 g/dL 2.2-4.2 [facility] Lipase [Catalytic activity/Vol] 94 U/L 13-75 [facility] Comment on above: Please note:LIPASE r evised reference range effective 23. New Lipase methodology. Expected to produce lower values than the previous assay method. NEW Reference Range: 13 - 75 U/L Urea nitrogen/Creatinine [Mass ratio] 12.4 mg/mg 10-20 [facility] Laboratory - Hematology and Cell countsOrdered By: Dr. Brock on 04-17-2023 Erythrocyte distribution width (RBC) [Entitic vol] 47.9 fL 35.1-43.9 [facility] Erythrocyte distribution width (RBC) [Ratio] 14.8 % 11.6-14.6 [facility] Immature granulocytes/100 WBC (Bld) 0.300 % 0.0-0.9 [facility] Comment on above: IG% - Immature Granu locytes (promyelocytes, myelocytes and metamyelocytes) > 1% indicates that a LEFT SHIFT is Present. MCH (RBC) [Entitic mass] 29.5 pg 27.0-32.0 [facility] Nucleated RBC/100 WBC (Bld) [Ratio] 0 % 0-5 [facility] MCHC Auto (RBC) [Mass/Vol]Or dered By: Dr. Brock on 04-17-2023 MCHC (RBC) [Mass/Vol] 33.7 g/dL 32-36 [facility] Mucus LM Ql (Urine sed)Order ed By: Dr. Brock on 04-17-2023 Mucus Ql (Urine sed) 1+ /hpf [facility] Nitrite Test strip Ql (U)Ord ered By: Dr. Brock on 04-17-2023 Nitrite Ql (U) Negative Negative [facility] No Panel InformationOrdered By: Dr. Brock on 04-17-2023 Estimated Creatinine Clearance Calc 85.74 ml/min [facility] Estimated GFR (MDRD) Amer 95 mL/min >60 [facility] Comment on above: GFR Calc Estimated GFR (MDRD) Non-Af Amer 79 mL/min >60 [facility] Comment on above: Non- GFR Calc Platelets bldOrdered By: Dr. Brock on 04-17-2023 Platelets (Bld) [#/Vol] 369 10*3/uL 150-450 [facility] Protein Test strip Ql (U)Ord ered By: Dr. Brock on 04-17-2023 Protein Ql (U) 30 mg/dl Negative [facility] Serum or plasma albumin nicole urement (mass/volume)Ordered By: Dr. Brock on 04-17-2023 Albumin [Mass/Vol] 4.2 g/dL 3.2-5.0 [facility] Serum or plasma albumin/glob ulin mass ratioOrdered By: Dr. Brock on 04-17-2023 Albumin/Globulin [Mass ratio] 1.0 {ratio} 0.9-2.4 [facility] Serum or plasma calcium nicole urement (mass/volume)Ordered By: Dr. Brock on 04-17-2023 Calcium [Mass/Vol] 9.7 mg/dL 8.5-10.1 [facility] Serum or plasma creatinine m easurement (mass/volume)Ordered By: Dr. Brock on 04-17-2023 Creatinine [Mass/Vol] 0.89 mg/dL 0.55-1.02 [facility] Comment on above: The validity of the calculated GFR & GFRAA in patients over 70 years has not been determined. Clinical correlation is essential. Serum or plasma urea nitroge n measurement (mass/volume)Ordered By: Dr. Brock on 04-17-2023 Urea nitrogen [Mass/Vol] 11 mg/dL 7-18 [facility] Squamous epithelial cells de tection in urine sediment by light microscopyOrdered By: Dr. Brock on 04-17-2023 Epithelial cells.squamous LM Ql (Urine sed) 0-5 SEEN /hpf 5-10 [facility] Thin prep Papanicolaou smear with manual screeningOrdered By: Dr. Brock on 04-17-2023 Thin prep Papanicolaou smear with manual screening 38 U/L 15-37 [facility] Thin prep Papanicolaou smear with manual screening 8 5-15 [facility] Urine blood detectionOrdered By: Dr. Brock on 04-17-2023 RBC Ql (U) 25 /ul Negative [facility] RBC Ql (U) 0 SEEN /hpf 0-5 [facility] Urine clarityOrdered By: Dr. Brock on 04-17-2023 Clarity (U) Clear Clear [facility] Urine color determinationOrd ered By: Dr. Brock on 04-17-2023 Color (U) Yellow Yellow [facility] Urine glucose detectionOrder ed By: Dr. Brock on 04-17-2023 Glucose Ql (U) Normal mg/dl Normal [facility] Urine leukocyte esterase det ection by dipstickOrdered By: Dr. Brock on 04-17-2023 Leukocyte esterase Test strip Ql (U) 25 /ul Negative [facility] Urine pHOrdered By: Dr. Kadi sotelo on 04-17-2023 pH (U) 6.0 [pH] 5.0 - 8.0 [facility] Urine sediment bacteria coun t by microscopy (number/high power field)Ordered By: Dr. Brock on 04-17-2023 Bacteria LM.HPF (Urine sed) [#/Area] 0 /[HPF] None Seen [facility] Urine specific gravity measu rementOrdered By: Dr. Brock on 04-17-2023 Specific gravity (U) [Rel density] 1.030 1.002-1.030 [facility] Urobilinogen Auto test strip Ql (U)Ordered By: Dr. Brock on 04-17-2023 Urobilinogen Ql (U) 1 mg/dl Normal [facility] BENZODIAZEPINES CONF,URINEon 06-18-2020 7-AMINOCLONAZEPAM <25 Normal Cutoff <25 [facility] Comment on above: Performed By: #### B ENCN ####[id number] [place] [address] ALPHA-HYDROXYALPRAZOLA M <25 Normal Cutoff <25 [facility] Comment on above: Performed By: #### B ENCN ####[id number] [place] [address] ALPHA-HYDROXYMIDAZOLAM 208 ng/mL Abnormal Cutoff <25 [facility] Comment on above: Result Comment: Mida zolam metabolite; consistent with use of a drug containing midazolam, such as Versed. Performed By: #### B ENCN ####[id number] [place] [address] ALPRAZOLAM <25 Normal Cutoff <25 [facility] Comment on above: Performed By: #### B ENCN ####[id number] [place] [address] CHLORDIAZEPOXIDE <25 Normal Cutoff <25 [facility] Comment on above: Performed By: #### B ENCN ####[id number] [place] [address] CLONAZEPAM <25 Normal Cutoff <25 [facility] Comment on above: Performed By: #### B ENCN ####[id number] [place] [address] DIAZEPAM <25 Normal Cutoff <25 [facility] Comment on above: Performed By: #### B ENCN ####[id number] [place] [address] LORAZEPAM <25 Normal Cutoff <25 [facility] Comment on above: Performed By: #### B ENCN ####[id number] [place] [address] MIDAZOLAM <25 Normal Cutoff <25 [facility] Comment on above: Performed By: #### B ENCN ####[id number] [place] [address] NORDIAZEPAM <25 Normal Cutoff <25 [facility] Comment on above: Performed By: #### B ENCN ####[id number] [place] [address] OXAZEPAM <25 Normal Cutoff <25 [facility] Comment on above: Performed By: #### B ENCN ####[id number] [place] [address] TEMAZEPAM <25 Normal Cutoff <25 [facility] Comment on above: Result Comment: The performance characteristics of the Benzodiazepine Confirmation, Urine has been validated by the individual laboratory site where testing is performed. It has not been cleared or approved by the FDA. However the FDA has determined that such clearance or approval is not necessary. Our Laboratory is certified under the Clinical Laboratory Improvement Amendments of 1988 (CLIA) as qualified to perform high complexity clinical laboratory testing. Performed By: #### B ENCN ####[id number] [id number] OPIATE CONFIRMATION,URINEon 06-18-2020 6-ACETYLMORPHINE <25 Normal Cutoff <25 [facility] Comment on above: Performed By: #### O PIC2 ####[id number] [place] [address] CODEINE <50 Normal Cutoff <50 [facility] Comment on above: Performed By: #### O PIC2 ####[id number] [address] HYDROCODONE <25 Normal Cutoff <25 [facility] Comment on above: Performed By: #### O PIC2 ####[id number] [place] [address] HYDROMORPHONE <25 Normal Cutoff <25 [facility] Comment on above: Performed By: #### O PIC2 ####[id number] [place] [address] MORPHINE <50 Normal Cutoff <50 [facility] Comment on above: Performed By: #### O PIC2 ####[id number] [place] [address] NORHYDROCODONE <25 Normal Cutoff <25 [facility] Comment on above: Performed By: #### O PIC2 ####[id number] [place] [address] NOROXYCODONE 260 ng/mL Abnormal Cutoff <25 [facility] Comment on above: Result Comment: Noro xycodone is a metabolite of oxycodone; consistent with use of a drug containing oxycodone. Performed By: #### O PIC2 ####[id number] [place] [address] OXYCODONE 124 ng/mL Abnormal Cutoff <25 [facility] Comment on above: Result Comment: Cons istent with use of drug containing oxycodone. Performed By: #### O PIC2 ####[id number] [place] [address] OXYMORPHONE 168 ng/mL Abnormal Cutoff <25 [facility] Comment on above: Result Comment: Cons istent with metabolism of oxycodone. May also reflect independent use of oxymorphone. The performance characteristics of the Opiate Confirmation, Urine has been validated by the individual laboratory site where testing is performed. It has not been cleared or approved by the FDA. However the FDA has determined that such clearance or approval is not necessary. Our Laboratory is certified under the Clinical Laboratory Improvement Amendments of 1988 (CLIA) as qualified to perform high complexity clinical laboratory testing. Performed By: #### O PIC2 ####[id number] [place] [address] Clinical Event Note-bp cuffo n 06-14-2020 Clinical Event Note-bp cuff Clinical Event: Clinical Event Note: Topicbp cuff Details Patient meets criteria for home monitoring of blood pressure post discharge. Met with patient to assess for availability of home BP monitor. Patient stated she owns home BP monitor. Patient educated on importance of continuing to monitor BP at home, recording BP on home monitoring log and s/sx of when to call her provider. Pt verbalized understanding the above information Electronic Signatures: Anabella Andrade (RN) (Signed 14-Jun-2020 08:49) Authored: Clinical Event Last Updated: 14-Jun-2020 08:49 by Anabella Andrade (RN) Normal [facility] Daily Progress Note - OB-Pos t-partumon 06-14-2020 Daily Progress Note - [id number] Current Stage: Stage: Post- Subjective Data: Post : Ambulate: Yes Flatus: Yes Tolerate Diet: Yes Lochia: Light Current Pain Level (1-10): 2 : pt feels well this AM. Pain is overall well controlled on Po pain meds, still having occasional cramping. Some soreness around BTL incision, incision is clean, dry, intact. Vaginal bleeding is light, about the volume of a period. Bottlefeeding. Tolerating Po, passing flatus. Objective Information: Objective Information: T PRBPSpO2 [id number]% Date/Time06/14 8: 8: 8: 8: 8:04 Range(36C - 36.9C ) (64 - 89 ) (16 - 20 ) (100 - 128 )/ (58 - 81 ) (92% - 98% ) Highest temp of 36.9 C was recorded at 06/13 14:33 Pain reported at 06/14 12:15: 7 = Severe Physical Exam: Constitutional: NAD Head/Neck: Normal, cephalic, atraumatic Respiratory/Thorax: CTAB Cardiovascular: RRR Gastrointestinal: Mild tenderness around BTL incision at umbilicus. Incision clean dry and intact. Abdomen otherwise non tender, mild distension, appropriate for post . Uterus firm below umbilicus. Musculoskeletal: Normal extremities Neurological: No focal deficits Psychological: Appropriate mood and affect Skin: No rashes, no lesions Medications: Medications: Continuous Medications -------- No continuous medications are active Scheduled Medications -------- 1. Acetaminophen: 975 mg Oral Every 6 Hours 2. Ibuprofen: 600 mg Oral Every 6 Hours PRN Medications -------- 1. Benzocaine 20% Topical: 1 application(s) Topical 4 Times a Day 2. Bisacodyl Rectal: 10 mg Rectal Daily 3. Carboprost IntraMuscular: 250 microgram(s) IntraMuscular Once 4. diphenhydrAMINE: 25 mg Oral Every 6 Hours 5. Docusate: 100 mg Oral 2 Times a Day 6. hydrALAZINE (APRESOLINE) Injectable: 5 mg IntraVenous Push Once 7. Labetalol Injectable: 20 mg IntraVenous Push Once 8. Lanolin Topical: 1 application(s) Topical Daily 9. Levonorgestrel (LILETTA) 52 mg Implant: 52 mg IntraUterine Once 10. Loperamide: 4 mg Oral Every 2 Hours 11. Magnesium Hydroxide -Al Hydrox -Simethicone Oral Liquid: 30 mL Oral Every 4 Hours 12. Magnesium Hydroxide Oral Liquid CONCENTRATE: 10 mL Oral Every 24 Hours 13. Measles -Mumps -Rubella (Live) MMR Vaccine: 0.5 mL SubCutaneous Once 14. medroxyPROGESTERone Injectable: 150 mg IntraMuscular Once 15. Methylergonovine Injectable: 0.2 mg IntraMuscular Once 16. Metoclopramide Injectable: 10 mg IntraVenous Push Every 6 Hours 17. NIFEdipine (PROCARDIA): 10 mg Oral Once 18. Ondansetron Injectable: 4 mg IntraVenous Push Every 6 Hours 19. oxyCODONE Immediate Release: 5 mg Oral Every 4 Hours 20. Sodium Chloride 0.9% Injectable Flush: 10 mL IntraVenous Flush Every 12 Hours and as Needed 21. Tranexamic Acid Injectable: 1000 mg IntraVenous Push Once 22. Witch Belinda Topical: 1 application(s) Topical 5 Times a Day Conditional Medication Orders -------- 1. Oxytocin Injectable: 10 unit(s) IntraMuscular Once Assessment and Plan: Assessment: 29 year old now PPD2 from and POD1 from BTL. 1) Routine Post : - Pain well controlled with PO medications - Mood is stable - Lochia light - Ambulating, tolerating PO, passing flatus - PPCM: BTL, doing well post op - Bottle feeding 2) Maternal Wellbeing - anxiety and depression, continue Wellbutrin, mood stable today Dispo: Home today. Has follow up scheduled in 2 weeks. Farzaneh Esparza MD PGY1 Signature/Cosignature/At testation: Note Completion: I am a: Resident/Fellow Attending AttestationI saw and evaluated the patient. I personally obtained the castro and critical portions of the history and physical exam or was physically present for castro and critical portions performed by the resident/fellow. I reviewed the resident/fellows documentation and discussed the patient with the resident/fellow. I agree with the resident/fellows medical decision making as documented in the note. I personally evaluated the patient [id number] Electronic Signatures: Farzaneh Esparza ( (Resident)) (Signed 14-Jun-2020 13:06) Authored: Current Stage, Subjective Data, Objective Data, Assessment and Plan, Signature/Cosignature/At testation Kari Hu (ROUTE MANAGER-SENIOR UI DEVELOPER) (Signed 18-Jun-2020 14:42) Authored: Signature/Cosignature/At testation Co-Signer: Current Stage, Subjective Data, Objective Data, Assessment and Plan, Signature/Cosignature/At testation Last Updated: 18-Jun-2020 14:42 by Kari Hu (ROUTE MANAGER-SENIOR UI DEVELOPER) Normal [facility] Clinical Event Note-bleeding postpartumon 06-13-2020 Clinical Event Note-bleeding Clinical Event: Clinical Event Note: Topicbleeding Details licensing officer to bedside for evaluation of bleeding: pad with 113cc of blood, minimal clots --> total EBL: 213cc Exam: - fundus firm and appropriately contracted approx 2 below umbilicus - SVE: no e/o significant lower uterine segment atony, no clots or retained products extracted on exam, blood on the glove - rectal cytotec given - continue to monitor bleeding and provide fundal massage - to consider repeat internal exam if significant bleeding continues Aliza Tatum MD MPH (PGY-1) Electronic Signatures: Aliza Tatum I ( (Resident)) (Signed 12-Jun-2020 22:57) Authored: Clinical Event Last Updated: 12-Jun-2020 22:57 by Aliza Tatum I ( (Resident)) Normal [facility] DRUG SCREEN,URINEon 07-30-20 20 AMPHETAMINE SCREEN,U Negative Normal NEGATIVE [facility] Comment on above: Result Comment: CUTO FF LEVEL: 500 NG/ML Cross-reactivity has been reported with high concentrations of the following drugs: buproprion, chloroquine, chlorpromazine, ephedrine, mephentermine, fenfluramine, phentermine, phenylpropanolamine, pseudoephedrine, and propranolol. Performed By: #### D RUG3 ####[id number] [place] [address] Performed By: #### D RUGR ####[id number] [place] [address] BARBITURATES SCREEN,U Negative Normal NEGATIVE [facility] Comment on above: Result Comment: CUTO FF LEVEL: 200 NG/ML Performed By: #### D RUG3 ####[id number] [place] [address] Performed By: #### D RUGR ####[id number] [place] [address] BENZODIAZEPINES SCREEN,U Positive Abnormal NEGATIVE [facility] Comment on above: Result Comment: CUTO FF LEVEL: 200 NG/ML Performed By: #### D RUG3 ####[id number] [place] [address] Performed By: #### D RUGR ####[id number] [place] [address] CANNABINOIDS SCREEN,U Negative Normal NEGATIVE [facility] Comment on above: Result Comment: CUTO FF LEVEL: 50 NG/ML Performed By: #### D RUG3 ####[id number] [place] [address] Performed By: #### D RUGR ####[id number] [place] [address] DRUG SCREEN COMMENT SEE BELOW Normal [facility] Comment on above: Result Comment: Drug screen results are presumptive and should not be used to assess compliance with prescribed medication. Contact the performing [facility] laboratory to add-on definitive confirmatory testing if clinically indicated. . Toxicology screening results are reported qualitatively. The concentration must be greater than or equal to the cutoff to be reported as positive. The concentration at which the screening test can detect an individual drug or metabolite varies. The absence of expected drug(s) and/or drug metabolite(s) may indicate non-compliance, inappropriate timing of specimen collection relative to drug administration, poor drug absorption, diluted/adulterated urine, or limitations of testing. For medical purposes only; not valid for forensic use. . Interpretive questions should be directed to the laboratory medical directors. Performed By: #### D RUG3 ####[id number] [place] [address] Result Comment: Drug screen results are presumptive and should not be used to assess compliance with prescribed medication. Definitive confirmatory drug testing has been added to this sample for any positive screen result and will be reported separately. . Toxicology screening results are reported qualitatively. The concentration must be greater than or equal to the cutoff to be reported as positive. The concentration at which the screening test can detect an individual drug or metabolite varies. The absence of expected drug(s) and/or drug metabolite(s) may indicate non-compliance, inappropriate timing of specimen collection relative to drug administration, poor drug absorption, diluted/adulterated urine, or limitations of testing. For medical purposes only; not valid for forensic use. . Interpretive questions should be directed to the laboratory medical directors. Performed By: #### D RUGR ####[id number] [place] [address] DRUG SCREEN,URINE WITH REFLE X TO CONFIRMATIONon 06-13-2020 COCAINE METABOLITE SCREEN,U Negative Normal NEGATIVE [facility] Comment on above: Result Comment: CUTO FF LEVEL: 150 NG/ML Performed By: #### D RUGR ####[id number] [place] [address] Performed By: #### D RUG3 ####[id number] [place] [address] METHADONE SCREEN,U Negative Normal NEGATIVE [facility] Comment on above: Result Comment: CUTO FF LEVEL: 150 NG/ML The metabolite N-blvkq-zeykaltsxhumzt (LAAM) is not detected by this method in concentrations that would be found in the urine of patients on LAAM therapy. Performed By: #### D RUGR ####[id number] [place] [address] Performed By: #### D RUG3 ####[id number] [place] [address] OPIATES SCREEN,U Negative Normal NEGATIVE [facility] Comment on above: Result Comment: CUTO FF LEVEL: 300 NG/ML The opiate screen does not detect fentanyl, meperidine, or tramadol. Oxycodone is not consistently detected (refer to Oxycodone Screen, Urine result). Performed By: #### D RUGR ####[id number] [place] [address] Performed By: #### D RUG3 ####[id number] [place] [address] OXYCODONE SCREEN,U Positive Abnormal NEGATIVE [facility] Comment on above: Result Comment: CUTO FF LEVEL: 100 NG/ML This test will accurately detect both oxycodone and oxymorphone. Performed By: #### D RUGR ####[id number] [place] [address] Performed By: #### D RUG3 ####[id number] [place] [address] PCP SCREEN,U Negative Normal NEGATIVE [facility] Comment on above: Result Comment: CUTO FF LEVEL: 25 NG/ML Cross-reactivity has been reported with dextromethorphan. Performed By: #### D RUGR ####[id number] [place] [address] Performed By: #### D RUG3 ####[id number] [place] [address] Daily Progress Note - OB-Pos t-partumon 06-13-2020 Daily Progress Note - [id number] This report has been cancelled. Normal [facility] Discharge Planning [id number] 06-13-2020 Discharge Planning Note2 Discharge Planning: Anticipated Discharge [id number] Discharge Planning Date and Time: ....06/13/20 0001 D: Patient admitted to the [facility] from Labor and Delivery Patient admitted s/p ....Vaginal delivery Patient lives at ....home Patient was independent with ambulation and ADL's prior to admission. Patient's caregiver/help after discharge will be ....family Homegoing needs anticipated at this time... none E: Discharge planning initiated. P: Continue to assess home going/discharge needs. Coordinate with interdisciplinary team as needed. Signature: .... Eda Lauren RN 06.13.2020 @ 1600 Social work: SW met with MOB & FOB to complete assessment. Parents were appropriate upon interview. MOB & FOB are not , but live together with 2 other children. FOB works construction and MOB is a homemaker. ALLAN reports a hx of ADHD, anxiety and depression. ALLAN currently does not have mental health providers, but has a hx of services through [facility]. MOB reports taking Adderall RX - 1x throughout , and MOB reports taking CBD gummies a few times a month for anxiety and hip pain throughout . ALLAN reports she did not think gummies had THCX in them. ALLAN reports 6 weeks ago has applied for a medical marijuana card through [facility]. Parents report having all necessary baby items in the home. ROMINA has completed referral to [facility] due to +MJ utox. Intake # not provided. ROMINA spoke with compensation supervisorscallop cutter machine, Jerry to complete referral. SW will continue to assess family and provide additional resources and referrals as needed. Please do not discharge until cleared by [facility]. ERNESTO Valdez 06-14-20 1:00 pm Social Work Note A referral was made yesterday by ROMINA Fan to [facility] due to ALLAN's tox on 04-25-20 that was positive for MJ. The tox was done at [facility]. ALLAN lives in [place], [place] at [address] [place] [address] Road with her family. I spoke with Valentina on the hotline there at [facility] today ([phone]). [facility] is not opening the case. MOB is aware. MOB and baby are clear to go home together when medically ready. Cintia OROZCO, Pager [phone] Date and Time: 06-14-2020 at 1425 Nursing Note/Discharge: D: According to plan, patient discharged to home with FOB Tacos Instructions printed and reviewed, see Discharge Instructions sheet. Teaching provided on new medications, self care, signs and symptoms to report, PI sheets, and follow-up appointment. Patient verbalized understanding and denies any questions at time of discharge. Patient instructed to call MD/LIP with any additional questions after discharge. E: Discharge teaching complete and patient is prepared for discharge. P: Patient sent home with written and verbal instructions via transport in stable condition. Signature: Tanya Adhikari RNC Assessment: Discharge Planning Assessment [id number] [place] Lives Withspouse(1) Living Arrangementsapartment(1) Resource/Environmental Concernsnone(1) Anticipated Transition [place](1) Services Anticipated at Transitionnon(1) Discharge Documentation: Discharge/Transfer Date/[id number] 16:20 Discharge Modewheelchair Discharged Accompanied Byparent Transportation Methodprivate car Final DispositionHome Electronic Signatures: Tanya Adhikari (RN) (Signed 14-Jun-2020 14:24) Authored: Discharge Planning Note2 Eda Lauren (STAFF N) (Signed 13-Jun-2020 01:18) Authored: Discharge Planning Note2 Machelle Fan (SW) (Signed 13-Jun-2020 17:01) Authored: Discharge Planning Note2 Cecilia Malik (RN) (Signed 14-Jun-2020 16:29) Authored: Discharge Planning Note2 Cintia Recio (SKI MAKER WOOD-S) (Signed 14-Jun-2020 13:04) Authored: Discharge Planning Note2 Last Updated: 14-Jun-2020 16:29 by Cecilia Malik (RN) References: 1. Data Referenced From Patient Profile - OB v2 12-Jun-2020 08:18 Normal [facility] Discharge [id number] Discharge Profile2 Discharge Orders: Anticipated Discharge Date: Anticipated Discharge [id number] Problem List: Additional Dx: Encounter for female sterilization procedure: Catalog Name: Encounter for sterilization Single live : Catalog Name: Single live Normal vaginal delivery: Catalog Name: Encounter for full-term uncomplicated delivery Chronic hepatitis C virus infection: Catalog Name: Chronic viral hepatitis C Intrauterine growth restriction affecting antepartum care of mother, single or unspecified fetus: Catalog Name: Maternal care for other known or suspected poor growth, unspecified trimester, not applicable or unspecified Activity: activity as tolerated. May shower. May return to school/work Instructions: May drive. Unless taking Percocet. No pushing, pulling, or lifting objects greater than 20 pounds until follow-up visit. Diet: Dietregular Call Provider If (Homegoing Patients): Breathing faster than normal. Fever of 100.4 F (38 C) or higher. Temperature is greater than 102 degrees. : Activity: Return to normal activity as tolerated. Call Provider If: - Heavy bleeding. Soaking a large pad every hour or passing large clots. - Temperature greater than 100.4 degree F. - Signs of Depression. Examples include: 1. Persistent sadness 2. Frequent crying 3. Sleep problems 4. Excessive worrying 5. Feeling unable to cope. Diet: Regular. Follow-Up - OB Provider: Physician/Dept/ServiceOB Provider Has follow up scheduled in 1 wk Call to Schedule in1 week Provider FINAL REVIEW of Orders: Final Review: Final Review of Medication Reconciliation and Orders Completedby Physician Reviewing Harshad Esparza MD (Resident) at 14-Jun-2020 12:52:18 Other Clinician Instructions: Other Instructions: Nursing InstructionsThe Guamanian Academy of Pediatrics recommends that pacifier use is best avoided during the initiation of and used only after is well established. In some infants, early pacifier use may interfere with establishment of good practices, whereas in others it may indicate the presence of a problem that requires intervention. Use of a pacifier may cause problems with latching, and lead to decreased milk supply by missing feeding opportunities. Pacifiers may be used during painful procedures, but are not otherwise recommended while the infant is learning to breastfeed. Other Clinician InstructionsAny woman can have complications after a including a blood clot, a heart problem, hypertensive disorder/eclampsia, depression, hemorrhage, or infection. Notify all providers of your delivery date up to one year after .* Call 911 or go to nearest emergency room right away if you have: PAIN or pressure in chest; OBSTRUCTED breathing or shortness of breath; SEIZURES; THOUGHTS of hurting yourself or someone else; heart palpitations/racing; change in alertness/confusion. Call your provider if you have: BLEEDING, soaking through a pad/hour, or blood clots the size of an egg or bigger; INCISION (episiotomy stitches or site) that is not healing (increased redness, pain, drainage/pus, or separation) if you had one; RED or swollen leg/calf that is painful or warm to touch, especially in one leg more than the other; TEMPERATURE of 100.4 F or higher or chills; HEADACHE that does not get better with medicine, rest or hydration, or bad headache with vision changes like spots or flashing lights; increased swelling of face, hands or legs; severe cramps or upper right belly pain; red or swollen breast that is painful or warm to touch; an unusual, foul odor from your vaginal discharge; pain, burning, or difficulty during urination; severe constipation (more than 5 days); feelings of depression (such as depressed mood, loss of interest in enjoyable things, unable to care for yourself, trouble sleeping, lack of appetite, or feeling worthless). If you cant reach your provider or symptoms worsen, call 911 or go to nearest emergency room. *Information obtained from AWHONNs: Save Your Life: Get Care for These POST- Warning Signs Electronic Signatures: Farzaneh Esparza ( (Resident)) (Signed 14-Jun-2020 12:52) Authored: Discharge Orders, , Provider FINAL REVIEW of Orders Eda Lauren (STAFF N) (Signed 13-Jun-2020 01:17) Authored: Other Clinician Instructions, Gold Form - Job Setter Summary Last Updated: 14-Jun-2020 12:52 by Farzaneh Esparza ( (Resident)) Normal [facility] HCV RNA BY PCR [VIRAL LOAD]o n 06-13-2020 HCV RNA, PCR [id number] IU/mL Abnormal [facility] Comment on above: Result Comment: REF VALUE NEGATIVE Performed By: #### H CVPR ####[id number] [place] [address] HCV RNA,PCR, LOG 6.55 log10 IU/mL Abnormal [facility] Comment on above: Result Comment: HCV RNA BY PCR (VIRAL LOAD) IS PERFORMED USING THE KB SONIYA AMPLIPREP/SONIYA TAQMAN HCV TEST. THIS IS A TEST FOR THE QUANTITATION OF HEPATITIS C VIRAL RNA IN HUMAN PLASMA OR SERUM USING THE AMPLIPREP INSTRUMENT FOR AUTOMATED SPECIMEN PROCESSING AND THE TAQMAN ANALYZER FOR AUTOMATED AMPLIFICATION AND DETECTION. SPECIMENS CONTAINING HCV GENOTYPES 1-6 HAVE BEEN VALIDATED FOR QUANTITATION IN THE ASSAY. THE TEST CAN QUANTITATE 15 TO 100,000,000 IU/ML OF HCV RNA. THIS TEST IS STANDARDIZED AGAINST THE FIRST WHO INTERNATIONAL STANDARD FOR HEPATITIS C VIRUS RNA FOR NUCLEIC ACID AMPLIFICATION TECHNOLOGY ASSAYS ([facility] CODE 96/790). THE TEST IS APPROVED BY THE US FOOD AND DRUG ADMINISTRATION, AND IS INTENDED FOR USE IN CONJUNCTION WITH CLINICAL PRESENTATION AND OTHER LABORATORY MARKERS OF DISEASE PROGRESS FOR THE CLINICAL MANAGEMENT OF HCV INFECTED PATIENTS. THIS TEST IS INTENDED FOR USE AN AID IN THE MANAGEMENT OF HCV-INFECTED INDIVIDUALS UNDERGOING ANTI-VIRAL THERAPY. THE ASSAY MEASURES HCV RNA LEVELS AT BASELINE AND DURING TREATMENT AND CAN BE UTILIZED TO PREDICT SUSTAINED AND NON-SUSTAINED VIROLOGICAL RESPONSE TO HCV THERAPY. THE RESULTS FROM THIS TEST MUST BE INTERPRETED WITHIN THE CONTEXT OF ALL RELEVANT CLINICAL AND LABORATORY FINDINGS. THE TEST IS NOT INTENDED FOR USE A SCREENING TEST FOR THE PRESENCE OF HCV IN BLOOD OR BLOOD PRODUCTS OR A DIAGNOSTIC TEST TO CONFIRM THE PRESENCE OF HCV INFECTION. THE PERFORMANCE CHARACTERISTICS OF THIS TEST HAVE BEEN VERIFIED BY THE MOLECULAR DIAGNOSTICS LABORATORY, DEPARTMENT OF PATHOLOGY AT [facility]. Performed By: #### H CVIN ####[id number] [address] Surgical Pathology [facility] 06-13-2020 [facility] Surgical Pathology Department Name MICHELLE DOSHI Pathologist: TABITHA JENSEN MD Date of Procedure: 06/13/2020 Date Received: 06/14/2020 Date Reported 06/18/2020 Submitting Physician: GREGORIO MOE MD Location: [facility] Copy To/Referring/Attending: NATHEN SOTO MD,MPH Other External # FINAL DIAGNOSIS A. LEFT FALLOPIAN TUBE, TUBAL LIGATION: -- SEGMENT OF FALLOPIAN TUBE, COMPLETE CROSS SECTION IDENTIFIED. B. RIGHT FALLOPIAN TUBE, TUBAL LIGATION: -- SEGMENT OF FALLOPIAN TUBE, COMPLETE CROSS SECTION IDENTIFIED. The gross and/or microscopic findings were reviewed in conjunction with surgical pathology fellow, Joni Mathur MD. Electronically Signed Out By TABITHA JENSEN MD/CLEMENT By the signature on this report, the individual or group listed as making the Final Interpretation/Diagnosis certifies that they have reviewed this case. Clinical History: Bilateral tubal ligation Specimens Submitted As: A: LEFT FALLOPIAN TUBE SEGMENT B: RIGHT FALLOPIAN TUBE SEGMENT Gross Description: A: Received in formalin, labeled with the patient's name and hospital number and left fallopian tube, is a tubular segment of castelan-white soft tissue measuring 1.2 cm in length by 0.4 cm in diameter. A pin point lumen is identified. The specimen is serially sectioned and entirely submitted in one cassette. DJO B: Received in formalin, labeled with the patient's name and hospital number and right fallopian tube, is a tubular segment of castelan-white soft tissue measuring 1.5 cm in length by 0.4 cm in diameter. A pin point lumen is identified. The specimen is serially sectioned and entirely submitted in one cassette. DJO djo/06/14/2020 Normal [facility] Comment on above: Performed By: #### U [facility] ####[facility] Surgical Pathology [id number] [place] [address] [facility] Surgical Pathology Department Name MICHELLE DOSHI Pathologist: TABITHA JENSEN MD Date of Procedure: 06/12/2020 Date Received: 06/13/2020 Date Reported 06/17/2020 Submitting Physician: FARZANEH KOEHLER MD Location: [id number] Copy To/Referring/Attending: UNKNOWN,DOCTOR Other External # FINAL DIAGNOSIS A. PLACENTA: -- IRREGULAR, MATURE PLACENTA (395 G). -- MULTIFOCAL LOW-GRADE CHRONIC VILLITIS WITH ASSOCIATED SMALL AND INTERMEDIATE SIZED FOCI OF AVASCULAR VILLI. -- RECENT MARGINAL RETROPLACENTAL HEMORRHAGE WITH OVERLYING VILLOUS STROMAL HEMORRHAGE. Home Sales Consultant: Dr. Pili Crenshaw. Electronically Signed Out By TABITHA JENSEN MD/SXZ By the signature on this report, the individual or group listed as making the Final Interpretation/Diagnosis certifies that they have reviewed this case. Clinical History: Gestational age: 37.6 Ob index: G 3, Full term 2, Seferino 0, Ab 0, Lvg 2 Maternal history: inducation of labor, IUGR, [facility], club foot, Persistent LSVC and tortuous ductus arteriosus, Chronic hepatitis C Baby weight: 2.56 kg Apgars: 8 at 1 minute, 9 at 5 minutes Specific questions: IUGR Specimens Submitted As: A: PLACENTA A: 0 CORD CLAMP Gross Description: Received fresh, labeled with the patient?s name and hospital number, with an accompanying placental record sheet, is a placenta. Placental membranes are translucent and complete. There is a red-brown blood clot between the membranes covering approximately 50% of the disc. Membrane insertion is marginal. The point of membrane rupture is 5.0 cm from the nearest margin. The umbilical cord is pale yellow, 39 cm in total length, and inserts in the placenta, 7.0 cm from the margin. There is a loose amniotic web 6.0 cm from cord insertion. On cut section, the cord has 3 vessels, and measures 1.2 x 0.9 cm. The placenta is irregular, 24.0 x 17.0 x 2.0 cm, and weighs 394.7 g without cord or membranes. The surface is blue-red and translucent. The maternal surface is slightly disrupted but appears complete. The cut surface is red and spongy. There is a possible irregular red-brown marginal blood clot measuring 7.0 x 6.0 cm. Photographs have been taken. Umbrella Frame Maker sections are submitted in 5 cassettes. LMP Summary of Cassettes: Specimen Label Site A 1 umbilical cord sections 2 membrane rolls 3 placental parenchyma, umbilical cord insertion site 4 placental parenchyma 5 placental parenchyma/possiblemargi nal clot lmp/06/13/2020 Normal [facility] Comment on above: Performed By: #### U [facility] ####[facility] Surgical Pathology [id number]CL[facility] [place] [facility] [address] Admission Risk Screen - OBon 06-12-2020 Admission Risk Screen - OB Allergies: Allergies: No Known Allergies: Intolerances: Imitrex: Headaches Patient Verification: New W ID Band Applied in my Departmentyes Patient Identity Verified Bypatient ID Band FULL Name, include Middle, spelling matches patient's ID used for verificationyes ID Band Matches Patient ID used for Verficationyes ID Band MRN Matches EMR MRNyes Visitor Restriction: Coronavirus Visitor Restriction: Reasonable restrictions to in-person visitors will be observed due to current coronavirus pandemic. Travel History: COVID-19 Screening Completedno exposure or symptoms Advance Directive: Advance Directive/DNRno Advance Directive Information Givenpatient/family declined Falls Screen: Type of Assessmentadmission Risk for Injury Associated with Fallnone Fall Risk Conclusionmoderate falls risk with low risk for associated injury [place] Safety InterventionsWDL *orient to call system *instruct to call for assistance before getting out of bed *non-slip footwear when patient is out of bed *call cleary in reach *personal items and telephone in reach *physically safe environment (no spills or clutter) *bed in lowest position with wheels locked *appropriate side rails in place *room/bathroom lighting operational, light cord in reach *appropriate signage on door Family Violence Screen: Are you or have you been threatened or abused physically, emotionally, or sexually by anyoneno Do you feel UNSAFE going back to the place where you are livingno Clinical assessment: Are there any apparent signs of injuries/behaviors that could be related to abuse/neglectno Social Service Consult for abuse/neglect needed this visitno Functional screen: Functional Screen: In the recent/past 2-4 weeks, patient or family have noticedno issues that require a rehabilitation consult at this time Learning Assessment (Patient): Patient is Able to be Assessed for Learningyes Factors Influencing Readiness to Learnanxiety Factors that Impact Ability to Learnnone Devices/Methods Used to Communicatenone Learning Preferencesverbal instruction Cultural Considerationsnone Developmental Considerationsnone Zoroastrianism Considerationsnone Learning Assessment (Other Learner): Other learner availableyes... Learnerspouse Factors Influencing Readiness to Learnanxiety Factors that Impact Ability to Learnnone Devices/Methods Used to Communicatenone Learning Preferencesverbal instruction Cultural Considerationsnone Developmental Considerationsnone Zoroastrianism Considerationsnone Nutrition Risk Screen: Nutrition Risk ScreenPICA or non-food cravings Nutrition Consult needed this visitno Can Patient Participate in Room Serviceyes Pain Screen: Pain Control Method: Laborheat application; relaxation; repositioning; rest; low lighting; epidural Pain Control Method: Postpartumcold application; relaxation; rest; medication Pain Scalenumerical 0-10 Pain Scale Educationteaching provided Acceptable Pain Level6 = Moderate Presence of Painno Expression of Pain (nonverbal)anxious, moaning Chronic Painno Skin - Hema Scale: Hema Scale (daily): Hema: Sensory Perception (response to environment)(4) no impairment Hema: Moisture (degree skin exposed to moisture)(4) rarely moist Hema: Activity (ability to walk)(4) walks frequently Hema: Mobility (amount/control of body movement)(4) no limitation Hema: Nutrition (quality of food intake)(3) adequate Hema: Friction and Shear(3) no apparent problem Hema: Score22 Pressure Injury Present on Admissionno Spiritual Screen: Are there any cultural, spiritual, voodoo practices/values/needs that are important for us to knowno Suicide/Depression Screen: During the past month, have you often been bothered by feeling down, depressed or hopelessno During the past month, have you often had little interest or pleasure in doing thingsno Have you had any thoughts of harming yourselfno Have you had any thoughts of harming anyone elseno Vaccinations: Vaccination - Influenza Vaccination Screen: Is it flu season (between and February 25)No Vaccination - Pneumonia Vaccination Screen: Patient has received a previous pneumonia vaccine:no/unknown... Immunocompetent persons with underlying chronic conditions or reside in [place] [facility] care facilitiesnone of these conditions Persons with Functional or Anatomic Asplenianone of these conditions Immunocompromised Personsnone of these conditions Pneumonia vaccine NOT indicated due to:patient DOES NOT have a condition that indicates vaccination Vaccination - TDap Vaccination Screen: Have you received a TDap vaccine this pregnancyyes (no further action required) Significant Indicatiors: Significant Indicators: Complete Note Name:Admission Risk Screen - OB Electronic Signatures: Alie Thomson (TIM) (Signed 12-Jun-2020 08:17) Authored: Admission Risk Screens, Vaccinations, Mother's Chart (Do Not Modify) Last Updated: 12-Jun-2020 08:17 by Alie Thomson (TIM) Normal [facility] CBCon 06-12-2020 Erythrocyte distribution width (RBC) [Ratio] 17.0 % High 11.5 - 14.5 [facility] Comment on above: Performed By: #### C BC #### [facility] [id number] [place] [address] Hematocrit (Bld) [Volume fraction] 39.4 % Normal 36.0 - 46.0 [facility] Comment on above: Performed By: #### C BC #### [facility] [address] [place] [address] Hemoglobin (Bld) [Mass/Vol] 13.0 g/dL Normal 12.0 - 16.0 [facility] Comment on above: Performed By: #### C BC #### [facility] [address] [place] [address] MCHC (RBC) [Mass/Vol] 33.0 g/dL Normal 32.0 - 36.0 [facility] Comment on above: Performed By: #### C BC #### [facility] [address] [place] [address] MCV (RBC) [Entitic vol] 91 fL Normal 80 - 100 [facility] Comment on above: Performed By: #### C BC #### [facility] [address] [place] [address] Nucleated RBC/100 WBC (Bld) [Ratio] 0.0 /100 WBC Normal 0.0-0.0 [facility] Comment on above: Performed By: #### C BC #### [facility] [address] [place] [address] Platelets (Bld) [#/Vol] 329 10*3/uL Normal 150 - 450 [facility] Comment on above: Performed By: #### C BC #### [facility] [address] [place] [address] RBC (Bld) [#/Vol] 4.33 x10E12/L Normal 4.00 - 5.20 [facility] Comment on above: Performed By: #### C BC #### [facility] [address] [place] [address] WBC (Bld) [#/Vol] 13.7 10*3/uL High 4.4 - 11.3 [facility] Comment on above: Performed By: #### C BC #### [facility] [address] [place] [address] COMPREHENSIVE PANELon 2019 Albumin [Mass/Vol] 3.2 g/dL Low 3.4 - 5.0 [facility] Comment on above: Performed By: #### C MP ####[id number] [place] [address] ALP [Catalytic activity/Vol] 162 U/L High 33 - 110 [facility] Comment on above: Performed By: #### C MP ####[id number] [place] [address] ALT [Catalytic activity/Vol] 23 U/L Normal 7 - 45 [facility] Comment on above: Result Comment: Kira ents treated with Sulfasalazine may generate falsely decreased results for ALT. Performed By: #### C MP ####[id number] [place] [address] Anion gap [Moles/Vol] 13 mmol/L Normal 10 - 20 [facility] Comment on above: Performed By: #### C MP ####[id number] [place] [address] AST [Catalytic activity/Vol] 33 U/L Normal 9 - 39 [facility] Comment on above: Result Comment: MILD HEMOLYSIS DETECTED. The result may be falsely elevated due to hemolysis or other interferents. Clinical correlation is recommended. Repeat testing may be considered. Performed By: #### C MP ####[id number] [place] [address] Bilirubin [Mass/Vol] 0.4 mg/dL Normal 0.0 - 1.2 [facility] Comment on above: Performed By: #### C MP ####[id number] [place] [address] Calcium [Mass/Vol] 9.1 mg/dL Normal 8.6 - 10.6 [facility] Comment on above: Performed By: #### C MP ####[id number] [place] [address] Chloride [Moles/Vol] 105 mmol/L Normal 98 - 107 [facility] Comment on above: Performed By: #### C MP ####[id number] [place] [address] Creatinine [Mass/Vol] 0.70 mg/dL Normal 0.50 - 1.05 [facility] Comment on above: Performed By: #### C MP ####[id number] [place] [address] GFR- AM. >60 Normal >60 [facility] Comment on above: Result Comment: CALC ULATIONS OF ESTIMATED GFR ARE PERFORMED USING THE MDRD STUDY EQUATION FOR THE IDMS-TRACEABLE CREATININE METHODS. CLIN CHEM 2007;53:766-72 Performed By: #### C MP ####[id number] [place] [address] GFR-NON AM. >60 Normal >60 [facility] Comment on above: Performed By: #### C MP ####[id number] [place] [address] Glucose [Mass/Vol] 77 mg/dL Normal 74 - 99 [facility] Comment on above: Performed By: #### C MP ####[id number] [place] [address] HCO3 (Bld) [Moles/Vol] 21 mmol/L Normal 21 - 32 [facility] Comment on above: Performed By: #### C MP ####[id number] [place] [address] Potassium [Moles/Vol] 4.4 mmol/L Normal 3.5 - 5.3 [facility] Comment on above: Result Comment: MILD HEMOLYSIS DETECTED. The result may be falsely elevated due to hemolysis or other interferents. Clinical correlation is recommended. Repeat testing may be considered. Performed By: #### C MP ####[id number] [place] [address] Protein [Mass/Vol] 5.8 g/dL Low 6.4 - 8.2 [facility] Comment on above: Performed By: #### C MP ####[id number] [place] [address] Sodium [Moles/Vol] 135 mmol/L Low 136 - 145 [facility] Comment on above: Performed By: #### C MP ####[id number] [place] [address] Urea nitrogen [Mass/Vol] 10 mg/dL Normal 6 - 23 [facility] Comment on above: Performed By: #### C MP ####[id number] [place] [address] CORONAVIRUS 2019, SCREEN ASY MPTOMATICon 06-12-2020 CORONAVIRUS 2019,PCR NOT DETECTED Normal Not Detected [facility] Comment on above: Result Comment: This assay is designed to detect the RdRp gene of SARS-CoV-2 via nucleic acid amplification. A Not Detected result does not preclude COVID-19 infection since the adequacy of sample collection and/or low viral burden may result in presence of viral nucleic acids below the clinical sensitivity of this test method. Fact sheet for providers: www.fda.gov/media/423133/download Fact sheet for patients: www.fda.gov/media/558551/download This test has received FDA Emergency Use Authorization (EUA) and has been verified by [facility] ([facility]). This test is only authorized for the duration of time that circumstances exist to justify the authorization of the emergency use of in vitro diagnostic tests for the detection of SARS-CoV-2 virus and/or diagnosis of COVID-19 infection under section 564(b)(1) of the Act, 21 U.S.C. 360bbb-3(b)(1), unless the authorization is terminated or revoked sooner. [facility] is certified under CLIA-88 as qualified to perform high complexity testing. Testing is performed in the [facility] laboratories located at [address] [place] [address]. Performed By: #### C OVSC #### [place] [address] Lab Specimen Source Nasal, Nasopharyngeal Normal [facility] Comment on above: Performed By: #### C OVSC #### [place] [address] Clinical Event Note-AROMon 0 06-12-2020 Clinical Event Note-AROM Clinical Event: Clinical Event Note: TopicAROM Details licensing officer to bedside for AROM. SVE 4.5/50/-3 FHT 150, mod gregoria, +accels, -decels [place] q2-3 min ctx - Continue to monitor for cervical change - Continue Pit per protocol - CEFM; cat 1 currently - AROM'd for clear Faisal Mckeon MD, MS (PGY-1) Objective Information T PRBPSpO2 [id number]/8199% Date/Time06/12 14: 15: 15: 15: 15:23 Range(36.6C - 36.9C ) (71 - 100 ) (18 - 20 ) (115 - 161 )/ (64 - 96 ) (98% - 100% ) Highest temp of 36.9 C was recorded at 06/12 7:59 Electronic Signatures: Faisal Mckeon ( (Resident)) (Signed 12-Jun-2020 16:36) Authored: Clinical Event Last Updated: 12-Jun-2020 16:36 by Faisal Mckeon ( (Resident)) Normal [facility] Clinical Event Note-CRB plac ementon 06-12-2020 Clinical Event Note-CRB placement Clinical Event: Clinical Event Note: TopicCRB placement Details Speculum placed, CRB grasped with Yasmine clamp and guided through ext os. Uterine balloon inflated with 60cc saline Placement of uterine balloon confirmed with gentle traction Gentle traction applied and CRB in place Pt tolerated procedure well Samir Mendieta APRN, CNM Objective Information T PRBPSpO2 [id number]/63959% Date/Time06/12 7: 7: 7: 7: 7:59 Range(36.9C - 36.9C ) (100 - 100 ) (20 - 20 ) (137 - 137 )/ (96 - 96 ) (100% - 100% ) Highest temp of 36.9 C was recorded at 06/12 7:59 Electronic Signatures: Carrie Mendieta (ROUTE MANAGER-CNM) (Signed 12-Jun-2020 10:40) Authored: Clinical Event Last Updated: 12-Jun-2020 10:40 by Carrie Mendieta (ROUTE MANAGER-CNM) Normal [facility] Delivery Recordon 06-12-2020 Delivery Record Lab Tests/Results: Labs: Labs: Blood Typed Date: 12-Jun-2020 Blood Type: A positive Antibody Screen Results: negative Chlamydia Date: 18-Dec-2019 Chlamydia Results: negative Gonorrhea Date: 18-Dec-2019 Gonorrhea Results: negative Group B Strep Date: 03-Jun-2020 Strep Results: negative GTT (dd-mmm-yy): 01-Apr-2020 GTT result: 71 HBsAG Date: 14-Dec-2019 HBsAG Results: negative HIV Date: 14-Dec-2019 HIV Results: negative Rubella Date: 14-Dec-2019 Rubella Results: immune Syphilis (mmm-dd-yyyy): 12-Jun-2020 Syphilis Results: negative Urine Spot (dd-mmm-yy): 12-Jun-2020 Maternal Delivery Information: Vaginal Delivery Information: Counts Correctyes Circulating RNB TIM Chavez/ Marlen Clemons RN Metter Delivery Information: Team: Team [id number] 20:43 Code Level CalledCode Spooner Level 1 team [id number] 20:44 Heel Reducer Information: Baby's Post Discharge Care Provider (Provider Name, Address and Phone Number) [facility] A Delivery Information: Baby A Delivery: Rupture of Membranes date/[id number]-[id number]-2581 16:19 Amniotic Fluid Colorclear Delivery Typevaginal delivery Delivery Locationlabor and delivery Delivery Date/Tphp69-[id number]-7251 20:45 Delivery Date/Time Verified ByB Kathy DUMONT/ Marlen Clemons RN Length of Time of ROM (rounded down to nearest hour)4 Sexmale Identification Band [id number] Electronic Transponder [id number] ID Bands Verified byB Kaci DUMONT/ Marlen Chavez RN 4th ID band toFOB [place] Weight (kg)2.56 kilogram(s) Length (cm)49 centimeter(s) Head Circumference (cm)32 centimeter(s) Delivery of Placenta (hh:mm)20:53 Baby A: Placenta disposalsent to pathology 1 Min: Heart Ratemore than 100 beats/min Respiratory Rategood, crying Muscle Tonewell flexed Reflex Irritabilitycough or sneeze Colorblue, pale 1 Minute Score, Baby A8 Apgars assessed byAkshat Hackett RN 5 Min: Heart Ratemore than 100 beats/min Respiratory Rategood, crying Muscle Tonewell flexed Reflex Irritabilitycough or sneeze Colorbody pink, extremities blue 5 Minute Score, Baby A9 Apgars assessed byAkshat Hackett RN Resuscitation Efforts: Vigorous at Birthyes Resuscitation Effortsnone required Baby A: Transfer Baby A: Transfer toRemains with mother Baby A: Labs [id number] Delivery Team: Cookie Hackett RN Neonatal TeamDr Esteban Guzman, Dr Henderson Respiratory TherapyJoaquina pendleton Electronic Signatures: Yanely Chavez (TIM) (Signed 12-Jun-2020 22:27) Authored: Lab Tests/Results, Maternal Delivery Information, Delivery Information Last Updated: 12-Jun-2020 22:27 by Yanely Chavez) Normal [facility] HCV RNA BY PCR [VIRAL LOAD]o n 06-12-2020 Lab Specimen Source Normal [facility] Comment on above: Performed By: #### H CVPR ####[id number] [place] [address] History and Physical - OBon 06-12-2020 History and Physical - OB HPI/OB History: Care Provider: [facility] Descriptive Info: HPI Pt is a 29 year old @ 37w6d GA by 13.4wk u/s who presents to L&D for induction of labor for IUGR. Pt reports good movement, denies vaginal bleeding, contractions and leaking of fluid. 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 Denies ETOH, illicit drug or tobacco use this Labs: Labs: Labs: Blood Typed Date: 14-Dec-2019 Blood Type: A positive Antibody Screen Results: negative Chlamydia Date: 18-Dec-2019 Chlamydia Results: negative Gonorrhea Date: 18-Dec-2019 Gonorrhea Results: negative Group B Strep Date: 03-Jun-2020 Strep Results: negative GTT (dd-mmm-yy): 01-Apr-2020 GTT result: 71 HBsAG Date: 14-Dec-2019 HBsAG Results: negative HIV Date: 14-Dec-2019 HIV Results: negative Rubella Date: 14-Dec-2019 Rubella Results: immune Syphilis (mmm-dd-yyyy): 14-Dec-2019 Syphilis Results: negative Antepartum/: Antepartum/PP: Date Earliest [id number] EGA at that study (weeks)13.4 CARRIE by [id number] Final [id number] Current EGA:37.6 Patient is > or = 35.0 wks EGAyes Determined byJaida EFW (kg)2.495 kilogram(s) EFW (lb)5 pound(s) EFW (oz)8 ounce(s) Presentationcephalic presentation verified bybedside ultrasound Vaginal BleedingNo Contractions/Abdominal PainNo Discharge/Loss of FluidNo MovementGood High Risk Factors for Hemorrhagenone of these exist Additional Indications for Type & Crossno additional indications TOLACno Did this patient receive progesterone in any form to prevent premature deliveryno Does patient desire postplacental IUDno Allergies: No Known Allergies: Intolerances: Imitrex: Headaches Medications Prior to Admission: Outpatient Meds have not been reviewed. Review of Systems: Constitutional: NEGATIVE: Fever, Chills, Anorexia, Weight Loss, Malaise Eyes: NEGATIVE: Blurry Vision, Drainage, Diploplia, Redness, Vision Loss/ Change ENMT: NEGATIVE: Nasal Discharge, Nasal Congestion, Ear Pain, Mouth Pain, Throat Pain Respiratory: NEGATIVE: Dry Cough, Productive Cough, Hemoptysis, Wheezing, Shortness of Breath Cardiac: NEGATIVE: Chest Pain, Dyspnea on Exertion, Orthopnea, Palpitations, Syncope Gastrointestinal: NEGATIVE: Nausea, Vomiting, Diarrhea, Constipation, Abdominal Pain Genitourinary: NEGATIVE: Discharge, Dysuria, Flank Pain, Frequency, Hematuria Musculoskeletal: NEGATIVE: Decreased ROM, Pain, Swelling, Stiffness, Weakness Neurological: NEGATIVE: Dizziness, Confusion, Headache, Seizures, Syncope Psychiatric: NEGATIVE: Mood Changes, Anxiety, Hallucinations, Sleep Changes, Suicidal Ideas Objective: Objective Information: T PRBPSpO2 [id number]/72382% Date/Time06/12 7: 7: 7: 7: 7:59 Range(36.9C - 36.9C ) (100 - 100 ) (20 - 20 ) (137 - 137 )/ (96 - 96 ) (100% - 100% ) Highest temp of 36.9 C was recorded at 06/12 7:59 Pain reported at 06/12 10:00: 0 = None Physical Exam by System: Constitutional: alert and oriented X3, calm and pleasant Obstetric: FHR baseline: 145 variability: moderate accels: positive decels: negative UC: irritable, occasional Membrane status: not apparently ruptured SVE: /-3 Eyes: pupils equal, sclerae clear Head/Neck: neck supple, no thyromegaly Gastrointestinal: gravid abd, non acute Extremities: no calf tenderness, reflexes 2+ Psychological: appropriate affect Skin: no rashes or lesions Recent Lab Results: Results: CBC: 06/12/2020 08:41 \ Hgb / \ 13.0 / WBC Plt 13.7 H 329 / Hct \ / 39.4 \ RBC: 4.33 MCV: 91 Assessment and Plan: Assessment: A: 29 year old @ 37w6d GA by 13 wk US IOL for IUGR Chronic Hep C Elevated BP on admission- most recent PCR: 0.26 on 04/25 Anxiety and depression club foot Persistent LSVC and tortuous ductus arteriosus Cat I FHR tracing GBS neg P: Admit to L&D with routine labs and orders +HELLP labs, PCR and Monitor maternal and well-being [facility]: attempt to shorten period of ROM to 6 hours or less if possible. Avoid use of FSE/IUPC and operative delivery. Triage code level 1: Standard care per team, cardiology evaluation prior to discharge peds ortho consult as needed cEFM CRB and pitocin for IOL Pt planning to formula feed Desires BTL for contraception- signed consent forms in chart Drs. Soto and Abhi aware of pt status and admission. Anticipate SVB Carrie [place] CNM [id number] Signatures/Attestation: Note Completion: Provider/Team Pager #[phone] Electronic Signatures: Carrie Mendieta (DEXTER-SEAMUS) (Signed 12-Jun-2020 10:44) Authored: HPI/OB History, Labs, Antepartum/, Allergies, Medications Prior to Admission, Review of Systems, Objective, Assessment and Plan, Signatures/Attestation Last Updated: 12-Jun-2020 10:44 by Carrie Mendieta (DEXTER-SEAMUS) Normal [facility] History and Physical - OB This report has been cancelled. Normal [facility] LDHon 06-12-2020 LDH 262 U/L High 84 - 246 [facility] Comment on above: Result Comment: MILD HEMOLYSIS DETECTED. The result may be falsely elevated due to hemolysis or other interferents. Clinical correlation is recommended. Repeat testing may be considered. Performed By: #### L ####[id number] [place] [address] Patient Profile - OB v2on Patient Profile - OB v2 Profile: Initial Info: How to be AddressedTheresa Spoken Language PreferredEnglish (1) Source of Informationpatient Are you currently using the Personal Electronic [facility] or [facility] Reason for admission this visitexpected term delivery Wants Family/Rep Notified of Admissionno Notify PCPdo not notify PCP Informed of Patient Visiting Rightsyes [place] Patient Belongingsremains with patient Patient Belongings Remaining with Patientcash/credit card; cell phone/electronics; clothing; jewelry; purse/wallet Medications Brought to Hospitalno Info: Gravida3 (1) Term Deliveries2 Deliveries0 (1) Abortions0 (1) Living Children2 (1) Patient stated [id number] Calculation of EGA based on patient stated EDD37.6 Records availableyes Trimester Care Initiatedfirst Current Risksanemia, intrauterine growth restriction, substance abuse, hx of substance abuse Testsultrasound; echo [id number] Previous Delivery (20 weeks or greater)yes Multiple Gestationno Delivery [id number] Delivery: Weeks Huxlztlhp55 Delivery Typevaginal delivery First Delivery Complications (Oldest Child/Children)other; jaundice Sex, Name, Weight (lbs)female, richard, 6lbs 13 oz Children Reside Withmother Delivery 2: Multiple Gestationno Delivery 2: Delivery [id number] Delivery 2: Typevaginal delivery Delivery 2: Complicationsnone Delivery 2: Infant Sex, Name, Weight (lbs)female, neftali, 6lbs 10 oz Delivery 2: Children Reside Withmother Planno Feedinginfant formula Benefits of Breast Milk DiscussionThe benefits of exclusive breast milk feeding and the risk of adding formula have been discussed with patient / mother. Discussion Date / [id number]-Pae-4248 08:26 General Health: Current Weight in gcd075.9 pound(s) Current Weight in kg77.1 kilogram(s) Weight Methodstated Pre Weight (lb)145 pound(s) Total Weight Gain (lb)24 pound(s) Height in feet5 feet Height in inches5 inch(es) Height in cm165.1 centimeter(s) Height Methodstated BMI (kg/m2)28.285 square meter Patient or Family Member Reaction to Anesthesiano previous reaction; no previous family member reaction Blood Avoidance/Restrictionsno ne(1) Previous Transfusion Reactionno(1) [facility] Based Care: How would you like to participate in your carekeep me informed What is the number one concern for you during this hospitalizationhealthy mom, healthy baby What is the most important thing we can do to support you during this hospitalizationpain control Is there anything we need to know to best care for youno Substance: Current or Former Substance Use never: Cigarette/Tobacco(1), e-Cigarette/Vaping(1), Alcohol(1) YES: Street Drugs(1) Health Mgmt: Symptoms/Conditions Managed at Homehematologic Hematologic Symptoms/Conditionsanemi a Hematologic Management Strategiesmedication therapy Hematologic Managementmanaged Barriers to Managing Healthnone Relationship/Environ: Primary Source of Support/Comfortspouse Lives Withspouse Living Arrangementsapartment Resource/Environmental Concernsnone Anticipated Transition [place] [facility] Anticipated at Transitionnone Information Review: Allergies, Home Meds and Significant Events have been Reviewed and Verified with Patient/Familyyes ALLERGY, INTOLERANCE, ADVERSE EVENT: Allergies: No Known Allergies: Active Intolerances: Imitrex: Drug, Headaches, Active Electronic Signatures: Alie Thomson (TIM) (Signed 12-Jun-2020 08:28) Authored: Profile, Additional Information Last Updated: 12-Jun-2020 08:28 by Alie Thomson (TIM) References: 1. Data Referenced From Triage Note - OB v3 13-May-2020 19:15 Normal [facility] SYPHILIS SCREENING WITH REFL EXon 06-12-2020 SYPHILIS TOTAL AB NONREACTIVE Normal NONREACTIVE [facility] Comment on above: Result Comment: No s ignificant level of Treponema pallidum antibody detected. Repeat testing in 2 to 4 weeks may be considered if early infection or incubating syphilis infection is suspected. Performed By: #### S YPHR ####[id number] [place] [address] Lab Specimen Source Normal [facility] Comment on above: Performed By: #### S YPHR ####[id number] [place] [address] TOTAL PROTEIN, URINE SPOTon 06-12-2020 CREATININE,URINE 23.6 mg/dL Normal 20.0 - 320.0 [facility] Comment on above: Performed By: #### T PS2 ####[id number] [place] [address] T. PROTEIN/CREAT RATIO SEE COMMENT Normal 0.00 - 0.17 [facility] Comment on above: Result Comment: One or more analytes used in this calculation is outside of the analytical measurement range. Calculation cannot be performed. Performed By: #### T PS2 ####[id number] [address] TOTAL PROT,URINE SPOT <4 Low 5 - 24 [facility] Comment on above: Performed By: #### T PS2 ####[id number] [address] TYPE + SCREENon 06-12-2020 ABO TYPE A Normal [facility] Comment on above: Performed By: #### T +S ####[id number] [address] RH TYPE Positive Normal [facility] Comment on above: Performed By: #### T +S ####[id number] [place] [address] URIC ACIDon 06-12-2020 Urate [Mass/Vol] 4.9 mg/dL Normal 2.3 - 6.7 [facility] Comment on above: Result Comment: Loraine puncture immediately after or during the administration of Metamizole may lead to falsely low results. Testing should be performed immediately prior to Metamizole dosing. Performed By: #### U EMILIA ####[id number] [address] Clinical Event Note-Maternal Medicine Plan of Careon 06-03-2020 Clinical Event Note-Maternal Medicine Plan of Care Clinical Event: Clinical Event Note: TopicMaternal Medicine Plan of Care Details MFM Plan of Care: IUGR, club foot, persistent LSVC --> code:1: non-urgent peds cardiology consult prior to discharge or within 1-2 weeks if delivered at an outside hospital; peds ortho consult as needed EDC 06/27/2020 Electronic Signatures: Palmira Hartley (ROUTE MANAGER-CNM) (Signed 03-Jun-2020 11:19) Authored: Clinical Event Last Updated: 03-Jun-2020 11:19 by Palmira Hartley (ROUTE MANAGER-CNM) Normal [facility] Echocardiogram - PEDSo n 05-31-2020 Echocardiogram - PEDS [facility] Main Pediatric Echo/ Lab [id number] [place] [address], [address] [place] [address] Patient Name: MICHELLE DOSHI Study Location: [facility] Main Study Date: 05/31/2020 Study Type: Echocardiogram - PEDS MRN/PID: [id number] Date of : 1990 Height/Weight: 165.00 cm / 76.20 kg Age: 29 years BSA: 1.84 m2 Gender: F Blood Pressure: 156 / 88 mmHg Reading Physician: Blair Nieto MD Requested By: Fransisca Martins CC: Fax Report: SILVIA JOSÉ MD Avionics Engineer: Cynthia Garcia RDCS, AE, PE, FE -------- Diagnosis/ICD: O35.1EE7-Gublsxki care for other (suspected) abnormality and damage: not applicable or unspecified Indication: 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 Procedure/CPT: Echo-49989; Echo Doppler, Complete-13309; Echo Doppler Color Mapping (Add On)-85797 Complete echocardiogram examination with two-dimensional imaging, M-mode, color-Doppler, and spectral Doppler was performed. Study Information: The images were of adequate diagnostic quality. Patient Background: Patient presents with a previous history of 3 ,2 para. -------- Summary for Fetus 1. 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 2. Tortuous ductus arteriosus. Today's echocardiogram demonstrated a persistent left superior vena cava and a tortuous ductus arteriosus. This cardiac anomaly is not expected to cause hemodynamic instability in the period. No changes were made to current delivery plan. Triage code 1: Delivery per OB at patient's preferred hospital. Standard care per team. Cardiology evaluation prior to discharge if born at [facility] or as an outpatient within 1-2 weeks if born at an outside facility. The measurements of the tricuspid valve, mitral valve, pulmonary valve and aortic valve are all within normal based on z-scores (Ultrasound Obstet Gynecol. 2005 Nov; 26(6):599-605). TRIAGE CODE: 1. -------- Last Menstrual Period (LMP): 09/23/2019 Assigned Est Delivery Date (CARRIE): 06/29/2020 Assigned Mentrual Age (MA): 35w6d Assigned dates based on: LMP BIOMETRY: Fetus Age and Weight BPD: 8.44 cm BPD MA: 34w0d HC: 29.20 cm HC MA: 32w1d AC: 26.10 cm AC MA: 30w2d FL: 6.93 cm FL MA: 35w4d EFW: 1952 g -------- Findings for Fetus Morphologic Findings: The fetus was in the breech position with the spine up. There is a 3 vessel umbilical cord. No hydrops. Doppler Flow Findings: Flow in the umbilical artery is normal. Flow in the umbilical vein is normal. Flow in the ductus venosus is normal. The flow pattern accross the aortic valve is normal. The flow pattern accross the pulmonary valve is normal. The interatrial septum shunts right to left. The interatrial flow is unrestrictive. Heart Rate and Rhythm: Normal heart rate. There is 1:1 atrioventricular conduction. No ectopy or arrhythmia seen. The heart rate is 144-153 bpm. Segmental Anatomy and Cardiac Position: {S,D,S}. The heart position is within the left hemithorax. Veins and Atria: The superior vena cava is right-sided and drains normally to the right atrium. A left superior vena cava drains to the coronary sinus. There are bilateral superior vena cava without a bridging vein. The inferior vena cava is right-sided and inserts into the right atrium normally. At least one pulmonary vein on each side drains to the left atrium. There is a patent foramen ovale with right to left shunting. The atrial shunting is unrestrictive. The right atrium is normal in size. The left atrium is normal in size. AV Canal: The mitral valve is normal in caliber without stenosis or regurgitation. The tricuspid valve has trivial regurgitation. There is no evidence of tricuspid valve stenosis. The crux of the heart is normal. Ventricles: The left ventricular size and function are qualitatively normal. The right ventricular size and function are qualitatively normal. There is no evidence of ventricular septal defect. Conotruncal Anatomy: Normal conotruncal anatomy. There is no left ventricular outflow tract obstruction. The aortic valve is normal. Normal aortic valve Doppler pattern. There is no right ventricular outflow tract obstruction. The pulmonary valve is normal. Normal pulmonary valve Doppler pattern. Great Arteries: There is no evidence of coarctation of the aorta. The ascending aorta is normal. There is a left aortic arch. There is normal Doppler pattern in the aorta. The branch pulmonary arteries appear normal. The ductal arch is patent with normal antegrade flow. Tortuous ductus arteriosus. Percardium: There is no pericardial effusion. Pleural Space: There is no evidence of pleural effusion. Other: The cardiac thoracic ratio is normal. -------- Cardiac Data for Fetus 2-Dimensional: Z-Score AoV annulus, s: 0.59 cm -1.52 Ao asc, s: 0.52 cm Ao isthmus, s: 0.44 cm -1.10 PulmV annulus, s: 0.97 cm 1.15 MPA, s: 0.99 cm 0.31 MV annulus, d (4C): 0.93 cm -1.12 TV annulus, d (4C): 1.15 cm -0.15 -------- Time out was performed prior to the echocardiogram. The patient was identified by name, medical record number and date of . Blair Nieto MD *Electronically signed on 05/31/2020 at 2:22:39 PM cc: SILVIA JOSÉ MD Final Normal [facility] Consult (Peds Cardi ology)on 05-31-2020 Consult (Peds Cardiology) Diagnoses/Problems Assessed Abnormal echocardiogram affecting antepartum care of mother (655.83) (O35.8XX0) Hepatitis-C (070.70) (B19.20) History of Intrahepatic cholestasis of (646.70,576.8) (O26.619,K83.1) History of Cholecystectomy Laparoscopic History of Renal Lithotripsy stent placement then lithtripsy History of Tonsillectomy 1997 No pertinent family history : Daughter Former smoker (V15.82) (Z87.891) Orders SocHx: Former smoker Tobacco Use Screening; Status:Complete; Done: [id number] Patient Discussion/Summary Please see provided handout. Provider Impressions In summary, MICHELLE is a 29 kscs-jllb-lao woman, currently 36 1/7 weeks gestation, who had a echocardiogram at today's visit that showed a persistent left superior vena cava. Therefore, we did not make any changes to her current delivery plan. We did not prescribe any medications. We did not recommend intervention. As always, we recommend a heart healthy lifestyle. Level of Care code: 1 . This cardiac anomaly is not expected to cause hemodynamic instability in the period. Delivery per OB at patient?s preferred hospital. Standard care per team. Cardiology evaluation prior to discharge if born at [facility] or as an outpatient within 1-2 weeks if born at an outside facility. Chief Complaint MICHELLE DOSHI is here for an initial evaluation. Reason for Visit: Suspected anomaly. History of Present Illness I had the pleasure of seeing MICHELLE in Pediatric Cardiology consultation at our [facility] at [facility] as part of our heart program for recent obstetrical ultrasound demonstrating a persistent left superior vena cava and a tortuous PA. She is a 29 year year-old G3, P2 woman, currently 36 1/7 weeks gestation. Her last menstrual period was September,. Estimated date of delivery is June 27, 2020. There have been no complications. She has not been hospitalized during this . She had a NIPT, which was normal. She had a second trimester ultrasound which was normal. Her previous obstetrical history is significant for 2 full term deliveries. Her past medical history is significant for hepatitis C. She has no history of congenital heart disease, arrhythmia, cardiomyopathy, hypercholesterolemia, hypertension, diabetes, rheumatic heart disease, cancer, asthma, lupus, Sjogren syndrome, clotting disorder, depression, anxiety, alcohol abuse, phenylketonuria, or DiGeorge. She has had a tonsillectomy, cholecystectomy, and lithotripsy. She takes iron as well as Tylenol as needed. She is allergic to Imitrex and Toradol. She is currently taking vitamins. Her family history is negative for congenital heart disease, early atherosclerosis, sudden cardiac , long QT syndrome, cardiomyopathy, aortic aneurysm, or genetic or metabolic disease. FOB states that his niece was born with a cleft lip She currently lives with her significant other and 2 daughters. She is a stay at home mother. She does not smoke. She denies illicit drug use or alcohol abuse. She denies verbal, sexual, or physical abuse. Referring: Fransisca Martins MD OB History Hospital of Delivery: [facility]. 's Physician: Dr. Renteria. Father of Baby: Joseph. Prior pregnancies: : 3. Para: 2 (full-term) and 2 (living). Menstrual history: LMP: the LMP was approximately 11/19 month(s) ago. Past Pregnancies: Active Problems Problems 20 weeks gestation of (V22.2) (Z3A.20) Abnormal echocardiogram affecting antepartum care of mother (655.83) (O35.8XX0) Anxiety and depression (300.00,311) (F41.9,F32.9) Anxiety during , antepartum (648.43,300.00) (O99.340,F41.9) Chronic hepatitis C complicating , antepartum (647.63,070.54) (O98.419,B18.2) Club foot, , affecting care of mother, antepartum (655.83) (O35.8XX0) GERD (gastroesophageal reflux disease) (530.81) (K21.9) Hepatitis-C (070.70) (B19.20) Intrauterine growth restriction (IUGR) affecting care of mother, second trimester, fetus 4 (656.53) (O36.5924) Intrauterine growth restriction affecting care of mother (656.50) (O36.5990) Marijuana use (305.20) (F12.90) 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 History of anxiety (V11.8) (Z86.59) History of attention deficit hyperactivity disorder (ADHD) (V11.8) (Z86.59) History of depression (V11.8) (Z86.59) History of migraine (V12.49) (Z86.69) History of varicella (V12.09) (Z86.19) History of Intrahepatic cholestasis of (646.70,576.8) (O26.619,K83.1) Surgical History Problems History of Cholecystectomy Laparoscopic History of Renal Lithotripsy stent placement then lithtripsy History of Tonsillectomy 1998 Family History Daughter No pertinent family history Sister Family history of kidney stones (V18.69) (Z84.1) Family history of Reflux gastritis Maternal Grandmother Family history of Anxiety Family history of asthma (V17.5) (Z82.5) Family history of depression (V17.0) (Z81.8) Family history of diabetes mellitus (V18.0) (Z83.3) Family history of Reflux gastritis Paternal Grandmother Family history of glaucoma (V19.11) (Z83.511) Family history of hypertension (V17.49) (Z82.49) Family history of thyroid disease (V18.19) (Z83.49) Maternal Grandfather Family history of hypertension (V17.49) (Z82.49) Paternal Grandfather Family history of hypertension (V17.49) (Z82.49) Social History Problems Current every day smoker (305.1) (F17.200) Former smoker (V15.82) (Z87.891) History of alcohol use unknown History of heroin use (305.53) (Z87.898) Marijuana use (305.20) (F12.90) No alcohol use No illicit drug use Allergies Medication Imitrex Updated By: Kelly Ch; 04/27/2018 4:23:10 PM Dizziness, lightheadedness Toradol Other; Updated By: Kelly Ch; 04/27/2018 4:23:10 PM Recommended to avoid toradol due to medullalry sponge kidney Current Meds Medication NameInstruction buPROPion HCl ER (XL) 150 MG Oral Tablet Extended Release 24 HourTAKE ONE TABLET BY MOUTH DAILY DIRECTED 19 Oral Tablet PriLOSEC OTC 20 MG Oral Tablet Delayed Release Vitals Vital Signs Recorded: [id number] 01:30PM Heart Hrke298 Pxjaznec367 Lpnghzqgm10 Height5 ft 5 in Nflkky388 lb BMI Kjhkxbdjwz01.96 BSA Calculated1.84 Tobacco Useb) No Fall Screeninga) No falls within the last year Results/Data A two-dimensional and Doppler echocardiogram was performed today and interpreted by me at 36 1/7 weeks gestation. The echocardiogram showed normal segmental anatomy with a persistent left superior vena cava and a tortuous ductus arteriosus. There is normal cardiac function. There is no evidence of septation defect, right or left ventricular outflow obstruction or significant valvular regurgitation. The main pulmonary artery measures within normal limits (qualitatively prominent). The heart rate was within normal limits without ectopy or arrhythmia seen. The spectral Doppler pattern across all valves, venous structures, and arterial structures was within normal limits. There is no pericardial effusion. Please see full report for details. Time Time Spent With Patient: 60 minutes of which greater than 50 percent was spent counseling and or coordinating care. Signatures Electronically signed by : Blair Nieto MD; May 31 2020 2:25PM EST (Author) Reviewed by : Fransisca Martins MD; Jun 03 2020 9:45AM EST Reviewed by : Marleen Yo APRN-SENIOR UI DEVELOPER; Jun 13 2020 9:35PM EST Normal [employer] [facility] Daily Progress Note - OB-Tri ageon 05-14-2020 Daily Progress Note - OB-Triage Current Stage: Stage: Triage Subjective Data: Antepartum: Vaginal Bleeding: No Contractions/Abdominal Pain: No Discharge/Loss of Fluid: No Movement: Good Fevers/Chills: No Preeclampsia Symptoms: No Antepartum: 29 yo at 33.4 by LMP and early US presents for prolonged monitoring in setting of weekly BPP 6/10 in clinic for IUGR. Patient reports feeling well. Denies loss of fluid, vaginal bleeding, or contractions. Endorses good movement. Ultrasound with 2 points off BPP for lack of breathing movements, NST was non-reactive in the office. DARRON 15.9 cm. notable for: - IUGR, last growth 05/07 at 32.5 wga - EFW 1484g (1%), HC 2%, AC 1%, normal Dopplers - club foot, s/p risk-reducing NIPS, genetic counseling - Chronic hepatitis C, no prior treatment - Depression, not currently on medication - Hx of opioid use prior to - Tobacco use in , reports that she quit OBHx: 2011 full-term , 6 lbs 13 oz 2017 full-term , 6 lbs 10 oz, c/b cholestasis GynHx: No hx of STI, no hx of abnl pap MedHx: Depression, chronic hepatitis C, hx of opioid use SurgHx: Laparoscopic cholecystectomy (2017), lithotripsy and ureteral stent placement (2015) Meds: PNV, iron Allergies: NKDA SocHx: Quit smoking, no EtOH or drugs Objective Information: Objective Information: T PRBPSpO2 Value36.51435002/6696% Date/Time05/13 19: 22: 19: 21:5305/13 22:06 Range(36.8C - 36.8C ) (88 - 106 ) (18 - 18 ) (112 - 141 )/ (66 - 88 ) (93% - 99% ) Physical Exam: Constitutional: Alert, oriented Eyes: Pupils equal, sclerae clear ENMT: Moist mucous membranes Head/Neck: Neck supple, no thyromegaly Respiratory/Thorax: Normal respiratory effort on room air Gastrointestinal: Soft, gravid, nontender Extremities: No edema, erythema, or tenderness of BLE Neurological: No gross deficits Psychological: Appropriate affect Skin: No rashes or lesions Testing: NST Interpretation - Baby A: Baseline JIM105 Variabilitymoderate (amplitude range 6 to 25 bpm) InterpretationReactive (2 15x15 accels) Accelerationspresent Decelerationsabsent Assessment and Plan: Assessment: 29 yo at 33.4 by LMP and early US presents for prolonged monitoring in setting of weekly BPP 6/10 in clinic for IUGR. Prolonged monitoring for BPP 6/10 - Monitored x 2.5 hrs, reactive, no decelerations - No OB complaints - Close follow-up scheduled - Provided return precautions Mild range blood pressure x1 - On chart review, patient has had a mild range blood pressure outside of , likely undiagnosed cHTN - No symptoms of pre-eclampsia - For follow-up outpatient d/w Dr. Gayle Galarza MD, PGY-3 Vocera Signature/Cosignature/At testation: Note Completion: I am a: Resident/Fellow Attending AttestationI saw and evaluated the patient. I personally obtained the castro and critical portions of the history and physical exam or was physically present for castro and critical portions performed by the resident/fellow. I reviewed the resident/fellows documentation and discussed the patient with the resident/fellow. I agree with the resident/fellows medical decision making as documented in the note. I personally evaluated the patient [id number] Electronic Signatures: Michelle Paulino (Resident)) (Signed 15-May-2020 04:32) Authored: Signature/Cosignature/At testation Co-Signer: Current Stage, Subjective Data, Objective Data, Testing, Assessment and Plan, Signature/Cosignature/At testation Farzaneh Galarza (Resident)) (Signed 14-May-2020 08:21) Authored: Current Stage, Subjective Data, Objective Data, Testing, Assessment and Plan, Signature/Cosignature/At testation Anabella Mcnally) (Signed 29-May-2020 09:48) Authored: Signature/Cosignature/At testation Co-Signer: Signature/Cosignature/At testation Last Updated: 29-May-2020 09:48 by Anabella Mcnally) Normal [facility] Discharge [id number] Discharge Profile2 Discharge Orders: Anticipated Discharge Date: Anticipated Discharge [id number] Antepartum: Call Provider If: - New onset of vaginal bleeding. - Temperature greater than 100.4 degrees Fahrenheit. - Signs of Depression. Examples include: 1. Persistent sadness 2. Frequent crying 3. Sleep problems 4. Excessive worrying 5. Feeling unable to cope. - Any noticeable change in baby kicks or movement. - Any leakage of fluid. Follow-Up - OB Provider: Physician/Dept/ServiceOB Provider Call to Schedule in1 week Provider FINAL REVIEW of Orders: Final Review: Final Review of Medication Reconciliation and Orders Completedby Physician Reviewing ProviderSdot Galarza MD (Resident) at 13-May-2020 22:19:02 Electronic Signatures: Farzaneh Galarza (Resident)) (Signed 13-May-2020 22:19) Authored: Discharge Orders, Antepartum, Provider FINAL REVIEW of Orders, Gold Form - Job Setter Summary Last Updated: 13-May-2020 22:19 by Farzaneh Galarza (Resident)) Normal [facility] Risk Screen - OB Triageon Risk Screen - OB Triage Allergies: Allergies: Allergies: No Known Allergies: Patient Verification: Patient Verification: New W ID Band Applied in my Departmentyes Patient Identity Verified Bypatient ID Band FULL Name, include Middle, spelling matches patient's ID used for verificationyes ID Band Matches Patient ID used for Verficationyes ID Band MRN Matches EMR MRNyes Travel History: Travel History: COVID-19 Screening Completedno exposure or symptoms Advance Directives: Advance Directive: Advance Directive/DNRno Advance Directive Information Givenpatient/family declined Falls Risk: [facility]ger Fall Screen (Manager Desktop Areas Only): History of falling (immediate or previous)no (0) Secondary Diagnosisyes (15) Intravenous Therapy/ Heparin/Saline Lockno (0 Gait/Transferringnormal/ bedrest/wheelchair (0) Ambulatory Aidsnone/bedrest/nurse assist (0) Mental Statusoriented to own ability (0) Score: Low risk (<24). Moderate risk (24 - 44). High risk (>45).15 Barger Interventions*patient oriented to surroundings and call system, * patient/family falls education completed and documented, *patients fall status communicated during bedside handoff, *whiteboard updated, *mode of toileting discussed with patient, *bed in low position with brakes locked, *call light in reach, * non-skid footwear Family Violence: Abuse Screen: Are you or have you been threatened or abused physically, emotionally, or sexually by anyoneno Do you feel UNSAFE going back to the place where you are livingno Clinical assessment: Are there any apparent signs of injuries/behaviors that could be related to abuse/neglectno Learning Assessment (Patient): Learning Assessment (Patient): Patient is Able to be Assessed for Learningyes Factors Influencing Readiness to Learnanxiety Factors that Impact Ability to Learnnone Devices/Methods Used to Communicatenone Learning Preferenceswritten material; verbal instruction Cultural Considerationsnone Developmental Considerationsnone Zoroastrianism Considerationsnone Learning Assessment (Other Learner): Other learner availableno Suicide/Depression: Suicide/Depression Screen: During the past month, have you often been bothered by feeling down, depressed or hopelessno During the past month, have you often had little interest or pleasure in doing thingsno Have you had any thoughts of harming yourselfno Have you had any thoughts of harming anyone elseno Electronic Signatures: Zane Cardona (STAFF N) (Signed 13-May-2020 19:19) Authored: Allergies, Patient Verification, Travel History, Advance Directives, Falls Risk, Family Violence, Learning Assessment (Patient), Learning Assessment (Other Learner), Suicide/Depression Last Updated: 13-May-2020 19:19 by Zane Cardona (STAFF N) Normal [facility] Dx Prenatalon 04-01-2020 Dx The document you are trying to view is stored as a scanned image and cannot be viewed with the PDA Document Viewer. Normal [email or web address] Genetics - [facility]Mon Genetics - MFM Diagnoses/Problems Assessed Intrauterine growth restriction affecting care of mother (656.50) (O36.5990) Intrauterine growth restriction (IUGR) affecting care of mother, second trimester, fetus 4 (656.53) (O36.5924) Club foot, , affecting care of mother, antepartum (655.83) (O35.8XX0) Provider Impressions Thank you for the referral of Michelle Ludy. She is a 29 year old, , female who was 27-4/7 weeks at the time of our appointment with an EDC of June 27, 2020. She was referred for genetic counseling due to growth restriction and club foot. Counseling provided by genetic counselor was done via telephone. Patient was seen in person by attending physician. PAST HISTORY: Patient is followed by maternal medicine and has a history of hepatitis C and mildly elevated liver enzymes associated with history of heroin use, cholestasis in her last , recurrent kidney stones and medullary sponge kidney, and also has anxiety and depression and recently quit smoking a few weeks ago. She had negative cell free DNA screening for common aneuploidies via [facility] Innatal screen drawn through her primary OBs office; unclear if she also had carrier screening performed. Ultrasound study at [facility] at 13-4/7 weeks' gestation was consistent with LMP dating. Initial ultrasound in our institution was performed at 20-1/7 weeks' gestation which noted a 12 day growth lag with estimated weight at the 1st percentile. Follow-up growth ultrasound at 23-1/7 weeks gestation noted appropriate interval growth with an 11 day growth lag and EFW at the 3rd percentile. Growth ultrasound at 26-4/7 weeks' gestation had decreased interval growth with 15 day growth lag and EFW at less than the 1st percentile. Fetus also known to have unilateral clubfoot, identified on initial anatomy ultrasound. FAMILY HISTORY Medical and family histories were reviewed and the following concerns regarding this were apparent. -Father of the baby reportedly also had clubfoot -Couple has 2 other children weighing 6#13oz and 6#10oz at , delivered at 40 weeks and 37 weeks respectively. -FOB has 2 year old niece with isolated cleft lip The remainder of the family history was negative for defects, mental retardation, recurrent loss, or recognized inherited conditions. Consanguinity denied. ETHNICITY: Patient: Citizen Of [place], [place], [place] Citizen Patient's partner: COUNSELING: The following information was discussed with your patient: 1.Intrauterine growth restriction (IUGR) may be due to placental abnormalities/insufficie ncy, drug and alcohol exposure, congenital infection, or a genetic condition. Multiple genetic conditions may result in IUGR including single gene conditions as well as chromosome abnormalities. In addition, poor outcomes that may lead to intrauterine demise are also associated with IUGR. Serial evaluation of growth combined with Doppler evaluation is recommended to monitor the . 2.Club foot is most often associated with multifactorial causes, in which there is a contribution of both genetic and environmental factors. This is the most likely mode of inheritance, as father of the baby also has club foot. Recurrence risk for club foot is approximately 3%. 3.Club foot may also be seen as part of over 200 genetic or sporadic multiple malformation syndromes. These genetic conditions include chromosomal and single gene disorders. When related to a genetic condition, the brain, face, heart and kidneys may be affected in addition to the feet. Clubbed feet may also occur secondary to a muscle or central nervous system ([employer]OKER) disorder or even brain malformation or neural tube defect, which may or may not be part of a specific genetic disorder or multiple malformation syndrome. The ultrasound did not reveal any other anomalies known to be associated with club foot, including a normal brain and spine; however, ultrasound is not 100% sensitive and does not provide information about neurological function. 4. As fetus has both club foot and growth restriction, it is possible that both concerns are associated with one underlying genetic disorder; however as there is an affected family member with club foot, we discussed that in this situation the two findings may be unrelated. This does not rule out the possibility of an underlying genetic cause for the growth restriction. 5.Patient has already had negative cell free DNA screening for the most common aneuploidies. The methods, benefits, limitations, and results of the screening tests were reviewed. Additional noninvasive cell free DNA screening is available via the [employer] test; which is a more comprehensive screening test which can evaluate for chromos Normal [email or web address] sUltrasoundon 04-01-2020 sUltrasound The document you are trying to view is stored as a scanned image and cannot be viewed with the PDA Document Viewer. Normal [facility] sUltrasoundon 03-25-2020 sUltrasound The document you are trying to view is stored as a scanned image and cannot be viewed with the PDA Document Viewer. Normal [email or web address] EMPLOYEE COMMUNICATIONS COORDINATOR - Office Visiton 01-15 EMPLOYEE COMMUNICATIONS COORDINATOR - Office Visit Chief Complaint Seen at the request of Dr. José for Hep C, history of meullary sponge kidney, smoking, anxiety in . History of Present Illness Michelle is a 29 year old at 20+1 weeks gestation who presents for an M consult. She has a history of chronic Hep C with mildly elevated LFTs. 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 She has not had a kidney stone or UTI in at least a year. She has anxiety/depression and ADHD, current not on medication. She does not feel she is doing well and has been very anxious. She smokes a few cigarettes a day. 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 She has had two prior full term vaginal deliveries, with cholestasis of in her last one. 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 History of anxiety (V11.8) (Z86.59) History of attention deficit hyperactivity disorder (ADHD) (V11.8) (Z86.59) History of depression (V11.8) (Z86.59) History of migraine (V12.49) (Z86.69) History of varicella (V12.09) (Z86.19) History of Intrahepatic cholestasis of (646.70,576.8) (O26.619,K83.1) Surgical History History of Cholecystectomy Laparoscopic History of Renal Lithotripsy stent placement then lithtripsy History of Tonsillectomy 1997 Family History Family history of kidney stones (V18.69) (Z84.1) Family history of Reflux gastritis Family history of Anxiety Family history of asthma (V17.5) (Z82.5) Family history of depression (V17.0) (Z81.8) Family history of diabetes mellitus (V18.0) (Z83.3) Family history of Reflux gastritis Family history of glaucoma (V19.11) (Z83.511) Family history of hypertension (V17.49) (Z82.49) Family history of thyroid disease (V18.19) (Z83.49) Family history of hypertension (V17.49) (Z82.49) Family history of hypertension (V17.49) (Z82.49) Social History Current every day smoker (305.1) (F17.200) History of alcohol use unknown History of heroin use (305.53) (Z87.898) Marijuana use (305.20) (F12.90) No alcohol use No illicit drug use Allergies Imitrex Updated By: Kelly Ch; 04/27/2018 4:23:10 PM Dizziness, lightheadedness Toradol Other; Updated By: Kelly Ch; 04/27/2018 4:23:10 PM Recommended to avoid toradol due to medullalry sponge kidney Current Meds 19 Oral Tablet; Therapy: 27Apr2018 to Recorded Dispense: 0 Days ; #: Sufficient Tablet; Refill: 0; MARIELENA = N; Record; Last Updated By: Filipe Tillman; 04/27/2018 2:59:28 PM PriLOSEC OTC 20 MG Oral Tablet Delayed Release; Therapy: (Recorded:[id number]) to Recorded Dispense: 0 Days ; #: Sufficient; Refill: 0; MARIELENA = N; Record; Last Updated By: Kelly Ch; 04/27/2018 4:27:07 PM OB History 2012 - , 39 weeks, female, 6'13, uncomplicated 2018 - , 37 weeks, female, 6'10, ICP Diagnoses/Problems Chronic hepatitis C complicating , antepartum (647.63,070.54) (O98.419,B18.2) Tobacco use disorder affecting , antepartum (649.03) (O99.330) 20 weeks gestation of (V22.2) (Z3A.20) 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) (Q61.5) Anxiety during , antepartum (648.43,300.00) (O99.340,F41.9) History of Intrahepatic cholestasis of (646.70,576.8) (O26.619,K83.1) History of attention deficit hyperactivity disorder (ADHD) (V11.8) (Z86.59) History of Cholecystectomy Laparoscopic History of Renal Lithotripsy stent placement then lithtripsy History of Tonsillectomy 1997 Current every day smoker (305.1) (F17.200) History of heroin use (305.53) (Z87.898) No illicit drug use No alcohol use Orders Start: buPROPion HCl ER (XL) 150 MG Oral Tablet Extended Release 24 Hour (Wellbutrin XL); TAKE ONE TABLET BY MOUTH DAILY DIRECTED Rx By: Kim Marie; Dispense: 90 Days ; #:90 Tablet; Refill: 0;For: Anxiety during , antepartum; MARIELENA = N; Verified Transmission to [id number]; Last Updated By: [place]up; 02/09/2020 4:10:13 PM Tobacco Use Screening; Status:Complete; Done: 13Feb2020 Perform:Not Applicable;Ordered; For:SocHx: Current every day smoker; Ordered By:Kim Marie; Provider Impressions 29 year old at 20+1 1) She had a prior consult for Hep C in but we reviewed again. There are new treatments for Hepatitis C that are increasing the rate of cure and resolution. Unfortunately none of these are recommended for use in . We discussed that she needs to establish care with a GI/liver doctor to discuss starting treatment after and have further assessment for liver damage. We discussed the risks for cirrhosis/ESLD and hepatocellular carcinoma. We discussed Hep C in . As above, there are no recommended antiviral medications. There is a 3-10% risk for vertical transmission to the baby. She may have a higher risk if she has a high viral load (I did not see a recent one in her chart). delivery has not been shown to decrease the risk for transmission and is not routinely recommended. She is fine to have a vaginal delivery but should have a short duration of rupture of membranes (ideally no greater than 6 hours) and short second stage if possible. Invasive monitoring and operative delivery should be avoided. is OK and has not been shown to increase transmission. The baby should be evaluated by pediatrics for Hep C after the maternal antibodies have cleared from its system. It is unclear whether worsens Hepatitis C or improves its course. There are small increased risks for premature , cholestasis of , and IUGR. As she previously had cholestasis, she is at risk again in this and is aware of the risks to watch for. 2) We discussed smoking in and the increased risks for complications such as IUGR, placental abruption, delivery, stillbirth, and SIDS after . Second trimester IUGR was suspected today on her ultrasound. I recommended that she try to cut back and quit if possible. Strategies for quitting including nicotine replacement and medications such as Wellbutrin were discussed. 3) We discussed anxiety/depression in . Women who have significant mental illness that has an effect on their daily life should consider starting or continuing treatment with medication such as SSRIs or other classes of medicines as needed. Some SSRIS have reported associations with cardiac defects but the data does not show a clear risk. There is a small risk for withdrawal after exposure in the third trimester. The benefits of treatment to the mother should be weighed against these risks to the baby and she can decide whether or not she would want to take medication. She can also consider counseling and/or therapy if needed. She has taken Wellbutrin before and it worked fairly well for her. Since it also helps with quitting smoking, she asked for a prescription today and I sent it to her pharmacy. 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 Most of the time this has a good [facility] prognosis and should not be negatively affected by . She had normal kidney function (creatinine 0.6) and has not had any recent stones or UTIs. Would do a creatinine for renal function and a urine culture every trimester to check for UTI. 5) We discussed the ultrasound findings from today. 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 She had risk reducing NIPS. Club foot, when isolated, is not usually part of a genetic or chromosomal syndrome. The risk of a rare genetic syndrome is probably slightly increased with IUGR as well as club foot. IUGR may be idiopathic, genetic, infectious, chromosomal, or related to maternal exposure. A growth ultrasound was rescheduled. If IUGR persists, genetic counseling is recommended. All questions were answered. Thank you for the referral. Signatures Electronically signed by : Kim Marie MD; Feb 13 2020 1:14PM EST (Author) Normal [facility] Vital Signs Date Time Vital Sign Value Performing Clinician Faci lity 07-27-2025 20:25-0400 Body temperature 98 [degF] [facility] Work Phone: 7(107)105-348329 [address] 07-27-2025 20:25-0400 Diastolic blood pressure 57 mm[Hg] [facility] Work Phone: 7(331)388-327629 [address] 07-27-2025 20:25-0400 Heart rate 74 /min [facility] Work Phone: 3(968)458-824629 [address] 07-27-2025 20:25-0400 Respiratory rate 18 /min [facility] Work Phone: 4(498)030-166826 [place] [address] 07-27-2025 20:25-0400 SaO2% (BldA) [Mass fraction] 99 % [facility] Work Phone: 1(417)675-144526 [place] [address] 07-27-2025 20:25-0400 Systolic blood pressure 103 mm[Hg] [facility] Work Phone: 8(018)200-082126 [place] [address] 07-27-2025 16:39-0400 Body mass index (BMI) [Ratio] 24.3 kg/m2 [facility] Work Phone: 3(754)653-613926 [place] [address] 07-27-2025 16:39-0400 Body weight 64.3 kg [facility] Work Phone: 4(458)011-891857 [place] [address] 07-27-2025 14:55-0400 Body height 162.56 cm [facility] Work Phone: 4(332)293-002657 [place] [address] 07-26-2025 08:11-0400 Body temperature 98.1 [degF] [facility] Work Phone: 8(820)921-395757 [place] [address] 07-26-2025 08:11-0400 Diastolic blood pressure 79 mm[Hg] [facility] Work Phone: 0(807)119-847157 [place] [address] 07-26-2025 08:11-0400 Heart rate 74 /min [facility] Work Phone: 5(711)182-544257 [place] [address] 07-26-2025 08:11-0400 Respiratory rate 18 /min [facility] Work Phone: 8(453)762-867157 [place] [address] 07-26-2025 08:11-0400 SaO2% (BldA) [Mass fraction] 100 % [facility] Work Phone: 7(300)339-440657 [place] [address] 07-26-2025 08:11-0400 Systolic blood pressure 112 mm[Hg] [facility] Work Phone: 5(474)881-314957 [place] [address] 07-25-2025 05:12-0400 Body temperature 98.2 [degF] [facility] Work Phone: 6(381)588-154857 [place] [address] 07-25-2025 05:12-0400 Diastolic blood pressure 78 mm[Hg] [facility] Work Phone: 7(888)554-535057 [place] [address] 07-25-2025 05:12-0400 Heart rate 81 /min [facility] Work Phone: 5(400)230-434057 [place] [address] 07-25-2025 05:12-0400 Respiratory rate 17 /min [facility] Work Phone: 0(291)043-053057 [place] [address] 07-25-2025 05:12-0400 SaO2% (BldA) [Mass fraction] 97 % [facility] Work Phone: 2(094)777-859157 [place] [address] 07-25-2025 05:12-0400 Systolic blood pressure 127 mm[Hg] [facility] Work Phone: 4(675)817-502657 [place] [address] 07-24-2025 18:33-0400 Body height 162.56 cm [facility] Work Phone: 9(760)620-516257 [place] [address] 07-24-2025 18:33-0400 Body mass index (BMI) [Ratio] 24.5 kg/m2 [facility] Work Phone: 9(931)483-319257 [place] [address] 07-24-2025 18:33-0400 Body weight 64.72 kg [facility] Work Phone: 2(396)988-519057 [place] [address] 07-24-2025 18:24-0400 Body temperature 98.6 [degF] [facility] Work Phone: 4(673)420-481657 [place] [address] 07-24-2025 18:24-0400 Diastolic blood pressure 64 mm[Hg] [facility] Work Phone: 3(802)340-687057 [place] [address] 07-24-2025 18:24-0400 Heart rate 70 /min [facility] Work Phone: 2(684)577-024157 [place] [address] 07-24-2025 18:24-0400 Respiratory rate 16 /min [facility] Work Phone: 9(129)879-295357 [place] [address] 07-24-2025 18:24-0400 SaO2% (BldA) [Mass fraction] 99 % [facility] Work Phone: 6(560)300-828057 [place] [address] 07-24-2025 18:24-0400 Systolic blood pressure 110 mm[Hg] [facility] Work Phone: 2(262)878-953957 [place] [address] 07-24-2025 11:58-0400 Body height 165.1 cm [facility] Work Phone: 3(955)937-149557 [place] [address] 07-24-2025 11:58-0400 Body mass index (BMI) [Ratio] 21.2 kg/m2 [facility] Work Phone: 6(076)147-136057 [place] [address] 07-24-2025 11:58-0400 Body weight 57.83 kg [facility] Work Phone: 4(407)780-868657 [place] [address] 03-14-2024 20:00-0400 Body temperature 98 [degF] [facility] 03-14-2024 20:00-0400 Diastolic blood pressure 78 mm[Hg] [facility] 03-14-2024 20:00-0400 Heart rate 65 /min [facility] 03-14-2024 20:00-0400 Respiratory rate 12 /min [facility] 03-14-2024 20:00-0400 SaO2% (BldA) [Mass fraction] 98 % [facility] 03-14-2024 20:00-0400 Systolic blood pressure 124 mm[Hg] [facility] 03-14-2024 16:26-0400 Body height 167.64 cm [facility] 03-14-2024 16:26-0400 Body mass index (BMI) [Ratio] 26 kg/m2 [facility] 03-14-2024 16:26-0400 Body weight 73.3 kg [facility] 02-16-2024 16:22-0400 Body height 167.64 cm [facility] 02-16-2024 16:22-0400 Body temperature 96.1 [degF] [facility] 02-16-2024 16:22-0400 Diastolic blood pressure 86 mm[Hg] [facility] 02-16-2024 16:22-0400 Heart rate 74 /min [facility] 02-16-2024 16:22-0400 Respiratory rate 18 /min [facility] 02-16-2024 16:22-0400 SaO2% (BldA) [Mass fraction] 98 % [facility] 02-16-2024 16:22-0400 Systolic blood pressure 153 mm[Hg] [facility] 02-08-2024 12:41-0400 Body temperature 97.6 [degF] [facility] 02-08-2024 12:41-0400 Diastolic blood pressure 78 mm[Hg] [facility] 02-08-2024 12:41-0400 Heart rate 64 /min [facility] 02-08-2024 12:41-0400 Respiratory rate 16 /min [facility] 02-08-2024 12:41-0400 SaO2% (BldA) [Mass fraction] 99 % [facility] 02-08-2024 12:41-0400 Systolic blood pressure 126 mm[Hg] [facility] 02-08-2024 10:03-0400 Body height 167.64 cm [facility] 02-08-2024 10:03-0400 Body mass index (BMI) [Ratio] 26.9 kg/m2 [facility] 02-08-2024 10:03-0400 Body weight 75.84 kg [facility] 07-07-2023 07:55-0400 Body height 167.64 cm [facility] 07-07-2023 07:55-0400 Body mass index (BMI) [Ratio] 24.2 kg/m2 [facility] 07-07-2023 07:55-0400 Body temperature 97 [degF] [facility] 07-07-2023 07:55-0400 Body weight 68.03 kg [facility] 07-07-2023 07:55-0400 Diastolic blood pressure 104 mm[Hg] [facility] 07-07-2023 07:55-0400 Heart rate 57 /min [facility] 07-07-2023 07:55-0400 Respiratory rate 14 /min [facility] 07-07-2023 07:55-0400 SaO2% (BldA) [Mass fraction] 100 % [facility] 07-07-2023 07:55-0400 Systolic blood pressure 135 mm[Hg] [facility] 04-19-2023 14:59-0400 Diastolic blood pressure 87 mm[Hg] [facility] 04-19-2023 14:59-0400 Heart rate 74 /min [facility] 04-19-2023 14:59-0400 Respiratory rate 16 /min [facility] 04-19-2023 14:59-0400 SaO2% (BldA) [Mass fraction] 99 % [facility] 04-19-2023 14:59-0400 Systolic blood pressure 120 mm[Hg] [facility] 04-19-2023 12:45-0400 Body height 167.64 cm [facility] 04-19-2023 12:45-0400 Body mass index (BMI) [Ratio] 25.9 kg/m2 [facility] 04-19-2023 12:45-0400 Body temperature 97.9 [degF] [facility] 04-19-2023 12:45-0400 Body weight 73.02 kg [facility] 04-17-2023 23:00-0400 Diastolic blood pressure 75 mm[Hg] [facility] 04-17-2023 23:00-0400 Heart rate 80 /min [facility] 04-17-2023 23:00-0400 Respiratory rate 18 /min [facility] 04-17-2023 23:00-0400 SaO2% (BldA) [Mass fraction] 98 % [facility] 04-17-2023 23:00-0400 Systolic blood pressure 138 mm[Hg] [facility] 04-17-2023 18:58-0400 Body height 167.64 cm [facility] 04-17-2023 18:58-0400 Body mass index (BMI) [Ratio] 26.4 kg/m2 [facility] 04-17-2023 18:58-0400 Body temperature 97.8 [degF] [facility] 04-17-2023 18:58-0400 Body weight 74.3 kg [facility] 12-21-2022 12:55-0500 Body height 167.64 cm [facility] 12-21-2022 12:55-0500 Body mass index (BMI) [Ratio] 27.3 kg/m2 [facility] 12-21-2022 12:55-0500 Body temperature 96.5 [degF] [facility] 12-21-2022 12:55-0500 Body weight 76.88 kg [facility] 12-21-2022 12:55-0500 Diastolic blood pressure 93 mm[Hg] [facility] 12-21-2022 12:55-0500 Heart rate 101 /min [facility] 12-21-2022 12:55-0500 Respiratory rate 18 /min [facility] 12-21-2022 12:55-0500 SaO2% (BldA) [Mass fraction] 99 % [facility] 12-21-2022 12:55-0500 Systolic blood pressure 123 mm[Hg] [facility] Encounters Encounter Date Encounter Type Care Provider Facility Start: 07-27-2025 End: 07-27-2025 Emergency department patient visit [facility] Work Phone: -Emergency Department Work Phone: Start: 07-25-2025 End: 07-26-2025 Evaluation and management of inpatient Dr. Barbara Sims MD -[facility] Work Phone: Start: 07-24-2025 Evaluation and management of inpatient Dr. Barbara Sims MD -[facility] Work Phone: Start: 07-24-2025 End: 07-24-2025 Emergency department patient visit [facility] Work Phone: -Emergency Department Work Phone: Start: 12-04-2024 End: 12-04-2024 Emergency department patient visit [facility] Facility:[facility] Start: 03-14-2024 End: 03-14-2024 Emergency department patient visit [facility]-Emergency Department Work Phone: Start: 02-16-2024 End: 02-16-2024 Emergency department patient visit [facility]-Emergency Department Work Phone: Start: 02-08-2024 End: 02-08-2024 Emergency department patient visit [facility]-Emergency Department Work Phone: Start: 07-07-2023 End: 07-07-2023 Emergency department patient visit [facility]-Emergency Department Work Phone: Start: 04-19-2023 End: 04-19-2023 Emergency department patient visit [facility]-Emergency Department Start: 04-17-2023 End: 04-18-2023 Emergency department patient visit [facility]-Emergency Department Start: 12-21-2022 End: 12-21-2022 Emergency department patient visit [facility]-Emergency Department Start: 02-09-2020 Patient encounter procedure Kim Cynthia BOSEUI-YDRID-[facility]bv[facility] Work Phone: Start: 08-05-2018 End: 08-08-2018 Evaluation and management of inpatient SILVIA JOSÉ Facility:[id number] Start: 08-02-2018 Patient encounter SILVIA JOSÉ Fa cility:[id number] Start: 08-02-2018 Patient encounter SILVIA Roberts cility:[facility] Start: 07-26-2018 Patient encounter SILVIA JOSÉ Fa cility:[facility] Start: 07-26-2018 Patient encounter SILVIA JOSÉ Fa cility:[id number] Start: 07-05-2018 Patient encounter SILVIA JOSÉ Fa cility:[facility] Start: 06-16-2018 Patient encounter SILVIA Roberts cility:[facility] Start: 06-03-2018 Patient encounter SILVIA JOSÉ Fa cility:[id number] Start: 05-12-2018 Patient encounter SILVIA Roberts cility:[facility] Start: 04-27-2018 Patient encounter procedure Kim January GZ-ILQPO-Mqhlimqpw [facility] Work Phone: Start: 04-14-2018 Patient encounter SILVIA JOSÉ Fa cility:[id number] Start: 04-05-2018 Patient encounter SILVIA JOSÉ Fa cility:[facility] Start: 04-04-2018 Patient encounter SILVIA JOSÉ Fa cility:[facility] Start: 03-29-2018 Patient encounter [address] Facility:[facility] Start: 03-21-2018 Patient encounter TAN JOSÉ Fac ility:[id number] Start: 03-10-2018 Patient encounter SILVIA JOSÉ Fa cility:[facility] Start: 03-08-2018 Patient encounter MAZEN ARVIN Facil ity:[id number] Start: 03-08-2018 Patient encounter MAZEN ARVIN Facil ity:[facility] Start: 02-18-2018 Patient encounter [address] [facility] Facility:[facility] Start: 02-17-2018 Patient encounter SILVIA JOSÉ Fa cility:[id number] Start: 02-10-2018 End: 02-11-2018 Patient encounter SILVIA JOSÉ Facility:[id number] Start: 02-10-2018 Patient encounter SILVIA Roberts cility:[facility] Procedures Date Procedure Procedure Detail Performing Clinician Start: 07-27-2025 Urnls dip stick/tabl et reagent auto microscopy [facility] Work Phone: Start: 07-27-2025 CT of head without contrast [facility] Work Phone: Start: 07-27-2025 Estimated creatinine clearance [facility] Work Phone: Start: 07-25-2025 Urine culture [facility] Work Phone: Start: 07-25-2025 Urnls dip stick/tabl et reagent auto microscopy [facility] Work Phone: Start: 07-24-2025 Estimated creatinine clearance [facility] Work Phone: Start: 07-24-2025 Transvaginal echography [facility] Work Phone: Start: 07-24-2025 Urnls dip stick/tabl et reagent auto microscopy [facility] Work Phone: Start: 07-24-2025 Computed tomography of abdomen and pelvis with intravenous contrast [facility] Work Phone: Start: 07-24-2025 Estimated creatinine clearance [facility] Work Phone: Start: 07-24-2025 Total iron binding c apacity measurement [facility] Work Phone: Start: 03-14-2024 CT of abdomen and pe lvis without contrast Start: 02-16-2024 Urine culture Start: 02-08-2024 Urine culture Start: 02-08-2024 CT of abdomen and pe lvis without contrast Start: 07-07-2023 Transvaginal echography Start: 07-07-2023 CT of abdomen and pe lvis without contrast Start: 04-17-2023 CT of abdomen and pe lvis without contrast Start: 06-12-2020 Antibody screen Comment on above: Performed By: #### T +S ####[id number] [place] [address] History of Cholecyst ectomy Laparoscopic Kim January History of Renal Lithotripsy Kim January Tonsillectomy Kim January Plan of Treatment Date Care Activity Detail Author Start: 07-27-2025 [facility] Start: 07-26-2025 Patient discharge [facility] Start: 07-25-2025 Bacteria identified in Urine by Culture Urine Culture [facility] Start: 07-25-2025 Admission procedure [facility] Start: 07-25-2025 [facility] Start: 07-25-2025 [facility] Start: 07-24-2025 End: 07-24-2025 [facility] Start: 07-24-2025 [facility] Start: 07-24-2025 Transfusion of blood product [facility] Start: 07-24-2025 Following clinical p athway protocol [facility] Start: 07-24-2025 Leukocyte reduced re d blood cells [facility] Start: 07-24-2025 End: 07-24-2025 [facility] Start: 07-24-2025 Administration of bl ood product [facility] Start: 07-24-2025 Hospital admission, emergency, from emergency room, medical nature [facility] Start: 07-24-2025 Bacteria identified in Blood by Culture Blood Culture [facility] Start: 07-24-2025 Blood culture Blood Culture [facility] Start: 02-16-2024 End: 02-16-2024 [facility] Start: 02-16-2024 Bacteria identified in Urine by Culture [facility] Start: 02-08-2024 Bacteria identified in Urine by Culture [facility] Start: 02-08-2024 End: 02-08-2024 [facility] Hematocrit [Volume F raction] of Blood [facility] Hemoglobin [Mass/vol ume] in Blood [facility] Patient Education [facility] Work Phone: Patient referral [facility] Work Phone: Urine culture [facility] Payers Date Payer Category Payer Unknown [id number] 2008 Private Health Insurance 2008 Self-pay Unknown [facility] [employer] [id number] Unknown [id number] Unknown [id number] Unknown [id number] Social History Date Type Detail Facility Start: 12-31-2020 End: 03-14-2024 Tobacco smoking status NHIS Unknown if ever smoked [facility] Start: 12-24-2020 Cigarettes [facility] Start: 1990 Sex Assigned At Female [facility] Start: 07-24-2025 End: 07-27-2025 Tobacco smoking status NHIS Never smoked tobacco (finding) [facility] Not [facility] NEGATED: Highlighted row - - HU-FUOML-Zvshmnjtu [facility] Work Phone: NEGATED: Highlighted row [facility] Goals Date Patient Goal Desired Activity /State Functional Status Date Assessment Result Facility 07-26-2025 Functional status Ambulates;Bath room Privilege [facility] Work Phone: 07-25-2025 Functional status Bathroom Privilege [facility] Work Phone: NEGATED: Highlighted row Functional performance Functional status health issues are not documented Disease [id number]-[id number]-Esozyfgnv [facility] Work Phone: Mental Status Date Assessment Result Facility 07-27-2025 Cognitive function Level Of Cons ciousness Awake;Alert;Appropriate ;Follows Commands [facility] Work Phone: 07-26-2025 Cognitive function Appropriate;Cooperativ e [facility] Work Phone: 07-24-2025 [facility]ate[facility] Work Phone: NEGATED: Highlighted row Cognitive function [Interpretation] Cognitive status health issues are not documented Disease HS-ZIVSO-Vwifgbpzh [facility] Work Phone: Clinical Notes 04-17-2023 to 07-27-2025 Note Date & Type Note Facility 07-27-2025 Radiology Diagnostic study note [facility] Services [address] [place] [address] Brain/Head without Contrast MR#: [id number] Acct: [id number] Name: MICHELLE DOSHI Rep #: [id number] : 1990 F 34 From: Braeden Gracia MD PCP: Beth Echavarria, [facility], SMT OPERATOR-C Status: REG ER Study:Brain/Head without Contrast Date of Exa m: 07/27/25 Exam# [id number] Ordering Dr: Richard Palmer DO PROCEDURE: BRAIN/HEAD WITHOUT CONTRAST N/A REASON FOR EXAM: HEADACHE. Lightheaded. Recent blood loss. Abdominal pain. TECHNIQUE: Procedure Code: CTBR Modality: CT Procedure: BRAIN/HEAD WITHOUT CONTRAST Coronal and Sagittal reconstruction series were provided. One or more dose reduction techniques were used (e.g., Automated exposure control, adjustment of the mA and/or kV according to patient size, use of iterative reconstruction technique. RADIATION DOSE SUMMARY: CTDlvol: 44.99 mGy DLP: 745.5 mGycm COMPARISON: None. FINDINGS: BRAIN: No acute intraparenchymal hemorrhage. No mass lesion. No CT evidence for acute territorial infarct. No midline shift or extra-axial collection. VENTRICLES: No hydrocephalus. ORBITS: The orbits are unremarkable. SINUSES AND MASTOIDS: Moderate right and mild left ethmoid sinus mucosal thickening. The mastoid air cells are clear. SOFT TISSUES: No acute abnormality seen. BONES: No acute osseous abnormality seen. CT/Brain/Head without Contrast IMPRESSION: No acute intracranial abnormality. Reading Location: [id number] CC: [facility] SMT OPERATOR-C Beth Echavarria; Dr. Richard Palmer DO ~ Market Research Coordinator: Signed [facility] 07-26-2025 Progress note Note Date/Time July 26, 2025 9:03am [facility] Medical Records Department [address] [place] [address] Progress Note - OBGYN 07/26/25 0900 MR#: [id number] Acct: [id number] Name: MICHELLE DOSHI Rep #:[id number] : 1990 34 From: Kira Castillo DO [facility] Location: MS3 [id number] Subjective Subjective Patient is feeling improved this morning. She denies fevers or chills. She hasbeen eating well. She denies any nausea or vomiting. She still has right flankand right back pain, but the pain has improved. She has no vaginal bleeding. She reports regular menstrual cycles with menorrhagia. She is currently sexually active. Has a tubal ligation for prevention. She is not currently on any hormonal contraception for period control. She states she has had pyelonephritis before in the past and was seeing urologist, however it has been many years since she seen the urologist. Objective Data Objective Data Vital Signs: Vital Signs Temp Pulse Resp BP Pulse Ox O2 Del Method 98.1 F 74 18 112/79 100 Room Air 07/26/25 08:11 07/26/25 08:11 07/26/25 08:11 07/26/25 08:11 07/26/25 08:11 07/26/25 08:11 Oxygen Delivery Method Room Air Weight: 142 lb 11.2 oz Body Mass Index (BMI) 24.5 Intake & Output: Intake and Output for Last 24 Hours 07/24/25 07/25/25 07/26/25 23:59 23:59 23:59 Intake Total 1065.25 / 1440.25 1706.75 / 1706.75 Output Total 100 / 100 Balance 965.25 / 1340.25 1706.75 / 1706.75 Lab / Micro Data 07/25/25 09:20 07/24/25 21:59 Labs: Laboratory Results - last 24 hr 07/25/25 09:20: Hgb 9.2 L, Hct 29.2 L Physical Exam Const alert and no apparent distress General Appearance: comfortable Resp normal respiratory effort GI soft to palpation and non-distended GI Narrative: +Minimal tenderness in RLQ. No rebounding, guarding or rigidity Back/Spine General Back: CVA tenderness right Assessment & Plan (1) Hemorrhagic cyst of right ovary: PLAN: Small and no follow up indicated at this time (2) Iron deficiency anemia: QUALIFIERS: Iron deficiency anemia type: unspecified iron deficiency Qualified Code(s): D50.9 - Iron deficiency anemia, unspecified PLAN: S/p 2 units PRBC's. PO iron (3) Anemia: QUALIFIERS: Anemia type: iron deficiency Iron deficiency anemia type: unspecified iron deficiency Qualified Code(s): D50.9 - Iron deficiency anemia, unspecified (4) Fever: QUALIFIERS: Fever type: unspecified Qualified Code(s): R50.9 - Fever, unspecified PLAN: Afebrile with last fever 07/24 at 1900 Flank pain improving S/p Lopezepmagdalena Barrowro as outpatient and follow up with urology (5) Kidney stones: (6) Menorrhagia: PLAN: Likely the cause of chronic anemia. Discussed Aygestin and Mirena IUD insertion in the office 07/26/25 09 <Electronically signed by Kira Castillo DO> Cosigner Signature (if applicable): CC: ~ Signed [facility] Work Phone: 1(749) 783-628009-11-2025 Discharge summary [facility] Medical Records Department [address] [place] [address] Instructions for Home/Discharge Instructions 07/26/25 09 MR#: [id number] Acct: [id number] Name: IMCHELLE DOSHI Rep #:[id number] : 1990 34 From: Kira Castillo DO PCP: [facility] St atus:ADM IN Discharge Instructions DC O2, CPAP, BIPAP needs Home O2 Discharge instructions: No Dressing / Incision Discharge Activity: May Drive and May Shower Weight Bearing Status: Weight bearing as tolerated Lifting Restrictions: none Dressing / Incision Call your doctor if you observe: Fever of 101 or Higher, Using more than 1 pad per hour, Shortness of breath, Dizziness, Chest pain and Uncontrolled pain Follow Up Care Please Follow Up With: Barbara Sims MD When: 1 week Test Results: Test results from this visit will be discussed in further detail at your follow- up appointment, if applicable. Discharge Plan Admission Admit Date/Time: 07/25/25 11:42 Attending Provider: Barbara Sims [facility] [place] Discharge Orders/Prescriptions Prescriptions: New ferrous sulfate 325 mg (65 mg iron) tablet 325 mg PO QODAY Qty: 90 0RF ibuprofen 600 mg tablet 600 mg PO Q6H PRN (Reason: pain) Qty: 20 0RF acetaminophen [Pain Relief (acetaminophen)] 325 mg tablet 650 mg PO Q6H PRN (Reason: pain) Qty: 20 0RF ciprofloxacin HCl [Cipro] 500 mg tablet 500 mg PO BID 7 Days Qty: 14 0RF medroxyprogesterone [Provera] 10 mg tablet 20 mg PO DAILY Qty: 60 0RF Rx Instructions: Take 20 mg PO TID until bleeding slows down. Then take 10 mg PO once daily until follow up in the office Continued ondansetron 4 MG tablet 4 mg PO Q8H PRN PRN (Reason: Nausea) Qty: 10 0RF sertraline 50 mg tablet 50 mg PO DAILY dextroamphetamine-amphetamine 20 mg tablet 0.5 tab PO BID metoclopramide HCl [Reglan] 10 mg tablet 10 mg PO Q6H PRN (Reason: nausea and vomiting) Qty: 10 0RF Referrals / [facility]Primary [facility] Provider] - Disposition Disposition (needs filled in before D/C Order can be placed): Home, Self Care 07/26/25 09Jose M Castillo DO CC: [facility] ~ Signed [facility]09-11-2025 Progress note [facility] Medical Records Department [address] [facility] [place] [address] Progress Note - OBGYN 07/26/25 0900 MR#: [id number] Acct: [id number] Name: MICHELLE DOSHI Rep #:[id number] : 1990 34 From: Kira Castillo DO PCP: [facility] St atus:ADM IN Location: MS3 [id number] Subjective Subjective Patient is feeling improved this morning. She denies fevers or chills. She hasbeen eating well. Shedenies any nausea or vomiting. She still has right flankand right back pain, but the pain has improved. She has no vaginal bleeding. She reports regular menstrual cycles with menorrhagia. She is curre ntly sexually active. Has a tubal ligation for prevention. She is not currently on any hormonal contraception for period control. She states she has had pyelonephritis before in the past and was seeing urologist, however it has been many years since she seen the urologist. Objective Data Objective Data Vital Signs: Vital Signs Temp Pulse Resp BP Pulse Ox O2 Del Method 98.1 F 74 18 112/79 100 Room Air 07/26/25 08:11 07/26/25 08:11 07/26/25 08:11 07/26/25 08:11 07/26/25 08:11 07/26/25 08:11 Oxygen Delivery Method Room Air Weight: 142 lb 11.2 oz Body Mass Index (BMI) 24.5 Intake & Output: Intake and Output for Last 24 Hours 07/24/25 07/25/25 07/26/25 23:59 23:59 23:59 Intake Total 1065.25 / 1440.25 1706.75 / 1706.75 Output Total 100 / 100 Balance 965.25 / 1340.25 1706.75 / 1706.75 Lab / Micro Data 07/25/25 09:20 07/24/25 21:59 Labs: Laboratory Results - last 24 hr 07/25/25 09:20: Hgb 9.2 L, Hct 29.2 L Physical Exam Const alert and no apparent distress General Appearance: comfortable Resp normal respiratory effort GI soft to palpation and non-distended GI Narrative: +Minimal tenderness in RLQ. No rebounding, guarding or rigidity Back/Spine General Back: CVA tenderness right Assessment & Plan (1) Hemorrhagic cyst of right ovary: PLAN: Small and no follow up indicated at this time (2) Iron deficiency anemia: QUALIFIERS: Iron deficiency anemia type: unspecified iron deficiency Qualified Code(s): D50.9 - Iron deficiency anemia, unspecified PLAN: S/p 2 units PRBC's. PO iron (3) Anemia: QUALIFIERS: Anemia type: iron deficiency Iron deficiency anemia type: unspecified iron deficiency Qualified Code(s): D50.9 - Iron deficiency anemia, unspecified (4) Fever: QUALIFIERS: Fever type: unspecified Qualified Code(s): R50.9 - Fever, unspecified PLAN: Afebrile with last fever 07/24 at 1900 Flank pain improving S/p Gurwinder Marvin as outpatient and follow up with urology (5) Kidney stones: (6) Menorrhagia: PLAN: Likely the cause of chronic anemia. Discussed Aygestin and Mirena IUD insertion in the office 07/26/25902 Cosigner Signature (if applicable): CC: ~ Signed [facility]09-10-2025 Evaluation note* Diagnosis Onset Date Resolution Status Admit Date Anemia acute July 11:42am Fever acute July 11:42am Hemorrhagic cyst of right ovary acute July 25, 2025 11:42am Iron deficiency anemia acute Se pt2024 11:42am Menorrhagia acute July 11:42am RLQ abdominal pain acute Septem 2024 11:42am Kidney stones chronic July 162024 11:42am [facility] Work Phone: 1(291) 172-736109-10-2025 Progress note Author Barbara Sims [facility] Note Date/Time July 25, 2025 7:38am [facility] Medical Records Department [address] [place] [address] Progress Note - OBGYN 07/25/25 0734 MR#: [id number] Acct: [id number] Name: MICHELLE DOSHI Rep #:[id number] : 1990 34 From: Barbara Sims MD PCP: [facility] atus:ADM IN [facility] Subjective Subjective Feeling better today. Pain better controlled. Still has pain with voiding. S/p 2units PRBCs. H/H at 0915. Last fever 1999 last night. Antibiotics q 12. Objective Data Objective Data Vital Signs: Vital Signs Temp Pulse Resp BP Pulse Ox O2 Del Method 98.2 F 81 17 127/78 H 97 Room Air 07/25/25 05:12 07/25/25 05:12 07/25/25 05:12 07/25/25 05:12 07/25/25 05:12 07/25/25 05:12 Oxygen Delivery Method Room Air Weight: 64.728 kg Body Mass Index (BMI) 24.5 Intake & Output: Intake and Output for Last 24 Hours 07/23/25 07/24/25 07/25/25 23:59 23:59 23:59 Intake Total 1065.25 / 1440.25 1375 / 1375 Output Total 100 / 100 Balance 965.25 / 1340.25 1375 / 1375 Lab / Micro Data 07/24/25 21:59 07/24/25 21:59 Labs: Laboratory Results - last 24 hr 07/24/25 12:36: WBC 7.9, RBC 3.85 L, Hgb 6.8 L, Hct 24.6 L, MCV 63.9 L, MCH 17.7L, MCHC 27.6 L, RDW Std Deviation 39.2, RDW Coeff of Gregoria 17.4 H, Plt Count 484 H, MPV 8.4, Immature Gran % (Auto) 0.300, Neut % (Auto) 83.9 H, Lymph % (Auto) 3.4 L, [place] % (Auto) 10.2 H, Eos % (Auto) 1.4, Baso % (Auto) 0.8, Absolute Neuts(auto) 6.6, Absolute Lymphs (auto) 0.27 L, Nucleated RBC % 0, Sodium 135, Potassium 4.7, Chloride 100, Carbon Dioxide 24.5, Anion Gap 10, BUN 15, Creatinine 0.65 L, Estim Creat Clear Calc 110.77, Est GFR (MDRD) Non-Af 119, BUN/Creatinine Ratio 22.6 H, Glucose 91, Calcium 9.3, Iron 18 L, TIBC 637 H, IronSaturation 2.8 L, Unsaturated IBC 619 H, Ferritin 5 L, Total Bilirubin 0.19, AST64 H, ALT 61 H, Alkaline Phosphatase 39, Total Protein 7.5, Albumin 4.4, Globulin 3.1, Albumin/Globulin Ratio 1.4, Serum , Qual NEGATIVE 07/24/25 14:39: Lactic Acid 1.5 07/24/25 15:20: Urine Color Straw, Urine Clarity Sl. Cloudy, Urine pH 7.0, Ur Specific [place] 1.010, Urine Protein 15 H, Urine Glucose (UA) Normal, Urine Ketones Negative, Urine Occult Blood Negative, Urine Nitrite Negative, Urine Bilirubin Negative, Urine Urobilinogen Normal, Ur Leukocyte Esterase Negative, Urine RBC 0 SEEN, Urine WBC 0-5 SEEN, Ur Squamous Epith Cells 0-5 SEEN, Calcium Oxalate Crystal 1+, Urine Bacteria 0 SEEN, Urine Mucus 0 SEEN 07/24/25 17:06: Hgb 5.5 L*, Hct 19.6 L 07/24/25 18:16: Blood Type A POSITIVE, Antibody Screen NEGATIVE, Crossmatch See Detail 07/24/25 21:59: WBC 7.4, RBC 3.54 L, Hgb 6.3 L, Hct 22.6 L, MCV 63.8 L, MCH 17.8L, MCHC 27.9 L, RDW Std Deviation 39.8, RDW Coeff of Gregoria 17.5 H, Plt Count 428, MPV 8.7, Immature Gran % (Auto) 0.400, Neut % (Auto) 66.7, Lymph % (Auto) 15.0 L, [place] % (Auto) 15.5 H, Eos % (Auto) 2.0, Baso % (Auto) 0.4, Absolute Neuts (auto) 5.0, Absolute Lymphs (auto) 1.11, Nucleated RBC % 0, Sodium 136, Potassium 3.6, Chloride 101, Carbon Dioxide 23.5, Anion Gap 12, BUN 11, Creatinine 0.82, Estim Creat Clear Calc 84.26, Est GFR (MDRD) Non-Af 97, BUN/Creatinine Ratio 13.6, Glucose 128 H, Calcium 8.9, Total Bilirubin < 0.15, AST 62 H, ALT 57 H, Alkaline Phosphatase 38, Total Protein 6.7, Albumin 3.9, Globulin 2.8, Albumin/Globulin Ratio 1.4 07/25/25 02:40: Urine Color Yellow, Urine Clarity Sl. Cloudy, Urine pH 6.0, Ur Specific [place] 1.020, Urine Protein 15 H, Urine Glucose (UA) Normal, Urine Ketones Negative, Urine Occult Blood Negative, Urine Nitrite Negative, Urine Bilirubin Negative, Urine Urobilinogen Normal, Ur Leukocyte Esterase Negative, Urine RBC 0 SEEN, Urine WBC 0-5 SEEN, Ur Squamous Epith Cells 10-25 SEEN, Urine Bacteria 3+, Urine Mucus 0 SEEN Radiography Diagnostic Testing: Radiology Impression Abdomen/Pelvis CT 07/24/25 14:20 IMPRESSION: Distended urinary bladder. 2.9 cm 2.7 cm complex cyst in the right ovary. Reading Location: [id number] Transvaginal US 07/24/25 15:23 IMPRESSION: Small 2.4 cm probable hemorrhagic right ovarian cyst; no follow-up indicated. Reading Location: [facility] Constitutional Constitutional: Denies headache(s) Cardiovascular Cardiovascular: Denies chest pain or dyspnea Gastrointestinal Gastrointestinal: Denies nausea or vomiting Physical Exam Const alert, oriented x3 and no apparent distress General Appearance: cooperative and comfortable Resp normal respiratory effort GI Palpation: tender suprapubic Skin no rashes or lesions noted Neuro oriented x3 and CN's II-XII intact bilaterally Psych mental status grossly normal Assessment & Plan (1) Hemorrhagic cyst of right ovary: (2) Iron deficiency anemia: QUALIFIERS: Iron deficiency anemia type: unspecified iron deficiency Qualified Code(s): D50.9 - Iron deficiency anemia, unspecified (3) RLQ abdominal pain: (4) Fever: QUALIFIERS: Fever type: unspecified Qualified Code(s): R50.9 - Fever, unspecified PLAN: Plan Plan to continue antibiotics. Afebrile 24 hours before discharge H/H at 0915 Pain management 07/25/25 0738 <Electronically signed by Barbara Sims MD> Cosigner Signature (if applicable): CC: ~ Signed [facility] Work Phone: 1([phone]) 442-225709-10-2025 Progress note [facility] Medical Records Department [address] [place] [address] Progress Note - OBGYN 07/25/25 0734 MR#: [id number] Acct: [id number] Name: MICHELLE DOSHI Rep #:[id number] : 1990 34 From: Barbara Sims MD PCP: [facility] atus:ADM IN Location: NM3 [id number] Subjective Subjective Feeling better today. Pain better controlled. Still has pain with voiding. S/p 2units PRBCs. H/H oe0923. Last fever 2000 last night. Antibiotics q 12. Objective Data Objective Data Vital Signs: Vital Signs Temp Pulse Resp BP Pulse Ox O2 Del Method 98.2 F 81 17 127/78 H 97 Room Air 07/25/25 05:12 07/25/25 05:12 07/25/25 05:12 07/25/25 05:12 07/25/25 05:12 07/25/25 05:12 Oxygen Delivery Method Room Air Weight: 64.728 kg Body Mass Index (BMI) 24.5 Intake & Output: Intake and Output for Last 24 Hours 07/23/25 07/24/25 07/25/25 23:59 23:59 23:59 Intake Total 1065.25 / 1440.25 1375 / 1375 Output Total 100 / 100 Balance 965.25 / 1340.25 1375 / 1375 Lab / Micro Data 07/24/25 21:59 07/24/25 21:59 Labs: Laboratory Results - last 24 hr 07/24/25 12:36: WBC 7.9, RBC 3.85 L, Hgb 6.8 L, Hct 24.6 L, MCV 63.9 L, MCH 17.7L, MCHC 27.6 L, RDWStd Deviation 39.2, RDW Coeff of Gregoria 17.4 H, Plt Count 484 H, MPV 8.4, Immature Gran % (Auto) 0.300, Neut % (Auto) 83.9 H, Lymph % (Auto) 3.4 L, [place] % (Auto) 10.2 H, Eos % (Auto) 1.4, Baso % (Auto) 0.8, Absolute Neuts(auto) 6.6, Absolute Lymphs (auto) 0.27 L, Nucleated RBC % 0, Sodium 135, Potassium 4.7, Chloride 100, Carbon Dioxide 24.5, Anion Gap 10, BUN 15, Creatinine 0.65 L, Estim Creat Clear Calc 110.77, Est GFR (MDRD) Non-Af 119, BUN/Creatinine Ratio 22.6 H, Glucose 91, Calcium 9.3, Iron18 L, TIBC 637 H, IronSaturation 2.8 L, Unsaturated IBC 619 H, Ferritin 5 L, Total Bilirubin 0.19, AST64 H, ALT 61 H, Alkaline Phosphatase 39, Total Protein 7.5, Albumin 4.4, Globulin 3.1, Albumin/Globulin Ratio 1.4, Serum , Qual NEGATIVE 07/24/25 14:39: Lactic Acid 1.5 07/24/25 15:20: Urine Color Straw, Urine Clarity Sl. Cloudy, Urine pH 7.0, Ur Specific [place] 1.010, Urine Protein 15 H, Urine Glucose (UA) Normal, Urine Ketones Negative, Urine Occult Blood Negative, Urine Nitrite Negative, Urine Bilirubin Negative, Urine Urobilinogen Normal, Ur Leukocyte Esterase Negative, Urine RBC 0 SEEN, Urine WBC 0-5 SEEN, Ur Squamous Epith Cells 0-5 SEEN, Calcium Oxalate Crystal 1+, Urine Bacteria 0 SEEN, Urine Mucus 0 SEEN 07/24/25 17:06: Hgb 5.5 L*, Hct 19.6 L 07/24/25 18:16: Blood Type A POSITIVE, Antibody Screen NEGATIVE, Crossmatch See Detail 07/24/25 21:59: WBC 7.4, RBC 3.54 L, Hgb 6.3 L, Hct 22.6 L, MCV 63.8 L, MCH 17.8L, MCHC 27.9 L, RDWStd Deviation 39.8, RDW Coeff of Gregoria 17.5 H, Plt Count 428, MPV 8.7, Immature Gran % (Auto) 0.400, Neut % (Auto) 66.7, Lymph % (Auto) 15.0 L, [place] % (Auto) 15.5 H, Eos % (Auto) 2.0, Baso % (Auto) 0.4, Absolute Neuts (auto) 5.0, Absolute Lymphs (auto) 1.11, Nucleated RBC % 0, Sodium 136, Potassium 3.6, Chloride 101, Carbon Dioxide 23.5, Anion Gap 12, BUN 11, Creatinine 0.82, Estim Creat Clear Calc84.26, Est GFR (MDRD) Non-Af 97, BUN/Creatinine Ratio 13.6, Glucose 128 H, Calcium 8.9, Total Bilirubin < 0.15, AST 62 H, ALT 57 H, Alkaline Phosphatase 38, Total Protein 6.7, Albumin 3.9, Globulin 2.8, Albumin/Globulin Ratio 1.4 07/25/25 02:40: Urine Color Yellow, Urine Clarity Sl. Cloudy, Urine pH 6.0, Ur Specific [place] 1.020, Urine Protein 15 H, Urine Glucose (UA) Normal, Urine Ketones Negative, Urine Occult Blood Negative, Urine Nitrite Negative, Urine Bilirubin Negative, Urine Urobilinogen Normal, Ur Leukocyte Esterase Negative, Urine RBC 0 SEEN, Urine WBC 0-5 SEEN, Ur Squamous Epith Cells 10-25 SEEN, Urine Bacteria 3+, Urine Mucus 0 SEEN Radiography Diagnostic Testing: Radiology Impression Abdomen/Pelvis CT 07/24/25 14:20 IMPRESSION: Distended urinary bladder. 2.9 cm 2.7 cm complex cyst in the right ovary. Reading Location: [facility] Transvaginal US 07/24/25 15:23 IMPRESSION: Small 2.4 cm probable hemorrhagic right ovarian cyst; no follow-up indicated. Reading Location: [facility] Constitutional Constitutional: Denies headache(s) Cardiovascular Cardiovascular: Denies chest pain or dyspnea Gastrointestinal Gastrointestinal: Denies nausea or vomiting Physical Exam Const alert, oriented x3 and no apparent distress General Appearance: cooperative and comfortable Resp normal respiratory effort GI Palpation: tender suprapubic Skin no rashes or lesions noted Neuro oriented x3 and CN's II-XII intact bilaterally Psych mental status grossly normal Assessment & Plan (1) Hemorrhagic cyst of right ovary: (2) Iron deficiency anemia: QUALIFIERS: Iron deficiency anemia type: unspecified iron deficiency Qualified Code(s): D50.9 - Iron deficiency anemia, unspecified (3) RLQ abdominal pain: (4) Fever: QUALIFIERS: Fever type: unspecified Qualified Code(s): R50.9 - Fever, unspecified PLAN: Plan Plan to continue antibiotics. Afebrile 24 hours before discharge H/H at 0915 Pain management 07/25/25 0738 Cosigner Signature (if applicable): CC: ~ Signed [facility]09-09-2025 History and physical note Author Barbara Sims [facility] Note Date/Time July 24, 2025 9:11pm [facility] Medical Records Department [address] [place] [address] H&P Exam - EMPLOYEE COMMUNICATIONS COORDINATOR 07/24/252106 MR#: [id number] Acct: [id number] Name: MICHELLE DOSHI Rep #:[id number] : 1990 34 From: Barbara Sims MD PCP: [facility] atus:ADM IN Location: MS3 TO484-3 HPI - General General Date of Admission: 07/24/25 Date of Service: 07/24/25 HPI Narrative MICHELLE DOSHI, is a 34 F Admitted through ED with RLQ and Hgb <6. No active bleeding. Last period end of June. Does have regular periods. Hemorrhagic cyst on US but no blood in the pelvis. Admitted for blood transfusion. Before transfusion was started patient have a fever times 2 with chills. Her pain remains unchanged in the RLQ and pubic area. Does wrap around her back. Hx of kidney stones. CT did not show any stones, hydronephrosis or abnormality with appendix. Nausea with pain and shaking chills. Does state she has pain with voiding that started before the RLQpain. PFSH [facility] Medical History Ovarian cyst Kidney stones Home Medications ?Medication ?Instructions ?Recorded ?Last Taken ?Type ondansetron 4 mg disintegrating 4 mg PO Q8H PRN PRN Na usea #10 tabs 07/07/23 Unknown Rx tablet sertraline 50 mg tablet 50 mg PO DAILY depression Unknown History Held on 07/24/25. Instructions: MD Ordered dextroamphetamine-amphetamine 20 0.5 tab PO BID add Unknown History mg tablet metoclopramide HCl 10 mg tablet 10 mg PO Q6H PRN nause a and 06/30/24 Unknown Rx (Reglan) vomiting #10 tabs Allergy/AdvReac Type Severity Reaction Status Date / Time No Known Allergies Allergy Verified 07/24/25 12:01 Surgical History History of ureter stent Hx of tubal ligation History of laparoscopic cholecystectomy Social History household members: spouse, significant other and children housing: house Smoking Status: Never smoker ROS Constitutional Constitutional: Reports fever(s) Cardiovascular Cardiovascular: Denies chest pain or dyspnea Respiratory/Chest Respiratory/Chest: Denies cough Gastrointestinal Gastrointestinal: Reports abdominal pain and nausea; Denies constipation, diarrhea or vomiting Genitourinary Genitourinary: Reports dysuria and flank pain Musculoskeletal Musculoskeletal: Reports back pain Neurologic Neurologic: Denies headache(s) Psychiatric Psychiatric: Denies anxiety Vital Signs Vital Signs Vital Signs: 07/24/25 11:58 07/24/25 14:16 07/24/25 16:00 Temperature 98.1 F Temperature Source Oral Pulse Rate 108 H 89 70 Respiratory Rate 20 H 18 18 Blood Pressure 142/78 H 117/68 120/80 Blood Pressure Mean 99 84 93 Blood Pressure Source Blood Pressure Position Blood Pressure Location Pulse Ox 98 100 98 Oxygen Delivery Method Room Air Room Air 07/24/25 18:00 07/24/25 18:24 07/24/25 18:43 Temperature 98.6 F 100.5 F H Temperature Source Oral Pulse Rate 70 70 98 Respiratory Rate 16 16 16 Blood Pressure 110/64 110/64 116/68 Blood Pressure Mean 79 79 84 Blood Pressure Source Monitor Blood Pressure Position Semi-Fowlers Blood Pressure Location Left Arm Pulse Ox 99 99 100 Oxygen Delivery Method Room Air 07/24/25 19:32 07/24/25 19:55 07/24/25 21:00 Temperature 102.6 F H 101 F H 98.9 F Temperature Source Oral Oral Oral Pulse Rate 98 89 Respiratory Rate 18 18 Blood Pressure 105/64 112/65 Blood Pressure Mean 77 80 Blood Pressure Source Monitor Monitor Blood Pressure Position Semi-Fowlers Semi-Fowlers Blood Pressure Location Left Arm Left Arm Pulse Ox 100 100 Oxygen Delivery Method Room Air Room Air Weight Weight: 64.728 kg Body Mass Index (BMI) 24.5 Physical Exam Const alert and oriented x3 General Appearance: ill appearing HEENT normocephalic Eyes PERRL and EOMs intact bilaterally Resp normal respiratory effort, no retractions and clear to auscultation bilaterally Cardio regular rate and regular rhythm GI non-tender Palpation: tender RLQ and suprapubic Extremity full ROM Skin no rashes or lesions noted Neuro moves all extremities Labs Labs Labs: Blood Type A POSITIVE Antibody Screen NEGATIVE Hct 19.6 % (37-47) L Hgb 5.5 g/dL (12.0-15.0) L* Assessment & Plan (1) Anemia: QUALIFIERS: Anemia type: iron deficiency Iron deficiency anemia type: unspecified iron deficiency Qualified Code(s): D50.9 - Iron deficiency anemia, unspecified PLAN: 2 units PRBCs Held until fever resolves (2) RLQ abdominal pain: (3) Fever: QUALIFIERS: Fever type: unspecified Qualified Code(s): R50.9 - Fever, unspecified PLAN: Plan Suspect complicated UTI or pyelonephritis. Obtaining blood cultures. Repeat labs and starting antibiotics Hold blood products for now. Until fever resolves Pain management 07/24/252110 <Electronically signed by Barbara Sims MD> Cosigner Signature (if applicable): CC: Dr. Barbara Sims MD; [facility]~ Signed [facility] Work Phone: 1(848) 677-558009-09-2025 History and physical note Author Barbara Sims [facility] Note Date/Time July 24, 2025 9:11pm [facility] Medical Records Department [address] [place] [address] H&P Exam - EMPLOYEE COMMUNICATIONS COORDINATOR 07/24/252106 MR#: [id number] Acct: [id number] Name: MICHELLE DOSHI Rep #:[id number] : 1990 34 From: Barbara Sims MD PCP: [facility] St atus:ADM IN Location: [facility] [place] [id number] HPI - General General Date of Admission: 07/24/25 Date of Service: 07/24/25 HPI Narrative MICHELLE DOSHI, is a 34 F Admitted through ED with RLQ and Hgb <6. No active bleeding. Last period end of June. Does have regular periods. Hemorrhagic cyst on US but no blood in the pelvis. Admitted for blood transfusion. Before transfusion was started patient have a fever times 2 with chills. Her pain remains unchanged in the RLQ and pubic area. Does wrap around her back. Hx of kidney stones. CT did not show any stones, hydronephrosis or abnormality with appendix. Nausea with pain and shaking chills. Does state she has pain with voiding that started before the RLQpain. PFSH PFS Medical History Ovarian cyst Kidney stones Home Medications ?Medication ?Instructions ?Recorded ?Last Taken ?Type ondansetron 4 mg disintegrating 4 mg PO Q8H PRN PRN Na usea #10 tabs 07/07/23 Unknown Rx tablet sertraline 50 mg tablet 50 mg PO DAILY depression Unknown History Held on 07/24/25. Instructions: Ordered dextroamphetamine-amphetamine 20 0.5 tab PO BID add Unknown History mg tablet metoclopramide HCl 10 mg tablet 10 mg PO Q6H PRN nause a and 06/30/24 Unknown Rx (Reglan) vomiting #10 tabs Allergy/AdvReac Type Severity Reaction Status Date / Time No Known Allergies Allergy Verified 07/24/25 12:01 Surgical History History of ureter stent Hx of tubal ligation History of laparoscopic cholecystectomy Social History household members: spouse, significant other and children housing: house Smoking Status: Never smoker ROS Constitutional Constitutional: Reports fever(s) Cardiovascular Cardiovascular: Denies chest pain or dyspnea Respiratory/Chest Respiratory/Chest: Denies cough Gastrointestinal Gastrointestinal: Reports abdominal pain and nausea; Denies constipation, diarrhea or vomiting Genitourinary Genitourinary: Reports dysuria and flank pain Musculoskeletal Musculoskeletal: Reports back pain Neurologic Neurologic: Denies headache(s) Psychiatric Psychiatric: Denies anxiety Vital Signs Vital Signs Vital Signs: 07/24/25 11:58 07/24/25 14:16 07/24/25 16:00 Temperature 98.1 F Temperature Source Oral Pulse Rate 108 H 89 70 Respiratory Rate 20 H 18 18 Blood Pressure 142/78 H 117/68 120/80 Blood Pressure Mean 99 84 93 Blood Pressure Source Blood Pressure Position Blood Pressure Location Pulse Ox 98 100 98 Oxygen Delivery Method Room Air Room Air 07/24/25 18:00 07/24/25 18:24 07/24/25 18:43 Temperature 98.6 F 100.5 F H Temperature Source Oral Pulse Rate 70 70 98 Respiratory Rate 16 16 16 Blood Pressure 110/64 110/64 116/68 Blood Pressure Mean 79 79 84 Blood Pressure Source Monitor Blood Pressure Position Semi-Fowlers Blood Pressure Location Left Arm Pulse Ox 99 99 100 Oxygen Delivery Method Room Air 07/24/25 19:32 07/24/25 19:55 07/24/25 21:00 Temperature 102.6 F H 101 F H 98.9 F Temperature Source Oral Oral Oral Pulse Rate 98 89 Respiratory Rate 18 18 Blood Pressure 105/64 112/65 Blood Pressure Mean 77 80 Blood Pressure Source Monitor Monitor Blood Pressure Position Semi-Fowlers Semi-Fowlers Blood Pressure Location Left Arm Left Arm Pulse Ox 100 100 Oxygen Delivery Method Room Air Room Air Weight Weight: 64.728 kg Body Mass Index (BMI) 24.5 Physical Exam Const alert and oriented x3 General Appearance: ill appearing HEENT normocephalic Eyes PERRL and EOMs intact bilaterally Resp normal respiratory effort, no retractions and clear to auscultation bilaterally Cardio regular rate and regular rhythm GI non-tender Palpation: tender RLQ and suprapubic Extremity full ROM Skin no rashes or lesions noted Neuro moves all extremities Labs Labs Labs: Blood Type A POSITIVE Antibody Screen NEGATIVE Hct 19.6 % (37-47) L Hgb 5.5 g/dL (12.0-15.0) L* Assessment & Plan (1) Anemia: QUALIFIERS: Anemia type: iron deficiency Iron deficiency anemia type: unspecified iron deficiency Qualified Code(s): D50.9 - Iron deficiency anemia, unspecified PLAN: 2 units PRBCs Held until fever resolves (2) RLQ abdominal pain: (3) Fever: QUALIFIERS: Fever type: unspecified Qualified Code(s): R50.9 - Fever, unspecified PLAN: Plan Suspect complicated UTI or pyelonephritis. Obtaining blood cultures. Repeat labs and starting antibiotics Hold blood products for now. Until fever resolves Pain management 07/24/252110 <Electronically signed by Barbara Sims MD> Cosigner Signature (if applicable): CC: Dr. Barbara Sims MD; [facility]~ Signed [facility] Work Phone: [phone]) 580-359609-09-2025 History and physical note [facility] Medical Records Department [address] [place] [address] H&P Exam - EMPLOYEE COMMUNICATIONS COORDINATOR 07/24/252106 MR#: [id number] Acct: [id number] Name: MICHELLE DOSHI Rep #:[id number] : 1990 34 From: Barbara Sims MD PCP: [facility] St atus:ADM IN Location: MS3 [id number] HPI - General General Date of Admission: 07/24/25 Date of Service: 07/24/25 HPI Narrative MICHELLE DOSHI, is a 34 F Admitted through ED with RLQ and Hgb <6. No active bleeding. Last period end of June. Does have regular periods. Hemorrhagic cyst on US but no blood in the pelvis. Admitted for blood transfusion. Before transfusion was started patient have a fever times 2 with chills. Her pain remains unchanged in the RLQ and pubic area. Does wrap around her back. Hx of kidney stones. CT did not show any stones, hydronephrosis or abnormality with appendix. Nausea with pain and shaking chills. Does state she has pain with voiding that started before the RLQpain. PFSH [facility] Medical History Ovarian cyst Kidney stones Home Medications ?Medication ?Instructions ?Recorded ?Last Taken ?Type ondansetron 4 mg disintegrating 4 mg PO Q8H PRN PRN Na usea #10 tabs 07/07/23 Unknown Rx tablet sertraline 50 mg tablet 50 mg PO DAILY depression Unknown History Held on 07/24/25. Instructions: MD Ordered dextroamphetamine-amphetamine 20 0.5 tab PO BID add Unknown History mg tablet metoclopramide HCl 10 mg tablet 10 mg PO Q6H PRN nause a and 06/30/24 Unknown Rx (Reglan) vomiting #10 tabs Allergy/AdvReac Type Severity Reaction Status Date / Time No Known Allergies Allergy Verified 07/24/25 12:01 Surgical History History of ureter stent Hx of tubal ligation History of laparoscopic cholecystectomy Social History household members: spouse, significant other and children housing: house Smoking Status: Never smoker ROS Constitutional Constitutional: Reports fever(s) Cardiovascular Cardiovascular: Denies chest pain or dyspnea Respiratory/Chest Respiratory/Chest: Denies cough Gastrointestinal Gastrointestinal: Reports abdominal pain and nausea; Denies constipation, diarrhea or vomiting Genitourinary Genitourinary: Reports dysuria and flank pain Musculoskeletal Musculoskeletal: Reports back pain Neurologic Neurologic: Denies headache(s) Psychiatric Psychiatric: Denies anxiety Vital Signs Vital Signs Vital Signs: 07/24/25 11:58 07/24/25 14:16 07/24/25 16:00 Temperature 98.1 F Temperature Source Oral Pulse Rate 108 H 89 70 Respiratory Rate 20 H 18 18 Blood Pressure 142/78 H 117/68 120/80 Blood Pressure Mean 99 84 93 Blood Pressure Source Blood Pressure Position Blood Pressure Location Pulse Ox 98 100 98 Oxygen Delivery Method Room Air Room Air 07/24/25 18:00 07/24/25 18:24 07/24/25 18:43 Temperature 98.6 F 100.5 F H Temperature Source Oral Pulse Rate 70 70 98 Respiratory Rate 16 16 16 Blood Pressure 110/64 110/64 116/68 Blood Pressure Mean 79 79 84 Blood Pressure Source Monitor Blood Pressure Position Semi-Fowlers Blood Pressure Location Left Arm Pulse Ox 99 99 100 Oxygen Delivery Method Room Air 07/24/25 19:32 07/24/25 19:55 07/24/25 21:00 Temperature 102.6 F H 101 F H 98.9 F Temperature Source Oral Oral Oral Pulse Rate 98 89 Respiratory Rate 18 18 Blood Pressure 105/64 112/65 Blood Pressure Mean 77 80 Blood Pressure Source Monitor Monitor Blood Pressure Position Semi-Fowlers Semi-Fowlers Blood Pressure Location Left Arm Left Arm Pulse Ox 100 100 Oxygen Delivery Method Room Air Room Air Weight Weight: 64.728 kg Body Mass Index (BMI) 24.5 Physical Exam Const alert and oriented x3 General Appearance: ill appearing HEENT normocephalic Eyes PERRL and EOMs intact bilaterally Resp normal respiratory effort, no retractions and clear to auscultation bilaterally Cardio regular rate and regular rhythm GI non-tender Palpation: tender RLQ and suprapubic Extremity full ROM Skin no rashes or lesions noted Neuro moves all extremities Labs Labs Labs: Blood Type A POSITIVE Antibody Screen NEGATIVE Hct 19.6 % (37-47) L Hgb 5.5 g/dL (12.0-15.0) L* Assessment & Plan (1) Anemia: QUALIFIERS: Anemia type: iron deficiency Iron deficiency anemia type: unspecified iron deficiency Qualified Code(s): D50.9 - Iron deficiency anemia, unspecified PLAN: 2 units PRBCs Held until fever resolves (2) RLQ abdominal pain: (3) Fever: QUALIFIERS: Fever type: unspecified Qualified Code(s): R50.9 - Fever, unspecified PLAN: Plan Suspect complicated UTI or pyelonephritis. Obtaining blood cultures. Repeat labs and starting antibiotics Hold blood products for now. Until fever resolves Pain management 07/24/252110 Cosigner Signature (if applicable): CC: Dr. Barbara Sims MD; [facility]~ Signed [facility]09-09-2025 Discharge summary Author Karissa Joaquin [facility] Note Date/Time July 24, 2025 6:24pm [facility] Medical Records Department [address] [place] [address] Emergency Department Summary 07/24/25 MR#: [id number] Acct: [id number] Name: MICHELLE DOSHI Rep #:[id number] : 1990 34 From: Karissa Patel PCP: [facility] atus:ADM IN Location: [place] [id number] HPI History of Present Illness Chief Complaint: Flank Pain Informant: patient Narrative Narrative: Patient is a 34-year-old female presenting with right-sided back pain rating to her buttocks and abdomen that started this morning. She states for started around 7 AM and she still went to work. She then had to leave work secondary tonausea and pain. She tried ibuprofen and Tylenol with no relief. She notes he does have some associated straining with urination and some mild discomfort associated with this but attributes more to her back pain. States she had normal bowel movement yesterday. States she feels lightheaded today. She has pilo mild pain in her right lower abdomen yesterday but thought maybe she was ovulating or just having a slight cramp and did not think much of it. Today shehas had some chills and feels hot. Is not aware of having a fever. The historyof a tubal ligation is not concern for . Has had a prior cholecystectomy. States she still has her appendix. Notes that she has had a kidney stone in the past and this feels similar. No other complaints or concerns reported at this time [facility] Medical History Ovarian cyst Kidney stones Home Medications ?Medication ?Instructions ?Recorded ?Last Taken ?Type ondansetron 4 mg disintegrating 4 mg PO Q8H PRN PRN Na usea #10 tabs 07/07/23 Unknown Rx tablet sertraline 50 mg tablet 50 mg PO DAILY depression Unknown History Held on 07/24/25. Instructions: MD Ordered dextroamphetamine-amphetamine 20 0.5 tab PO BID add Unknown History mg tablet metoclopramide HCl 10 mg tablet 10 mg PO Q6H PRN nause a and 06/30/24 Unknown Rx (Reglan) vomiting #10 tabs Allergy/AdvReac Type Severity Reaction Status Date / Time No Known Allergies Allergy Verified 07/24/25 12:01 Surgical History History of ureter stent Hx of tubal ligation History of laparoscopic cholecystectomy Social History household members: spouse, significant other and children housing: house Smoking Status: Never smoker ROS ROS ED Constitutional Constitutional ED: Reports chills; Denies fever(s) Cardiovascular Cardiovascular: Denies chest pain Respiratory/Chest Respiratory/Chest: Denies cough or dyspnea Gastrointestinal Gastrointestinal: Reports abdominal pain and nausea; Denies diarrhea or melena Genitourinary Genitourinary ED: Reports other Details: Feels that she has to strain to urinate; Denies dysuria or hematuria Musculoskeletal Musculoskeletal: Reports back pain Integumentary Denies rash Neurologic Neurologic: Denies paresthesias or weakness Hematologic/Lymphatic Hematologic/Lymphatic: Denies easy bleeding or easy bruising EXAM Physical Exam Const Vital Signs: 07/24/25 11:58 07/24/25 14:16 07/24/25 16:00 Temperature 98.1 F Temperature Source Oral Pulse Rate 108 H 89 70 Respiratory Rate 20 H 18 18 Blood Pressure 142/78 H 117/68 120/80 Blood Pressure Mean 99 84 93 Pulse Ox 98 100 98 Oxygen Delivery Method Room Air Room Air 07/24/25 18:00 Temperature Temperature Source Pulse Rate 70 Respiratory Rate 16 Blood Pressure 110/64 Blood Pressure Mean 79 Pulse Ox 99 Oxygen Delivery Method Positive well nourished and well developed General Appearance ED: well developed and NAD; Negative for pallor HEENT Reports moist mucous membranes Neck supple Chest Wall inspection of chest normal and palpation of chest normal Resp normal respiratory effort and clear to auscultation bilaterally Cardio regular rhythm and no murmurs Rate: tachycardic GI normal to inspection, nondistended, normoactive bowel sounds, non-tender and non-distended Inspection: Negative for abdominal distention Auscultation: normoactive bowel sounds Palpation: Negative for tender or guarding Back/Spine no CVA tenderness Thoracic Spine / Upper Back: Negative for thoracic spinal tenderness Lumbar Spine / Lower Back: Negative for lumbar spinal tenderness Extremity normal to inspection Neuro oriented x3 Sensorium / Orientation: alert Motor Exam: Negative for general weakness Psych mental status grossly normal Skin no rashes or lesions noted and no wounds General Skin Exam: Negative for pallor MDM MDM MDM Narrative Medical decision making narrative: Patient is evaluated for sudden onset of right flank pain that started this morning. Does have a history of kidney stones. Differential includes was not limited to renal colic, pyelonephritis, ruptured ovarian cyst, ovarian torsion, appendicitis. Patient given IV fluids and fentanyl for pain control. Was given Zofran. CBC shows anemia with a hemoglobin of 6.8 which is microcytic. Chart review shows that patient's most recent hemoglobin was 10.5 and microcytic at that time. Lactate added on which is normal at 1.5. She has a very mild transaminitis of 64 and 61 respectively. I did add on iron studies including iron level TIBC andiron saturation. These are consistent with significant iron deficiency. Urinalysis shows no bacteria and is not consistent with UTI. CT of the abdomen and pelvis shows a distended urinary bladder as well as a complex cyst of the right ovary. As her pain is in the right side we will obtain apelvic ultrasound. In addition bladder scan obtained to ensure the patient is able to void and does not have any acute urinary retention. Patient was able toempty her bladder fully. Ultrasound shows a small 2.4 cm probable hemorrhagic right ovarian cyst. On repeat evaluation patient is having increased pain after her ultrasound. She isnot peritoneal. Is given additional dose of fentanyl and H&H is rechecked to ensure that she does not have signs of acute blood loss. Her hemoglobin is now 5.5. Patient is ordered type and screen. Case discussed with gynecology on-call, Dr. Sims. She is agreeable with giving the patient 2 dose of blood and will admit to her service for monitoring of hemoglobin and possible acute anemia associated with a ruptured hemorrhagic cyst. She is a lower suspicion given that there was not much free fluid in her abdomen but patient will continue be monitored. Patient is agreeable with this plan of care. Patient remains hemodynamically stable in the emergency room. Initially with her anemia case was discussed with PCP through [facility]. Patient was scheduled for outpatient follow-up appointments and given this information. Appointment is on July 27 at 1:30 PM Lab Data Attestation: I reviewed the patient's lab results. Labs: Laboratory Results - last 24 hr 07/24/25 07/24/25 07/24/25 12:36 14:39 15:20 WBC 7.9 RBC 3.85 L Hgb 6.8 L Hct 24.6 L MCV 63.9 L MCH 17.7 L MCHC 27.6 L RDW Std Deviation 39.2 RDW Coeff of Gregoria 17.4 H Plt Count 484 H MPV 8.4 Immature Gran % (Auto) 0.300 Neut % (Auto) 83.9 H Lymph % (Auto) 3.4 L [place] % (Auto) 10.2 H Eos % (Auto) 1.4 Baso % (Auto) 0.8 Absolute Neuts (auto) 6.6 Absolute Lymphs (auto) 0.27 L Nucleated RBC % 0 Sodium 135 Potassium 4.7 Chloride 100 Carbon Dioxide 24.5 Anion Gap 10 BUN 15 Creatinine 0.65 L Estim Creat Clear Calc 110.77 Est GFR (MDRD) Non-Af 119 BUN/Creatinine Ratio 22.6 H Glucose 91 Lactic Acid 1.5 Calcium 9.3 Iron 18 L TIBC 637 H Iron Saturation 2.8 L Unsaturated IBC 619 H Ferritin 5 L Total Bilirubin 0.19 AST 64 H ALT 61 H Alkaline Phosphatase 39 Total Protein 7.5 Albumin 4.4 Globulin 3.1 Albumin/Globulin Ratio 1.4 Serum , Qual NEGATIVE Urine Color Straw Urine Clarity Sl. Cloudy Urine pH 7.0 Ur Specific [place] 1.010 Urine Protein 15 H Urine Glucose (UA) Normal Urine Ketones Negative Urine Occult Blood Negative Urine Nitrite Negative Urine Bilirubin Negative Urine Urobilinogen Normal Ur Leukocyte Esterase Negative Urine RBC 0 SEEN Urine WBC 0-5 SEEN Ur Squamous Epith Cells 0-5 SEEN Calcium Oxalate Crystal 1+ Urine Bacteria 0 SEEN Urine Mucus 0 SEEN Blood Type Antibody Screen Crossmatch 07/24/25 07/24/25 17:06 18:16 WBC RBC Hgb 5.5 L* Hct 19.6 L MCV MCH MCHC RDW Std Deviation RDW Coeff of Gregoria Plt Count MPV Immature Gran % (Auto) Neut % (Auto) Lymph % (Auto) [place] % (Auto) Eos % (Auto) Baso % (Auto) Absolute Neuts (auto) Absolute Lymphs (auto) Nucleated RBC % Sodium Potassium Chloride Carbon Dioxide Anion Gap BUN Creatinine Estim Creat Clear Calc Est GFR (MDRD) Non-Af BUN/Creatinine Ratio Glucose Lactic Acid Calcium Iron TIBC Iron Saturation Unsaturated IBC Ferritin Total Bilirubin AST ALT Alkaline Phosphatase Total Protein Albumin Globulin Albumin/Globulin Ratio Serum , Qual Urine Color Urine Clarity Urine pH Ur Specific [place] Urine Protein Urine Glucose (UA) Urine Ketones Urine Occult Blood Urine Nitrite Urine Bilirubin Urine Urobilinogen Ur Leukocyte Esterase Urine RBC Urine WBC Ur Squamous Epith Cells Calcium Oxalate Crystal Urine Bacteria Urine Mucus Blood Type A POSITIVE Antibody Screen NEGATIVE Crossmatch See Detail Radiography Diagnostic Testing: Clinical Impression(s) from Imaging Studies Abdomen/Pelvis CT 07/24/25 14:20 IMPRESSION: Distended urinary bladder. 2.9 cm 2.7 cm complex cyst in the right ovary. Reading Location: [facility] Transvaginal US 07/24/25 15:23 IMPRESSION: Small 2.4 cm probable hemorrhagic right ovarian cyst; no follow-up indicated. Reading Location: [facility] Management Discussion w/another healthcare provider: Licensed Prosthetist/Orthotist (EMPLOYEE COMMUNICATIONS COORDINATOR) and PCP Discharge Plan Dx/Rx/DC Orders Clinical Impression: RLQ abdominal pain, Anemia, Iron deficiency anemia, Hemorrhagic cyst of right ovary Disposition Disposition: Acute Care Hospital [facility] Discharge Date/Time: 07/24/25 18:24 What to do if you have Problems For any increased pain, shortness of breath, bleeding, nausea or vomiting, chestpain, or any unexpected problems, contact your Primary Care Provider. Call [facility] [employer] [facility] ([phone]) or report to the closest Emergency Room. Call 911 if necessary. 07/25/25 0019 <Electronically signed by Karissa Joaquin DO> Cosigner Signature (if applicable): CC: [facility] ~ Signed [facility] Work Phone: [phone]) 116-458709-09-2025 Discharge summary [facility] Medical Records Department [address] [place] [address] Emergency Department Summary 07/24/25 MR#: [id number] Acct: [id number] Name: MICHELLE DOSHI Rep #:[id number] : 1990 34 From: Karissa Patel PCP: [facility] St atus:ADM [place] [id number] History of Present Illness Chief Complaint: Flank Pain Informant: patient Narrative Narrative: Patient is a 34-year-old female presenting with right-sided back pain rating to her buttocks and abdomen that started this morning. She states for started around 7 AM and she still went to work. She then had to leave work secondary tonausea and pain. She tried ibuprofen and Tylenol with no relief. She notes he does have some associated straining with urination and some mild discomfort associated with this but attributes more to her back pain. States she had normal bowel movement yesterday. States she feels lightheaded today. She has pilo mild pain in her right lower abdomen yesterday but thought maybe she was ovulating or just having a slight cramp and did not think much of it. Today shehas had some chills and feels hot. Is not aware of having a fever. The historyof a tubal ligation is not concern for . Has had a prior cholecystectomy. States she still has her appendix. Notes that she has had a kidney stone in the past and this feels similar. No other complaints or concerns reported at this time [facility] Medical History Ovarian cyst Kidney stones Home Medications ?Medication ?Instructions ?Recorded ?Last Taken ?Type ondansetron 4 mg disintegrating 4 mg PO Q8H PRN PRN Na usea #10 tabs 07/07/23 Unknown Rx tablet sertraline 50 mg tablet 50 mg PO DAILY depression Unknown History Held on 07/24/25. Instructions: MD Ordered dextroamphetamine-amphetamine 20 0.5 tab PO BID add Unknown History mg tablet metoclopramide HCl 10 mg tablet 10 mg PO Q6H PRN nause a and 06/30/24 Unknown Rx (Reglan) vomiting #10 tabs Allergy/AdvReac Type Severity Reaction Status Date / Time No Known Allergies Allergy Verified 07/24/25 12:01 Surgical History History of ureter stent Hx of tubal ligation History of laparoscopic cholecystectomy Social History household members: spouse, significant other and children housing: house Smoking Status: Never smoker ROS ROS ED Constitutional Constitutional ED: Reports chills; Denies fever(s) Cardiovascular Cardiovascular: Denies chest pain Respiratory/Chest Respiratory/Chest: Denies cough or dyspnea Gastrointestinal Gastrointestinal: Reports abdominal pain and nausea; Denies diarrhea or melena Genitourinary Genitourinary ED: Reports other Details: Feels that she has to strain to urinate; Denies dysuria or hematuria Musculoskeletal Musculoskeletal: Reports back pain Integumentary Denies rash Neurologic Neurologic: Denies paresthesias or weakness Hematologic/Lymphatic Hematologic/Lymphatic: Denies easy bleeding or easy bruising EXAM Physical Exam Const Vital Signs: 07/24/25 11:58 07/24/25 14:16 07/24/25 16:00 Temperature 98.1 F Temperature Source Oral Pulse Rate 108 H 89 70 Respiratory Rate 20 H 18 18 Blood Pressure 142/78 H 117/68 120/80 Blood Pressure Mean 99 84 93 Pulse Ox 98 100 98 Oxygen Delivery Method Room Air Room Air 07/24/25 18:00 Temperature Temperature Source Pulse Rate 70 Respiratory Rate 16 Blood Pressure 110/64 Blood Pressure Mean 79 Pulse Ox 99 Oxygen Delivery Method Positive well nourished and well developed General Appearance ED: well developed and NAD; Negative for pallor HEENT Reports moist mucous membranes Neck supple Chest Wall inspection of chest normal and palpation of chest normal Resp normal respiratory effort and clear to auscultation bilaterally Cardio regular rhythm and no murmurs Rate: tachycardic GI normal to inspection, nondistended, normoactive bowel sounds, non-tender and non-distended Inspection: Negative for abdominal distention Auscultation: normoactive bowel sounds Palpation: Negative for tender or guarding Back/Spine no CVA tenderness Thoracic Spine / Upper Back: Negative for thoracic spinal tenderness Lumbar Spine / Lower Back: Negative for lumbar spinal tenderness Extremity normal to inspection Neuro oriented x3 Sensorium / Orientation: alert Motor Exam: Negative for general weakness Psych mental status grossly normal Skin no rashes or lesions noted and no wounds General Skin Exam: Negative for pallor MDM MDM MDM Narrative Medical decision making narrative: Patient is evaluated for sudden onset of right flank pain that started this morning. Does have a history of kidney stones. Differential includes was not limited to renal colic, pyelonephritis, ruptured ovarian cyst, ovarian torsion, appendicitis. Patient given IV fluids and fentanyl for pain control. Was given Zofran. CBC shows anemia with a hemoglobin of 6.8 which is microcytic. Chart review shows that patient's most recent hemoglobin was 10.5 and microcytic at that time. Lactate added on which is normal at 1.5. She has a very mild transaminitis of 64 and 61 respectively. I did add on iron studies including iron level TIBC andiron saturation. These are consistent withsignificant iron deficiency. Urinalysis shows no bacteria and is not consistent with UTI. CT of the abdomen and pelvis shows a distended urinary bladder as well as a complex cyst of the right ovary. As her pain is in the right side we will obtain apelvic ultrasound. In addition bladder scan obtained to ensure the patient is able to void and does not have any acute urinary retention. Patient was able toempty her bladder fully. Ultrasound shows a small 2.4 cm probable hemorrhagic right ovarian cyst. On repeat evaluation patient is having increased pain after her ultrasound. She isnot peritoneal. Is given additional dose of fentanyl and H&H is rechecked to ensure that she does not have signs of acute blood loss. Her hemoglobin is now 5.5. Patient is ordered type and screen. Case discussed with gynecology on-call, Dr. Sims. She is agreeable with giving the patient 2 doseof blood and will admit to her service for monitoring of hemoglobin and possible acute anemia associated with a ruptured hemorrhagic cyst. She is a lower suspicion given that there was not much free fluid in her abdomen but patient will continue be monitored. Patient is agreeable with this plan of care. Patient remains hemodynamically stable in the emergency room. Initially with her anemia case was discussed with PCP through [facility]. Patient was scheduledfor outpatient follow-up appointments and given this information. Appointment is on July 27 at 1:30 PM Lab Data Attestation: I reviewed the patient's lab results. Labs: Laboratory Results - last 24 hr 07/24/25 07/24/25 07/24/25 12:36 14:39 15:20 WBC 7.9 RBC 3.85 L Hgb 6.8 L Hct 24.6 L MCV 63.9 L MCH 17.7 L MCHC 27.6 L RDW Std Deviation 39.2 RDW Coeff of Gregoria 17.4 H Plt Count 484 H MPV 8.4 Immature Gran % (Auto) 0.300 Neut % (Auto) 83.9 H Lymph % (Auto) 3.4 L [place] % (Auto) 10.2 H Eos % (Auto) 1.4 Baso % (Auto) 0.8 Absolute Neuts (auto) 6.6 Absolute Lymphs (auto) 0.27 L Nucleated RBC % 0 Sodium 135 Potassium 4.7 Chloride 100 Carbon Dioxide 24.5 Anion Gap 10 BUN 15 Creatinine 0.65 L Estim Creat Clear Calc 110.77 Est GFR (MDRD) Non-Af 119 BUN/Creatinine Ratio 22.6 H Glucose 91 Lactic Acid 1.5 Calcium 9.3 Iron 18 L TIBC 637 H Iron Saturation 2.8 L Unsaturated IBC 619 H Ferritin 5 L Total Bilirubin 0.19 AST 64 H ALT 61 H Alkaline Phosphatase 39 Total Protein 7.5 Albumin 4.4 Globulin 3.1 Albumin/Globulin Ratio 1.4 Serum , Qual NEGATIVE Urine Color Straw Urine Clarity Sl. Cloudy Urine pH 7.0 Ur Specific [place] 1.010 Urine Protein 15 H Urine Glucose (UA) Normal Urine Ketones Negative Urine Occult Blood Negative Urine Nitrite Negative Urine Bilirubin Negative Urine Urobilinogen Normal Ur Leukocyte Esterase Negative Urine RBC 0 SEEN Urine WBC 0-5 SEEN Ur Squamous Epith Cells 0-5 SEEN Calcium Oxalate Crystal 1+ Urine Bacteria 0 SEEN Urine Mucus 0 SEEN Blood Type Antibody Screen Crossmatch 07/24/25 07/24/25 17:06 18:16 WBC RBC Hgb 5.5 L* Hct 19.6 L MCV MCH MCHC RDW Std Deviation RDW Coeff of Gregoria Plt Count MPV Immature Gran % (Auto) Neut % (Auto) Lymph % (Auto) [place] % (Auto) Eos % (Auto) Baso % (Auto) Absolute Neuts (auto) Absolute Lymphs (auto) Nucleated RBC % Sodium Potassium Chloride Carbon Dioxide Anion Gap BUN Creatinine Estim Creat Clear Calc Est GFR (MDRD) Non-Af BUN/Creatinine Ratio Glucose Lactic Acid Calcium Iron TIBC Iron Saturation Unsaturated IBC Ferritin Total Bilirubin AST ALT Alkaline Phosphatase Total Protein Albumin Globulin Albumin/Globulin Ratio Serum , Qual Urine Color Urine Clarity Urine pH Ur Specific [place] Urine Protein Urine Glucose (UA) Urine Ketones Urine Occult Blood Urine Nitrite Urine Bilirubin Urine Urobilinogen Ur Leukocyte Esterase Urine RBC Urine WBC Ur Squamous Epith Cells Calcium Oxalate Crystal Urine Bacteria Urine Mucus Blood Type A POSITIVE Antibody Screen NEGATIVE Crossmatch See Detail Radiography Diagnostic Testing: Clinical Impression(s) from Imaging Studies Abdomen/Pelvis CT 07/24/25 14:20 IMPRESSION: Distended urinary bladder. 2.9 cm 2.7 cm complex cyst in the right ovary. Reading Location: [id number] Transvaginal US 07/24/25 15:23 IMPRESSION: Small 2.4 cm probable hemorrhagic right ovarian cyst; no follow-up indicated. Reading Location: [facility] Management Discussion w/another healthcare provider: Licensed Prosthetist/Orthotist (EMPLOYEE COMMUNICATIONS COORDINATOR) and PCP Discharge Plan Dx/Rx/DC Orders Clinical Impression: RLQ abdominal pain, Anemia, Iron deficiency anemia, Hemorrhagic cyst of right ovary Disposition Disposition: Acute Care Hospital [facility] Discharge Date/Time: 07/24/25 18:24 What to do if you have Problems For any increased pain, shortness of breath, bleeding, nausea or vomiting, chestpain, or any unexpected problems, contact your Primary Care Provider. Call [facility] ([phone]) or report tothe closest Emergency Room. Call 911 if necessary. 07/25/25 0019 Cosigner Signature (if applicable): CC: [facility] ~ Signed [facility]09-09-2025 Radiology Diagnostic study note [facility] Imaging Services [address] [address] Transvaginal Non- MR#: [id number] Acct: [id number] Name: MICHELLE DOSHI Rep #: [id number] : 1990 F 34 From: Luis Christopher MD PCP: [facility] Status: REG ER Study:Transvaginal Non- Date of Exam: 07/24/25 Exam# [id number] Ordering Dr: Marlin Joaquin DO PROCEDURE: US TRANSVAGINAL NON- 07/24/2025 REASON FOR EXAM: RLQ PAIN, ABNORMAL CYST ON CT TECHNIQUE: Procedure Code: USTVAG Modality: US Procedure: TRANSVAGINAL NON- COMPARISON: Abdominal CT same day 07/24/2025. FINDINGS: Anteverted uterus appears normal in size and smooth in contour, measuring 9.5 x 5.6 x 4.3 cm. No discrete uterine myoma. No abnormal collection within the uterine cavity. Endometrial stripe complex is within normal limits measuring up to 0.6 cm in thickness. Bilateral ovaries are within normal limits. Right ovary measures 4.6 x 3.2 x 2.3 cm. Left ovary measures 2.5 x 1.9 x 1.4 cm. Blood flow is demonstrated bilaterally on color Doppler. The right ovary contains a small minimallycomplex probable hemorrhagic cyst measuring 2.4 x 2.2 x 1.9 cm. No adnexal mass or significant free pelvic fluid is seen. US/Transvaginal Non- IMPRESSION: Small 2.4 cm probable hemorrhagic right ovarian cyst; no follow-up indicated. Reading Location: [facility] CC: Dr. Karissa Joaquin DO; [facility] ~ Market Research Coordinator: Signed [facility]09-09-2025 Radiology Diagnostic study note [facility] Imaging Services [address] [place], [place] [id number] Abdomen/Pelvis W IV Cont ONLY MR#: [id number] Acct: [id number] Name: MICHELLE DOSHI Rep #: [id number] : 1990 F 34 From: Brice Villanueva MD PCP: [facility] Status: REG ER Study:Abdomen/Pelvis W IV Cont ONLY Date of E xam: 07/24/25 Exam# [id number] Ordering Dr: Marlin Joaquin DO PROCEDURE: ABDOMEN/PELVIS W IV CONT ONLY 07/24/2025 REASON FOR EXAM: RIGHT FLANK PAIN, ANEMIA Kidney stones. TECHNIQUE: Procedure Code: [id number] Modality: CT Procedure: ABDOMEN/PELVIS W IV CONT ONLY Coronal and Sagittal reconstruction series were provided. CONTRAST: Isovue-300 VOLUME: 100 mL One or more dose reduction techniques were used (e.g., Automated exposure control, adjustment of the mA and/or kV according to patient size, use of iterative reconstruction technique. RADIATION DOSE SUMMARY: CTDlvol: 6.9 mGy DLP: 369.63 mGycm COMPARISON: Prior study dated June 30, 2024. FINDINGS: Lung bases: The lung bases are clear. Liver: Normal size. No mass. Gallbladder: Surgically absent. Spleen: Normal size. Pancreas: Normal size without evidence of mass surrounding inflammation or ductal dilation. Adrenals: Unremarkable Kidneys: Unremarkable Bladder: The urinary bladder is distended. Reproductive Organs: There is a 2.9 cm 2.7 cm complex cyst in the right ovary. Bowel: Unremarkable Appendix: Unremarkable Lymph nodes: Unremarkable Vasculature: The abdominal aorta and IVC are normal. Peritoneum / Retroperitoneum: Unremarkable Bones: Degenerative changes of the spine. CT/Abdomen/Pelvis W IV Cont ONLY IMPRESSION: Distended urinary bladder. 2.9 cm 2.7 cm complex cyst in the right ovary. Reading Location: [id number] CC: Dr. Karissa Joaquin DO; [facility] ~ Market Research Coordinator: Signed [facility]06-03-[address] Brock [facility] April 17, 2023 11:33pm Note Date/Time April 17, 2023 7:18p m [facility] Medical Records Department [address] [place] [id number] Emergency Department Summary 04/17/23 MR#: [id number] Acct: [id number] Name: MICHELLE DOSHI Rep #:[id number] : 1990 32 From: Tio Brock MD PCP: Care Physician,No Primary Status :REG ER Location: ED HPI HPI - GI History of Present Illness Chief Complaint: Nausea/Vomiting Detail of Chief Complaint: Left flank pain. Informant: patient Abdominal Pain/Flank Pain Onset: Today Context: Sudden Onset Timing: Intermittent Quality: Stabbing Location: Left Flank Current Severity: Mild Maximum Severity: Moderate Worsened by: Nothing Relieved by: Nothing Nausea/Vomiting/Emesis GI Symptom: Positive for Nausea and Vomiting Onset: Today Severity: Moderate Diarrhea/Melena/Hematochezia GI Symptom: Negative for Diarrhea, Melena or Hematochezia Associated Symptoms Associated Symptoms: Positive for Dysuria; Negative for Frequency, Hematuria or Urgency Narrative Narrative: 32-year-old female history of ovarian cyst prior kidney stones needed surgery for 10 mm kidney stone last year. Prior tubal ligation. Prior cholecystectomy. States she had left flank pain today thinking it may be a kidney stone or UTI and then start developing nausea and vomiting. No fever. Positive dysuria. Novaginal bleeding. Prior similar symptoms: Yes Recent Illness/Hospitalization: No PFSH PFSH Medical History no medical history Home Medications Medical Marijuana 12/24/20 [History Last Taken Unknown] naproxen 500 mg tablet 500 mg PO BID PRN #20 tabs 12/24/20 [Rx Last Taken Unknown] ondansetron 4 mg disintegrating tablet 4 mg PO Q8H PRN PRN Nausea #10 tabs 12/24/20 [Rx Last Taken Unknown] dicyclomine 10 mg capsule 1 - 2 cap PO Q6H PRN pain #20 caps 12/31/20 [Rx Last Taken Unknown] ondansetron 4 mg disintegrating tablet 8 mg PO Q8H PRN PRN Nausea #20 tabs 12/31/20 [Rx Last Taken Unknown] ondansetron 4 mg disintegrating tablet 4 mg PO Q6H PRN nausea and vomiting #10 tabs 04/17/23 [Rx Last Taken Unknown] Allergy/AdvReac Type Severity Reaction Status Date / Time No Known Allergies Allergy Verified 04/17/23 19:00 Social History Smoking Status: Never smoker ROS ROS ED ROS Narrative Left flank pain. Nausea vomiting. Review of Systems ROS Unobtainable: Denies due to encephalopathy Constitutional Constitutional ED: Denies chills or fever(s) ENT ENT ED: Denies ear pain Cardiovascular Cardiovascular: Denies chest pain Respiratory/Chest Respiratory/Chest: Denies cough or dyspnea Gastrointestinal Gastrointestinal: Reports abdominal pain, nausea and vomiting; Denies constipation, diarrhea or melena Genitourinary Genitourinary ED: Reports dysuria; Denies hematuria Musculoskeletal Musculoskeletal: Denies arthralgias or back pain Integumentary Denies abscess or Abrasions Neurologic Neurologic: Denies headache(s) Psychiatric Psychiatric: Denies anxiety Endocrine Endocrinology: Denies polydipsia Hematologic/Lymphatic Hematologic/Lymphatic: Denies easy bleeding Allergic/Immunologic Allergic/Immunologic ED: Denies mouth swelling or tongue swelling EXAM Physical Exam Narrative Exam Narrative: 32-year-old female on all fours on the bed vomiting into a bucket. No one else present in the room. H EENT exam unremarkable. Lungs clear. Heart regular rhythm rate about 60 no murmur. Abdomen soft, nondistended normal bowel sounds without peritoneal signs. Both right upper and lower quadrant unremarkable. Nodistention. Back nontender. Moving all 4 extremities. Nontender no edema. Neurologically she is awake and alert. Const Vital Signs: 04/17/23 18:58 Temperature 97.8 F Temperature Source Temporal Pulse Rate 57 L Respiratory Rate 18 Blood Pressure 152/97 H Blood Pressure Mean 115 Pulse Ox 98 Oxygen Delivery Method Room Air Positive well nourished and well developed; Negative for obese, cachectic, contractures or unkempt General Appearance ED: well developed and NAD; Negative for unkempt, cachectic, contractures or pallor Nutritional Appearance: Negative for cachectic or obese HEENT Reports moist mucous membranes; Denies dry mucous membranes normocephalic and atraumatic; Negative for trauma or tenderness Mouth ED: No dry mucous membranes Mouth: No dry mucous membranes Eyes PERRL and EOMs intact bilaterally General Eye ED: Negative for pale conjunctiva, scleral icterus or other Neck no lymphadenopathy, supple and no JVD General: Negative for tenderness Carotids: Negative for other Resp normal respiratory effort and clear to auscultation bilaterally Effort and Inspection: Negative for respiratory distress Auscultation: Negative for rales, rhonchi or wheezes Cardio regular rhythm, S1 normal heart sound, S2 normal heart sound and no murmurs Rate: Negative for bradycardia or tachycardic Rhythm: Negative for abnormal rhythm GI non-tender, non-distended and no masses Inspection: Negative for abdominal distention Auscultation: normoactive bowel sounds Palpation: soft; Negative for tender, guarding, rigid, hepatomegaly, splenomegaly, hernia, mass, pulsatile mass or rebound tenderness present Back/Spine no CVA tenderness Cervical Spine: Negative for cervical spine tenderness Thoracic Spine / Upper Back: Negative for thoracic spinal tenderness Lumbar Spine / Lower Back: Negative for lumbar spinal tenderness Coccyx: Negative for other Extremity full ROM General Extremety ED: Negative for edema or tenderness General Extremity: Negative for edema Neuro CN's II-XII intact bilaterally, moves all extremities and no sensory deficits noted Sensorium / Orientation: alert, oriented to person, oriented to place and oriented to time; Negative for orientation impaired, confused, lethargic or stuporous Motor Exam: strength 5/5 throughout Psych mental status grossly normal and thought process normal Appearance: Negative for unkempt Attitude: No agitated Mood & Affect: Negative for depressed, anxious or tearful Skin no wounds General Skin Exam: Negative for jaundice or pallor Lesions: no lesions Rashes: no rashes Trauma: Negative for abrasion Nails: Negative for discolored MDM MDM MDM Narrative Medical decision making narrative: 32-year-old with left flank pain nausea and vomiting. History of prior kidney stones. Differential would include kidney stone, musculoskeletal flank pain, UTI versus other etiologies. Her gallbladder has been removed. Unlikely she is with a prior tubal ligation. CAT scan labs are being obtained. She will be treated with IV fluids, Zofran for nausea morphine for pain. Repeat exam patient is doing well at 11:25 PM. Patient's IV blew. She had about 700 cc of the fluid. He is given a second dose of Zofran p.o. Repeat exam her abdomen is completely nontender. She is in no distress. Clinically looks better. We went over her test results. I do not have a specific cause ofher flank pain. She will be discharged home with oral Zofran. Outpatient follow-up. Return if worse. History & Record Review Discussion w/independent historian: Patient Lab Data Attestation: I reviewed the patient's lab results. Lab results narrative: CBC shows a white count of 14.7. H&H 14.7 and 43. Electrolytes show a gap of 8normal BUN and creatinine 11 and 0.8. Liver enzymes are unremarkable. Lipase is slightly elevated 94. Serum test negative. Urinalysis is negative. No white or red cells. No nitrates. No bacteria. CT flank study without contrast showed no acute abnormality. No reason for her pain. Labs: Laboratory Results - last 24 hr 04/17/23 04/17/23 04/17/23 19:30 19:30 19:30 WBC 14.7 H RBC 4.99 Hgb 14.7 Hct 43.6 MCV 87.4 MCH 29.5 MCHC 33.7 RDW Std Deviation 47.9 H RDW Coeff of Gregoria 14.8 H Plt Count 369 MPV 9.8 Immature Gran % (Auto) 0.300 Neut % (Auto) 76.2 H Lymph % (Auto) 17.0 L [place] % (Auto) 5.7 Eos % (Auto) 0.5 Baso % (Auto) 0.3 Absolute Neuts (auto) 11.2 H Absolute Lymphs (auto) 2.50 Nucleated RBC % 0 Sodium 140 Potassium 3.6 Chloride 106 Carbon Dioxide 26.0 Anion Gap 8 BUN 11 Creatinine 0.89 Estim Creat Clear Calc 85.74 Est GFR (MDRD) Af Amer 95 Est GFR (MDRD) Non-Af 79 BUN/Creatinine Ratio 12.4 Glucose 115 H Calcium 9.7 Total Bilirubin 0.50 AST 38 H ALT 54 Alkaline Phosphatase 43 L Total Protein 8.3 H Albumin 4.2 Globulin 4.1 Albumin/Globulin Ratio 1.0 Lipase 94 H Serum , Qual NEGATIVE Urine Color Urine Clarity Urine pH Ur Specific [place] Urine Protein Urine Glucose (UA) Urine Ketones Urine Occult Blood Urine Nitrite Urine Bilirubin Urine Urobilinogen Ur Leukocyte Esterase Urine RBC Urine WBC Ur Squamous Epith Cells Calcium Oxalate Crystal Urine Bacteria Urine Mucus 04/17/23 20:30 WBC RBC Hgb Hct MCV MCH MCHC RDW Std Deviation RDW Coeff of Gregoria Plt Count MPV Immature Gran % (Auto) Neut % (Auto) Lymph % (Auto) [place] % (Auto) Eos % (Auto) Baso % (Auto) Absolute Neuts (auto) Absolute Lymphs (auto) Nucleated RBC % Sodium Potassium Chloride Carbon Dioxide Anion Gap BUN Creatinine Estim Creat Clear Calc Est GFR (MDRD) Af Amer Est GFR (MDRD) Non-Af BUN/Creatinine Ratio Glucose Calcium Total Bilirubin AST ALT Alkaline Phosphatase Total Protein Albumin Globulin Albumin/Globulin Ratio Lipase Serum , Qual Urine Color Yellow Urine Clarity Clear Urine pH 6.0 Ur Specific [place] 1.030 Urine Protein 30 H Urine Glucose (UA) Normal Urine Ketones 150 A* Urine Occult Blood 25 H Urine Nitrite Negative Urine Bilirubin 1 H Urine Urobilinogen 1 H Ur Leukocyte Esterase 25 H Urine RBC 0 SEEN Urine WBC 0-5 SEEN Ur Squamous Epith Cells 0-5 SEEN Calcium Oxalate Crystal 1+ Urine Bacteria 0 SEEN Urine Mucus 1+ Radiography Diagnostic Testing: Clinical Impression(s) from Imaging Studies Abdomen/Pelvis CT 04/17/23 19:11 IMPRESSION: No hydronephrosis or urinary tract calcifications. Electronically Signed: Jero Henderson (Brooks), at 20:43 EDT Reading Location ID and State: [address] [place] [address] , Service support , Discharge Plan Triage Chief Complaint: Nausea/Vomiting ED Provider: Tio Brock Dx/Rx/DC Orders Clinical Impression: Left flank pain, Vomiting, Hx of renal calculi Instructions: Abdominal Pain, ED Vomiting (Adult) Prescriptions: New ondansetron 4 mg tablet,disintegrating 4 mg PO Q6H PRN (Reason: nausea and vomiting) Qty: 10 0RF No Action Medical Marijuana naproxen 500 MG tablet 500 mg PO BID PRN Qty: 20 0RF ondansetron 4 MG tablet 4 mg PO Q8H PRN PRN (Reason: Nausea) Qty: 10 0RF dicyclomine 10 MG capsule 1 - 2 cap PO Q6H PRN (Reason: pain) Qty: 20 0RF ondansetron 4 MG tablet 8 mg PO Q8H PRN PRN (Reason: Nausea) Qty: 20 0RF Primary Care Provider: Care Physician,No Primary Referrals: Milton Hammond MD [Non-Staff] - 3-5 Days if not improving Care Physician,No Primary [Primary Care Provider] - Activity Restrictions/Additional Instructions: Plenty of fluids and rest. Slowly increase your diet as tolerated. Zofran as needed for nausea which you may swallow or let dissolve under your tongue. Follow-up with a local primary care physician if not improving or return if worse. Your labs and CAT scan tonight were basically unremarkable. Disposition Disposition: Home, Self Care What to do if you have Problems For any increased pain, shortness of breath, bleeding, nausea or vomiting, chestpain, or any unexpected problems, contact your Primary Care Provider. Call [facility] ([phone]) or report to the closest Emergency Room. Call 911 if necessary. 04/17/23 2333 <Electronically signed by Tio Brock MD> Cosigner Signature (if applicable): CC: No Primary Care Physician ~ Signed [facility] Work Phone: Discharge summary Author Kira Castillo [facility] Note Date/Time July 26, 2025 9:11am [facility] Medical Records Department [address] [place] [address] Instructions for Home/Discharge Instructions 07/26/25 0910 MR#: [id number] Acct: [id number] Name: MICHELLE DSOHI Rep #:[id number] : 1990 34 From: Kira Castillo DO PCP: [facility] St atus:ADM IN Discharge Instructions DC O2, CPAP, BIPAP needs Home O2 Discharge instructions: No Dressing / Incision Discharge Activity: May Drive and May Shower Weight Bearing Status: Weight bearing as tolerated Lifting Restrictions: none Dressing / Incision Call your doctor if you observe: Fever of 101 or Higher, Using more than 1 pad per hour, Shortness of breath, Dizziness, Chest pain and Uncontrolled pain Follow Up Care Please Follow Up With: Barbara Sims MD When: 1 week Test Results: Test results from this visit will be discussed in further detail at your follow- up appointment, if applicable. Discharge Plan Admission Admit Date/Time: 07/25/25 11:42 Attending Provider: Barbara Sims Primary Care Provider: [facility] Discharge Orders/Prescriptions Prescriptions: New ferrous sulfate 325 mg (65 mg iron) tablet 325 mg PO QODAY Qty: 90 0RF ibuprofen 600 mg tablet 600 mg PO Q6H PRN (Reason: pain) Qty: 20 0RF acetaminophen [Pain Relief (acetaminophen)] 325 mg tablet 650 mg PO Q6H PRN (Reason: pain) Qty: 20 0RF ciprofloxacin HCl [Cipro] 500 mg tablet 500 mg PO BID 7 Days Qty: 14 0RF medroxyprogesterone [Provera] 10 mg tablet 20 mg PO DAILY Qty: 60 0RF Rx Instructions: Take 20 mg PO TID until bleeding slows down. Then take 10 mg PO once daily until follow up in the office Continued ondansetron 4 MG tablet 4 mg PO Q8H PRN PRN (Reason: Nausea) Qty: 10 0RF sertraline 50 mg tablet 50 mg PO DAILY dextroamphetamine-amphetamine 20 mg tablet 0.5 tab PO BID metoclopramide HCl [Reglan] 10 mg tablet 10 mg PO Q6H PRN (Reason: nausea and vomiting) Qty: 10 0RF Referrals / Follow Up: [facility] [Primary [facility]] - Disposition Disposition (needs filled in before D/C Order can be placed): Home, Self Care 07/26/25 0911<Electronically signed by Kira Castillo DO>Kira Castillo DO CC: [facility] ~ Signed [facility] Work Phone: Evaluation noteNo assessment information available [facility] Work Phone: Hospital Discharge instructions Additional Instructions Plenty of fluids and rest. Slowly increase your diet as tolerated. Zofran as needed for nausea which you may swallow or let dissolve under your tongue. Follow-up with a local primary care physician if not improving or return if worse. Your labs and CAT scan tonight were basically unremarkable.[facility] Work Phone: Hospital Discharge instructions Additional Instructions Plenty of fluids and rest. If you have intractable vomiting return. Zofran as needed for nausea. Motrin and Tylenol for pain. Your last urinalysis looked infected and may have been contaminated. The urine culture was negative and did not grow out any bacteria. Finish your current antibiotic. Follow-up if not improving or return to the ER if worse.[facility] Work Phone: Progress note Author Barbara Sims [facility] Note Date/Time July 25, 2025 7:38am [facility] Medical Records Department [address] [place] [address] Progress Note - OBGYN 07/25/25 0734 MR#: [id number] Acct: [id number] Name: MICHELLE DOSHI Rep #:[id number] : 1990 34 From: Barbara Sims MD PCP: [facility] atus:ADM [place] Location: MS3 [id number] Subjective Subjective Feeling better today. Pain better controlled. Still has pain with voiding. S/p 2units PRBCs. H/H at 0915. Last fever 1999 last night. Antibiotics q 12. Objective Data Objective Data Vital Signs: Vital Signs Temp Pulse Resp BP Pulse Ox O2 Del Method 98.2 F 81 17 127/78 H 97 Room Air 07/25/25 05:12 07/25/25 05:12 07/25/25 05:12 07/25/25 05:12 07/25/25 05:12 07/25/25 05:12 Oxygen Delivery Method Room Air Weight: 64.728 kg Body Mass Index (BMI) 24.5 Intake & Output: Intake and Output for Last 24 Hours 07/23/25 07/24/25 07/25/25 23:59 23:59 23:59 Intake Total 1065.25 / 1440.25 1375 / 1375 Output Total 100 / 100 Balance 965.25 / 1340.25 1375 / 1375 Lab / Micro Data 07/24/25 21:59 07/24/25 21:59 Labs: Laboratory Results - last 24 hr 07/24/25 12:36: WBC 7.9, RBC 3.85 L, Hgb 6.8 L, Hct 24.6 L, MCV 63.9 L, MCH 17.7L, MCHC 27.6 L, RDW Std Deviation 39.2, RDW Coeff of Gregoria 17.4 H, Plt Count 484 H, MPV 8.4, Immature Gran % (Auto) 0.300, Neut % (Auto) 83.9 H, Lymph % (Auto) 3.4 L, [place] % (Auto) 10.2 H, Eos % (Auto) 1.4, Baso % (Auto) 0.8, Absolute Neuts(auto) 6.6, Absolute Lymphs (auto) 0.27 L, Nucleated RBC % 0, Sodium 135, Potassium 4.7, Chloride 100, Carbon Dioxide 24.5, Anion Gap 10, BUN 15, Creatinine 0.65 L, Estim Creat Clear Calc 110.77, Est GFR (MDRD) Non-Af 119, BUN/Creatinine Ratio 22.6 H, Glucose 91, Calcium 9.3, Iron 18 L, TIBC 637 H, IronSaturation 2.8 L, Unsaturated IBC 619 H, Ferritin 5 L, Total Bilirubin 0.19, AST64 H, ALT 61 H, Alkaline Phosphatase 39, Total Protein 7.5, Albumin 4.4, Globulin 3.1, Albumin/Globulin Ratio 1.4, Serum , Qual NEGATIVE 07/24/25 14:39: Lactic Acid 1.5 07/24/25 15:20: Urine Color Straw, Urine Clarity Sl. Cloudy, Urine pH 7.0, Ur Specific [place] 1.010, Urine Protein 15 H, Urine Glucose (UA) Normal, Urine Ketones Negative, Urine Occult Blood Negative, Urine Nitrite Negative, Urine Bilirubin Negative, Urine Urobilinogen Normal, Ur Leukocyte Esterase Negative, Urine RBC 0 SEEN, Urine WBC 0-5 SEEN, Ur Squamous Epith Cells 0-5 SEEN, Calcium Oxalate Crystal 1+, Urine Bacteria 0 SEEN, Urine Mucus 0 SEEN 07/24/25 17:06: Hgb 5.5 L*, Hct 19.6 L 07/24/25 18:16: Blood Type A POSITIVE, Antibody Screen NEGATIVE, Crossmatch See Detail 07/24/25 21:59: WBC 7.4, RBC 3.54 L, Hgb 6.3 L, Hct 22.6 L, MCV 63.8 L, MCH 17.8L, MCHC 27.9 L, RDW Std Deviation 39.8, RDW Coeff of Gregoria 17.5 H, Plt Count 428, MPV 8.7, Immature Gran % (Auto) 0.400, Neut % (Auto) 66.7, Lymph % (Auto) 15.0 L, [place] % (Auto) 15.5 H, Eos % (Auto) 2.0, Baso % (Auto) 0.4, Absolute Neuts (auto) 5.0, Absolute Lymphs (auto) 1.11, Nucleated RBC % 0, Sodium 136, Potassium 3.6, Chloride 101, Carbon Dioxide 23.5, Anion Gap 12, BUN 11, Creatinine 0.82, Estim Creat Clear Calc 84.26, Est GFR (MDRD) Non-Af 97, BUN/Creatinine Ratio 13.6, Glucose 128 H, Calcium 8.9, Total Bilirubin < 0.15, AST 62 H, ALT 57 H, Alkaline Phosphatase 38, Total Protein 6.7, Albumin 3.9, Globulin 2.8, Albumin/Globulin Ratio 1.4 07/25/25 02:40: Urine Color Yellow, Urine Clarity Sl. Cloudy, Urine pH 6.0, Ur Specific [place] 1.020, Urine Protein 15 H, Urine Glucose (UA) Normal, Urine Ketones Negative, Urine Occult Blood Negative, Urine Nitrite Negative, Urine Bilirubin Negative, Urine Urobilinogen Normal, Ur Leukocyte Esterase Negative, Urine RBC 0 SEEN, Urine WBC 0-5 SEEN, Ur Squamous Epith Cells 10-25 SEEN, Urine Bacteria 3+, Urine Mucus 0 SEEN Radiography Diagnostic Testing: Radiology Impression Abdomen/Pelvis CT 07/24/25 14:20 IMPRESSION: Distended urinary bladder. 2.9 cm 2.7 cm complex cyst in the right ovary. Reading Location: [facility] Transvaginal US 07/24/25 15:23 IMPRESSION: Small 2.4 cm probable hemorrhagic right ovarian cyst; no follow-up indicated. Reading Location: [facility] Constitutional Constitutional: Denies headache(s) Cardiovascular Cardiovascular: Denies chest pain or dyspnea Gastrointestinal Gastrointestinal: Denies nausea or vomiting Physical Exam Const alert, oriented x3 and no apparent distress General Appearance: cooperative and comfortable Resp normal respiratory effort GI Palpation: tender suprapubic Skin no rashes or lesions noted Neuro oriented x3 and CN's II-XII intact bilaterally Psych mental status grossly normal Assessment & Plan (1) Hemorrhagic cyst of right ovary: (2) Iron deficiency anemia: QUALIFIERS: Iron deficiency anemia type: unspecified iron deficiency Qualified Code(s): D50.9 - Iron deficiency anemia, unspecified (3) RLQ abdominal pain: (4) Fever: QUALIFIERS: Fever type: unspecified Qualified Code(s): R50.9 - Fever, unspecified PLAN: Plan Plan to continue antibiotics. Afebrile 24 hours before discharge H/H at 0915 Pain management 07/25/25 0738 <Electronically signed by Barbara Sims MD> Cosigner Signature (if applicable): CC: ~ Signed [facility] Work Phone: Reason for referral (narrative)No reason for referral information availableWMercy [facility] Work Phone: Summary Purpose Family History No Family History Records Found Grandmother Name Dates Details Family history of Anxiety(30 0.00, F41.9) Status:Active Family history of asthma(V17 .5, Z82.5) Status:Active Family history of depression (V17.0, Z81.8) Status:Active Family history of diabetes m ellitus(V18.0, Z83.3) Status:Active Family history of Reflux gas tritis(535.40, K29.60) Status:Active Grandfather Name Dates Details Family history of hypertensi on(V17.49, Z82.49) Status:Active Grandmother Name Dates Details Family history of hypertensi on(V17.49, Z82.49) Status:Active Family history of glaucoma(V 19.11, Z83.511) Status:Active Family history of thyroid di sease(V18.19, Z83.49) Status:Active Sister Name Dates Details Family history of Reflux gas tritis(535.40, K29.60) Status:Active Family history of kidney sto bruna(V18.69, Z84.1) Status:Active Grandfather Name Dates Details Family history of hypertensi on(V17.49, Z82.49) Status:Active Advance Directives No Advanced Directives Records Found Advance Directive Response Recorded Date/ Time Living Will No December 31, 10:33am Power of Skein Bleacher No December 31, 2020 10:33am Advance Directive Response Recorded Date/ Time Living Will No April 17, 2023 7 :23pm Power of Skein Bleacher No April 17, 2023 7:23pm Advance Directive Response Recorded Date/ Time Living Will No April 19, 2023 1 2:56pm Power of Skein Bleacher No April 19, 2023 12:56pm Advance Directive Response Recorded Date/ Time Living Will No July 07 8:02am Power of Skein Bleacher No July 07 8:02am Advance Directive Response Recorded Date/ Time Living Will No February 08, 2024 10:20am Power of Skein Bleacher No February 07 10:20am Advance Directive Response Recorded Date/ Time Living Will No February 16, 2024 4:23pm Power of Skein Bleacher No February 15 4:23pm Advance Directive Response Recorded Date/ Time Living Will No March 14, 2024 5:09pm Power of Skein Bleacher No March 14 5:09pm Advance Directive Response Recorded Date/ Time Do you have a Healthcare Power of Skein Bleacher? No July 24, 2025 2:16pm Advance Directive Response Recorded Date/ Time Do you have a Healthcare Power of Skein Bleacher? No July 24, 2025 6:33pm Advance Directive Response Recorded Date/ Time Do you have a Healthcare Power of Skein Bleacher? No July 24, 2025 6:33pm Do you have a Healthcare Power of Skein Bleacher? No July 27, 2025 3:48pm Hospital Course Note Send Summary: Note Recipient s: Discharge: Summary: Admission Date: .12-Jun-2020 07:36:00 Discharge Date: 14-Jun-2020 Attending Physician at Discharge: Gregorio Moe Admission Reason: Induction of labor for IUGr Final Discharge Diagnoses: Chronic hepatitis C virus infection, Encounter for female sterilization procedure, Intrauterine growth restriction affecting antepartum care of mother, single or unspecified fetus, Normal vaginal delivery, Procedures: Date: 13-Jun-2020 11:52:00 Procedure Name: bilateral tubal ligation Condition at Discharge: Satisfactory Disposition at Discharge: .Home Vital Signs: T PRBPSpO2 [id number]% Date/Time06/14 8: 8: 8: 8: 8:04 Range(36C - 36.9C ) (64 - 89 ) (16 - 20 ) (100 - 128 )/ (62 - 81 ) (92% - 98% ) Highest temp of 36.9 C was recorded at 06/13 14:33 Hospital Course: Provider: Lefty Ross DOA: 06/12/2020 Pt is a 29 year old @ 37w6d GA by 13.4wk u/s who presents to L&D for induction of labor for IUGR. Pt reports g (more content not included)... Note Provider Information: Matern al Delivery Information: Delivery Type: vaginal delivery Did this pt receive corticosteroids at any time during this : No Was chorioamnionitis diagnosed during this labor: no What antibiotic(s) were administered during labor and/or pre-incision: none Did this patient receive progesterone in any form to prevent premature delivery: no Rupture of Membranes: artificial Spontaneous Labor: no Induction or Scheduled : induction Is patient at delivery >/= to 37 to < 39 completed weeks of gestation: yes Indication for Delivery: indication, IUGR Vaginal Delivery Type: spontaneous Vaginal Delivery Complications: none Delivery Anesthesia: epidural Presentation: vertex Vertex Presentation: Right: occiput anterior Episiotomy & Repair: none Perineal Laceration: none Other Laceration: none Laceration Repair: no Abrasion: periurethral QBL (mL): 100 mL Blood Products Transfused during Delivery (indicate number of units given): none Placenta: (more content not included)... Note Post Operative Note: PreOp D iagnosis: desire for permanent contraception Post-Procedure Diagnosis: same Procedure: bilateral tubal ligation Surgeon: James Moe Resident/Fellow/Other Food General Manager: Bhumi Paulino Anesthesia: epidural I.V. Fluids: 700 Estimated Blood Loss (mL): 5 Blood Replacement: none Specimen: yes. no. portion of R and L fallopian tube Complications: none Findings: Normal-appearing fallopian tubes and ovaries bilaterally Urine Output: 450 Drains and/or Catheters: none Tourniquet Times: none Implants: none Operative Report Dictated: Dictation: not applicable - note contains Operative Report Operative Report: Pt was taken to the OR where combined epidural anesthesia was administered. She was then placed in the dorsal supine position. A dudley catheter was placed. A pre-procedure time out was performed. She was then prepped and draped in the usual sterile fashion. A skin incision was made with the scalpel through the base of the umbilicus through the subcutaneous fat to the (more content not included)... Procedure Findings Note Provider Information: Matern al Delivery Information: Delivery Type: vaginal delivery Did this pt receive corticosteroids at any time during this : No Was chorioamnionitis diagnosed during this labor: no What antibiotic(s) were administered during labor and/or pre-incision: none Did this patient receive progesterone in any form to prevent premature delivery: no Rupture of Membranes: artificial Spontaneous Labor: no Induction or Scheduled : induction Is patient at delivery >/= to 37 to < 39 completed weeks of gestation: yes Indication for Delivery: indication, IUGR Vaginal Delivery Type: spontaneous Vaginal Delivery Complications: none Delivery Anesthesia: epidural Presentation: vertex Vertex Presentation: Right: occiput anterior Episiotomy & Repair: none Perineal Laceration: none Other Laceration: none Laceration Repair: no Abrasion: periurethral QBL (mL): 100 mL Blood Products Transfused during Delivery (indicate number of units given): none Placenta: (more content not included)... Note Post Operative Note: PreOp D iagnosis: desire for permanent contraception Post-Procedure Diagnosis: same Procedure: bilateral tubal ligation Surgeon: James Moe Resident/Fellow/Other Food General Manager: Bhumi Mckeon/Angelic Paulino Anesthesia: epidural I.V. Fluids: 700 Estimated Blood Loss (mL): 5 Blood Replacement: none Specimen: yes. no. portion of R and L fallopian tube Complications: none Findings: Normal-appearing fallopian tubes and ovaries bilaterally Urine Output: 450 Drains and/or Catheters: none Tourniquet Times: none Implants: none Operative Report Dictated: Dictation: not applicable - note contains Operative Report Operative Report: Pt was taken to the OR where combined epidural anesthesia was administered. She was then placed in the dorsal supine position. A dudley catheter was placed. A pre-procedure time out was performed. She was then prepped and draped in the usual sterile fashion. A skin incision was made with the scalpel through the base of the umbilicus through the subcutaneous fat to the (more content not included)... Chief Complaint and Reason for Visit Chief Complaint flank pain Chief Complaint flank pain nausea, vomiting, kidney stone Chief Complaint flank pain nausea, vomiting, kidney stone ABD PAIN Chief Complaint nausea, vomiting, ki dney stone ABD PAIN left flank Chief Complaint FLANK PAIN Chief Complaint FLANK PAIN kidney infection Chief Complaint FLANK PAIN kidney infection n/v Chief Complaint Admit Date ANEMIA, HEMORRHAGIC CYSTS July 24, 2025 6:19pm Chief Complaint Admit Date flank pain July 24, 2025 11:58am Chief Complaint Admit Date ANEMIA, HEMORRHAGIC CYSTS July 11:42am Reason for Visit Admit Date Anemia July 25, 2025 11:42am Fever July 25, 2025 11:42am Hemorrhagic cyst of right ovary Septembe r 2024 11:42am Iron deficiency anemia July 25, 025 11:42am Menorrhagia July 25, 2025 11:42am RLQ abdominal pain July 25, 2025 11:42am Kidney stones July 25, 2025 11:42am Chief Complaint Admit Date ANEMIA, HEMORRHAGIC CYSTS July 11:42am general illness July 27, 2025 2:51pm Additional Source Comments INFORMATION SOURCE (unrecogn ized section and content) DATE CREATED AUTHOR 09/13/2018 [facility] DATE CREATED AUTHOR AUTHOR'S ORGANIZ ATION 06/14/2020 [employer] DATE CREATED AUTHOR AUTHOR'S ORGANIZ ATION 06/20/2020 [facility] DATE CREATED AUTHOR AUTHOR'S ORGANIZ ATION 08/02/2025 [facility] Care Teams (unrecognized sec tion and content) Team Status: Active Member Role Status Dates No Primary Care Physician Primary Care Provider Active Team Status: Inactive Member Role Status Dates No Primary Care Physician Primary Care Provider Active Ed Physician Provider Emergency Provider Active Team Status: Inactive Member Role Status Dates No Primary Care Physician Primary Care Provider Active Ed Physician Provider Attending Provider, Emergency Pr ovidxu Active Team Status: Inactive Member Role Status Dates No Primary Care Physician Primary Care Provider Active Dr. Tio Brock MD Emergency Provider Active Team Status: Inactive Member Role Status Dates No Primary Care Physician Primary Care Provider Active Dr. Richard Palmer DO Emergency Provider Active Team Status: Inactive Member Role Status Dates No Primary Care Physician Primary Care Provider Active Dr. Tio Brock MD Attending Provider, Emergency Pro vider Active Team Status: Inactive Member Role Status Dates No Primary Care Physician Primary Care Provider Active Dr. Richard Palmer DO Attending Provider, Emergency P rovider Active Team Status: Active Member Role Status Dates [facility] Primary Care Provider A ctive Team Status: Inactive Member Role Status Dates [facility] Primary Care Provider A ctive Dr. Melvin Stinson DO Emergency Provider Active Team Status: Inactive Member Role Status Dates [facility] Primary Care Provider A ctive Dr. Melvin Stinson DO Attending Provider, Emergency Pro vider Active Team Status: Inactive Member Role Status Dates [facility] Primary Care Provider A ctive Dr. Tio Brock MD Emergency Provider Active Team Status: Inactive Member Role Status Dates [facility] Primary Care Provider A ctive Dr. Haroldo Galarza DO Emergency Provider Active Team Status: Inactive Member Role Status Dates [facility] Primary Care Provider A ctive Dr. Tio Brock MD Attending Provider, Emergency Pro vider Active Team Status: Active Member Role/Relationship Status Dates [facility] Primary Care Provider A ctive Team Status: Active Member Role/Relationship Status Dates [facility] Primary Care Provider Active Start: July 242024 Dr. Karissa Joaquin DO Emergency Provider Active Start: July 24, 2025 Dr. Barbara Sims MD Admit Provider Active S tart: July 24, 2025 Dr. Barbara Sims MD Attending Provider Active Start: July 24, 2025 Team Status: Inactive Member Role/Relationship Status Dates [facility] Primary Care Provider Active Start: July 242024 End: July 24, 2025 Dr. Karissa Joaquin DO Emergency Provider Active Start: July 24, 2025 End: July 24, 2025 Team Status: Inactive Member Role/Relationship Status Dates [facility] Primary Care Provider Active Start: July 162024 End: July 26, 2025 Dr. Karissa Joaquin DO Emergency Provider Active Start: July 25, 2025 End: July 26, 2025 Dr. Barbara Sims MD Admit Provider Active S tart: July 25, 2025 End: July 26, 2025 Dr. Barbara Sims MD Attending Provider Active Start: July 25, 2025 End: July 26, 2025 Team Status: Active Member Role/Relationship Status Dates Beth MIRANDA, SMT OPERATOR-C Primary Care Provider Activ e Team Status: Inactive Member Role/Relationship Status Dates Dr. Richard Palmer DO Emergency Provider Active Start: July 27, 2025 End: July 27, 2025 Beth MIRANDA, SMT OPERATOR-C Primary Care Provider Activ e Start: July 27, 2025 End: July 27, 2025 Goals (unrecognized section and content) Goals may be documented in a n alternate sectionGoals may be documented in an alternate sectionGoals may be documented in an alternate sectionGoals may be documented in an alternate sectionGoals may be documented in an alternate sectionGoals may be documented in an alternate sectionGoals may be documented in an alternate sectionGoals may be documented in an alternate section FOR RECORDS PERTAINING TO PATIENTS WHO ARE OR HAVE BEEN ENROLLED IN A CHEMICAL DEPENDENCY/SUBSTANCEABUSE PROGRAM, SOME INFORMATION MAY BE OMITTED. This clinical summary was aggregated from multiple sources. Caution should be exercised in using it in the provision of clinical care. This summary normalizes information from multiple sources, and as a consequence, information in this document may materially change the coding, format and clinical context of patient data. In addition, data may be omitted in some cases. CLINICAL DECISIONS SHOULD BE BASED ON THE PRIMARY CLINICAL RECORDS. [facility]. provides no warranty or guarantee of the accuracy or completeness of information in this document.
[2025-08-29 22:38] LABS: Mucous, Urine 0 SEEN /hpf (<or=2+); Red Blood Cells-Urine 0 SEEN /hpf (0-5)
[2025-08-29 22:41] LABS: Color, Urine Yellow (Yellow); Glucose, Dipstick Normal (Normal); Ketone-Dipstick 50 mg/dl (Negative); Leukocyte Esterase-Dipstick 500 /ul (Negative); Nitrite-Dipstick Negative (Negative); Occult Blood-Urine 10 /ul (Negative); Protein-Dipstick 100 mg/dl (Negative); Specific Gravity, Urine 1.025 (1.002-1.030)
[2025-08-29] MEDS: 0.9% Normal Saline (1000mL) 1,000 ML 1000 ML IV (22:44)
[2025-08-29 22:47] LABS: Hematocrit 32.6 % (37-47); Hemoglobin 9.8 g/dL (12.0-15.0); Immature Granulocytes Count 0.020 X10^3/uL (0.0-0.0); Mean Corp Hgb Conc 30.1 g/dL (32-36); Mean Corpuscular Volume 70.3 fL (81-99); Mean Platelet Vol. 9.0 fl (6.2-12.0); NRBC Flagged by Analyzer 0 % (0-5); POSITIVE MORPHOLOGY YES; Platelet Count 295 K/mm3 (150-450); RBC Distribution Width CV 25.2 % (11.6-14.6); RBC Distribution Width SD 61.3 fl (35.1-43.9); Red Blood Count 4.64 M/mm3 (4.2-5.4); White Blood Count 9.4 K/mm3 (4.4-11.0)
[2025-08-29 22:49] LABS: Urine Bilirubin Dipstick 1 mg/dL (Negative)
[2025-08-29 22:55] LABS: Differential Indicated SCAN CRITERIA MET
[2025-08-29 22:59] LABS: Squamous Epithelial Cells - UA 10-25 SEEN /hpf (5-10)
[2025-08-29 23:01] LABS: Calcium Oxalate Crystals Ur 3+ /hpf (<or=2+)
[2025-08-29 23:08] LABS: Internal QC Validated? YES +Cl - CLEAR BKGD; Pregnancy, Serum, hCG Quali. NEGATIVE Negative; Record Kit Lot#, Serum Preg. 980607
[2025-08-29 23:15] LABS: Anion Gap 11 (5-15); BUN 16 mg/dL (4-19); BUN/Creat Ratio 20.9 RATIO (10-20); Calcium,Total 9.3 mg/dL (7.6-11.0); Carbon Dioxide 22.0 mmol/L (21.0-32.0); Chloride 100 mmol/L (98-108); Estimated Creatinine Clearance 89.74 ml/min (50-250); Glucose 100 mg/dL (70-99); Potassium 3.5 mmol/L (3.3-5.1)
[2025-08-29 23:54] VITALS: BP 118/74; PULSE 91; RESP 16; O2SAT 99
[2025-08-30 00:05] LABS: Acanthocytes RARE; Anisocytosis 2+; Differential Comment SCANNED; Microcytosis 2+
[2025-08-30 00:06] LABS: Schistocytes RARE; Target Cells 1+; Tear Drop Cell RARE
[2025-08-30 01:00] VITALS: BP 114/78; PULSE 70; RESP 16
--- NOTE | 2025-08-30 01:20 | US_ITS ---
PROCEDURE: TRANSVAGINAL NON- 08/30/2025 REASON FOR EXAM: RLQ PAIN, ENLARGING OVARIAN CYST TECHNIQUE: Procedure Code: USTVAG Modality: US Procedure: TRANSVAGINAL NON- COMPARISON: 07/24/2025. FINDINGS: The uterus measures 8.8 x 4.9 x 3.8 cm. The endometrium is normal in thickness measuring 9 mm. The right ovary measures 4.7 x 4.2 x 4 cm. Right ovarian complex cyst measuring 3.8 x 3.4 x 3.5 cm, probably hemorrhagic cyst versus endometrioma. Follow-up exam on elective basis is suggested. Normal right ovarian flow without evidence of ovarian torsion. Normal left ovary measuring 3.6 x 2.7 x 2.4 cm. Normal left ovarian flow. Mild amount of free fluid in the pelvic cul-de-sac. US/Transvaginal Non- IMPRESSION: Right ovarian complex cyst measuring 3.8 cm, probably hemorrhagic cyst versus e ndometrioma. Mild amount of free fluid in the pelvic cul-de-sac. Normal bilateral ovarian flow without evidence of ovarian torsion. Reading Location[facility]
[2025-08-30 02:51] VITALS: BP 112/74; PULSE 87; RESP 18; O2SAT 100
[2025-08-30 04:00] VITALS: RESP 16
[2025-08-30 04:35] VITALS: BP 112/74; PULSE 70; RESP 16; TEMP 36.6; O2SAT 98
== END 2025-08-30 04:36 | disposition home or self-care (01) ==
PROVIDERS: Emergency Provider Emergency Medicine; PCP Nurse Practitioner Family; Visit Provider Emergency Medicine
DX: R10.31 Right lower quadrant pain (principal); A08.4 Viral intestinal infection, unspecified; Z98.51 Tubal ligation status; Z90.49 Acquired absence of other specified parts of digestive tract; N83.201 Unspecified ovarian cyst, right side
CPT/HCPCS: 74176; 76830; 80048; 81001; 84703; 85025; 93976; 96361; 96374; 96375; 96376; 99283; A4216; J2405